=== PATIENT | male | born 1960 | race Caucasian/White ===

== ENCOUNTER → 2018-05-21 | Outpatient (CLI) | payer MEDICARE, MEDICAID ==
[~2018-05-21] MED LIST: DIAZ10TA3 PO; DIVA250T2 PO; LORA10TA7 PO; PRX10T PO; RSP2T PO; SENN1TAB76 PO
--- NOTE | 2018-05-21 12:37 | Diagnostic Imaging Report ---
PROCEDURE: CT head without contrast. TECHNIQUE: Multiple contiguous axial images were obtained through the brain without the use of intravenous contrast. INDICATION: Balance problems and dizziness. No prior studies are available for comparison. Ventricles and sulci are somewhat prominent for the patient's age suggestive of cerebral volume loss. No sulcal effacement is seen. There is no midline shift. No acute intra-axial or extra-axial hemorrhage is detected. Cisterns are patent. Visualized paranasal sinuses are clear. IMPRESSION: Cerebral atrophy. No acute intracranial process is detected. Dictated by: Dictated on workstation # [id number]
== END ==
LOC: RAD 11:30
PROVIDERS: ATTEND Family Medicine
DX: G31.89 Other specified degenerative diseases of nervous system (principal); W19.XXXA Unspecified fall, initial encounter; R26.81 Unsteadiness on feet
CPT/HCPCS: 70450

== ENCOUNTER → 2018-09-09 | Outpatient (CLI) | payer MEDICARE, MEDICAID ==
[2018-09-09 09:43] LABS: BASOPHILS % (AUTO) 0 % (0-10); EOSINOPHILS % (AUTO) 0 % (0-10); HEMATOCRIT 35 % (40-54); HEMOGLOBIN 11.6 G/DL (13.3-17.7); LYMPHOCYTES # (AUTO) 1.4 X 10^3 (1.0-4.0); LYMPHOCYTES % (AUTO) 12 % (12-44); MEAN CORPUSCULAR HEMOGLOBIN 28 PG (25-34); MEAN CORPUSCULAR HGB CONC 34 G/DL (32-36); MEAN CORPUSCULAR VOLUME 84 FL (80-99); MONOCYTES # (AUTO) 2.3 X 10^3 (0.0-1.0); MONOCYTES % (AUTO) 20 % (0-12); NEUTROPHILS # (AUTO) 8.1 X 10^3 (1.8-7.8); NEUTROPHILS % (AUTO) 68 % (42-75); PLATELET COUNT 493 10^3/uL (130-400); RED CELL DISTRIBUTION WIDTH 14.3 % (10.0-14.5); WHITE BLOOD COUNT 11.8 10^3/uL (4.3-11.0)
[2018-09-09 10:21] LABS: BAND NEUTROPHILS 0 %; BASOPHILS % (MANUAL) 0 %; EOSINOPHILS % (MANUAL) 0 %; LYMPHOCYTES % (MANUAL) 5 %; MONOCYTES % (MANUAL) 16 %; NEUTROPHILS % (MANUAL) 79 %; RBC MORPH NORMAL
--- NOTE | 2018-09-09 12:24 | Diagnostic Imaging Report ---
Indication: Shortness of breath PA and lateral chest There is a moderate sized right pleural effusion. Heart size and pulmonary vascularity are normal. There is a 3.5 cm opacity in the right midlung of uncertain origin. Impression: 3.5 cm density right midlung with large right pleural effusion. A mass can't be excluded further evaluation with CT chest recommended. Dictated by: Dictated on workstation # [id number]
== END ==
LOC: RAD 09:05
PROVIDERS: ATTEND Internal Medicine Critical Care Medicine
DX: J90 Pleural effusion, not elsewhere classified (principal); J98.4 Other disorders of lung; E66.9 Obesity, unspecified; G40.909 Epilepsy, unspecified, not intractable, without status epilepticus
CPT/HCPCS: 36415; 71046; 85007; 85027

== ENCOUNTER → 2018-09-23 | Outpatient (CLI) | payer MEDICARE, MEDICAID ==
--- NOTE | 2018-09-23 13:45 | Diagnostic Imaging Report ---
PROCEDURE: CT chest without contrast. TECHNIQUE: Multiple contiguous axial images were obtained through the chest without the use of intravenous contrast. Auto Exposure Controls were utilized during the CT exam to meet ALARA standards for radiation dose reduction. INDICATION: Right upper lobe mass. FINDINGS: There are no prior CT chest examinations available for comparison. The plain film examination of the chest performed on 09/09/2018 noted a poorly defined 3.5 cm density in the right mid lung. There is also atelectasis/infiltrate and fluid involving the right lung base. The mri manager film of this exam shows that there is much greater involvement of the right lung by pneumonia/atelectasis and fluid than noted on the previous exam. Furthermore, there now appears to be hydropneumothorax, with the pneumothorax component estimated to be small. Reportedly, the patient underwent thoracentesis a week ago, and this may be a sequela of that procedure. Much of the right lung is also collapsed about the right hilum. There is no clear evidence for an endobronchial lesion, but bronchoscopy would be recommended for further study. There is also a small amount of fluid in the left lung base as well as mild left lower lobe atelectasis/infiltrate. The left upper lung is relatively clear. The heart is enlarged. Coronary artery calcifications are noted. The aorta is not abnormally dilated. There is no mediastinal or hilar adenopathy, although this exam is limited in evaluation of adenopathy due to the absence of intravenous contrast. The thyroid gland is unremarkable. The sections through the upper abdomen fail to show any sign of an acute abnormality. The parasagittal images reveal that there is a 20-30% compression deformity of the left half of the superior endplate of T12. The age of this injury is indeterminate, but this could be subacute. If further imaging is desired, then MRI would be recommended. There is no acute bony abnormality noted otherwise. IMPRESSION: 1. The appearance of the chest has worsened since the prior exam as there has been an increase in the atelectasis/infiltrate and fluid involving the right lung. There is also hydropneumothorax present. There is no evidence for an obstructive neoplastic mass. Bronchoscopy would be recommended for further study. 2. There is mild left infrahilar pneumonia/atelectasis and a small left pleural effusion. There is no acute cardiopulmonary abnormality noted otherwise. 3. There is cardiomegaly and coronary artery disease. 4. The compression deformity of T12 is indeterminate in age. Recommendations as above. Dictated by: Dictated on workstation # [id number]
== END ==
LOC: RAD 10:45
PROVIDERS: ATTEND Nurse Practitioner Family
DX: J90 Pleural effusion, not elsewhere classified (principal); I25.10 Atherosclerotic heart disease of native coronary artery without angina pectoris; I51.7 Cardiomegaly; R91.8 Other nonspecific abnormal finding of lung field; M43.8X4 Other specified deforming dorsopathies, thoracic region; E66.9 Obesity, unspecified; G40.909 Epilepsy, unspecified, not intractable, without status epilepticus
CPT/HCPCS: 71250

== ENCOUNTER → 2018-09-23 | Outpatient (CLI) | payer MEDICARE, MEDICAID ==
[~2018-09-23] MED LIST changes: +DIVA250T12 PO; +LEVE500T6 PO; +LORA10CA PO; +NF-NACL1GT PO; +PARO30TA3 PO; +PRD10T PO; +RISP2TAB3 PO; +SENN-109 PO; +TR1C15 TP; +TRAZ-190 PO
== END ==
LOC: RT 09-16 09:21 → RAD 08:56
PROVIDERS: ATTEND Internal Medicine Critical Care Medicine
DX: G40.909 Epilepsy, unspecified, not intractable, without status epilepticus (principal); E66.9 Obesity, unspecified; R06.00 Dyspnea, unspecified; Z53.8 Procedure and treatment not carried out for other reasons

== ENCOUNTER → 2018-09-29 | Outpatient (CLI) | payer MEDICARE, MEDICAID ==
[~2018-09-29] MED LIST changes: -DIVA250T12 PO; -LEVE500T6 PO; -LORA10CA PO; -NF-NACL1GT PO; -PARO30TA3 PO; -PRD10T PO; -RISP2TAB3 PO; -SENN-109 PO; -TR1C15 TP; -TRAZ-190 PO
--- NOTE | 2018-09-29 15:33 | Diagnostic Imaging Report ---
INDICATION: Diminished breath sounds. EXAM: PA and lateral chest FINDINGS: There is a large right loculated hydropneumothorax. There is atelectasis in the right mid and lower lung. The left lung is clear. Heart size is normal. There is a dense area of consolidation in the right perihilar region. IMPRESSION: Increasing right hydropneumothorax since 09/09/2018. The consolidating mass in the right perihilar region is unchanged. There is increased volume loss in the right lower lung. Dictated by: Dictated on workstation # [id number]
== END ==
LOC: RAD 11:28
PROVIDERS: ATTEND Family Medicine
DX: J94.8 Other specified pleural conditions (principal); J90 Pleural effusion, not elsewhere classified; R91.8 Other nonspecific abnormal finding of lung field
CPT/HCPCS: 71046

== ENCOUNTER 2018-09-30 15:25 | Emergency (ER) | payer MEDICARE, MEDICAID ==
[~2018-09-30] VITALS: Ht 193 cm; Wt 103.4 kg
[2018-09-30 15:30] VITALS: BP 140/85
--- OUTSIDE RECORDS SUMMARY | 2018-09-30 15:31 | XMS REPORT ---
Discharge Summary 2.1 Created on: AAKASH DILL External Reference #: [id number] : 1960 Sex: Male Author Author GERALDINE GRANGER Unknown Address [address] [place], [place] [id number] Care Team Providers Care Helicopter Repairer Name Role Phone Xwatchlist HASMUKH Sotelo MD Attending RAMER MORENITA ER Erd[facility]1 JORDAN ASH DO [facility] Functional Status No Data Found Immunization Immunization Date Status Additional Notes Code Code System Td (adult), 2 Lf tetanus toxoid, preservative free, adsorbed 08/11/1998 Completed 09 CVX Td (adult), 2 Lf tetanus toxoid, preservative free, adsorbed 04/07/2005 Completed 09 CVX IG, unspecified formulation 04/09/2005 Completed 14 CVX influenza, split (incl. purified surface antigen) 2004 Completed 15 CVX influenza, split (incl. purified surface antigen) 2005 Completed 15 CVX Tdap 02/03/2016 Completed 115 CVX Tdap 10/16/2017 Completed 115 CVX Mental Status No Data Found Results VALPROIC ACID - Collect Date/Time: 06/02/2018 07:56 [facility] [employer] ID: [id number] [address] [facility] [address], [place], [place], [id number] [employer] ID: [id number] [address] [facility] [address], [place], [place], [id number] LOINC: 4086-5 Test Value Unit Reference Range Code Code System VALPROIC ACID 68 UG/ML L=50 H=100 4086-5 LOINC COMPREHENSIVE METABOLIC PANEL - Collect Date/Time: 06/02/2018 06:35 [facility] [employer] ID: [id number] [address] [facility] [address], [place], [place], [id number] [employer] ID: [id number] [address] [facility] [address], [place], [place], [id number] LOINC: 72919-7 Test Value Unit Reference Range Code Code System GLUCOSE 96 MG/DL L=70 H=100 2345-7 LOINC SODIUM 133 MEQ/L L= 135 H=148 2951-2 LOINC POTASSIUM 4.0 MEQ/L L= 3.5 H=5.3 2823-3 LOINC CHLORIDE 103 MEQ/L L= 96 H=110 2075-0 LOINC CO2 24 MEQ/L L=22 H=29 2028-9 LOINC BUN 11 MG/DL L=8 H=22 3094-0 LOINC CREATININE 0.8 MG/DL L =0.6 H=1.6 2160-0 LOINC SGOT/AST 10 IU/L L=10 H=40 1920-8 LOINC SGPT/ALT 8 IU/L L=8 H=54 1742-6 LOINC ALK PHOS 126 IU/L L= 35 H=115 6768-6 LOINC TOTAL PROTEIN 5.9 G/DL L=5.5 H=8.5 2885-2 LOINC ALBUMIN 3.3 G/DL L= 3.1 H=5.4 1751-7 LOINC TOTAL BILI 0.5 MG/DL L =0.0 H=1.5 1975-2 LOINC CALCIUM 8.6 MG/DL L= 8.2 H=10.6 72713-5 LOINC AGE 58 yrs GFR NonAA 99 GFR AA 120 eGFR 99 mL/min/1.7 eGFR AA* >60 CBC W/ AUTO DIFF (RFLX MAN DIFF IF IND) - Collect Date/Time: 06/02/2018 06:35 [facility] BIN OPERATOR [employer] ID: [id number] [address] [facility] [address], [place], [place], [id number] [employer] ID: [id number] [address], [place], [place], [phone] LOINC: 28422-5 Test Value Unit Reference Range Code Code System WBC 8.9 TH/CMM L=4.5 H=10.8 82829-2 LOINC RBC 3.64 ML/CMM L= 4.70 H=6.10 789-8 LOINC HGB 11.6 G/DL L=14.0 H=18.0 718-7 LOINC HCT 33.6 % L=42.0 H=52.0 4544-3 LOINC MCV 92 FL L=81 H =99 MCH 31.9 PG L=27.0 H=33.0 MCHC 34.5 G/DL L=31.0 H=36.0 RDW SD 46 FL L=36 H=50 RDW CV 13.5 % L=0.0 H=14.8 MPV 10.0 FL L=9.3 H=12.5 PLT 200 TH/CMM L=130 H=440 777-3 LOINC NRBC# 0.00 TH/CMM L= 0.00 H=0.00 NRBC% 0.0 /100WBC L= 0.0 H=2.0 %NEUT 55.9 % %LYMP 20.9 % %MONO 22.6 % %EOS 0.1 % %BASO 0.3 % #NEUT 4.98 TH/CMM L= 2.10 H=8.20 #LYMP 1.86 TH/CMM L= 0.90 H=5.20 #MONO 2.01 TH/CMM L= 0.16 H=1.00 #EOS 0.01 TH/CMM L= 0.00 H=0.80 #BASO 0.03 TH/CMM L= 0.00 H=0.20 MANUAL DIFF SEE BELOW SEGS 58 % BANDS LYMPHS 19 % MONOS 23 % EOS BASO METAS MYELO PROS BLASTS ATYP LYMPHS RBC MORPH AMMONIA - Collect Date/Time: 06/01/2018 17:13 [facility]IN [facility]PERATOR [facility]: [id number] [address], [place], [id number] [employer] ID: [id number] [address] [facility] [address], [place], [place], [id number] LOINC: Test Value Unit Reference Range Code Code System AMMONIA 30 umol/L L= 11 H=35 15876-6 LOINC ACETAMINOPHEN - Collect Date/Time: 06/01/2018 17:13 [facility] ID: [id number] [address] [facility] [address], [place], [place], [id number] [facility] ID: [id number] [address] [facility] [address], [place], [place], [id number] LOINC: Test Value Unit Reference Range Code Code System ACETAMINOPHEN < 0.60 UG/ML 3298-7 LOINC VALPROIC ACID - Collect Date/Time: 06/01/2018 14:28 [facility] ID: [id number] [address] [facility] [address], [place], [place], [id number] [facility] ID: [id number] [address] [facility] [address], [place], [place], [id number] LOINC: Test Value Unit Reference Range Code Code System VALPROIC ACID 123 UG/ML L=50 H=100 4086-5 LOINC TROPONIN-I ADV - Collect Date/Time: 06/01/2018 14:28 [facility] ID: [id number] [address] [facility] [address], [place], [place], [id number] [facility] ID: [id number] [address] [facility] [address], [place], [place], [id number] LOINC: Test Value Unit Reference Range Code Code System TROPONIN-I AD < 0.04 ng/mL L=0.04 H=0.40 55620-9 LOINC PT/PTT - Collect Date/Time: 06/01/2018 14:28 [facility] ID: [id number] [address] [facility] [address], [place], [place], [id number] [facility] ID: [id number] [address], [place], [place], [id number] LOINC: Test Value Unit Reference Range Code Code System PROTIME 13.0 SEC L= 9.4 H=12.5 5964-2 LOINC INR 1.1 71827-1 LOINC PTT 31.2 SEC L=25.1 H=36.5 3173-2 LOINC TSH - Collect Date/Time: 06/01/2018 14:28 [facility] ID: [id number] [address] [facility] [address], [place], [place], [id number] [facility] ID: [id number] [address] [facility] [address], [place], [place], [id number] LOINC: Test Value Unit Reference Range Code Code System TSH 3.08 mIU/L L=0.35 H=4.94 50754-1 LOINC COMPREHENSIVE METABOLIC PANEL - Collect Date/Time: 06/01/2018 14:28 [facility] ID: [id number] [address] [facility] [address], [place], [place], [id number] [facility] ID: [id number] [address], [place], [place], [id number] LOINC: Test Value Unit Reference Range Code Code System GLUCOSE 122 MG/DL L= 70 H=100 2345-7 LOINC SODIUM 132 MEQ/L L= 135 H=148 2951-2 LOINC POTASSIUM 3.7 MEQ/L L= 3.5 H=5.3 2823-3 LOINC CHLORIDE 98 MEQ/L L= 96 H=110 2075-0 LOINC CO2 26 MEQ/L L=22 H=29 2028-9 LOINC BUN 11 MG/DL L=8 H=22 3094-0 LOINC CREATININE 1.0 MG/DL L =0.6 H=1.6 2160-0 LOINC SGOT/AST 14 IU/L L=10 H=40 1920-8 LOINC SGPT/ALT 7 IU/L L=8 H=54 1742-6 LOINC ALK PHOS 153 IU/L L= 35 H=115 6768-6 LOINC TOTAL PROTEIN 7.0 G/DL L=5.5 H=8.5 2885-2 LOINC ALBUMIN 4.1 G/DL L= 3.1 H=5.4 1751-7 LOINC TOTAL BILI 0.7 MG/DL L =0.0 H=1.5 1975-2 LOINC CALCIUM 9.8 MG/DL L= 8.2 H=10.6 48825-3 LOINC AGE 58 yrs GFR NonAA 76 GFR AA 92 eGFR 76 mL/min/1.7 eGFR AA* >60 CBC W/ AUTO DIFF (RFLX MAN DIFF IF IND) - Collect Date/Time: 06/01/2018 14:28 [employer] ID: [id number] [address], [place], [place], [id number] [facility] BIN OPERATOR [employer] ID: [id number] [address] [facility] [address], [place], [place], [id number] LOINC: Test Value Unit Reference Range Code Code System WBC 12.1 TH/CMM L=4.5 H=10.8 79443-3 LOINC RBC 4.21 ML/CMM L= 4.70 H=6.10 789-8 LOINC HGB 13.5 G/DL L=14.0 H=18.0 718-7 LOINC HCT 38.8 % L=42.0 H=52.0 4544-3 LOINC MCV 92 FL L=81 H =99 MCH 32.1 PG L=27.0 H=33.0 MCHC 34.8 G/DL L=31.0 H=36.0 RDW SD 46 FL L=36 H=50 RDW CV 13.5 % L=0.0 H=14.8 MPV 9.4 FL L=9.3 H=12.5 PLT 229 TH/CMM L=130 H=440 777-3 LOINC NRBC# 0.00 TH/CMM L= 0.00 H=0.00 NRBC% 0.0 /100WBC L= 0.0 H=2.0 %NEUT 72.1 % %LYMP 10.2 % %MONO 17.1 % %EOS 0.1 % %BASO 0.2 % #NEUT 8.72 TH/CMM L= 2.10 H=8.20 #LYMP 1.24 TH/CMM L= 0.90 H=5.20 #MONO 2.07 TH/CMM L= 0.16 H=1.00 #EOS 0.01 TH/CMM L= 0.00 H=0.80 #BASO 0.02 TH/CMM L= 0.00 H=0.20 MANUAL DIFF SEE BELOW SEGS 77 % BANDS 1 % LYMPHS 10 % MONOS 12 % EOS BASO METAS MYELO PROS BLASTS ATYP LYMPHS RBC MORPH CT HEAD W/O CONTRAST - Completed: 06/01/2018 14:51 LOINC: EXAMINATION:CT HEAD W/O CONTRASTREASON FOR EXAM:Altered Mental Status COMPARISON:February 28, 2018TECHNIQUE:2.5 mm axial images of the head were performed.Automated exposure control was performed using [employer], which adjusts mA and/or kV according to patient size.FINDINGS:The ventricles, basal cisterns and sulci are diffusely prominent. No midline shift or mass effect is identified. No intraparenchymal or extraaxial fluid collection, mass or hemorrhage is seen. No large cortical infarct is seen. Low attenuation is seen in the periventricular white matter diffusely. Bone windows show the calvarium to be intact. No depressed skull fracture is seen. There is a large cephalohematoma overlying the left frontal bone near the orbit.IMPRESSION:1. Moderate diffuse cerebral atrophy with periventricular white matter small vessel ischemic change.2. No intracranial hemorrhage or large cortical infarct is seen. No depressed skull fracture is seen.Reviewed and Electronically Signed by: MD Carlos Moralez Date/Time: 06/01/2018 3:11 PMJob ID#: [id number] Social History Type Status Start Date End Date Code Code System Smoking History Never smoker (Never Smoked) 092967915 SNOMED-CT Vital Signs Vital Sign Value Unit [place] Value [place] Unit Date/Time Recent/Initial? Code Code System Body Mass Index 29.84 kg/m2 06/01/2018 18:32 Initial 03631-3 LOINC Systolic Blood Pressure 121 mm[Hg] 06/02/2018 11:30 Most Recent 8480-6 LOINC Diastolic Blood Pressure 83 mm[Hg] 06/02/2018 11:30 Most Recent 8462-4 LOINC Systolic Blood Pressure 135 mm[Hg] 06/01/2018 18:32 Initial 8480-6 LOINC Diastolic Blood Pressure 84 mm[Hg] 06/01/2018 18:32 Initial 8462-4 LOINC Body Surface Area 2.21 m2 06/01/2018 18:32 Initial 3140-1 LOINC Height 182.8800 cm 72.00 in 06/01/2018 18:32 Initial 8302-2 LOINC O2 Saturation 98 % 06/02/2018 11:30 Most Recent 85387-9 LOINC O2 Saturation 100 % 06/01/2018 18:32 Initial 66394-1 LOINC Pulse 71.0 /min 06/02/2018 11:30 Most Recent 8867-4 LOINC Pulse 77.0 /min 06/01/2018 18:32 Initial 8867-4 LOINC Respiration 22 /min 06/02/2018 11:30 Most Recent 9279-1 LOINC Respiration 16 /min 06/01/2018 18:32 Initial 9279-1 LOINC Temperature 36.7 Sharmin 98.1 F 06/02/2018 11:30 Most Recent 8310-5 LOINC Temperature 37.5 Sharmin 99.5 F 06/01/2018 18:32 Initial 8310-5 LOINC Weight 96.343 kg 212.40 lbs 06/01/2018 18:32 Initial 27335-5 LOINC Assessment You had the following problems: ALTERED MENTAL STATUS ACUTE HYPONATREMIA LEG WEAKNESS MEDICATION TOXICITY Hospital Discharge Instructions Should you have any questions prior to discharge, please contact a member of your healthcare team. If you have left the hospital and have any questions, please contact your primary care physician. PRIMARY CARE PROVIDER: Dr. Brooks. HOME MEDICATION INSTRUCTIONS: Take only the medications listed above.. Verbalizes understanding of instructions. HOME MEDS RETURNED TO PATIENT: N/A. HOME DIET: Regular, As tolerated. ACTIVITY INSTRUCTIONS(list limitations): Activity as Tolerated. SCRIPTS WRITTEN BY DOCTOR GIVEN TO PATIENT? No-none written by physician:. FOLLOW UP APPOINTMENT: Follow up with Dr. Rogers in [place] in 1 week, [facility] to schedule an appointment, to recheck Valproic acid level. CONTACT PHYSICIAN IF YOU EXPERIENCE ANY: for increased confusion. PERSONAL ITEMS RETURNED: Yes. PATIENT PORTAL/OTHER INSTRUCTIONS: Provided education info on Patient Vance. INSTRUCTIONS GIVEN AND DISCHARGE TO: [facility] INSTRUCTIONS GIVEN BY (TYPE IN NAME AND DATE) Wandy Diaz RN 06-02-18 Reason For Referral Hospital Course You were admitted to [facility] on 06/01/2018 17:35 with a principal diagnosis of Altered mental status, unspecified You were discharged from [facility] on 06/02/2018 13:00 Medications Medication Start Date End Date Route Frequency Dose Code Code System risperiDONE 2MG Oral Tablet 04/27/2015 Unknown ORAL AT BEDTIME 2 MILLIGRAMS 163509 RxNorm Senna-Time S 50MG-8.6MG Oral Tablet 04/27/2015 Unknown ORAL AT BEDTIME 1 unit(s) 031194 RxNorm Tylenol 325MG Oral Tablet 01/18/2017 Unknown ORAL NEEDED EVERY 4 HR 650 MILLIGRAMS 425478 RxNorm Paxil 30MG Oral Tablet 01/18/2017 Unknown ORAL DAILY 30 MILLIGRAMS 316570 RxNorm Loratadine 10MG Oral Tablet 01/18/2017 Unknown ORAL DAILY 10 MILLIGRAMS 679235 RxNorm lamoTRIgine 150MG Oral Tablet 06/02/2018 Unknown ORAL DAILY 300 MILLIGRAMS 320975 RxNorm Sodium Chloride Tablets 1 GM Oral Tablet 06/02/2018 Unknown ORAL DAILY 1 GM 534871 RxNorm traZODone hydrochloride 50MG Oral Tablet 06/02/2018 Unknown ORAL AT BEDTIME 100 MILLIGRAMS 171497 RxNorm Clotrimazole 1% Topical application Cream 06/02/2018 Unknown TOPICAL APPLICATION THREE TIMES A DAY 1 unit(s) 560323 RxNorm MiraLAX 17GM/1Dose Oral Powder for Solution 06/02/2018 Unknown ORAL DAILY 1 unit(s) 601141 RxNorm paliperidone 6MG Oral Tablet, Extended Release 06/02/2018 Unknown ORAL DAILY 12 MILLIGRAMS 944645 RxNorm Montelukast Sodium 10MG Oral Tablet 06/02/2018 Unknown ORAL 7pm 10 MILLIGRAMS 20010721 RxNorm Citalopram 20MG Oral Tablet 06/02/2018 Unknown ORAL DAILY 20 MILLIGRAMS 20021215 RxNorm Divalproex Sodium 250MG Oral Tablet, Delayed Release 2017 Unknown BY MOUTH TWO TIMES A DAY 1 TABLET 1254659 RxNorm Procedures No Data Found Implants No Data Found Problems Problem Start Date Resolved Date Status Code Code System ALTERED MENTAL STATUS 06/01/2018 active 695647819 SNOMED-CT ACUTE HYPONATREMIA active 7822949 SNOMED-CT LEG WEAKNESS active 039494967 SNOMED-CT MEDICATION TOXICITY active 9448687 SNOMED-CT ENCOUNTER FOR OBSERVATION FOR SUSPECTED TOXIC EFFECT FROM INGESTED SUBSTANCE RUL 01/18/2017 resolved 898585713 SNOMED-CT Allergies Allergy Substance Reaction Severity Start Date Concern Status Code Code System ISOVUE-300 Mild Active 074618 RxNorm CONTRAST MEDIA, IODINE RELATED Active RxNorm Plan of Treatment No Data Found Encounters No Data Found Goals No Data Found Discharge Medications No Data Found Discharge Diagnosis Discharge Diagnosis Diagnosis Code Start Date Altered mental status, unspecified R4182 06/01/2018 Health Concerns Section No Data Found
--- OUTSIDE RECORDS SUMMARY | 2018-09-30 15:32 | XMS REPORT ---
Patient Summary 2.1 Created on: AAKASH DILL External Reference #: [id number] : 1960 Sex: Male Author Author RENUKACORINA Organization Unknown Address [address] [place], [place] [phone] Care Team Providers Care Behavior Support Specialist Name Role Phone [employer] HASMUKH Sotelo MD Attending NING MORENITA DO ER Erdoc1 JORDAN NILSA DO [facility] HASMUKH Sotelo MD Unavailable Functional Status No Data Found Immunization Immunization [...] VALPROIC ACID - Collect Date/Time: 06/02/2018 07:56 Zane Prep ID: [id number] [address], [place], [place], [id number] [facility] Lighting by LED ID: [id number] [address], [place], [place], [address] LOINC: 4086-5 Test Value Unit Reference Range Code Code System VALPROIC ACID 68 UG/ML L=50 H=100 4086-5 LOINC COMPREHENSIVE METABOLIC PANEL - Collect Date/Time: 06/02/2018 06:35 [facility] [employer] ID: [id number] [address], [place], [place], [address] [employer]ane Prep ID: [id number] [address], [place], [place], [address] LOINC: 25320-7 Test Value Unit Reference Range Code Code [...] LOINC CALCIUM 8.6 MG/DL L= 8.2 H=10.6 16674-5 LOINC AGE 58 yrs GFR NonAA 99 GFR AA 120 eGFR 99 mL/min/1.7 eGFR AA* >60 CBC W/ AUTO DIFF (RFLX MAN DIFF IF IND) - Collect Date/Time: 06/02/2018 06:35 Zane Prep ID: [id number] [address], [place], [place], [address] [facility] GLASS CALIBRATOR [employer] ID: [id number] [address], [place], [address] LOINC: 52623-0 Test Value Unit Reference Range Code Code System WBC 8.9 TH/CMM L=4.5 H=10.8 79354-4 LOINC RBC 3.64 ML/CMM L= 4.70 H=6.10 [...] MORPH AMMONIA - Collect Date/Time: 06/01/2018 17:13 [facility] GLASS CALIBRATOR [facility] ID: [id number] [address], [place], [id number] [place] [employer] ID: [id number] [address], [place], [place], [address] LOINC: Test Value Unit Reference Range Code Code System AMMONIA 30 umol/L L= 11 H=35 97610-4 LOINC ACETAMINOPHEN - Collect Date/Time: 06/01/2018 17:13 [facility] ID: [id number] [address], [place], [place], [address] [facility] ID: [id number] [address] [facility] [address], [place], [place], [address] LOINC: Test Value Unit Reference Range Code Code System ACETAMINOPHEN < 0.60 UG/ML 3298-7 LOINC CBC W/ AUTO DIFF (RFLX MAN DIFF IF IND) - Collect Date/Time: 06/01/2018 14:28 [facility] ID: [id number] [address], [place], [place], [address] [facility] ID: [id number] [address], [place], [place], [address] LOINC: Test Value Unit Reference Range Code Code System WBC 12.1 TH/CMM L=4.5 H=10.8 97908-8 LOINC RBC 4.21 ML/CMM L= 4.70 H=6.10 [...] MYELO PROS BLASTS ATYP LYMPHS RBC MORPH PT/PTT - Collect Date/Time: 06/01/2018 14:28 [facility] [employer] ID: [id number] [address], [place], [place], [id number] [employer] ID: [id number] [address], [place], [place], [address] LOINC: Test Value Unit Reference Range Code Code System PROTIME 13.0 SEC L= 9.4 H=12.5 5964-2 LOINC INR 1.1 38147-2 LOINC PTT 31.2 SEC L=25.1 H=36.5 3173-2 LOINC VALPROIC ACID - Collect Date/Time: 06/01/2018 14:28 [facility] [employer] ID: [id number] [address], [place], [place], [address] [employer] ID: [id number] [address], [place], [place], [address] LOINC: Test Value Unit Reference Range Code Code System VALPROIC ACID 123 UG/ML L=50 H=100 4086-5 LOINC TSH - Collect Date/Time: 06/01/2018 14:28 [facility] ID: [id number] [address] [facility] [address] [place], [place], [phone] [facility] ID: [id number] [address] [facility] [address], [place], [place], [address] LOINC: Test Value Unit Reference Range Code Code System TSH 3.08 mIU/L L=0.35 H=4.94 69812-9 LOINC TROPONIN-I ADV - Collect Date/Time: 06/01/2018 14:28 [facility] ID: [id number] [address] [facility] [address], [place], [place], [address] [facility] ID: [id number] [address] [facility] [address] [place], [place], [address] LOINC: Test Value Unit Reference Range Code Code System TROPONIN-I AD < 0.04 ng/mL L=0.04 H=0.40 65732-6 LOINC COMPREHENSIVE METABOLIC PANEL - Collect Date/Time: 06/01/2018 14:28 [facility] ID: [id number] [address] [facility] [address], [place], [address] [facility] ID: [id number] [address] [facility] [address] [place], [place], [address] LOINC: Test Value Unit Reference Range Code [...] LOINC CALCIUM 9.8 MG/DL L= 8.2 H=10.6 47919-4 LOINC AGE 58 yrs GFR NonAA 76 GFR AA 92 eGFR 76 mL/min/1.7 eGFR AA* >60 CT HEAD W/O CONTRAST - Completed: 06/01/2018 14:51 LOINC: EXAMINATION:CT HEAD W/O CONTRASTREASON FOR EXAM:Altered Mental Status COMPARISON:February 28, 2018TECHNIQUE:2.5 mm axial images of the head were performed.Automated exposure control was performed using [employer] Dose Management, which adjusts mA and/or kV [...] fracture is seen.Reviewed and Electronically Signed by: Fernando Evans MD DABRSigned Date/Time: 06/01/2018 3:11 PMJob ID#: [id number] Social History Type Status Start Date End Date Code Code System Smoking History Never smoker (Never Smoked) 391273535 SNOMED-CT Vital Signs Vital Sign Value Unit Jessup Value Jessup Unit Date/Time Recent/Initial? Code Code System Body Mass Index 29.84 kg/m2 06/01/2018 18:32 Initial 79246-5 LOINC Systolic Blood Pressure 111 mm[Hg] 06/02/2018 07:50 Most Recent 8480-6 LOINC Diastolic Blood Pressure 76 mm[Hg] 06/02/2018 07:50 Most Recent 8462-4 LOINC Systolic Blood Pressure 135 mm[Hg] 06/01/2018 18:32 Initial 8480-6 LOINC Diastolic Blood Pressure 84 mm[Hg] 06/01/2018 18:32 Initial 8462-4 LOINC Body Surface Area 2.21 m2 06/01/2018 18:32 Initial 3140-1 LOINC Height 182.8800 cm 72.00 in 06/01/2018 18:32 Initial 8302-2 LOINC O2 Saturation 97 % 06/02/2018 07:50 Most Recent 85479-3 LOINC O2 Saturation 100 % 06/01/2018 18:32 Initial 54078-2 LOINC Pulse 78.0 /min 06/02/2018 07:50 Most Recent 8867-4 LOINC Pulse 77.0 /min 06/01/2018 18:32 Initial 8867-4 LOINC Respiration 18 /min 06/02/2018 07:50 Most Recent 9279-1 LOINC Respiration 16 /min 06/01/2018 18:32 Initial 9279-1 LOINC Temperature 36.7 Sharmin 98.1 F 06/02/2018 07:50 Most Recent 8310-5 LOINC Temperature 37.5 Sharmin 99.5 F 06/01/2018 18:32 Initial 8310-5 LOINC Weight 96.343 kg 212.40 lbs 06/01/2018 18:32 Initial 11691-5 LOINC Medications Medication Start Date End Date Route Frequency Dose Code Code System risperiDONE 2MG Oral Tablet 04/27/2015 Unknown ORAL AT BEDTIME 2 MILLIGRAMS 157214 RxNorm Senna-Time S 50MG-8.6MG Oral Tablet 04/27/2015 Unknown ORAL AT BEDTIME 1 unit(s) 946474 RxNorm Tylenol 325MG Oral Tablet 01/18/2017 Unknown ORAL NEEDED EVERY 4 HR 650 MILLIGRAMS 799753 RxNorm Paxil 30MG Oral Tablet 01/18/2017 Unknown ORAL DAILY 30 MILLIGRAMS 565975 RxNorm Loratadine 10MG Oral Tablet 01/18/2017 Unknown ORAL DAILY 10 MILLIGRAMS 389427 RxNorm lamoTRIgine 150MG Oral Tablet 06/02/2018 Unknown ORAL DAILY 300 MILLIGRAMS 973675 RxNorm Sodium Chloride Tablets 1 GM Oral Tablet 06/02/2018 Unknown ORAL DAILY 1 GM 326993 RxNorm traZODone hydrochloride 50MG Oral Tablet 06/02/2018 Unknown ORAL AT BEDTIME 100 MILLIGRAMS 463639 RxNorm Clotrimazole 1% Topical application Cream 06/02/2018 Unknown TOPICAL APPLICATION THREE TIMES A DAY 1 unit(s) 468882 RxNorm MiraLAX 17GM/1Dose Oral Powder for Solution 06/02/2018 Unknown ORAL DAILY 1 unit(s) 912001 RxNorm paliperidone 6MG Oral Tablet, Extended Release 06/02/2018 Unknown ORAL DAILY 12 MILLIGRAMS 022833 RxNorm Montelukast Sodium 10MG Oral Tablet 06/02/2018 Unknown ORAL 7pm 10 MILLIGRAMS 20010721 RxNorm Citalopram 20MG Oral Tablet 06/02/2018 Unknown ORAL DAILY 20 MILLIGRAMS 20021215 RxNorm Divalproex Sodium 250MG Oral Tablet, Delayed Release 2017 Unknown BY MOUTH TWO TIMES A DAY 1 TABLET 8621862 RxNorm Assessment You had the following problems: ALTERED [...] APPOINTMENT: Follow up with Dr. Rogers in [place] in 1 week, [facility] to schedule an appointment, to recheck Valproic acid level. CONTACT PHYSICIAN IF YOU EXPERIENCE ANY: for increased confusion. PERSONAL ITEMS RETURNED: Yes. PATIENT PORTAL/OTHER INSTRUCTIONS: Provided education info on Patient Vance. INSTRUCTIONS GIVEN AND DISCHARGE TO: Retina Subspecialist, [facility] INSTRUCTIONS GIVEN BY (TYPE IN NAME AND DATE) Wandy Diaz RN 06-02-18 Reason For Referral Procedures No Data Found Implants No Data Found Problems Problem Start Date Resolved Date Status Code Code System ALTERED MENTAL STATUS 06/01/2018 active 273491491 SNOMED-CT ACUTE HYPONATREMIA active 6939286 SNOMED-CT LEG WEAKNESS active 165408786 SNOMED-CT MEDICATION TOXICITY active 6187813 SNOMED-CT ENCOUNTER FOR OBSERVATION FOR SUSPECTED TOXIC EFFECT FROM INGESTED SUBSTANCE RUL 01/18/2017 resolved 223935593 SNOMED-CT Allergies Allergy Substance Reaction Severity Start Date Concern Status Code Code System ISOVUE-300 Mild Active 238539 RxNorm CONTRAST MEDIA, IODINE RELATED Active RxNorm Plan of Treatment No Data Found Encounters No Data Found Goals No Data Found Health Concerns Section No Data Found
--- OUTSIDE RECORDS SUMMARY | 2018-09-30 15:32 | XMS REPORT | CCD ---
Author Author GERALDINE GRANGER Unknown Address [address] [place] [address] Care Team Providers Care Photographer Lithographic Name Role Phone VIRAJ SANCHEZ, PAYAM LE Attphys D., EMIR Galdamez NASST J., IZZY NASST G., ADE NASST W., JIM NASST Allergies Allergy Code Allergy Type Reaction Status CONTRAST MEDIA, IODINE RELATED 0 Drug allergy Active ISOVUE-300 901624 Drug allergy OTHER Active Active Medications Medication Code Dose Units Frequency Route Modification Start Date/Time Loratadine 10MG Oral Tablet 798499 10 MILLIGRAMS DAILY ORAL 01/18/2017 12:54 Prescription Detail 10 MILLIGRAMS ORAL DAILY Paxil 30MG Oral Tablet 340149 30 MILLIGRAMS DAILY ORAL 01/18/2017 12:54 Prescription Detail 30 MILLIGRAMS ORAL DAILY Tylenol 325MG Oral Tablet 966570 650 MILLIGRAMS NEEDED EVERY 4 HR ORAL 01/18/2017 12:54 Prescription Detail 650 MILLIGRAMS ORAL NEEDED EVERY 4 HR risperiDONE 2MG Oral Tablet 735336 2 MILLIGRAMS AT BEDTIME ORAL 04/27/2015 14:27 Prescription Detail 2 MILLIGRAMS ORAL AT BEDTIME Senna-Time S 50MG-8.6MG Oral Tablet 204502 1 EACH AT BEDTIME ORAL 04/27/2015 14:27 Prescription Detail 1 EACH ORAL AT BEDTIME Problems Problem Code Start Date Resolved Date Status Acute hyponatremia 1516851 01/17/2017 Active Leg weakness 519277808 01/17/2017 Active Encounter for observation for suspected toxic effect from ingested substance ruled out 202440048 04/27/2015 01/18/2017 Resolved Procedures Procedure Code Procedure Type Date MRI BRAIN INC STEM W/O CONTRAST 70665376 SNOMED CT 2016 CT HEAD W/O CONTRAST 581960714 [facility] 01/17/[address] [facility] 01/17/[address] [facility] 01/17/[address] [facility] 01/18/2017 COMPREHENSIVE METABOLIC PANEL 608896876 [facility] [address] [facility] 01/17/[address] [facility] 01/17/2017 TROPONIN-I ADV 536889744 [facility] 01/17/2017 COMPREHENSIVE METABOLIC PANEL 887761032 [facility] 2016 CBC W/ AUTO DIFF (RFLX MAN DIFF IF IND) 6329562 [facility] 01/17/[address] [facility] 01/17/2017 ^CBC W/AUTO DIFF 4311096 [facility] 01/17/2017 Results BEDSIDE GLUCOSE - Collect Date/Time: 01/17/2017 14:15 Test Name Code Test Result Test Units Test Ref Range GLUCOSE POCT 83 MG/DL L=70 H=100 COMPREHENSIVE METABOLIC PANEL - Collect Date/Time: 01/18/2017 06:28 Test Name Code Test Result Test Units Test Ref Range GLUCOSE 2345-7 92 MG/DL L=70 H=100 SODIUM 2951-2 127 MEQ/L L=135 H=148 POTASSIUM 2823-3 3.9 MEQ/L L=3.5 H=5.3 CHLORIDE 2075-0 93 MEQ/L L=96 H=110 CO2 2028-9 26 MEQ/L L=22 H=29 BUN 3094-0 9 MG/DL L=8 H=22 CREATININE 2160-0 0.8 MG/DL L=0.6 H=1.6 SGOT/AST 1920-8 24 IU/L L=10 H=40 SGPT/ALT 1742-6 16 IU/L L=8 H=54 ALK PHOS 6768-6 168 IU/L L=35 H=115 TOTAL PROTEIN 2885-2 6.7 G/DL L=5.5 H=8.5 ALBUMIN 1751-7 3.9 G/DL L=3.1 H=5.4 TOTAL BILI 1975-2 0.6 MG/DL L=0.0 H=1.5 CALCIUM 40795-3 9.1 MG/DL L=8.2 H=10.6 AGE [birth year]-1 56 yrs GFR NonAA 11949-8 99 GFR [place] 55025-0 120 eGFR 06201-8 >60 N/A eGFR AA* 52290-8 >60 N/A COMPREHENSIVE METABOLIC PANEL - Collect Date/Time: 01/17/2017 14:50 Test Name Code Test Result Test Units Test Ref Range GLUCOSE 2345-7 104 MG/DL L=70 H=100 SODIUM 2951-2 119 MEQ/L L=135 H=148 POTASSIUM 2823-3 3.8 MEQ/L L=3.5 H=5.3 CHLORIDE 2075-0 85 MEQ/L L=96 H=110 CO2 2028-9 26 MEQ/L L=22 H=29 BUN 3094-0 5 MG/DL L=8 H=22 CREATININE 2160-0 0.8 MG/DL L=0.6 H=1.6 SGOT/AST 1920-8 25 IU/L L=10 H=40 SGPT/ALT 1742-6 18 IU/L L=8 H=54 ALK PHOS 6768-6 158 IU/L L=35 H=115 TOTAL PROTEIN 2885-2 6.8 G/DL L=5.5 H=8.5 ALBUMIN 1751-7 4.1 G/DL L=3.1 H=5.4 TOTAL BILI 1975-2 0.9 MG/DL L=0.0 H=1.5 CALCIUM 02905-9 9.1 MG/DL L=8.2 H=10.6 AGE 56 yrs GFR NonAA 99 GFR AA 120 eGFR >60 N/A eGFR AA* >60 N/A VALPROIC ACID - Collect Date/Time: 01/17/2017 14:50 Test Name Code Test Result Test Units Test Ref Range VALPROIC ACID 4086-5 87 UG/ML L=50 H=100 CBC W/ AUTO DIFF (RFLX MAN DIFF IF IND) - Collect Date/Time: 01/17/2017 14:50 Test Name Code Test Result Test Units Test Ref Range WBC 69806-4 7.9 TH/CMM L=4.5 H=10.8 RBC 789-8 4.04 ML/CMM L=4.70 H=6.10 HGB 718-7 12.8 G/DL L=14.0 H=18.0 HCT 4544-3 35.0 % L=42.0 H=52.0 MCV 87 FL L=81 H=99 MCH 31.7 PG L=27.0 H=33.0 MCHC 36.6 G/DL L=31.0 H=36.0 RDW SD 41 FL L=36 H=50 RDW CV 12.8 % L=0.0 H=14.8 MPV 9.7 FL L=9.3 H=12.5 PLT 777-3 199 TH/CMM L=130 H=440 NRBC# 0.00 TH/CMM L=0.00 H=0.00 NRBC% 0.0 /100WBC L=0.0 H=2.0 %NEUT 67.6 % %LYMP 17.0 % %MONO 14.3 % %EOS 0.3 % %BASO 0.3 % #NEUT 5.34 TH/CMM L=2.10 H=8.20 #LYMP 1.34 TH/CMM L=0.90 H=5.20 #MONO 1.13 TH/CMM L=0.16 H=1.00 #EOS 0.02 TH/CMM L=0.00 H=0.80 #BASO 0.02 TH/CMM L=0.00 H=0.20 MANUAL DIFF NOT IND N/A PT/PTT - Collect Date/Time: 01/17/2017 14:50 Test Name Code Test Result Test Units Test Ref Range PROTIME 5964-2 11.1 SEC L=9.9 H=11.9 INR 05358-6 1.0 PTT 3173-2 30.1 SEC L=22.2 H=37.2 CORTISOL AM - Collect Date/Time: 01/18/2017 06:28 Test Name Code Test Result Test Units Test Ref Range Cortisol - AM 9813-7 15.2 ug/dL 6.2-19.4 OSMOLALITY BLOOD - Collect Date/Time: 01/17/2017 14:50 Test Name Code Test Result Test Units Test Ref Range Osmolality 2692-2 245 mOsmol/kg 275-295 OSMOLALITY URINE - Collect Date/Time: 01/18/2017 00:20 Test Name Code Test Result Test Units Test Ref Range Osmolality, Urine 2695-5 105 mOsmol/kg TROPONIN-I ADV - Collect Date/Time: 01/17/2017 14:50 Test Name Code Test Result Test Units [place] [address]-6 <0.04 ng/mL L=0.04 H= 0.40 TSH - Collect Date/Time: 01/17/2017 14:50 Test Name Code Test Result Test Units Test Ref Range TSH 15027-2 7.13 mIU/L L=0.35 H=4.94 Function Status Unknown or Not Available. History of Immunizations Immunization Code Date Td (adult), 2 Lf tetanus toxoid, preservative free, adsorbed 09 08/11/1998 Td (adult), 2 Lf tetanus toxoid, preservative free, adsorbed 09 04/07/2005 IG, unspecified formulation 14 04/09/2005 influenza, split (incl. purified surface antigen) 15 04/09/2005 influenza, split (incl. purified surface antigen) 15 04/30/2006 Tdap 115 02/03/2016 Plan of Treatment Unknown or Not Available. Social History Smoking Status Code Start Date End Date Never smoker 797940888 Vital Signs Vital Sign Value Unit Date/Time Recent/Initial? BMI (Body Mass Index) 28.36 kg/m2 01/17/2017 17:47 Initial VS Weight Measured 214.98 [lb_av] 01/17/2017 17:47 Initial VS Height 73 [in_i] 01/17/2017 17:47 Initial VS BSA (Body Surface Area) 2.24 m2 01/17/2017 17:47 Initial VS BMI (Body Mass Index) 28.37 kg/m2 01/17/2017 17:55 Most Recent VS Weight Measured 215.01 [lb_av] 01/17/2017 17:55 Most Recent VS Height 73 [in_i] 01/17/2017 17:55 Most Recent VS BSA (Body Surface Area) 2.24 m2 01/17/2017 17:55 Most Recent VS BP Systolic 131 mm[Hg] 01/17/2017 17:55 Initial VS BP Diastolic 83 mm[Hg] 01/17/2017 17:55 Initial VS Respiratory Rate 18 /min 01/17/2017 17:55 Initial VS Heart Rate 75 /min 01/17/2017 17:55 Initial VS O2 % BldC Oximetry 96 % 01/17/2017 17:55 Initial VS Body Temperature 98.7 [degF] 01/17/2017 17:55 Initial VS BP Systolic 144 mm[Hg] 01/18/2017 11:31 Most Recent VS BP Diastolic 79 mm[Hg] 01/18/2017 11:31 Most Recent VS Respiratory Rate 18 /min 01/18/2017 11:31 Most Recent VS Heart Rate 59 /min 01/18/2017 11:31 Most Recent VS O2 % BldC Oximetry 100 % 01/18/2017 11:31 Most Recent VS Body Temperature 97 [degF] 01/18/2017 11:31 Most Recent VS Function Status Unknown or Not Available. Goals Unknown or Not Available. ASSESSMENTS Unknown or Not Available. Health Concerns Section Unknown or Not Available.
--- OUTSIDE RECORDS SUMMARY | 2018-09-30 15:32 | XMS REPORT | CCD ---
Author Author CHINO DAMON Organization Unknown Address [address] [facility] [place], [place] [phone] Care Team Providers Care Director Intelligence Analysis Programs Name Role Phone DAYSYLR DO Attphys DAYDORINAJAZMIN DO [facility] Vital Signs Unknown or Not Available. Allergies Unknown or Not Available. Procedures Procedure Code Procedure Type Date UA ROUTINE ONLY 734681030 SNOMED CT 12/04/2014 ^UA AUTO DIPSTICK ONLY 928321441 SNOMED CT 12/04/2014 History of Immunizations Unknown or Not Available. Problems Unknown or Not Available. Results UA ROUTINE ONLY - Collect Date/Time: 12/04/2014 18:42 Test Name Code Test Result Test Units Test Ref Range COLOR YELLOW N/A NL: YELLOW APPEARANCE CLEAR N/A NL: CLEAR SPEC GRAV <=1.005 N/A NL: 1.002 - 1.022 pH 6.5 N/A NL: 5 - 9 PROTEIN NEGATIVE N/A NL: NEGATIVE mg/dl GLUCOSE NEGATIVE N/A NL: NEGATIVE mg/dl KETONE NEGATIVE N/A NL: NEGATIVE mg/dl BILIRUBIN NEGATIVE N/A NL: NEGATIVE BLOOD NEGATIVE N/A NL: NEGATIVE NITRITE NEGATIVE N/A NL: NEGATIVE LEUK SCREEN NEGATIVE N/A NL: NEGATIVE MICRO IND? NOT IND N/A Active Medications Unknown or Not Available. Medications Administered During Visit Unknown or Not Available. Encounters Encounter Diagnosis Diagnosis Code Start Date BACK CONTUSION 17295 12/04/2014 Social History Smoking Status Code Start Date End Date Never smoker 354064551 Patient Decision Aids Unknown or Not Available. Discharge Instructions You were admitted to [facility] on 12/04/2014 with a principal diagnosis of BACK CONTUSION. You were discharged from [facility] on 12/04/2014. Should you have any questions prior to discharge, please contact a member of your healthcare team. If you have left the hospital and have any questions, please contact your primary care physician. Chief Complaint and Reason For Visit Chief Complaint Date of Onset BACK PAIN Function Status Unknown or Not Available. Plan of Care Unknown or Not Available. Referral/Transition of Care Unknown or Not Available.
--- OUTSIDE RECORDS SUMMARY | 2018-09-30 15:32 | XMS REPORT | CCD ---
Author Author GERALDINE GRANGER Unknown Address [address] [facility] [address] [place] [address] Care Team Providers Care Machine Hose Cutter Name Role Phone ALEC PHYS, ANNALEE ER Attphys ALEC PHYS, ANNALEE ER Pr[facility]urg Allergies Allergy Code Allergy Type Reaction Status CONTRAST MEDIA, IODINE RELATED 0 Drug allergy Active ISOVUE-300 733749 Drug allergy OTHER Active Active Medications Medication Code Dose Units Frequency Route Modification Start Date/Time Loratadine 10MG Oral Tablet 891589 10 MILLIGRAMS DAILY ORAL 01/18/2017 12:54 Prescription Detail 10 MILLIGRAMS ORAL DAILY Paxil 30MG Oral Tablet 584521 30 MILLIGRAMS DAILY ORAL 01/18/2017 12:54 Prescription Detail 30 MILLIGRAMS ORAL DAILY Tylenol 325MG Oral Tablet 163919 650 MILLIGRAMS NEEDED EVERY 4 HR ORAL 01/18/2017 12:54 Prescription Detail 650 MILLIGRAMS ORAL NEEDED EVERY 4 HR risperiDONE 2MG Oral Tablet 789938 2 MILLIGRAMS AT BEDTIME ORAL 04/27/2015 14:27 Prescription Detail 2 MILLIGRAMS ORAL AT BEDTIME Senna-Time S 50MG-8.6MG Oral Tablet 376978 1 EACH AT BEDTIME ORAL 04/27/2015 14:27 Prescription Detail 1 EACH ORAL AT BEDTIME Problems Problem Code Start Date Resolved Date Status Acute hyponatremia 5099886 01/17/2017 Active Leg weakness 603924726 01/17/2017 Active Encounter for observation for suspected toxic effect from ingested substance ruled out 169769678 04/27/2015 01/18/2017 Resolved Procedures Procedure Code Procedure Type Date THORACIC SPINE 3 VIEWS (W/SWIMMERS) 37001653 SNOMED CT CERVICAL SPINE; 2 VIEWS OR [address] Results Unknown or Not Available. Encounters Encounter Diagnosis Diagnosis Code Start Date Strain of muscle and tendon of back wall of thorax, initial encounter U95381F 09/12/2016 Function Status Unknown or Not Available. History of Immunizations Immunization Code Date Td (adult), adsorbed 08/11/1998 Td (adult), adsorbed 04/07/2005 IG, unspecified formulation 14 04/09/2005 influenza, split (incl. purified surface antigen) 15 04/09/2005 influenza, split (incl. purified surface antigen) 15 04/30/2006 Tdap 115 02/03/2016 Plan of Treatment Unknown or Not Available. Social History Smoking Status Code Start Date End Date Never smoker 869062076 Vital Signs Unknown or Not Available. Function Status Unknown or Not Available. Goals Unknown or Not Available. ASSESSMENTS Unknown or Not Available. Health Concerns Section Unknown or Not Available.
--- OUTSIDE RECORDS SUMMARY | 2018-09-30 15:32 | XMS REPORT | CCD ---
Author Author SALOMON GONZALEZ Organization Unknown Address [address] [facility] [address] [place], [place] [address] Care Team Providers Care Regulatory Lead Name Role Phone HANDSHY ER, ALONDRA SANCHEZ Attphys HANDSHY ER, ALONDRA SANCHEZ Prisurg Vital Signs Unknown or Not Available. Allergies Allergy Code Allergy Type Reaction Status CONTRAST MEDIA, IODINE RELATED 0 Drug allergy Active ISOVUE-300 142016 Drug allergy OTHER Active Procedures Procedure Code Procedure Type Date HIP COMP MIN [id number] 05/11/2015 History of Immunizations Unknown or Not Available. Problems Problem Code Start Date Resolved Date Status Encounter for observation for suspected toxic effect from ingested substance ruled out [id number] 04/27/2015 Active Results Unknown or Not Available. Active Medications Medication Code Dose Units Frequency Route Modification Start Date/Time DIVALPROEX Tb24 3 TABS 0 250 MILLIGRAMS TWO TIMES A DAY ORAL 04/27/2015 14:27 Prescription Detail 250 MILLIGRAMS ORAL TWO TIMES A DAY Doxycycline 100MG Oral Capsule 6622832 100 MILLIGRAMS DAILY ORAL 04/27/2015 14:27 Prescription Detail 100 MILLIGRAMS ORAL DAILY Paxil 40MG Oral Tablet 044963 40 MILLIGRAMS DAILY ORAL 04/27/2015 14:27 Prescription Detail 40 MILLIGRAMS ORAL DAILY PRAZOSIN 0 1 MILLIGRAMS AT BEDTIME ORAL 04/27/2015 14:27 Prescription Detail 1 MILLIGRAMS ORAL AT BEDTIME risperiDONE 2MG Oral Tablet 901733 2 MILLIGRAMS AT BEDTIME ORAL 04/27/2015 14:27 Prescription Detail 2 MILLIGRAMS ORAL AT BEDTIME Senna-Time S 50MG-8.6MG Oral Tablet 150094 1 EACH AT BEDTIME ORAL 04/27/2015 14:27 Prescription Detail 1 EACH ORAL AT BEDTIME Medications Administered During Visit Unknown or Not Available. Encounters Unknown or Not Available. Social History Smoking Status Code Start Date End Date Never smoker [id number] Patient Decision Aids Unknown or Not Available. Discharge Instructions You were admitted to [facility] on 05/11/2015. You were discharged from [facility] on 05/11/2015. Should you have any questions prior to discharge, please contact a member of your healthcare team. If you have left the hospital and have any questions, please contact your primary care physician. Chief Complaint and Reason For Visit Chief Complaint Date of Onset HEAD INJURY WITHOUT LOC Function Status Unknown or Not Available. Plan of Care Unknown or Not Available. Referral/Transition of Care Unknown or Not Available.
--- OUTSIDE RECORDS SUMMARY | 2018-09-30 15:32 | XMS REPORT ---
Author Author Melody Mae [facility] Address [address] [place], [place] [address] Care Team Providers Care Corn Husker Name Role Phone Melody Mae PCP Allergies and Adverse Reactions Name Reaction Notes IODINATED CONTRAST MEDIA - ORAL AND IV DYE Allergy to IVP dye Plan of Treatment Not available. Medications Active Name Start Date Estimated Completion Date SIG Comments divalproex 250 mg oral tablet extended release 24 hr 3 tabs po bid senna 8.6 mg oral tablet 1 tab po at HS paroxetine HCl 30 mg oral tablet take 1 tablet (30 mg) by oral route once daily risperidone 2 mg oral tablet take 1 tablet (2 mg) by oral route once daily trazodone 100 mg oral tablet take 1 tablet (100 mg) by oral route once daily at bedtime Problem List Not available. Vital Signs Date Time BP-Sys(mm[Hg] BP-Vidya(mm[Hg]) HR(bpm) RR(rpm) Temp WT HT HC BMI BSA BMI Percentile O2 Sat(%) 08/25/2018 11:04:00 AM 119 mmHg 63 mmHg 75 bpm 18 rpm 98.4 F 206 lbs 72 in 27.9383 kg/m 2.1787 m 98 % 03/24/2017 3:18:00 PM 118 mmHg 80 mmHg 74 bpm 18 rpm 98 F 206 lbs 73 in 27.18 kg/m2 2.19 m2 99 % Social History Name Description Comments Tobacco Former smoker History of Procedures Date Ordered Description Order Status 03/24/2017 12:00 AM X-RAY EXAM OF ANKLE Reviewed Results Summary Not available. History Of Immunizations Not available. History of Past Illness Name Date of Onset Comments Anxiety Disorder, Generalized Intermittent explosive disorder Seizure disorder Bipolar Schizoeffective Disorder Mental Retardation Ankle pain Mar 24 2017 3:31PM Swelling of right ankle joint Mar 24 2017 3:31PM Fall Aug 25 2018 11:08AM Mild concussion Aug 25 2018 11:08AM Payers Insurance Name Company Name Plan Name Plan Number Policy Number Policy Group Number Start Date Medicare RHC Medicare RHC [id number] N/A A[employer] Better [employer] - RHC A[employer] - RHC [id number] N/A Railroad Medicare Railroad Medicare [id number] N/A [employer] [place] [employer] [place] [id number] N/A Medicare RHC Medicare RHC [id number] N/A [employer] - [place] State [place] [employer] [place] State [place] [id number] N/A Medicare Part A Medicare - Lab/Xray [id number] N/A Medicare Part B Medicare Of [place] [id number] N/A History of Encounters Visit Date Visit Type Provider 08/25/2018 Office visit Melody Mae COLORING MACHINE OPERATOR 06/02/2018 [facility] Kendall Salazar MD 06/01/2018 [facility] Geraldine Lofton MD 02/28/2018 [facility] Geraldine Lofton MD 05/23/2017 [facility] Geraldine Lofton MD 03/26/2017 [facility] Geraldine Lofton MD 03/24/2017 Office visit Desiree Oliver COLORING MACHINE OPERATOR 01/17/2017 [facility] PAYAM CALI MD 01/17/2017 [facility] Geraldine Lofton MD 04/27/2015 [facility] Billie Shetty MD
--- OUTSIDE RECORDS SUMMARY | 2018-09-30 15:32 | XMS REPORT | CCD ---
Author Author GERALDINE GRANGER Unknown Address [address] [place] [address] Care Team Providers Care Parts Fabricator Name Role Phone SRIRAM SANCHEZ, JEREMIAH MENSAH Attphys Allergies Allergy Code Allergy Type Reaction Status CONTRAST MEDIA, IODINE RELATED 0 Drug allergy Active ISOVUE-300 382123 Drug allergy OTHER Active Active Medications Unknown or Not Available. Problems Problem Code Start Date Resolved Date Status Acute hyponatremia 4082992 01/17/2017 Active Leg weakness 005487220 01/17/2017 Active Procedures Procedure Code Procedure Type Date Open treatment medial malleolus fracture; (-RT Right side of body) 44155 CPT 03/29/2017 FLUOROSCOPY < [address] 03/29/2017 ANKLE [address] 03/29/2017 Results Unknown or Not Available. Function Status Unknown or Not Available. History [...] Code Start Date End Date Never smoker 162076005 Vital Signs Vital Sign Value Unit Date/Time Recent/Initial? BMI (Body Mass Index) 28.37 kg/m2 03/28/2017 09:45 Initial VS Weight Measured 215 [lb_av] 03/28/2017 09:45 Initial VS Height 73 [in_i] 03/28/2017 09:45 Initial VS BSA (Body Surface Area) 2.24 m2 03/28/2017 09:45 Initial VS Respiratory Rate 17 /min 03/29/2017 08:10 Initial VS Heart Rate 87 /min 03/29/2017 08:10 Initial VS O2 % BldC Oximetry 93 % 03/29/2017 08:10 Initial VS BP Systolic 106 mm[Hg] 03/29/2017 08:11 Initial VS BP Diastolic 69 mm[Hg] 03/29/2017 08:11 Initial VS Respiratory Rate 18 /min 03/29/2017 08:50 Most Recent VS O2 % BldC Oximetry 99 % 03/29/2017 08:50 Most Recent VS BP Systolic 134 mm[Hg] 03/29/2017 08:51 Most Recent VS BP Diastolic 82 mm[Hg] 03/29/2017 08:51 Most Recent VS Heart Rate 97 /min 03/29/2017 08:51 Most Recent VS Function Status Unknown or Not Available. Goals Unknown or Not Available. ASSESSMENTS Unknown or Not Available. Health Concerns Section Unknown or Not Available.
--- OUTSIDE RECORDS SUMMARY | 2018-09-30 15:33 | XMS REPORT ---
Author Author Desiree Oliver [facility] Address [address] [place], [place] [address] Care Team Providers Care Filling Station Equipment Mechanic Name Role Phone Desiree Oliver PCP Unavailable Allergies and Adverse Reactions Name Reaction Notes [...] HC BMI BSA BMI Percentile O2 Sat(%) 03/24/2017 3:18:00 PM 118 mmHg 80 mmHg [...] Anxiety Disorder, Generalized Intermittent explosive disorder Seizure Disorder Bipolar Schizoeffective Disorder Mental Retardation Ankle pain Mar 24 2017 3:31PM Swelling of right ankle joint Mar 24 2017 3:31PM Payers Insurance Name Company Name Plan Name Plan Number Policy Number Policy Group Number Start Date Medicare RHC Medicare [facility] [id number] N/A [facility] [place] Plan [facility] [id number] N/A Medicare Part A Medicare - Lab/Xray [id number] N/A Railroad Medicare Railroad Medicare [id number] N/A [employer] [place] [employer] [place] [id number] N/A History of Encounters Visit Date Visit Type Provider 03/24/2017 Office visit Desiree Oliver INTERVENTIONAL RADIOLOGY RN 01/17/2017 [facility] PAYAM CALI MD 04/27/2015 [facility] Billie Shetty MD
--- OUTSIDE RECORDS SUMMARY | 2018-09-30 15:33 | XMS REPORT | Continuity of Care Document ---
Demographics Preferred Language Unknown Marital Status Unknown Denominational Affiliation Unknown Race Unknown Ethnic Group Unknown Author Organization Unknown Address Unknown Allergies Active Description Code Type Severity Reaction Onset Reported/Identified Relationship to Patient Clinical Status Yes CONTRAST MEDIA, IODINE RELATED 91793471 CLASS N/A N/A Yes ISOVUE-300 [id number] BRANDNAME N /A N/A Yes ISOVUE-300 [id number] BRANDNAME N /A OTHER Yes No Known Environmental Allergies 20865044 N/A N/A Yes No Known Food Allergies 29840346 N/A N/A Medications There is no data. Problems Date Dx Coded Attending Type Code Diagnosis Diagnosed By 03/26/2017 P Y41678 Encounter for preprocedural cardiovascular examination 03/26/2017 S U38293 Encounter for preprocedural laboratory examination 10/16/2017 P L6098VW Abrasion of nose, initial encounter 10/16/2017 S S6190FX Abrasion of unspecified part of head, initial encounter 10/16/2017 S L808AKZ Strain of muscle, fascia and tendon at neck level, initial encounter 10/16/2017 S Q68800L Strain of muscle, fascia and tendon of lower back, initial encounter 10/16/2017 S H943RIX Fall on same level from slipping, tripping and stumbling without subsequent striking against object, initial encounter 10/16/2017 S I03895 Other athletic field as the place of occurrence of the external cause 10/16/2017 S Y9302 Activity, running 07/23/2018 S B081XCH Fall on same level from slipping, tripping and stumbling without subsequent striking against object, initial encounter 07/23/[address] in senior living as the place of occurrence of the external cause 07/23/2018 P Z043 Encounter for examination and observation following other accident Procedures There is no data. Results There is no data. Encounters ACCT No. Visit Date/Time Discharge Status Pt. Type Provider Facility Loc./Unit Complaint [id number] 09/22/2018 08:28:14 Document Registration [id number] 09/16/2018 18:36:41 Document Registration [id number] 09/16/2018 18:00:43 Document Registration [id number] 09/11/2018 11:20:09 Document Registration [id number] 09/08/2018 21:45:30 Document Registration [id number] 09/08/2018 21:38:22 Document Registration [id number] 08/29/2018 14:10:34 Document Registration [id number] 08/28/2018 08:42:48 Document Registration [id number] 08/27/2018 10:36:44 Document Registration [id number] 08/26/2018 08:12:40 Document Registration [id number] 08/26/2018 08:02:53 Document Registration [id number] 08/22/2018 07:11:34 Document Registration [id number] 08/22/2018 06:56:12 Document Registration [id number] 07/29/2018 08:49:29 Document Registration [id number] 07/23/2018 23:56:48 Document Registration [id number] 07/23/2018 13:21:05 Document Registration [id number] 07/09/2018 10:33:22 Document Registration [id number] 06/13/2018 14:58:37 Document Registration [id number] 06/04/2018 21:34:12 Document Registration [id number] 06/01/2018 14:41:34 Document Registration [id number] 06/01/2018 14:12:42 Document Registration [id number] 05/30/2018 15:01:34 Document Registration [id number] 05/01/2018 11:55:44 Document Registration [id number] 05/01/2018 11:49:32 Document Registration [id number] 02/28/2018 12:08:48 Document Registration [id number] 02/28/2018 12:01:15 Document Registration [id number] 10/16/2017 13:49:34 Document Registration [id number] 10/16/2017 13:47:00 Document Registration [id number] 06/20/2017 10:00:07 Document Registration [id number] 05/24/2017 21:24:25 Document Registration [id number] 05/23/2017 06:29:22 Document Registration [id number] 05/23/2017 06:24:36 Document Registration [id number] 04/18/2017 09:40:58 Document Registration [id number] 03/26/2017 15:20:14 Document Registration [id number] 03/26/2017 10:29:00 Document Registration [id number] 03/24/2017 16:15:02 Document Registration [id number] 08/26/2018 17:29:11 08/26/2018 23:59:59 CLS Outpatient Geraldine Lofton [id number] 08/25/2018 11:54:36 08/25/2018 23:59:59 CLS Outpatient Vicki Herrera [id number] 08/11/2018 16:55:48 08/11/2018 23:59:59 CLS Outpatient Geraldine Lofton Philip [id number] 06/05/2018 14:13:15 06/05/2018 23:59:59 CLS Outpatient Kendall Salazar [id number] 05/01/2018 17:18:54 05/01/2018 23:59:59 CLS Outpatient Geraldine Lofton Philip [id number] 06/14/2017 15:26:28 06/14/2017 23:59:59 CLS Outpatient Geraldine Lofton Philip [id number] 05/15/2017 17:21:05 05/15/2017 23:59:59 CLS Outpatient Geraldine Lofton Philip [id number] 04/12/2017 14:06:44 04/12/2017 23:59:59 CLS Outpatient Geraldine Lofton Philip [id number] 03/25/2017 12:39:30 03/25/2017 23:59:59 CLS Outpatient Desiree Oliver [id number] 01/29/2017 16:13:19 01/29/2017 23:59:59 CLS Outpatient Kendall Salazar [id number] 05/10/2015 13:35:09 05/10/2015 23:59:59 CLS Outpatient Billie Shetty [id number] 10/16/2017 13:10:00 10/16/2017 23:59:59 DIS Outpatient KLARISSA YUSUF [facility]
--- NOTE | 2018-09-30 15:57 | NUR ---
pt to be direct admit for Dr. Wright.
[2018-10-01] MEDS ORDERED: PARO30TA3 PO (09:51)
[2018-10-01] MEDS ORDERED: SENN-109 PO (09:51)
[2018-10-01] MEDS ORDERED: TRAZ-190 PO (09:51)
[2018-10-01] MEDS ORDERED: LEVE500T6 PO (09:51)
[2018-10-01] MEDS ORDERED: NF-NACL1GT PO (09:51)
[2018-10-01] MEDS ORDERED: DIVA250T12 PO (09:51)
[2018-10-01] MEDS ORDERED: RISP2TAB3 PO (09:51)
== END 2018-09-30 15:57 | disposition left against medical advice (07) ==
LOC: EDUNIT# 15:25 → ER 15:27
DX: R06.02 Shortness of breath (principal); R63.0 Anorexia
CPT/HCPCS: 99281

== ENCOUNTER 2018-09-30 15:57 | Inpatient (IN) | payer MEDICARE, MEDICAID ==
[~2018-09-30] VITALS: Ht 193 cm; Wt 80.9 kg
[2018-09-30] VITALS (7 sets, daily range): BP systolic 98–132; BP diastolic 63–92
--- OUTSIDE RECORDS SUMMARY | 2018-09-30 16:03 | XMS REPORT | Continuity of Care Document ---
Demographics Preferred Language Unknown Marital Status Unknown Caodaism Affiliation Unknown Race Unknown Ethnic Group Unknown Author Organization Unknown Address Unknown Allergies Active Description Code Type Severity Reaction Onset Reported/Identified Relationship to Patient Clinical Status Yes CONTRAST MEDIA, IODINE RELATED [id number] CLASS N/A N/A Yes ISOVUE-300 [id number] BRANDNAME N /A N/A Yes ISOVUE-300 [id number] BRANDNAME N /A OTHER Yes No Known Environmental Allergies 20976528 N/A N/A Yes No Known Food Allergies 89433587 N/A N/A Medications There is no data. Problems Date Dx Coded Attending Type Code Diagnosis Diagnosed By 03/26/2017 P R74866 Encounter for preprocedural cardiovascular examination 03/26/2017 S K43721 Encounter for preprocedural laboratory examination 10/16/2017 P S2195PI Abrasion of nose, initial encounter 10/16/2017 S D3165NE Abrasion of unspecified part of head, initial encounter 10/16/2017 S F359JSV Strain of muscle, fascia and tendon at neck level, initial encounter 10/16/2017 S D55335O Strain of muscle, fascia and tendon of lower back, initial encounter 10/16/2017 S W772HDN Fall on same level from slipping, tripping and stumbling without subsequent striking against object, initial encounter 10/16/2017 S G65377 Other athletic field as the place of occurrence of the external cause 10/16/2017 S Y9302 Activity, running 07/23/2018 S N346ULB Fall on same level from slipping, tripping and stumbling without subsequent striking against object, initial encounter 07/23/[address] in shelter as the place of occurrence of the external cause 07/23/2018 P Z043 Encounter for examination and observation following other accident Procedures There is no data. Results There is no data. Encounters ACCT No. Visit Date/Time Discharge Status Pt. Type Provider Facility Loc./Unit Complaint [id number] 09/22/2018 08:28:14 Document Registration [id number] 09/16/2018 18:36:41 Document Registration [id number] 09/16/2018 18:00:43 Document Registration [id number] 09/11/2018 11:20:09 Document Registration [id number] 09/08/2018 21:45:30 Document Registration [id number] 09/08/2018 21:38:22 Document Registration [id number] 08/29/2018 14:10:34 Document Registration [id number] 08/28/2018 08:42:48 Document Registration [id number] 08/27/2018 10:36:44 Document Registration [id number] 08/26/2018 08:12:40 Document Registration [id number] 08/26/2018 08:02:53 Document Registration [id number] 08/22/2018 07:11:34 Document Registration [id number] 08/22/2018 06:56:12 Document Registration [id number] 07/29/2018 08:49:29 Document Registration [id number] 07/23/2018 23:56:48 Document Registration [id number] 07/23/2018 13:21:05 Document Registration [id number] 07/09/2018 10:33:22 Document Registration [id number] 06/13/2018 14:58:37 Document Registration [id number] 06/04/2018 21:34:12 Document Registration [id number] 06/01/2018 14:41:34 Document Registration [id number] 06/01/2018 14:12:42 Document Registration [id number] 05/30/2018 15:01:34 Document Registration [id number] 05/01/2018 11:55:44 Document Registration [id number] 05/01/2018 11:49:32 Document Registration [id number] 02/28/2018 12:08:48 Document Registration [id number] 02/28/2018 12:01:15 Document Registration [id number] 10/16/2017 13:49:34 Document Registration [id number] 10/16/2017 13:47:00 Document Registration [id number] 06/20/2017 10:00:07 Document Registration [id number] 05/24/2017 21:24:25 Document Registration [id number] 05/23/2017 06:29:22 Document Registration [id number] 05/23/2017 06:24:36 Document Registration [id number] 04/18/2017 09:40:58 Document Registration [id number] 03/26/2017 15:20:14 Document Registration [id number] 03/26/2017 10:29:00 Document Registration [id number] 03/24/2017 16:15:02 Document Registration [id number] 08/26/2018 17:29:11 08/26/2018 23:59:59 CLS Outpatient Geraldine Lofton [id number] 08/25/2018 11:54:36 08/25/2018 23:59:59 CLS Outpatient Vicki Herrera [id number] 08/11/2018 16:55:48 08/11/2018 23:59:59 CLS Outpatient Geraldine Lofton Philip [id number] 06/05/2018 14:13:15 06/05/2018 23:59:59 CLS Outpatient Kendall Salazar [id number] 05/01/2018 17:18:54 05/01/2018 23:59:59 CLS Outpatient Geraldine Lofton Philip [id number] 06/14/2017 15:26:28 06/14/2017 23:59:59 CLS Outpatient Geraldine Lofton Philip [id number] 05/15/2017 17:21:05 05/15/2017 23:59:59 CLS Outpatient Geraldine Lofton Philip [id number] 04/12/2017 14:06:44 04/12/2017 23:59:59 CLS Outpatient Geraldine Lofton Philip [id number] 03/25/2017 12:39:30 03/25/2017 23:59:59 CLS Outpatient Desiree Oliver [id number] 01/29/2017 16:13:19 01/29/2017 23:59:59 CLS Outpatient Kendall Salazar [id number] 05/10/2015 13:35:09 05/10/2015 23:59:59 CLS Outpatient Billie Shetty [id number] 10/16/2017 13:10:00 10/16/2017 23:59:59 DIS Outpatient KLARISSA YUSUF [facility]
[2018-09-30] MEDS ORDERED: NS IV 1000 ML 1,000 ML ONE (16:28)
[2018-09-30] MEDS ORDERED: CATHETER FLUSH 10 ML SYR IV PRN (17:00)
[2018-09-30] MEDS ORDERED: LIDOCAINE 1% INJ 20 ML 20 ML VIAL ONE (18:33)
[2018-09-30] MEDS ORDERED: fentaNYL INJECTION 100 MCG/2 ML AMP ONE (18:33)
[2018-09-30] MEDS ORDERED: MIDAZOLAM 5 MG/5 ML (VERSED) VIAL ONE (18:33)
--- NOTE | 2018-09-30 20:02 | Pulmonary Procedures ---
Pulmonary Procedures Date of Procedure Date of Service: Sep 30, 2018 Chest Tube : Chest Tube Position: Right Chest Tube Location: Mid-Axillary Chest Size of [place]ib[place]ian Tube (cm): 28 Chest Tube Procedure: betadine prep, sterile drapes applied, sterile dressing applied Anesthesia: 1% Lidocaine Volume Anesthetic (ccs): 10 Singh of Air Throckmorton: Yes Number of Attempts: 1 Time of Successful Intubation: 20:02 Tube Drainage: see nurses notes Tube Sutured to Skin: Yes Post Procedure CXR?: Yes MANDY COLLINS DO Sep 30, 2018 20:02
--- NOTE | 2018-09-30 20:14 | Diagnostic Imaging Report ---
Examination: Single frontal view of the chest Indication: Right chest tube placement. Comparison: Multiple priors, most recent performed on 09/29/2018. Findings: A right chest tube is in place, with distal tip and side-port in the right lung base. Right hydropneumothorax is again demonstrated. The amount of fluid appears to be slightly decreased compared with the prior exam. There is persistent marked consolidation of the right mid and lower lung, with obscuration of the right heart border. Cardiomediastinal silhouette appears unchanged, allowing for patient rotation. The left lung remains clear. The left CP angle is not visualized. Soft tissue gas is demonstrated in the right lateral chest wall inferiorly. No acute osseous abnormalities identified. Impression: Interval placement of right chest tube, with distal tip and side-port in the right lung base. Persistent right hydropneumothorax, with decrease in the amount of fluid. There is persistent marked consolidation of the right mid and lower lung. Dictated by: Dictated on workstation # [id number]
--- NOTE | 2018-09-30 20:31 | NUR ---
TIMELINE NOTE 1845 Dr. Wright present to place Chest Tube at bedside. 1858 2mg Versed given 185 50mcg Fentanyl given 1900 1% Lidocaine utilized 1908 1mg Versed given 1909 25 Fentanyl given 1927 2mg Versed given 25mcg Fentanyl given 1929 25 Fentanyl given 1935 2mg Versed given [address] in place 1943 50mcg Fentanyl given Chest tube wrapped in vaseline guaze and secured with foam tape per Dr. Wright.
--- NOTE | 2018-09-30 20:38 | NUR ---
1950 Post procedure, patient resting comfortably. In NO apparent distress and VSS.
--- NOTE | 2018-09-30 20:39 | NUR ---
1950 VSS every 10 minutes during procedure. BP remained 90's-110 systolic throughout procedure as witnessed per DR. Wright. HR 70-80's. SpO2 remained 94% and above for entire length of procedure/sedation.
[2018-09-30] MEDS ORDERED: LEVETIRACETAM 500 MG (KEPPRA) TAB PO ONE (21:30)
[2018-09-30] MEDS ORDERED: DIVALPROEX 250 MG DELAYED RELEASE (DEPAKOTE) TAB PO SCH (21:30)
[2018-09-30] MEDS: morphine INJ 4 MG/ML 1 ML (VIAL/SYRINGE) IV PRN ×2 (21:43→23:45)
[2018-09-30 21:57] LABS: GLUCOSE,BODY FLUID 71 MG/DL; LDH,BODY FLUID 483 U/L; TOTAL PROTEIN,BODY FLUID 3.7 G/DL
[2018-09-30 22:21] LABS: BODY FLUID APPEARENCE MOD CLDY; BODY FLUID COLOR RED; BODY FLUID RBC COUNT 17350 /uL; BODY FLUID SOURCE PLEURAL; BODY FLUID WBC TOTAL COUNT 250 /uL
[2018-09-30] MEDS: NS IV 1000 ML 1,000 ML IV SCH (22:22)
[2018-09-30 22:26] LABS: BODY FLUID PH 8
[2018-09-30 22:38] LABS: BF OTHER CELLS 8 %; LYMPHOCYTES,BODY FLUID 38 %
[2018-10-01] VITALS (23 sets, daily range): BP systolic 108–150; BP diastolic 51–105
[2018-10-01] MEDS: LORazepam INJ 2 MG/ML (ATIVAN) VIAL IV PRN ×3 (02:30→19:39)
[2018-10-01] MEDS: NS IV 1000 ML 1,000 ML IV SCH ×2 (03:03→14:02)
[2018-10-01 04:43] LABS: BASOPHILS % (AUTO) 0 % (0-10); EOSINOPHILS % (AUTO) 1 % (0-10); HEMATOCRIT 34 % (40-54); HEMOGLOBIN 10.9 G/DL (13.3-17.7); LYMPHOCYTES % (AUTO) 27 % (12-44); MEAN CORPUSCULAR HEMOGLOBIN 27 PG (25-34); MEAN CORPUSCULAR HGB CONC 32 G/DL (32-36); MEAN CORPUSCULAR VOLUME 82 FL (80-99); MEAN PLATELET VOLUME 9.1 FL (7.4-10.4); MONOCYTES # (AUTO) 1.1 X 10^3 (0.0-1.0); MONOCYTES % (AUTO) 15 % (0-12); NEUTROPHILS # (AUTO) 4.2 X 10^3 (1.8-7.8); NEUTROPHILS % (AUTO) 57 % (42-75); PLATELET COUNT 591 10^3/uL (130-400); RED CELL DISTRIBUTION WIDTH 14.9 % (10.0-14.5); WHITE BLOOD COUNT 7.3 10^3/uL (4.3-11.0)
[2018-10-01 05:06] LABS: ALANINE AMINOTRANSFERASE 20 U/L (0-55); ALKALINE PHOSPHATASE 167 U/L (40-136); BILIRUBIN,TOTAL 0.4 MG/DL (0.1-1.0); BUN/CREATININE RATIO 16; CALCIUM 9.1 MG/DL (8.5-10.1); CARBON DIOXIDE 24 MMOL/L (21-32); CHLORIDE 100 MMOL/L (98-107); CREATININE SERUM 0.74 MG/DL (0.60-1.30); GFR ESTIMATED > 60; GLUCOSE 85 MG/DL (70-105); MAGNESIUM 1.9 MG/DL (1.8-2.4); PHOSPHORUS 3.4 MG/DL (2.3-4.7); POTASSIUM 3.9 MMOL/L (3.6-5.0); SODIUM 135 MMOL/L (135-145)
[2018-10-01] MEDS ORDERED: PHARMACY TO DOSE IV SCH (06:00)
[2018-10-01] MEDS ORDERED: PIPERACILLIN/TAZOBACTAM (BULK) 4.5 GM in NS (IVPB) 100 ML IV SCH (06:00)
--- NOTE | 2018-10-01 06:06 | Pulmonary Consultation ---
History of Present Illness History of Present Illness Date of Consultation 10/01/18 05:55 Time Seen by Provider: 05:57 Date of Admission History of Present Illness 58yo from ECF with hx of MR admitted from my office secondary to hydropneumothorax found on CT scan. Pt was recently admitted to [facility] and thoracentesis was done. Pt was discharge and followed up with my in my office. He's admitted to ICU and plan is to place a chest tube. No prior hx of PTX. Pt is not a smoker. Allergies and Home Medications Allergies Uncoded Allergies: IVP CONTRAST (Allergy, Unknown, 09/25/07) Home Medications Divalproex Sodium 250 Mg Tab.er.24h, 250 MG PO BID, (Reported) Levetiracetam 500 Mg Tablet, 500 MG PO BID, (Reported) Paroxetine HCl 30 Mg Tablet, 30 MG PO DAILY, (Reported) Risperidone 2 Mg Tablet, 2 MG PO HS, (Reported) Sennosides/Docusate Sodium 1 Each Tablet, 1 TAB PO HS, (Reported) Sodium Chloride 1 Gm Tab, 1 GM PO DAILY, (Reported) Trazodone HCl 100 Mg Tablet, 100 MG PO HS, (Reported) Past Jeknsvm-Hvmzie-Eqosgx Hx Patient Social History Alcohol Use: Denies Use Recreational Drug Use: No Recent Hopitalizations: No Immunizations Up To Date Date of Pneumonia Vaccine: Jul 02, 2018 Seasonal Allergies Seasonal Allergies: Yes Past Medical History Respiratory: No Cardiac: Yes (MVP) Neurological: Yes Reproductive Disorders: No Sexually Transmitted Disease: No Gastrointestinal: No Musculoskeletal: No Endocrine: No Blood Disorders: No Review of Systems Time Seen by Provider: 11:34 Constitutional: No: Fever, Chills, Sweats, Weakness, Malaise, Other Eyes: No: Pain, Vision change, Conjunctivae inflammation, Eyelid inflammation, Other, Redness ENT: No: Ear pain, Ear discharge, Nose pain, Nose discharge, Nose congestion, Mouth pain, Mouth swelling, Throat pain, Throat swelling, Other Respiratory: Cough, Dry, Shortness of breath, SOB with excertion, Wheezing; No : Hemoptysis, Pleuritic Pain Cardiovascular: Paroxysmal Noc. Dyspnea; No: Chest Pain, Palpitations, Orthopnea, Edema, Lt Headedness, Other Neurological: Weakness Sepsis Event Evaluation Height, Weight, BMI Height: 6'4.00" Weight: 228lbs. 0.0oz. 103.958065cw; 27.8 BMI Method:Stated Exam Exam Vital Signs Date Time Temp Pulse Resp B/P (MAP) Pulse Ox O2 Delivery O2 Flow Rate FiO2 10/01/18 05:00 82 23 123/75 (91) 94 Room Air 10/01/18 04:00 98 Room Air 10/01/18 04:00 82 24 123/81 (95) 95 Room Air 10/01/18 03:48 82 10/01/18 03:00 79 22 124/71 (88) 92 Room Air 10/01/18 02:00 82 19 121/79 (93) 93 Room Air 10/01/18 01:00 78 26 123/85 (98) 94 Room Air 10/01/18 00:00 98.6 10/01/18 00:00 98 Room Air 10/01/18 00:00 76 14 116/89 (98) 95 Room Air 09/30/18 22:00 84 17 117/82 (94) Room Air 09/30/18 21:00 80 23 113/85 (94) Room Air 09/30/18 20:00 98 Room Air 09/30/18 20:00 98 17 98/79 (85) Room Air 09/30/18 20:00 98.7 09/30/18 19:00 80 14 106/63 (77) Room Air 09/30/18 19:00 99 09/30/18 18:00 80 11 126/89 (101) Room Air 09/30/18 17:00 83 10 131/85 (100) 98 Room Air 09/30/18 16:45 98 Room Air 09/30/18 16:41 93 09/30/18 16:15 91 7 132/92 (105) 97 Room Air I & O 10/01/18 07:00 Intake Total 200 ml Output Total 1050 ml Balance -850 ml Height & Weight Height: 6'4.00" Weight: 228lbs. 0.0oz. 103.500190iu; 27.8 BMI Method:Stated General Appearance: No Apparent Distress, WD/WN, Chronically ill HEENT: PERRL/EOMI, Normal ENT Inspection, Pharynx Normal Neck: Full Range of Motion, Normal Inspection, Non Tender, Supple Respiratory: Chest Non Tender, Accessory Muscle Use, Decreased Breath Sounds Cardiovascular: Regular Rate, Rhythm, No Edema Capillary Refill: Less Than 3 Seconds Gastrointestinal: normal bowel sounds, non tender, soft, no organomegaly, no pulsatile mass Extremity: Normal Capillary Refill, No Pedal Edema Neurologic/Psychiatric: Alert Skin: Normal Color, Warm/Dry Lymphatic: No Adenopathy Results Lab Laboratory Tests 10/01/18 03:20 Assessment/Plan Assessment/Plan -Hydropneumothorax s/p chest tube placement - Exudative pleural fluid -Repeat CT of chest today -Total 950ml of chest tube out put since placement -pleural fluid cytology is pending Anemia -Monitor MANDY COLLINS DO Oct 01, 2018 06:06
[2018-10-01] MEDS ORDERED: ENOXAPARIN 40 MG/0.4 ML (LOVENOX) SYR SC SCH (06:15)
[2018-10-01] MEDS: POTASSIUM CL 10MEQ/50ML IVPB 50 ML IV SCH (06:31)
[2018-10-01] MEDS: MAGNESIUM 1 GM/100 ML IVPB 100 ML IV SCH (06:31)
[2018-10-01] MEDS: KCL 20 MEQ TAB (K-DUR) PO SCH (06:32)
[2018-10-01] MEDS ORDERED: ENOXAPARIN 40 MG/0.4 ML (LOVENOX) SYR ONE (06:37)
--- NOTE | 2018-10-01 06:55 | NUR ---
PHARMACY TO DOSE VANCOMYCIN: BASED ON ADJ BW 93 KG SCr 0.7; EST CrCl 147 LOADING DOSE: 2,500 MG MAIN DOSE: 1,500 MG Q 12 HRS VANCOMYCIN TROUGH ORDERED FOR 10/02/18 @ 18:00 IF TROUGH GREATER THAN 20 HOLD 10/02/18 19:00 DOSE.
[2018-10-01] MEDS ORDERED: PIPERACILLIN/TAZO 4.5 GM/NS 100 ML IV NR ×2 (07:00)
--- NOTE | 2018-10-01 07:10 | History & Physicial ---
History of Present Illness History of Present Illness Reason for visit/HPI Patient is lethargic this morning. Patient is not talking this morning. Patient has a history of hilar mass. Patient [facility] in a prison. Patient is bipolar and schizoaffective. Patient Last week patient went to the emergency room at [facility] and transferred to [facility] in [place]. Patient had a thoracentesis the air and removal of 1100 mL of fluid. Patient had a chest x-ray Saturday showing hydropneumothorax. Patient admitted Date of Admission Sep 30, 2018 at 15:57 Time Seen by a Provider: 07:05 I consulted on this patient on 10/01/18 07:05 Attending Physician Raciel Wright DO Admitting Physician Robbie Sneed DO Consult Allergies and Home Medications Allergies Uncoded Allergies: IVP CONTRAST (Allergy, Unknown, 09/25/07) Home Medications Diazepam 10 Mg Tablet, 1 EACH PO NEEDED, (Reported) Divalproex Sodium 250 Mg Tablet.dr, 3 TAB PO BID, (Reported) Loratadine 10 Mg Tablet, 10 MG PO NEEDED, (Reported) Paroxetine Hcl 10 Mg Tab, 10 MG PO DAILY, (Reported) Risperidone 2 Mg Tablet, 1 TAB PO HS, (Reported) Senna 1 Ea Tablet, 1 EA PO HS, (Reported) Patient Home Medication List Home Medication List Reviewed: No Past Joyckni-Zfcdjk-[place] Hx Patient Social History Marrital Status: single Employed/Student: unemployed Alcohol Use: Denies Use Recreational Drug Use: No Physical Abuse Screen: No Sexual Abuse: No Recent Hopitalizations: No Immunizations Up To Date Date of Pneumonia Vaccine: Jul 02, 2018 Seasonal Allergies Seasonal Allergies: Yes Respiratory Yes Currently Using CPAP: No Currently Using BIPAP: No Cardiovascular Yes (MVP) Neurological Yes Reproductive System Hx Reproductive Disorders: No Sexually Transmitted Disease: No Gastrointestinal No Musculoskeletal No Endocrine History of Endocrine Disorders: No Blood Transfusions History of Blood Disorders: No Review of Systems Constitutional: malaise, weakness, other (Recently in wheelchair, previously walk by self) EENTM: no symptoms reported Respiratory: dyspnea on exertion, short of breath, other (Pleural effusion, hilar mass) Cardiovascular: no symptoms reported Gastrointestinal: no symptoms reported Genitourinary: no symptoms reported Physical Exam Vital Signs Vital Signs - First Documented 09/30/18 16:15 Pulse 91 Resp 7 B/P (MAP) 132/92 (105) Pulse Ox 97 O2 Delivery Room Air Capillary Refill : Height, Weight, BMI Height: 6'4.00" Weight: 228lbs. 0.0oz. 103.395483vk; 27.8 BMI Method:Stated General Appearance: No Apparent Distress Eyes: Bilateral Eye Normal Inspection HEENT: Normal ENT Inspection Neck: Normal Inspection, Non Tender Respiratory: Lungs Clear, No Accessory Muscle Use, No Respiratory Distress, Other (S2) Cardiovascular: Regular Rate, Rhythm, No Murmur Gastrointestinal: Non Tender, Soft Assessment/Plan Assessment and Plan Hydropneumothorax. Hilar mass. More. Bipolar and schizoaffective. Weakness. Pleural effusion. MR. Admission Diagnosis Admission Status: Inpatient Order (span 2 midnights) Reason for Inpatient Admission: Chest tube. Pneumothorax Clinical Quality Measures DVT/VTE Risk/Contraindication: RFS Level Per Nursing on Admit: 0=No Risk/No VTE PPX ROBBIE SNEED DO Oct 01, 2018 07:10
[2018-10-01] MEDS ORDERED: VANCOMYCIN 2,500 MG/NS 500 ML IVPB IV NR ×2 (07:30)
[2018-10-01] MEDS: DIVALPROEX 250 MG DELAYED RELEASE (DEPAKOTE) TAB PO SCH ×2 (08:16→21:00)
[2018-10-01] MEDS: LEVETIRACETAM 500 MG (KEPPRA) TAB PO SCH ×2 (08:17→21:00)
--- NOTE | 2018-10-01 09:05 | Diagnostic Imaging Report ---
INDICATION: Right chest tube placement. Frontal chest obtained at 0439 hours a.m. and compared to yesterday. There is cardiomegaly again noted. Right-sided chest tube is unchanged. There is no change in the parenchymal density in the right midlung and base with apparent loculated right hydropneumothorax. The left lung is clear. IMPRESSION: No change compared to yesterday. There appears to be loculated hydropneumothorax in the right side with unchanged parenchymal opacity in the right midlung and base. Dictated by: Dictated on workstation # [id number]
[2018-10-01] MEDS ORDERED: LEVE500T6 PO (09:51)
[2018-10-01] MEDS ORDERED: DIVA250T12 PO (09:51)
[2018-10-01] MEDS ORDERED: TRAZ-190 PO (09:51)
[2018-10-01] MEDS ORDERED: SENN-109 PO (09:51)
[2018-10-01] MEDS ORDERED: PARO30TA3 PO (09:51)
[2018-10-01] MEDS ORDERED: RISP2TAB3 PO (09:51)
[2018-10-01] MEDS ORDERED: NF-NACL1GT PO (09:51)
--- NOTE | 2018-10-01 10:35 | NUR ---
NURSE HAD A LIST OF MEDICATIONS THAT WERE READ TO HER FROM THE PATIENTS COUNTER SUPPLY WORKER. I CALLED AND VERIFIED THE TIMING WITH ALBERTO FROM [facility] IN [place], HER CELL IS [phone]. THEY ASSIST THE PATIENT IN HIS HOME AND SET UP HIS MEDICATIONS FOR HIM. I ALSO WAS ABLE TO SEE THE PRESCRIPTION MEDICATIONS RECENTLY FILLED THROUGH [facility] ON THE EXT MED HX. ALBERTO IS NOT IN THE [place] OFFICE TODAY BUT WAS ABLE TO VERIFY THE PATIENT TAKES SODIUM CHLORIDE 1GM DAILY WELL SENNA S OTC AT BEDTIME.
[2018-10-01] MEDS: morphine INJ 4 MG/ML 1 ML (VIAL/SYRINGE) IV PRN ×3 (11:56→20:49)
--- NOTE | 2018-10-01 13:49 | Diagnostic Imaging Report ---
INDICATION: Pneumothorax. TECHNIQUE: The CT chest was obtained without IV contrast. COMPARISON: 09/23/2018. FINDINGS: Compared to the previous study, there is now a right-sided chest tube in place. There is a multiloculated right hydropneumothorax. There is considerably less pleural fluid than seen on the prior study but there appear to be multiple undrained pockets, likely secondary to loculation. There is residual lateral pneumothorax. There is thickening of the visceral and parietal pleura. There is dense consolidation involving the right upper lobe and portions of the lower lobe. There are some atelectatic changes in the left lower lobe. There is motion artifact. There is cardiomegaly. There is no overt adenopathy. IMPRESSION: Compared to the prior study, there has been placement of a right-sided chest tube. There is considerably less pleural fluid on the right side. There are multiple undrained pockets of fluid which likely represent loculation. There is also a lateral pneumothorax. There is thickening of the visceral and parietal pleura suggesting inflammation. There is dense consolidation of multiple lobes of the right lung as above. Dictated by: Dictated on workstation # [id number]
[2018-10-01] MEDS: PIPERACILLIN/TAZOBACTAM (BULK) 4.5 GM in NS (IVPB) 100 ML IV SCH ×2 (14:01→21:00)
--- NOTE | 2018-10-01 15:35 | NUR ---
Pt resting with eyes closed. Offered quiet prayer for peace and healing.
[2018-10-01] MEDS ORDERED: VANCOMYCIN 1500 MG/NS 500 ML IVPB IV SCH ×2 (19:00)
[2018-10-01] MEDS ORDERED: NON-FORMULARY MEDICATION 1 EA EA (Risperidone 2 MG) PO SCH (21:00)
[2018-10-02] VITALS (13 sets, daily range): BP systolic 104–142; BP diastolic 70–96
[2018-10-02] MEDS: risperiDONE 2 MG (RisperDAL) TAB PO SCH ×2 (00:56→20:49)
[2018-10-02] MEDS: NS IV 1000 ML 1,000 ML IV SCH ×4 (00:56→20:50)
[2018-10-02] MEDS: morphine INJ 4 MG/ML 1 ML (VIAL/SYRINGE) IV PRN ×5 (00:57→21:36)
[2018-10-02 03:52] LABS: BASOPHILS % (AUTO) 0 % (0-10); EOSINOPHILS # (AUTO) 0.1 10^3/uL (0.0-0.3); EOSINOPHILS % (AUTO) 1 % (0-10); HEMATOCRIT 34 % (40-54); HEMOGLOBIN 11.2 G/DL (13.3-17.7); LYMPHOCYTES # (AUTO) 1.3 X 10^3 (1.0-4.0); LYMPHOCYTES % (AUTO) 17 % (12-44); MEAN CORPUSCULAR HEMOGLOBIN 26 PG (25-34); MEAN CORPUSCULAR HGB CONC 33 G/DL (32-36); MEAN CORPUSCULAR VOLUME 81 FL (80-99); MEAN PLATELET VOLUME 8.9 FL (7.4-10.4); MONOCYTES # (AUTO) 1.3 X 10^3 (0.0-1.0); MONOCYTES % (AUTO) 16 % (0-12); NEUTROPHILS # (AUTO) 5.2 X 10^3 (1.8-7.8); NEUTROPHILS % (AUTO) 66 % (42-75); PLATELET COUNT 555 10^3/uL (130-400); RED CELL DISTRIBUTION WIDTH 14.5 % (10.0-14.5); WHITE BLOOD COUNT 7.9 10^3/uL (4.3-11.0)
[2018-10-02 04:13] LABS: ALANINE AMINOTRANSFERASE 15 U/L (0-55); ALBUMIN 3.2 GM/DL (3.2-4.5); ALKALINE PHOSPHATASE 179 U/L (40-136); BILIRUBIN,TOTAL 0.6 MG/DL (0.1-1.0); BUN/CREATININE RATIO 10; CALCIUM 9.4 MG/DL (8.5-10.1); CARBON DIOXIDE 24 MMOL/L (21-32); CHLORIDE 96 MMOL/L (98-107); CREATININE SERUM 0.68 MG/DL (0.60-1.30); GFR ESTIMATED > 60; GLUCOSE 88 MG/DL (70-105); MAGNESIUM 1.7 MG/DL (1.8-2.4); POTASSIUM 4.1 MMOL/L (3.6-5.0); SODIUM 132 MMOL/L (135-145); TOTAL PROTEIN 6.8 GM/DL (6.4-8.2)
--- NOTE | 2018-10-02 05:41 | Pulmonary Progress Note ---
Subjective Time Seen by a Provider: 05:46 Subjective/Events-last exam Chest tube in place over 800ml over last 24hours. Sepsis Event Evaluation Height, Weight, BMI Height: 6'4.00" Weight: 228lbs. 0.0oz. 103.658772lg; 27.8 BMI Method:Stated Exam Exam Vital Signs Date Time Temp Pulse Resp B/P (MAP) Pulse Ox O2 Delivery O2 Flow Rate FiO2 10/02/18 04:00 79 27 129/82 (98) 95 Room Air 10/02/18 04:00 98 Room Air 10/02/18 03:00 81 27 116/90 (99) 96 Room Air 10/02/18 02:00 71 18 127/87 (100) 96 Room Air 10/02/18 01:00 71 19 135/86 (102) 95 Room Air 10/02/18 00:59 98 10/02/18 00:00 97 Room Air 10/02/18 00:00 88 26 131/82 (98) 95 Room Air 10/01/18 23:00 82 25 119/101 (107) 98 Room Air 10/01/18 22:00 86 26 130/83 (99) 97 Room Air 10/01/18 21:00 83 21 119/105 (110) 94 Room Air 10/01/18 20:00 84 20 112/89 (97) 94 Room Air 10/01/18 20:00 97 Room Air 10/01/18 19:00 89 10/01/18 19:00 80 12 120/83 (95) 96 Room Air 10/01/18 18:00 94 25 Room Air 10/01/18 17:00 95 20 111/74 (86) Room Air 10/01/18 16:00 98 Room Air 10/01/18 16:00 93 22 150/94 (112) Room Air 10/01/18 15:00 89 30 138/51 (80) Room Air 10/01/18 14:31 82 19 127/98 (108) Room Air 10/01/18 14:00 82 19 127/98 (108) Room Air 10/01/18 13:00 98 12 141/88 (105) Room Air 10/01/18 12:00 95 10/01/18 12:00 101 32 121/92 (102) Room Air 10/01/18 12:00 98 Room Air 10/01/18 11:35 99.7 10/01/18 11:00 124 20 91 Room Air 10/01/18 10:00 84 21 108/85 (93) 99 Room Air 10/01/18 09:00 83 13 114/78 (90) 94 Room Air 10/01/18 08:00 98 Room Air 10/01/18 08:00 87 20 136/88 (104) 94 Room Air 10/01/18 07:35 98.4 10/01/18 07:00 80 10/01/18 07:00 89 14 133/81 (98) 93 Room Air 10/01/18 06:00 75 23 116/91 (99) 94 Room Air I & O 10/02/18 07:00 Intake Total 645 ml Output Total 460 ml Balance 185 ml Height & Weight Height: 6'4.00" Weight: 228lbs. 0.0oz. 103.819797nd; 27.8 BMI Method:Stated General Appearance: No Apparent Distress HEENT: Normal ENT Inspection Neck: Normal Inspection, Non Tender Respiratory: No Accessory Muscle Use, No Respiratory Distress, Decreased Breath Sounds, Other (S2) Cardiovascular: Regular Rate, Rhythm, No Murmur Gastrointestinal: normal bowel sounds, non tender, soft Extremity: Normal Capillary Refill, No Pedal Edema Neurologic/Psychiatric: Alert, Oriented x3 Skin: Normal Color, Warm/Dry Results Lab Laboratory Tests 10/01/18 03:20 10/02/18 03:30 Assessment/Plan Assessment/Plan -Hydropneumothorax s/p chest tube placement - Exudative pleural fluid -Repeat CT of chest today -Total 500ml of chest tube out put over last 24hours -Pleural fluid cytology is pending -Will plan for bronchoscopy tomorrow AM -start solumedol 40 Q6 -D/C vanco continue Zosyn Anemia -Monitor MANDY COLLINS DO Oct 02, 2018 05:41
--- NOTE | 2018-10-02 06:55 | Diagnostic Imaging Report ---
EXAMINATION: Portable erect AP chest at 3:20 AM INDICATION: Respiratory distress The cardiomegaly and the loculated hydropneumothorax with associated pneumonia/atelectasis involving the right lung seen on the prior study of 10/01/2018 are again visualized and essentially no different. The right-sided chest tube seems unchanged in position. The right apex and the left lung remain generally clear. The mediastinum is not widened. The osseous structures are intact. IMPRESSION: Stable chest. There has been no adverse change since the prior exam. Dictated by: Dictated on workstation # [id number]
[2018-10-02] MEDS: methylPREDNISolone 40 MG/ML (Solu-MEDROL) VIAL IV SCH ×3 (07:14→17:48)
[2018-10-02] MEDS: PIPERACILLIN/TAZOBACTAM (BULK) 4.5 GM in NS (IVPB) 100 ML IV SCH ×3 (07:16→20:50)
[2018-10-02] MEDS: ENOXAPARIN 40 MG/0.4 ML (LOVENOX) SYR SC SCH (07:17)
--- NOTE | 2018-10-02 07:49 | Progress Note (SOAP) ---
Subjective Time Seen by a Provider: 07:47 Subjective/Events-last exam Sleepy this morning. Patient tries to put chest tube last night. Patient answers questions appropriately. Patient stable Objective Exam Vital Signs Date Time Temp Pulse Resp B/P (MAP) Pulse Ox O2 Delivery O2 Flow Rate FiO2 10/02/18 07:00 64 21 133/96 (108) 96 Room Air 10/02/18 07:00 93 10/02/18 06:00 85 15 122/92 (102) 94 Room Air 10/02/18 05:00 73 23 142/82 (102) 95 Room Air 10/02/18 04:00 79 27 129/82 (98) 95 Room Air 10/02/18 04:00 98 Room Air 10/02/18 03:00 81 27 116/90 (99) 96 Room Air 10/02/18 02:00 71 18 127/87 (100) 96 Room Air 10/02/18 01:00 71 19 135/86 (102) 95 Room Air 10/02/18 00:59 98 10/02/18 00:00 97 Room Air 10/02/18 00:00 88 26 131/82 (98) 95 Room Air 10/01/18 23:00 82 25 119/101 (107) 98 Room Air 10/01/18 22:00 86 26 130/83 (99) 97 Room Air 10/01/18 21:00 83 21 119/105 (110) 94 Room Air 10/01/18 20:00 84 20 112/89 (97) 94 Room Air 10/01/18 20:00 97 Room Air 10/01/18 19:00 89 10/01/18 19:00 80 12 120/83 (95) 96 Room Air 10/01/18 18:00 94 25 Room Air 10/01/18 17:00 95 20 111/74 (86) Room Air 10/01/18 16:00 98 Room Air 10/01/18 16:00 93 22 150/94 (112) Room Air 10/01/18 15:00 89 30 138/51 (80) Room Air 10/01/18 14:31 82 19 127/98 (108) Room Air 10/01/18 14:00 82 19 127/98 (108) Room Air 10/01/18 13:00 98 12 141/88 (105) Room Air 10/01/18 12:00 95 10/01/18 12:00 101 32 121/92 (102) Room Air 10/01/18 12:00 98 Room Air 10/01/18 11:35 99.7 10/01/18 11:00 124 20 91 Room Air 10/01/18 10:00 84 21 108/85 (93) 99 Room Air 10/01/18 09:00 83 13 114/78 (90) 94 Room Air 10/01/18 08:00 98 Room Air 10/01/18 08:00 87 20 136/88 (104) 94 Room Air I & O 10/02/18 06:59 Intake Total 645 ml Output Total 460 ml Balance 185 ml Capillary Refill : General Appearance: No Apparent Distress, WD/WN HEENT: Normal ENT Inspection Neck: Full Range of Motion, Normal Inspection Respiratory: Lungs Clear, No Accessory Muscle Use, No Respiratory Distress Cardiovascular: Regular Rate, Rhythm, No Murmur Results Lab Laboratory Tests 10/02/18 03:30 Laboratory Tests 10/02/18 03:30: White Blood Count 7.9, Red Blood Count 4.26L, Hemoglobin 11.2L, Hematocrit 34L, Mean Corpuscular Volume 81, Mean Corpuscular Hemoglobin 26, Mean Corpuscular Hemoglobin Concent 33, Red Cell Distribution Width 14.5, Platelet Count 555H, Mean Platelet Volume 8.9, Neutrophils (%) (Auto) 66, Lymphocytes (%) (Auto) 17, Monocytes (%) (Auto) 16H, Eosinophils (%) (Auto) 1, Basophils (%) (Auto) 0, Neutrophils # (Auto) 5.2, Lymphocytes # (Auto) 1.3, Monocytes # (Auto) 1.3H, Eosinophils # (Auto) 0.1, Basophils # (Auto) 0.0, Sodium Level 132L, Potassium Level 4.1, Chloride Level 96L, Carbon Dioxide Level 24, Anion Gap 12, Blood Urea Nitrogen 7, Creatinine 0.68, Estimat Glomerular Filtration Rate > 60, BUN/ Creatinine Ratio 10, Glucose Level 88, Calcium Level 9.4, Corrected Calcium 10.0 , Phosphorus Level 3.0, Magnesium Level 1.7L, Total Bilirubin 0.6, Aspartate Amino Transf (AST/SGOT) 13, Alanine Aminotransferase (ALT/SGPT) 15, Alkaline Phosphatase 179H, B-Type Natriuretic Peptide 79.8, Total Protein 6.8, Albumin 3.2 Microbiology 09/30/18 Gram Stain - Final, Resulted 09/30/18 Body Fluid Culture, Resulted Pending 09/30/18 MRSA Screen - Final, Complete MRSA not isolated Assessment/Plan Assessment/Plan Assess & Plan/Chief Complaint Hydropneumothorax. Anemia. MR. Bipolar. Schizoaffective. Hypomagnesemia Clinical Quality Measures Admission Status Admission Dx Hydropneumothorax. Hilar mass. More. Bipolar and schizoaffective. Weakness. Pleural effusion. MR. DVT/VTE Risk/Contraindication: RFS Level Per Nursing on Admit: 0=No Risk/No VTE PPX JAVID JACKSON DO Oct 02, 2018 07:49
[2018-10-02] MEDS: KCL 20 MEQ TAB (K-DUR) PO SCH (08:05)
[2018-10-02] MEDS: POTASSIUM CL 10MEQ/50ML IVPB 50 ML IV SCH (08:05)
[2018-10-02] MEDS: MAGNESIUM 1 GM/100 ML IVPB 100 ML IV SCH ×4 (08:20→08:30)
[2018-10-02] MEDS: PARoxetine 20 MG (PAXIL) TAB PO SCH (08:30)
[2018-10-02] MEDS: DIVALPROEX 250 MG DELAYED RELEASE (DEPAKOTE) TAB PO SCH ×2 (08:30→20:50)
[2018-10-02] MEDS: LEVETIRACETAM 500 MG (KEPPRA) TAB PO SCH ×2 (08:30→20:49)
[2018-10-02] MEDS ORDERED: NON-FORMULARY MEDICATION 1 EA EA (Paroxetine HCl 30 MG) PO SCH (09:00)
[2018-10-02] MEDS: LORazepam INJ 2 MG/ML (ATIVAN) VIAL IV PRN (14:01)
[2018-10-02] MEDS ORDERED: TROUGH ORDER-PHARMACY XX NR (18:00)
[2018-10-03] VITALS (20 sets, daily range): BP systolic 96–137; BP diastolic 66–95
[2018-10-03] MEDS: methylPREDNISolone 40 MG/ML (Solu-MEDROL) VIAL IV SCH ×4 (01:07→18:54)
[2018-10-03 04:08] LABS: BASOPHILS % (AUTO) 0 % (0-10); EOSINOPHILS % (AUTO) 0 % (0-10); HEMATOCRIT 40 % (40-54); LYMPHOCYTES # (AUTO) 0.7 X 10^3 (1.0-4.0); LYMPHOCYTES % (AUTO) 8 % (12-44); MEAN CORPUSCULAR HEMOGLOBIN 26 PG (25-34); MEAN CORPUSCULAR HGB CONC 33 G/DL (32-36); MEAN CORPUSCULAR VOLUME 80 FL (80-99); MEAN PLATELET VOLUME 9.2 FL (7.4-10.4); MONOCYTES # (AUTO) 0.4 X 10^3 (0.0-1.0); MONOCYTES % (AUTO) 5 % (0-12); NEUTROPHILS # (AUTO) 7.8 X 10^3 (1.8-7.8); NEUTROPHILS % (AUTO) 87 % (42-75); PLATELET COUNT 587 10^3/uL (130-400); RED CELL DISTRIBUTION WIDTH 14.6 % (10.0-14.5); WHITE BLOOD COUNT 8.9 10^3/uL (4.3-11.0)
[2018-10-03 04:24] LABS: ALANINE AMINOTRANSFERASE 18 U/L (0-55); ALBUMIN 3.4 GM/DL (3.2-4.5); ALKALINE PHOSPHATASE 181 U/L (40-136); BILIRUBIN,TOTAL 0.4 MG/DL (0.1-1.0); BUN/CREATININE RATIO 14; CALCIUM 9.8 MG/DL (8.5-10.1); CARBON DIOXIDE 23 MMOL/L (21-32); CHLORIDE 98 MMOL/L (98-107); CREATININE SERUM 0.73 MG/DL (0.60-1.30); GFR ESTIMATED > 60; GLUCOSE 127 MG/DL (70-105); MAGNESIUM 1.9 MG/DL (1.8-2.4); PHOSPHORUS 3.8 MG/DL (2.3-4.7); POTASSIUM 4.5 MMOL/L (3.6-5.0); SODIUM 134 MMOL/L (135-145); TOTAL PROTEIN 7.6 GM/DL (6.4-8.2)
--- NOTE | 2018-10-03 05:01 | Pulmonary Progress Note ---
Subjective Time Seen by a Provider: 07:20 Subjective/Events-last exam 90cc of chest tube out put last night. Sepsis Event Evaluation Height, Weight, BMI Height: 6'4.00" Weight: 228lbs. 0.0oz. 103.588725yu; 27.8 BMI Method:Stated Exam Exam Vital Signs Date Time Temp Pulse Resp B/P (MAP) Pulse Ox O2 Delivery O2 Flow Rate FiO2 10/03/18 04:00 95 Room Air 10/03/18 03:00 82 11 101/75 (84) 93 Room Air 10/03/18 02:00 85 17 108/87 (94) 96 Room Air 10/03/18 01:00 87 10/03/18 01:00 87 28 112/81 (91) 95 Room Air 10/03/18 00:00 95 Room Air 10/03/18 00:00 97.6 92 24 103/66 (78) 93 Room Air 10/02/18 23:00 100 22 93 Room Air 10/02/18 22:00 103 22 96 Nasal Cannula 2.00 10/02/18 21:00 101 28 95 Nasal Cannula 2.00 10/02/18 20:53 101 27 95 Nasal Cannula 2.00 10/02/18 20:00 95 Room Air 10/02/18 20:00 96.5 96 13 113/78 (90) 94 Room Air 10/02/18 19:00 97 10/02/18 19:00 97 27 94 Room Air 10/02/18 15:00 110 24 96 Room Air 10/02/18 14:00 105 20 96 Room Air 10/02/18 13:00 106 14 96 Room Air 10/02/18 13:00 107 10/02/18 12:00 97.9 87 20 117/85 (96) 96 Room Air 10/02/18 11:00 67 26 95 Room Air 10/02/18 10:00 72 14 104/70 (81) 96 Room Air 10/02/18 09:00 76 22 139/83 (101) 97 Room Air 10/02/18 08:00 97.6 10/02/18 08:00 98 Room Air 10/02/18 08:00 69 22 131/93 (106) 97 Room Air 10/02/18 07:00 64 21 133/96 (108) 96 Room Air 10/02/18 07:00 93 10/02/18 06:00 85 15 122/92 (102) 94 Room Air I & O 10/03/18 07:00 Intake Total 2940 ml Output Total 2805 ml Balance 135 ml Height & Weight Height: 6'4.00" Weight: 228lbs. 0.0oz. 103.792965cy; 27.8 BMI Method:Stated General Appearance: No Apparent Distress, WD/WN HEENT: Normal ENT Inspection Neck: Full Range of Motion, Normal Inspection Respiratory: Lungs Clear, No Accessory Muscle Use, No Respiratory Distress Cardiovascular: Regular Rate, Rhythm, No Murmur Gastrointestinal: normal bowel sounds, non tender, soft Extremity: Normal Capillary Refill, No Pedal Edema Neurologic/Psychiatric: Alert, Oriented x3 Skin: Normal Color, Warm/Dry Results Lab Laboratory Tests 10/02/18 03:30 10/03/18 03:35 Assessment/Plan Assessment/Plan -Hydropneumothorax with trapped lung s/p chest tube placement - Exudative pleural fluid -Consult Dr. Stark for possible Decortication -Total 90ml of chest tube out put over last 24hours -Pleural fluid cytology is pending -Will plan for bronchoscopy today - solumedol 40 Q6 -continue Zosyn Anemia -Monitor MANDY COLLINS DO Oct 03, 2018 05:01
[2018-10-03] MEDS ORDERED: MIDAZOLAM 5 MG/5 ML (VERSED) VIAL ONE (06:22)
[2018-10-03] MEDS ORDERED: fentaNYL INJECTION 100 MCG/2 ML AMP ONE (06:22)
[2018-10-03] MEDS: KCL 20 MEQ TAB (K-DUR) PO SCH (06:23)
[2018-10-03] MEDS: POTASSIUM CL 10MEQ/50ML IVPB 50 ML IV SCH (06:23)
[2018-10-03] MEDS ORDERED: fentaNYL INJECTION 100 MCG/2 ML AMP IVP PRN (06:25)
[2018-10-03] MEDS ORDERED: MIDAZOLAM 5 MG/5 ML (VERSED) VIAL IVP ONE (06:25)
--- NOTE | 2018-10-03 06:43 | Pulmonary Procedures ---
Pulmonary Procedures Date of Procedure Date of Service: Oct 03, 2018 Bronch Bronchoscopy with RLL BAL PreOP DX: r/o Endobronchial mass Post op DX: no mass Complications None After informed consent obtained pt was sedated using Fentanyl and Versed. Bronchoscope was advanced through the left nare and vocal cords. An anatomical tour was undertaken down to the segmental bronchi bilaterally. BAL collected from RLL. No endobronchial mass noted. PT tolerated procedure well. NO complications noted. MANDY COLLINS DO Oct 03, 2018 06:43
[2018-10-03] MEDS: ENOXAPARIN 40 MG/0.4 ML (LOVENOX) SYR SC SCH (06:47)
[2018-10-03] MEDS: PIPERACILLIN/TAZOBACTAM (BULK) 4.5 GM in NS (IVPB) 100 ML IV SCH ×3 (06:47→20:40)
[2018-10-03] MEDS: NS IV 1000 ML 1,000 ML IV SCH (06:48)
--- NOTE | 2018-10-03 07:18 | Diagnostic Imaging Report ---
INDICATION: Post bronchoscopy. Comparison with 10/02/2018. FINDINGS: Right-sided chest tube unchanged in position. Hydropneumothorax again noted in the right lateral chest. There continues to be opacification of the right lower lung. Right upper lung is clear. Left lung is clear. IMPRESSION: No significant change noted when compared with previous days' exam. Dictated by: Dictated on workstation # [id number]
--- NOTE | 2018-10-03 07:26 | Progress Note (SOAP) ---
Subjective Time Seen by a Provider: 07:23 Subjective/Events-last exam Sedated. Patient had bronchoscopy this a.m. 90 mL of fluid from chest tube. Chest x-ray yesterday stable. No mass found on bronchoscopy FINDINGS: [ ] EBL: [ <5 mL ] COMPLICATIONS: [ None Objective Exam Vital Signs Date Time Temp Pulse Resp B/P (MAP) Pulse Ox O2 Delivery O2 Flow Rate FiO2 10/03/18 04:00 86 15 109/87 (94) 95 Room Air 10/03/18 04:00 95 Room Air 10/03/18 03:00 82 11 101/75 (84) 93 Room Air 10/03/18 02:00 85 17 108/87 (94) 96 Room Air 10/03/18 01:00 87 10/03/18 01:00 87 28 112/81 (91) 95 Room Air 10/03/18 00:00 95 Room Air 10/03/18 00:00 97.6 92 24 103/66 (78) 93 Room Air 10/02/18 23:00 100 22 93 Room Air 10/02/18 22:00 103 22 96 Nasal Cannula 2.00 10/02/18 21:00 101 28 95 Nasal Cannula 2.00 10/02/18 20:53 101 27 95 Nasal Cannula 2.00 10/02/18 20:00 95 Room Air 10/02/18 20:00 96.5 96 13 113/78 (90) 94 Room Air 10/02/18 19:00 97 10/02/18 19:00 97 27 94 Room Air 10/02/18 15:00 110 24 96 Room Air 10/02/18 14:00 105 20 96 Room Air 10/02/18 13:00 106 14 96 Room Air 10/02/18 13:00 107 10/02/18 12:00 97.9 87 20 117/85 (96) 96 Room Air 10/02/18 11:00 67 26 95 Room Air 10/02/18 10:00 72 14 104/70 (81) 96 Room Air 10/02/18 09:00 76 22 139/83 (101) 97 Room Air 10/02/18 08:00 97.6 10/02/18 08:00 98 Room Air 10/02/18 08:00 69 22 131/93 (106) 97 Room Air I & O 10/03/18 07:00 Intake Total 2940 ml Output Total 2995 ml Balance -55 ml Capillary Refill : General Appearance: No Apparent Distress, WD/WN HEENT: Normal ENT Inspection Neck: Full Range of Motion, Normal Inspection Respiratory: Lungs Clear, No Accessory Muscle Use, No Respiratory Distress, Other (Right chest tube) Cardiovascular: Regular Rate, Rhythm, No Murmur Gastrointestinal: non tender, soft Results Lab Laboratory Tests 10/03/18 03:35 Laboratory Tests 10/02/18 18:10: Vancomycin Level Trough 5.5L 10/03/18 03:35: White Blood Count 8.9, Red Blood Count 4.97, Hemoglobin 13.0L, Hematocrit 40, Mean Corpuscular Volume 80, Mean Corpuscular Hemoglobin 26, Mean Corpuscular Hemoglobin Concent 33, Red Cell Distribution Width 14.6H, Platelet Count 587H, Mean Platelet Volume 9.2, Neutrophils (%) (Auto) 87H, Lymphocytes (%) (Auto) 8L , Monocytes (%) (Auto) 5, Eosinophils (%) (Auto) 0, Basophils (%) (Auto) 0, Neutrophils # (Auto) 7.8, Lymphocytes # (Auto) 0.7L, Monocytes # (Auto) 0.4, Eosinophils # (Auto) 0.0, Basophils # (Auto) 0.0, Sodium Level 134L, Potassium Level 4.5, Chloride Level 98, Carbon Dioxide Level 23, Anion Gap 13, Blood Urea Nitrogen 10, Creatinine 0.73, Estimat Glomerular Filtration Rate > 60, BUN/ Creatinine Ratio 14, Glucose Level 127H, Calcium Level 9.8, Corrected Calcium 10.3H, Phosphorus Level 3.8, Magnesium Level 1.9, Total Bilirubin 0.4, Aspartate Amino Transf (AST/SGOT) 15, Alanine Aminotransferase (ALT/SGPT) 18, Alkaline Phosphatase 181H, Total Protein 7.6, Albumin 3.4 Microbiology 09/30/18 Gram Stain - Final, Resulted 09/30/18 Body Fluid Culture, Resulted Pending 09/30/18 MRSA Screen - Final, Complete MRSA not isolated Assessment/Plan Assessment/Plan Assess & Plan/Chief Complaint Hydropneumothorax. Anemia. MR. Bipolar. Schizoaffective. Hypomagnesemia. . 10/03/18 Hydropneumothorax. Anemia. Bipolar. Schizoaffective. Patient had bronchoscopy this a.m. no mass noted Clinical Quality Measures Admission Status Admission Dx Hydropneumothorax. Hilar mass. More. Bipolar and schizoaffective. Weakness. Pleural effusion. MR. DVT/VTE Risk/Contraindication: RFS Level Per Nursing on Admit: 0=No Risk/No VTE PPX JAVID JACKSON DO Oct 03, 2018 07:26
[2018-10-03] MEDS ORDERED: LIDOCAINE PF 1% 2 ML AMP INJ ONE (08:26)
[2018-10-03] MEDS ORDERED: LIDOCAINE JELLY 2% (XYLOCAINE) 5 ML TUBE MM ONE (08:26)
[2018-10-03] MEDS ORDERED: LIDOCAINE PF 2% 5 ML (XYLOCAINE) VIAL INJ ONE (08:26)
[2018-10-03] MEDS: DIVALPROEX 250 MG DELAYED RELEASE (DEPAKOTE) TAB PO SCH ×2 (09:30→20:39)
[2018-10-03] MEDS: LEVETIRACETAM 500 MG (KEPPRA) TAB PO SCH ×2 (09:30→20:39)
[2018-10-03] MEDS: PARoxetine 20 MG (PAXIL) TAB PO SCH (09:31)
--- NOTE | 2018-10-03 09:58 | Diagnostic Imaging Report ---
INDICATION: Pneumothorax. TIME OF EXAM: 03:37 a.m. Correlation is made with prior chest from one day earlier. Heart size stable. Right-sided hydropneumothorax appears unchanged. Chest tube overlies the right base. Parenchymal consolidation right mid and lower lung field is unchanged. The left lung remains clear. IMPRESSION: Stable chest since examination one day earlier. Dictated by: Dictated on workstation # [id number]
--- NOTE | 2018-10-03 12:15 | Consultation (Surgery) ---
History of Present Illness History of Present Illness Patient Consulted On(garland/time) 10/03/18 12:09 Time Seen by Provider: 09:59 History of Present Illness Surgery asked to consult regarding HydroPneumothorax, possible empyema. HPI mostly obtained from chart and other physicians, pt does not respond much to questions. He was intially admitted with hydropneumothorax and CT placed. Fluid obtained and sent for cytology and culture; no malignant cells seen but CT showed questionable endobronchial mass and Dr. Wright planned Bronch. He may need decortication, waiting on final results. Allergies and Home Medications Allergies Uncoded Allergies: IVP CONTRAST (Allergy, Unknown, 09/25/07) Home Medications Divalproex Sodium 250 Mg Tab.er.24h, 250 MG PO BID, (Reported) Levetiracetam 500 Mg Tablet, 500 MG PO BID, (Reported) Paroxetine HCl 30 Mg Tablet, 30 MG PO DAILY, (Reported) Risperidone 2 Mg Tablet, 2 MG PO HS, (Reported) Sennosides/Docusate Sodium 1 Each Tablet, 1 TAB PO HS, (Reported) Sodium Chloride 1 Gm Tab, 1 GM PO DAILY, (Reported) Trazodone HCl 100 Mg Tablet, 100 MG PO HS, (Reported) Patient Home Medication List Home Medication List Reviewed: Yes Past Dhzmvas-Mtevkb-Cfioih Hx Patient Social History Alcohol Use: Denies Use Recreational Drug Use: No Recent Hopitalizations: No Physical Abuse Screen: No Sexual Abuse: No Immunizations Up To Date Date of Pneumonia Vaccine: Jul 02, 2018 Seasonal Allergies Seasonal Allergies: Yes Respiratory History of Respiratory Disorde: Yes Cardiovascular History of Cardiac Disorders: Yes (MVP) Neurological History of Neurological Disord: Yes Reproductive System Hx Reproductive Disorders: No Sexually Transmitted Disease: No Gastrointestinal History of Gastrointestinal Di: No Musculoskeletal History of Musculoskeletal Dis: No Endocrine History of Endocrine Disorders: No Blood Transfusions History of Blood Disorders: No Family Medical History Significant Family History: Other Conditions/Hx (unable to obtain) Review of Systems-General ROS-Unable to Obtain: pt does not answer questions Physical Exam-General Problems Physical Exam Vital Signs Vital Signs - First Documented 09/30/18 10/02/18 16:15 20:53 Pulse 91 Resp 7 B/P (MAP) 132/92 (105) Pulse Ox 97 O2 Delivery Room Air O2 Flow Rate 2.00 Capillary Refill : General Appearance: no apparent distress, thin Eyes: Bilateral Eye PERRL, Bilateral Eye EOMI HEENT: pharynx normal; No scleral icterus (R), No scleral icterus (L) Respiratory: chest non-tender, no respiratory distress, no accessory muscle use , decreased breath sounds (right), other (CT in right side) Cardiovascular: regular rate, rhythm, no murmur Gastrointestinal: normal bowel sounds, non tender, soft, no organomegaly Extremities: no pedal edema, no calf tenderness, other Skin: normal color, warm/dry Lymphatic: no adenopathy (neck, axilla or gron) Data Review Labs Laboratory Tests 10/02/18 18:10: Vancomycin Level Trough 5.5L 10/03/18 03:35: White Blood Count 8.9, Red Blood Count 4.97, Hemoglobin 13.0L, Hematocrit 40, Mean Corpuscular Volume 80, Mean Corpuscular Hemoglobin 26, Mean Corpuscular Hemoglobin Concent 33, Red Cell Distribution Width 14.6H, Platelet Count 587H, Mean Platelet Volume 9.2, Neutrophils (%) (Auto) 87H, Lymphocytes (%) (Auto) 8L , Monocytes (%) (Auto) 5, Eosinophils (%) (Auto) 0, Basophils (%) (Auto) 0, Neutrophils # (Auto) 7.8, Lymphocytes # (Auto) 0.7L, Monocytes # (Auto) 0.4, Eosinophils # (Auto) 0.0, Basophils # (Auto) 0.0, Sodium Level 134L, Potassium Level 4.5, Chloride Level 98, Carbon Dioxide Level 23, Anion Gap 13, Blood Urea Nitrogen 10, Creatinine 0.73, Estimat Glomerular Filtration Rate > 60, BUN/ Creatinine Ratio 14, Glucose Level 127H, Calcium Level 9.8, Corrected Calcium 10.3H, Phosphorus Level 3.8, Magnesium Level 1.9, Total Bilirubin 0.4, Aspartate Amino Transf (AST/SGOT) 15, Alanine Aminotransferase (ALT/SGPT) 18, Alkaline Phosphatase 181H, Total Protein 7.6, Albumin 3.4 Microbiology 09/30/18 Gram Stain - Final, Resulted 09/30/18 Body Fluid Culture, Resulted Pending 09/30/18 MRSA Screen - Final, Complete MRSA not isolated Assessment/Plan Assessment/Plan Assessment/Plan Hydropneumothorax. Anemia. MR. Bipolar. Schizoaffective. Hypomagnesemia. Pt will probably need Decortication to try and expand the right lung, will need to go over films with Radiology and await final pathology from brushings and washings today. Will then need to talk to POA to get permission for surgery. Clinical Quality Measures DVT/VTE Risk/Contraindication: RFS Level Per Nursing on Admit: 0=No Risk/No VTE PPX ADAM AARON DO Oct 03, 2018 12:15
[2018-10-03] MEDS: morphine INJ 4 MG/ML 1 ML (VIAL/SYRINGE) IV PRN ×3 (15:57→21:52)
[2018-10-03] MEDS: LORazepam INJ 2 MG/ML (ATIVAN) VIAL IV PRN ×2 (16:47→21:52)
--- NOTE | 2018-10-03 16:54 | NUR ---
1530 During rounding discovered patient had removed his Benítez Catheter. Catheter tip appears intact. Cleaned patient and changed linens. Patient seems more restless. HR increased to 120. Reassured patient, answered questions, gave updates on his plan of care.
--- NOTE | 2018-10-03 16:58 | NUR ---
1630 During rounds discovered patient had pulled out his chest tube completely. CT insertion/puncture site appears clean and edges well approximated. Suture strings hanging were cut and removed. Applied petroleum gauze over site and 4x4's with 3 of the sides taped down. Notified Dr. Wright via text message. No new orders other than to apply petroleum gauze and 4x4's.
[2018-10-03] MEDS: risperiDONE 2 MG (RisperDAL) TAB PO SCH (20:39)
[2018-10-04] VITALS (8 sets, daily range): BP systolic 109–143; BP diastolic 73–98
[2018-10-04] MEDS: morphine INJ 4 MG/ML 1 ML (VIAL/SYRINGE) IV PRN (00:01)
[2018-10-04] MEDS: methylPREDNISolone 40 MG/ML (Solu-MEDROL) VIAL IV SCH ×4 (00:02→17:48)
[2018-10-04 03:34] LABS: BASOPHILS % (AUTO) 0 % (0-10); EOSINOPHILS % (AUTO) 0 % (0-10); HEMATOCRIT 34 % (40-54); HEMOGLOBIN 11.1 G/DL (13.3-17.7); LYMPHOCYTES # (AUTO) 0.7 X 10^3 (1.0-4.0); LYMPHOCYTES % (AUTO) 4 % (12-44); MEAN CORPUSCULAR HEMOGLOBIN 26 PG (25-34); MEAN CORPUSCULAR HGB CONC 33 G/DL (32-36); MEAN CORPUSCULAR VOLUME 81 FL (80-99); MEAN PLATELET VOLUME 9.2 FL (7.4-10.4); MONOCYTES # (AUTO) 0.7 X 10^3 (0.0-1.0); MONOCYTES % (AUTO) 4 % (0-12); NEUTROPHILS # (AUTO) 14.4 X 10^3 (1.8-7.8); NEUTROPHILS % (AUTO) 91 % (42-75); PLATELET COUNT 636 10^3/uL (130-400); RED CELL DISTRIBUTION WIDTH 14.7 % (10.0-14.5); WHITE BLOOD COUNT 15.8 10^3/uL (4.3-11.0)
[2018-10-04 03:50] LABS: BAND NEUTROPHILS 1 %; LYMPHOCYTES % (MANUAL) 5 %; MONOCYTES % (MANUAL) 3 %; NEUTROPHILS % (MANUAL) 91 %; RBC MORPH NORMAL
[2018-10-04 03:55] LABS: ALANINE AMINOTRANSFERASE 14 U/L (0-55); ALBUMIN 2.8 GM/DL (3.2-4.5); ALKALINE PHOSPHATASE 155 U/L (40-136); BILIRUBIN,TOTAL 0.3 MG/DL (0.1-1.0); BUN/CREATININE RATIO 30; CALCIUM 8.7 MG/DL (8.5-10.1); CARBON DIOXIDE 24 MMOL/L (21-32); CHLORIDE 106 MMOL/L (98-107); CREATININE SERUM 0.67 MG/DL (0.60-1.30); GFR ESTIMATED > 60; GLUCOSE 154 MG/DL (70-105); MAGNESIUM 1.9 MG/DL (1.8-2.4); PHOSPHORUS 1.8 MG/DL (2.3-4.7); POTASSIUM 4.2 MMOL/L (3.6-5.0); SODIUM 139 MMOL/L (135-145); TOTAL PROTEIN 5.9 GM/DL (6.4-8.2)
[2018-10-04] MEDS: LORazepam INJ 2 MG/ML (ATIVAN) VIAL IV PRN ×2 (03:56→15:22)
[2018-10-04] MEDS: NS IV 1000 ML 1,000 ML IV SCH ×4 (03:56→23:30)
[2018-10-04] MEDS: ENOXAPARIN 40 MG/0.4 ML (LOVENOX) SYR SC SCH (05:57)
[2018-10-04] MEDS: PIPERACILLIN/TAZOBACTAM (BULK) 4.5 GM in NS (IVPB) 100 ML IV SCH ×3 (05:57→21:26)
[2018-10-04] MEDS: KCL 20 MEQ TAB (K-DUR) PO SCH (06:00)
[2018-10-04] MEDS: MAGNESIUM 1 GM/100 ML IVPB 100 ML IV SCH (06:00)
[2018-10-04] MEDS: POTASSIUM CL 10MEQ/50ML IVPB 50 ML IV SCH (06:00)
--- NOTE | 2018-10-04 06:19 | Pulmonary Progress Note ---
Subjective Time Seen by a Provider: 06:18 Subjective/Events-last exam Pt pulled out chest tube yesterday. CXR appears stable. Sepsis Event Evaluation Height, Weight, BMI Height: 6'4.00" Weight: 174lbs. 0.0oz. 78.828589oe; 27.8 BMI Method:Stated Exam Exam Vital Signs Date Time Temp Pulse Resp B/P (MAP) Pulse Ox O2 Delivery O2 Flow Rate FiO2 10/04/18 04:00 63 17 140/80 (100) 100 Room Air 10/04/18 01:00 76 10/04/18 00:00 84 12 120/73 (89) 100 Room Air 10/04/18 00:00 98 Room Air 10/03/18 21:00 86 23 121/87 (98) 100 Room Air 10/03/18 20:00 98 21 118/80 (93) 100 Room Air 10/03/18 20:00 98 Room Air 10/03/18 19:00 98 10/03/18 19:00 98 14 115/75 (88) Room Air 10/03/18 18:00 104 15 114/73 (87) Room Air 10/03/18 17:00 105 16 113/95 (101) Room Air 10/03/18 16:00 97.5 10/03/18 16:00 95 Room Air 10/03/18 16:00 126 25 123/92 (102) Room Air 10/03/18 15:00 111 24 124/81 (95) Room Air 10/03/18 14:00 82 24 115/71 (86) Room Air 10/03/18 13:00 73 10/03/18 13:00 75 21 133/74 (93) 96 Room Air 10/03/18 12:00 95 Room Air 10/03/18 12:00 82 22 137/84 (101) 94 Room Air 10/03/18 11:49 97.9 10/03/18 11:00 70 20 109/70 (83) 94 Room Air 10/03/18 10:00 78 22 118/84 (95) 95 Room Air 10/03/18 09:00 62 12 128/79 (95) 94 Room Air 10/03/18 08:20 16 10/03/18 08:00 95 Room Air 10/03/18 08:00 97.7 80 20 96/67 (77) 90 Room Air 10/03/18 07:00 90 10/03/18 07:00 90 22 98/68 (78) 92 Room Air I & O 10/04/18 07:00 Intake Total 120 ml Output Total 540 ml Balance -420 ml Height & Weight Height: 6'4.00" Weight: 174lbs. 0.0oz. 78.059556gr; 27.8 BMI Method:Stated General Appearance: No Apparent Distress, WD/WN HEENT: Normal ENT Inspection Neck: Full Range of Motion, Normal Inspection Respiratory: Lungs Clear, No Accessory Muscle Use, No Respiratory Distress, Other (Right chest tube) Cardiovascular: Regular Rate, Rhythm, No Murmur Gastrointestinal: normal bowel sounds, non tender, soft, no organomegaly Extremity: Normal Capillary Refill, No Pedal Edema Neurologic/Psychiatric: Alert, Oriented x3 Skin: Normal Color, Warm/Dry Results Lab Laboratory Tests 10/03/18 03:35 10/04/18 03:05 Assessment/Plan Assessment/Plan -Hydropneumothorax with trapped lung s/p chest tube placement - Exudative pleural fluid -PT pulled chest tube out yesterday- CXR appears stable -Consult Dr. Stark for possible Decortication/Pleurodesis and pleural bx -Total 90ml of chest tube out put over last 24hours -Pleural fluid cytology - is Negative -S/P bronchoscopy - No endobronchial Mass -Cytology, cultures pending - solumedol 40 Q6 -continue Zosyn d/c vanco (MRSA Swab is negative) Anemia -Monitor MANDY COLLINS DO Oct 04, 2018 06:19
--- NOTE | 2018-10-04 07:49 | Diagnostic Imaging Report ---
INDICATION: Dyspnea. COMPARISON: 10/03/2018 FINDINGS: Single frontal radiographic view of the chest was obtained and again demonstrates probable loculated small right-sided hydropneumothorax. There is associated dense consolidation of the lateral right lung. Right-sided chest tube has since been removed. Otherwise, aeration is stable compared to prior exam. Left lung is relatively clear. No large effusion or pneumothorax seen on the left. Cardiac silhouette and pulmonary vasculature within normal limits. Bony structures are stable. IMPRESSION: 1. Interval removal of the right-sided chest tube. 2. Otherwise stable appearance of the chest showing loculated right-sided hydropneumothorax with associated dense consolidation of the adjacent right lung likely on the basis of infiltrate. Dictated by: Dictated on workstation # [id number]
[2018-10-04] MEDS: PARoxetine 20 MG (PAXIL) TAB PO SCH (08:27)
[2018-10-04] MEDS: LEVETIRACETAM 500 MG (KEPPRA) TAB PO SCH ×2 (08:27→21:26)
[2018-10-04] MEDS: DIVALPROEX 250 MG DELAYED RELEASE (DEPAKOTE) TAB PO SCH ×2 (08:28→21:26)
--- NOTE | 2018-10-04 11:39 | Progress Note-Hospitalist ---
Subjective HPI/CC On Admission Date Seen by Provider: Oct 04, 2018 Time Seen by Provider: 11:45 Subjective/Events-last exam Patient 4th floor status until and bed opens up Patient moving around the bed Contractures noted Reviewed previous notes Objective Exam Vital Signs Vital Signs Date Time Temp Pulse Resp B/P (MAP) Pulse Ox O2 Delivery O2 Flow Rate FiO2 10/04/18 16:00 96 25 124/84 (97) 100 Room Air 10/04/18 15:13 97.6 10/02/18 22:00 2.00 Capillary Refill : General Appearance: No Apparent Distress, WD/WN, Chronically ill HEENT: Normal ENT Inspection Neck: Full Range of Motion, Normal Inspection Respiratory: Lungs Clear, No Accessory Muscle Use, No Respiratory Distress, Other (Right chest tube) Cardiovascular: Regular Rate, Rhythm, No Murmur Gastrointestinal: Non Tender, Soft Extremity: Normal Capillary Refill, No Pedal Edema Neurologic/Psychiatric: Alert Skin: Normal Color, Warm/Dry Results/Procedures Lab Laboratory Tests 10/04/18 03:05 Patient resulted labs reviewed. Assessment/Plan Assessment and Plan Assess & Plan/Chief Complaint Assessment: Hydropneumothorax with trapped lung s/p chest tube placement Anemia Mentally challenged Seizure d/o Plan: Monitor lung status closely Home meds Clinical Quality Measures DVT/VTE Risk/Contraindication: RFS Level Per Nursing on Admit: 0=No Risk/No VTE PPX LATOYA GONZALEZ DO Oct 04, 2018 11:39
--- NOTE | 2018-10-04 14:00 | NUR ---
RECEIVED REPORT FROM NATALY NOLASCO, THIS RN TO ASSUME CARE OF PT FOR REMAINDER OF SHIFT. PT CURRENTLY SITTING UP IN BED EATING LUNCH AND WATCHING TV. VSS. CALL LIGHT W/ IN REACH. TELESITTER IN ROOM, BED ALARM ON.
--- NOTE | 2018-10-04 14:50 | Progress Note ---
Subjective Date Seen by a Provider: Oct 04, 2018 Time Seen by a Provider: 10:02 Subjective/Events-last exam Patient pulled chest tube yesterday. Chest x ray stable. Does not verbalize well. No family present. Objective Exam Vital Signs Date Time Temp Pulse Resp B/P (MAP) Pulse Ox O2 Delivery O2 Flow Rate FiO2 10/04/18 13:18 97.5 86 15 121/82 (95) 100 Room Air 10/04/18 13:00 56 10/04/18 12:00 86 16 143/98 (113) 91 Room Air 10/04/18 08:05 98 Room Air 10/04/18 08:00 73 11 125/83 (97) 100 Room Air 10/04/18 07:00 73 10/04/18 04:00 97 Room Air 10/04/18 04:00 97.0 10/04/18 04:00 63 17 140/80 (100) 100 Room Air 10/04/18 01:00 76 10/04/18 00:00 97.1 10/04/18 00:00 84 12 120/73 (89) 100 Room Air 10/04/18 00:00 98 Room Air 10/03/18 21:00 86 23 121/87 (98) 100 Room Air 10/03/18 20:00 97.5 10/03/18 20:00 98 21 118/80 (93) 100 Room Air 10/03/18 20:00 98 Room Air 10/03/18 19:00 98 10/03/18 19:00 98 14 115/75 (88) Room Air 10/03/18 18:00 104 15 114/73 (87) Room Air 10/03/18 17:00 105 16 113/95 (101) Room Air 10/03/18 16:00 97.5 10/03/18 16:00 95 Room Air 10/03/18 16:00 126 25 123/92 (102) Room Air 10/03/18 15:00 111 24 124/81 (95) Room Air I & O 10/04/18 07:00 Intake Total 120 ml Output Total 540 ml Balance -420 ml Capillary Refill : General Appearance: No Apparent Distress, WD/WN HEENT: Normal ENT Inspection Neck: Full Range of Motion, Normal Inspection Respiratory: Chest Non Tender, Lungs Clear, No Accessory Muscle Use, No Respiratory Distress, Other (decreased sounds right chest) Cardiovascular: Regular Rate, Rhythm, No Murmur Gastrointestinal: normal bowel sounds, non tender, soft, no organomegaly Extremity: Normal Capillary Refill, No Pedal Edema Neurologic/Psychiatric: Alert, Oriented x3 Skin: Normal Color, Warm/Dry Results Lab Laboratory Tests 10/04/18 03:05: White Blood Count 15.8H, Red Blood Count 4.20L, Hemoglobin 11.1L, Hematocrit 34L , Mean Corpuscular Volume 81, Mean Corpuscular Hemoglobin 26, Mean Corpuscular Hemoglobin Concent 33, Red Cell Distribution Width 14.7H, Platelet Count 636H, Mean Platelet Volume 9.2, Neutrophils (%) (Auto) 91H, Lymphocytes (%) (Auto) 4L , Monocytes (%) (Auto) 4, Eosinophils (%) (Auto) 0, Basophils (%) (Auto) 0, Neutrophils # (Auto) 14.4H, Lymphocytes # (Auto) 0.7L, Monocytes # (Auto) 0.7, Eosinophils # (Auto) 0.0, Basophils # (Auto) 0.0, Neutrophils % (Manual) 91, Lymphocytes % (Manual) 5, Monocytes % (Manual) 3, Band Neutrophils 1, Blood Morphology Comment NORMAL, Sodium Level 139, Potassium Level 4.2, Chloride Level 106, Carbon Dioxide Level 24, Anion Gap 9, Blood Urea Nitrogen 20H, Creatinine 0.67, Estimat Glomerular Filtration Rate > 60, BUN/Creatinine Ratio 30, Glucose Level 154H, Calcium Level 8.7, Corrected Calcium 9.7, Phosphorus Level 1.8L, Magnesium Level 1.9, Total Bilirubin 0.3, Aspartate Amino Transf ( AST/SGOT) 12, Alanine Aminotransferase (ALT/SGPT) 14, Alkaline Phosphatase 155H , Total Protein 5.9L, Albumin 2.8L Microbiology 09/30/18 Gram Stain - Final, Complete 09/30/18 Body Fluid Culture - Final, Complete No growth 10/03/18 Gram Stain - Final, Resulted 10/03/18 Bronchial Culture - Preliminary, Resulted Culture In Progress 10/03/18 Fungal Culture 1, Resulted Pending Assessment/Plan Assessment/Plan Assessment/Plan Hydropneumothorax. Anemia. MR. Bipolar. Schizoaffective. Hypomagnesemia. Pt will probably need Decortication to try and expand the right lung, will need to go over films with Radiology and await final pathology from brushings and washings. Stable at this time. No changes. Clinical Quality Measures DVT/VTE Risk/Contraindication: RFS Level Per Nursing on Admit: 0=No Risk/No VTE PPX KATHIE DYE DO Oct 04, 2018 14:50
[2018-10-04] MEDS: risperiDONE 2 MG (RisperDAL) TAB PO SCH (21:26)
[2018-10-05 00:02] VITALS: BP 125/92
[2018-10-05] MEDS: methylPREDNISolone 40 MG/ML (Solu-MEDROL) VIAL IV SCH ×5 (00:06→23:49)
[2018-10-05 03:40] LABS: BASOPHILS % (AUTO) 0 % (0-10); EOSINOPHILS % (AUTO) 0 % (0-10); HEMATOCRIT 37 % (40-54); LYMPHOCYTES # (AUTO) 0.7 X 10^3 (1.0-4.0); LYMPHOCYTES % (AUTO) 6 % (12-44); MEAN CORPUSCULAR HEMOGLOBIN 26 PG (25-34); MEAN CORPUSCULAR HGB CONC 32 G/DL (32-36); MEAN CORPUSCULAR VOLUME 81 FL (80-99); MEAN PLATELET VOLUME 9.3 FL (7.4-10.4); MONOCYTES # (AUTO) 0.6 X 10^3 (0.0-1.0); MONOCYTES % (AUTO) 5 % (0-12); NEUTROPHILS # (AUTO) 11.2 X 10^3 (1.8-7.8); NEUTROPHILS % (AUTO) 90 % (42-75); PLATELET COUNT 631 10^3/uL (130-400); RED CELL DISTRIBUTION WIDTH 14.9 % (10.0-14.5); WHITE BLOOD COUNT 12.5 10^3/uL (4.3-11.0)
[2018-10-05 04:02] LABS: ALANINE AMINOTRANSFERASE 19 U/L (0-55); ALBUMIN 3.2 GM/DL (3.2-4.5); ALKALINE PHOSPHATASE 194 U/L (40-136); BILIRUBIN,TOTAL 0.3 MG/DL (0.1-1.0); BUN/CREATININE RATIO 17; CALCIUM 9.2 MG/DL (8.5-10.1); CARBON DIOXIDE 21 MMOL/L (21-32); CHLORIDE 105 MMOL/L (98-107); CREATININE SERUM 0.71 MG/DL (0.60-1.30); GFR ESTIMATED > 60; GLUCOSE 111 MG/DL (70-105); MAGNESIUM 1.9 MG/DL (1.8-2.4); PHOSPHORUS 2.3 MG/DL (2.3-4.7); SODIUM 137 MMOL/L (135-145); TOTAL PROTEIN 6.7 GM/DL (6.4-8.2)
[2018-10-05] MEDS: PIPERACILLIN/TAZOBACTAM (BULK) 4.5 GM in NS (IVPB) 100 ML IV SCH ×3 (04:31→20:52)
[2018-10-05] MEDS: morphine INJ 4 MG/ML 1 ML (VIAL/SYRINGE) IV PRN (05:18)
[2018-10-05] MEDS: LORazepam INJ 2 MG/ML (ATIVAN) VIAL IV PRN (05:19)
[2018-10-05] MEDS: POTASSIUM CL 10MEQ/50ML IVPB 50 ML IV SCH (06:00)
[2018-10-05] MEDS: MAGNESIUM 1 GM/100 ML IVPB 100 ML IV SCH (06:00)
--- NOTE | 2018-10-05 06:04 | Pulmonary Progress Note ---
Subjective Time Seen by a Provider: 06:03 Subjective/Events-last exam Labs and CXR reviewed. Sepsis Event Evaluation Height, Weight, BMI Height: 6'4.00" Weight: 182lbs. 0.0oz. 82.167934up; 27.8 BMI Method:Stated Exam Exam Vital Signs Date Time Temp Pulse Resp B/P (MAP) Pulse Ox O2 Delivery O2 Flow Rate FiO2 10/05/18 00:02 97.8 70 18 125/92 (103) 100 Room Air 10/04/18 21:00 100 Room Air 10/04/18 20:00 97.3 59 16 109/79 (89) 100 Room Air 10/04/18 19:00 61 10/04/18 16:00 96 25 124/84 (97) 100 Room Air 10/04/18 15:13 97.6 108 23 125/93 (104) 100 Room Air 10/04/18 13:18 97.5 86 15 121/82 (95) 100 Room Air 10/04/18 13:00 56 10/04/18 12:00 86 16 143/98 (113) 91 Room Air 10/04/18 08:05 98 Room Air 10/04/18 08:00 73 11 125/83 (97) 100 Room Air 10/04/18 07:00 73 I & O 10/05/18 07:00 Intake Total 2900 ml Balance 2900 ml Height & Weight Height: 6'4.00" Weight: 182lbs. 0.0oz. 82.828020my; 27.8 BMI Method:Stated General Appearance: No Apparent Distress, WD/WN HEENT: Normal ENT Inspection Neck: Full Range of Motion, Normal Inspection Respiratory: Chest Non Tender, Lungs Clear, No Accessory Muscle Use, No Respiratory Distress, Other (decreased sounds right chest) Cardiovascular: Regular Rate, Rhythm, No Murmur Gastrointestinal: normal bowel sounds, non tender, soft, no organomegaly Extremity: Normal Capillary Refill, No Pedal Edema Neurologic/Psychiatric: Alert, Oriented x3 Skin: Normal Color, Warm/Dry Results Lab Laboratory Tests 10/04/18 03:05 10/05/18 03:10 Assessment/Plan Assessment/Plan -Hydropneumothorax with trapped lung s/p chest tube placement - Exudative pleural fluid -PT pulled chest tube out yesterday- CXR appears stable -possible Decortication/Pleurodesis and pleural bx -Total 90ml of chest tube out put over last 24hours -Pleural fluid cytology - is Negative -S/P bronchoscopy - No endobronchial Mass -Cytology, cultures pending - solumedol 40 Q6 -continue Zosyn d/c vanco (MRSA Swab is negative) Anemia -Monitor MANDY COLLINS DO Oct 05, 2018 06:04
[2018-10-05] MEDS: KCL 20 MEQ TAB (K-DUR) PO SCH (06:05)
[2018-10-05] MEDS: ENOXAPARIN 40 MG/0.4 ML (LOVENOX) SYR SC SCH (06:05)
[2018-10-05 08:00] VITALS: BP 125/83
--- NOTE | 2018-10-05 08:55 | Diagnostic Imaging Report ---
INDICATION: Pneumothorax. Comparison made with prior examination 10/04/2018. FINDINGS: There is a right basilar consolidation. There is a right pleural effusion. There appears to be a loculated right basilar pneumothorax. There is cardiomegaly. There is some venous congestion. Mediastinum is unremarkable. Left lung is relatively clear. IMPRESSION: Loculated right basilar pneumothorax with right basilar infiltrate and right pleural effusion. Cardiomegaly and some central pulmonary venous congestion. Dictated by: Dictated on workstation # [id number]
[2018-10-05] MEDS: DIVALPROEX 250 MG DELAYED RELEASE (DEPAKOTE) TAB PO SCH ×2 (09:05→20:52)
[2018-10-05] MEDS: PARoxetine 20 MG (PAXIL) TAB PO SCH (09:05)
[2018-10-05] MEDS: LEVETIRACETAM 500 MG (KEPPRA) TAB PO SCH ×2 (09:05→20:52)
[2018-10-05] MEDS: NS IV 1000 ML 1,000 ML IV SCH ×2 (09:07→19:05)
--- NOTE | 2018-10-05 11:23 | Progress Note-Hospitalist ---
Subjective HPI/CC On Admission Date Seen by Provider: Oct 05, 2018 Time Seen by Provider: 09:00 Subjective/Events-last exam Patient having no significant changes Awaiting 4th floor bed No respiratory distress O2 maintained Objective Exam Vital Signs Vital Signs Date Time Temp Pulse Resp B/P (MAP) Pulse Ox O2 Delivery O2 Flow Rate FiO2 10/05/18 12:00 100 20 131/91 (104) Room Air 10/05/18 11:42 99.0 10/05/18 09:00 100 10/02/18 22:00 2.00 Capillary Refill : General Appearance: No Apparent Distress, WD/WN HEENT: Normal ENT Inspection Neck: Full Range of Motion, Normal Inspection Respiratory: Chest Non Tender, Lungs Clear, No Accessory Muscle Use, No Respiratory Distress, Other (decreased sounds right chest) Cardiovascular: Regular Rate, Rhythm, No Murmur Gastrointestinal: Non Tender, Soft Extremity: Normal Capillary Refill, No Pedal Edema Neurologic/Psychiatric: Alert, Oriented x3 Skin: Normal Color, Warm/Dry Results/Procedures Lab Laboratory Tests 10/05/18 03:10 Patient resulted labs reviewed. Assessment/Plan Assessment and Plan Assess & Plan/Chief Complaint Assessment: Hydropneumothorax with trapped lung s/p chest tube placement Anemia Mentally challenged Seizure d/o Plan: Monitor lung status closely Home meds Clinical Quality Measures DVT/VTE Risk/Contraindication: RFS Level Per Nursing on Admit: 0=No Risk/No VTE PPX LATOYA GONZALEZ DO Oct 05, 2018 11:23
[2018-10-05 12:00] VITALS: BP 131/91
[2018-10-05 16:00] VITALS: BP 117/85
[2018-10-05 20:00] VITALS: BP 118/85
[2018-10-05] MEDS: risperiDONE 2 MG (RisperDAL) TAB PO SCH (20:52)
--- NOTE | 2018-10-05 21:08 | Progress Note ---
Subjective Date Seen by a Provider: Oct 05, 2018 Time Seen by a Provider: 10:25 Subjective/Events-last exam Patient not very verbal. Eating food. No complaints. No family at bedside. Seems to be comfortable. Chest x ray still with hydropneumothorax with loculation. Objective Exam Vital Signs Date Time Temp Pulse Resp B/P (MAP) Pulse Ox O2 Delivery O2 Flow Rate FiO2 10/05/18 20:00 100 Room Air 10/05/18 20:00 97.4 64 18 118/85 (96) Room Air 10/05/18 16:23 97.8 10/05/18 16:00 53 17 117/85 (96) Room Air 10/05/18 15:00 66 10/05/18 13:00 66 10/05/18 12:00 100 20 131/91 (104) Room Air 10/05/18 11:42 99.0 10/05/18 09:00 100 Room Air 10/05/18 08:00 66 17 125/83 (97) 95 Room Air 10/05/18 08:00 97.5 10/05/18 07:00 46 10/05/18 04:00 97.6 99 Room Air 10/05/18 00:02 97.8 70 18 125/92 (103) 100 Room Air I & O 10/05/18 07:00 Intake Total 2900 ml Balance 2900 ml Capillary Refill : General Appearance: No Apparent Distress, WD/WN HEENT: Normal ENT Inspection Neck: Full Range of Motion, Normal Inspection Respiratory: Chest Non Tender, No Accessory Muscle Use, No Respiratory Distress , Other (decreased sounds right chest) Cardiovascular: Regular Rate, Rhythm, No Murmur Gastrointestinal: normal bowel sounds, non tender, soft, no organomegaly Extremity: Normal Capillary Refill, No Pedal Edema Neurologic/Psychiatric: Alert, Oriented x3 Skin: Normal Color, Warm/Dry Results Lab Laboratory Tests 10/05/18 03:10: White Blood Count 12.5H, Red Blood Count 4.57, Hemoglobin 12.0L, Hematocrit 37L , Mean Corpuscular Volume 81, Mean Corpuscular Hemoglobin 26, Mean Corpuscular Hemoglobin Concent 32, Red Cell Distribution Width 14.9H, Platelet Count 631H, Mean Platelet Volume 9.3, Neutrophils (%) (Auto) 90H, Lymphocytes (%) (Auto) 6L , Monocytes (%) (Auto) 5, Eosinophils (%) (Auto) 0, Basophils (%) (Auto) 0, Neutrophils # (Auto) 11.2H, Lymphocytes # (Auto) 0.7L, Monocytes # (Auto) 0.6, Eosinophils # (Auto) 0.0, Basophils # (Auto) 0.0, Sodium Level 137, Potassium Level 4.0, Chloride Level 105, Carbon Dioxide Level 21, Anion Gap 11, Blood Urea Nitrogen 12, Creatinine 0.71, Estimat Glomerular Filtration Rate > 60, BUN/ Creatinine Ratio 17, Glucose Level 111H, Calcium Level 9.2, Corrected Calcium 9.8, Phosphorus Level 2.3, Magnesium Level 1.9, Total Bilirubin 0.3, Aspartate Amino Transf (AST/SGOT) 16, Alanine Aminotransferase (ALT/SGPT) 19, Alkaline Phosphatase 194H, Total Protein 6.7, Albumin 3.2 Microbiology 09/30/18 Gram Stain - Final, Complete 09/30/18 Body Fluid Culture - Final, Complete No growth 10/03/18 Mycobacterial Culture - Preliminary, Resulted Assessment/Plan Assessment/Plan Assessment/Plan Hydropneumothorax. Anemia. MR. Bipolar. Schizoaffective. Hypomagnesemia. Pt will probably need Decortication to try and expand the right lung, will make npo p midnight and obtain consent Stable at this time. Hold lovenox No other changes from surgical standpoint. Clinical Quality Measures DVT/VTE Risk/Contraindication: RFS Level Per Nursing on Admit: 0=No Risk/No VTE PPX KATHIE DYE DO Oct 05, 2018 21:08
[2018-10-06] VITALS (7 sets, daily range): BP systolic 120–140; BP diastolic 85–97
[2018-10-06 03:48] LABS: BASOPHILS % (AUTO) 0 % (0-10); EOSINOPHILS % (AUTO) 0 % (0-10); HEMATOCRIT 35 % (40-54); HEMOGLOBIN 11.1 G/DL (13.3-17.7); LYMPHOCYTES % (AUTO) 10 % (12-44); MEAN CORPUSCULAR HEMOGLOBIN 26 PG (25-34); MEAN CORPUSCULAR HGB CONC 32 G/DL (32-36); MEAN CORPUSCULAR VOLUME 81 FL (80-99); MEAN PLATELET VOLUME 9.1 FL (7.4-10.4); MONOCYTES # (AUTO) 0.7 X 10^3 (0.0-1.0); MONOCYTES % (AUTO) 7 % (0-12); NEUTROPHILS # (AUTO) 8.6 X 10^3 (1.8-7.8); NEUTROPHILS % (AUTO) 84 % (42-75); PLATELET COUNT 615 10^3/uL (130-400); RED CELL DISTRIBUTION WIDTH 15.2 % (10.0-14.5); WHITE BLOOD COUNT 10.3 10^3/uL (4.3-11.0)
[2018-10-06 04:06] LABS: ALANINE AMINOTRANSFERASE 16 U/L (0-55); ALBUMIN 2.9 GM/DL (3.2-4.5); ALKALINE PHOSPHATASE 164 U/L (40-136); BILIRUBIN,TOTAL 0.3 MG/DL (0.1-1.0); BUN/CREATININE RATIO 21; CALCIUM 8.9 MG/DL (8.5-10.1); CARBON DIOXIDE 22 MMOL/L (21-32); CHLORIDE 106 MMOL/L (98-107); CREATININE SERUM 0.67 MG/DL (0.60-1.30); GFR ESTIMATED > 60; GLUCOSE 124 MG/DL (70-105); MAGNESIUM 1.8 MG/DL (1.8-2.4); PHOSPHORUS 2.7 MG/DL (2.3-4.7); SODIUM 137 MMOL/L (135-145); TOTAL PROTEIN 5.8 GM/DL (6.4-8.2)
[2018-10-06] MEDS: PIPERACILLIN/TAZOBACTAM (BULK) 4.5 GM in NS (IVPB) 100 ML IV SCH ×3 (05:07→21:39)
[2018-10-06] MEDS: KCL 20 MEQ TAB (K-DUR) PO SCH (06:11)
[2018-10-06] MEDS: MAGNESIUM 1 GM/100 ML IVPB 100 ML IV SCH (06:11)
[2018-10-06] MEDS: POTASSIUM CL 10MEQ/50ML IVPB 50 ML IV SCH (06:11)
[2018-10-06] MEDS: methylPREDNISolone 40 MG/ML (Solu-MEDROL) VIAL IV SCH ×3 (06:11→21:38)
--- NOTE | 2018-10-06 06:46 | Pulmonary Progress Note ---
Subjective Time Seen by a Provider: 06:45 Subjective/Events-last exam No complications noted. Sepsis Event Evaluation Height, Weight, BMI Height: 6'4.00" Weight: 181lbs. 4.0oz. 82.414842fg; 27.8 BMI Method:Stated Exam Exam Vital Signs Date Time Temp Pulse Resp B/P (MAP) Pulse Ox O2 Delivery O2 Flow Rate FiO2 10/06/18 04:00 98.3 77 20 135/91 (106) 96 Room Air 10/06/18 00:00 97.0 61 18 128/91 (103) Room Air 10/05/18 20:00 100 Room Air 10/05/18 20:00 97.4 64 18 118/85 (96) Room Air 10/05/18 16:23 97.8 10/05/18 16:00 53 17 117/85 (96) Room Air 10/05/18 15:00 66 10/05/18 13:00 66 10/05/18 12:00 100 20 131/91 (104) Room Air 10/05/18 11:42 99.0 10/05/18 09:00 100 Room Air 10/05/18 08:00 66 17 125/83 (97) 95 Room Air 10/05/18 08:00 97.5 10/05/18 07:00 46 I & O 10/06/18 07:00 Intake Total 2920 ml Balance 2920 ml Height & Weight Height: 6'4.00" Weight: 181lbs. 4.0oz. 82.839924xd; 27.8 BMI Method:Stated General Appearance: No Apparent Distress, WD/WN HEENT: Normal ENT Inspection Neck: Full Range of Motion, Normal Inspection Respiratory: Chest Non Tender, No Accessory Muscle Use, No Respiratory Distress , Other (decreased sounds right chest) Cardiovascular: Regular Rate, Rhythm, No Murmur Gastrointestinal: normal bowel sounds, non tender, soft, no organomegaly Extremity: Normal Capillary Refill, No Pedal Edema Neurologic/Psychiatric: Alert, Oriented x3 Skin: Normal Color, Warm/Dry Results Lab Laboratory Tests 10/05/18 03:10 10/06/18 03:30 Assessment/Plan Assessment/Plan -Hydropneumothorax with trapped lung s/p chest tube placement - Exudative pleural fluid -PT pulled chest tube out- CXR appears stable -possible Decortication/Pleurodesis and pleural bx today -Pleural fluid cytology - is Negative -S/P bronchoscopy - No endobronchial Mass -Cytology, cultures pending - solumedol 40 Q6 -continue Zosyn d/c vanco (MRSA Swab is negative) Anemia -Monitor MANDY COLLINS DO Oct 06, 2018 06:46
--- NOTE | 2018-10-06 07:28 | Progress Note (SOAP) ---
Subjective Time Seen by a Provider: 07:26 Subjective/Events-last exam Chest tube out this weekend. Patient stable. Patient did communicate. Patient to have surgery today Objective Exam Vital Signs Date Time Temp Pulse Resp B/P (MAP) Pulse Ox O2 Delivery O2 Flow Rate FiO2 10/06/18 04:00 98.3 77 20 135/91 (106) 96 Room Air 10/06/18 00:00 97.0 61 18 128/91 (103) Room Air 10/05/18 20:00 100 Room Air 10/05/18 20:00 97.4 64 18 118/85 (96) Room Air 10/05/18 16:23 97.8 10/05/18 16:00 53 17 117/85 (96) Room Air 10/05/18 15:00 66 10/05/18 13:00 66 10/05/18 12:00 100 20 131/91 (104) Room Air 10/05/18 11:42 99.0 10/05/18 09:00 100 Room Air 10/05/18 08:00 66 17 125/83 (97) 95 Room Air 10/05/18 08:00 97.5 I & O 10/06/18 07:00 Intake Total 2920 ml Balance 2920 ml Capillary Refill : General Appearance: No Apparent Distress, WD/WN HEENT: Normal ENT Inspection Neck: Full Range of Motion, Normal Inspection Respiratory: Normal Breath Sounds, No Accessory Muscle Use, No Respiratory Distress Cardiovascular: Regular Rate, Rhythm, No Murmur Gastrointestinal: non tender, soft Results Lab Laboratory Tests 10/06/18 03:30 Laboratory Tests 10/06/18 03:30: White Blood Count 10.3, Red Blood Count 4.26L, Hemoglobin 11.1L, Hematocrit 35L , Mean Corpuscular Volume 81, Mean Corpuscular Hemoglobin 26, Mean Corpuscular Hemoglobin Concent 32, Red Cell Distribution Width 15.2H, Platelet Count 615H, Mean Platelet Volume 9.1, Neutrophils (%) (Auto) 84H, Lymphocytes (%) (Auto) 10L , Monocytes (%) (Auto) 7, Eosinophils (%) (Auto) 0, Basophils (%) (Auto) 0, Neutrophils # (Auto) 8.6H, Lymphocytes # (Auto) 1.0, Monocytes # (Auto) 0.7, Eosinophils # (Auto) 0.0, Basophils # (Auto) 0.0, Sodium Level 137, Potassium Level 4.0, Chloride Level 106, Carbon Dioxide Level 22, Anion Gap 9, Blood Urea Nitrogen 14, Creatinine 0.67, Estimat Glomerular Filtration Rate > 60, BUN/ Creatinine Ratio 21, Glucose Level 124H, Calcium Level 8.9, Corrected Calcium 9.8, Phosphorus Level 2.7, Magnesium Level 1.8, Total Bilirubin 0.3, Aspartate Amino Transf (AST/SGOT) 12, Alanine Aminotransferase (ALT/SGPT) 16, Alkaline Phosphatase 164H, Total Protein 5.8L, Albumin 2.9L Microbiology 09/30/18 Gram Stain - Final, Complete 09/30/18 Body Fluid Culture - Final, Complete No growth 10/03/18 Mycobacterial Culture - Preliminary, Resulted Assessment/Plan Assessment/Plan Assess & Plan/Chief Complaint Hydropneumothorax. Anemia. MR. Bipolar. Schizoaffective. Hypomagnesemia. . 10/03/18 Hydropneumothorax. Anemia. Bipolar. Schizoaffective. Patient had bronchoscopy this a.m. no mass noted. . 10/06/18. Hydropneumothorax. Anemia. Bipolar. Schizoaffective. Bronchoscopy negative. Patient pulled out chest tube. Patient have surgery today Clinical Quality Measures Admission Status Admission Dx Hydropneumothorax. Hilar mass. More. Bipolar and schizoaffective. Weakness. Pleural effusion. DVT/VTE Risk/Contraindication: RFS Level Per Nursing on Admit: 0=No Risk/No VTE PPX JAVID JACKSON DO Oct 06, 2018 07:28
--- NOTE | 2018-10-06 07:30 | NUR ---
ATTEMPTED TO PLACE CALL TO MOTHER TO OBTAIN CONSENT FOR PROCEDURE DR. GUTIERREZ IS TO PREFORM. UNABLE TO GET A HOLD OF MOTHER AT THIS TIME. PLACED CALL TO VIKAS PT PREVIOUS DIRECTOR OF FIRST IMPRESSIONS. VIKAS TO ATTEMPT TO GET A HOLD OF RUPA TO HAVE PT MOTHER CALL FACLILITY.
--- NOTE | 2018-10-06 07:37 | Diagnostic Imaging Report ---
INDICATION: Dyspnea. COMPARISON: 10/05/2018 FINDINGS: Single frontal radiographic view of the chest was obtained and again demonstrates moderate cardiomegaly. Pulmonary vasculature is within normal limits. Lungs continue to show confluent infiltrates within the right mid and lower lung field with associated right-sided hydropneumothorax. Overall, aeration is stable. Left lung is relatively clear. There is no large effusion on the left. No pneumothorax is seen on either side. Bony structures show no gross acute abnormalities. IMPRESSION: 1. Stable exam of the chest showing moderate right-sided infiltrates with complex right-sided hydropneumothorax. Dictated by: Dictated on workstation # [id number]
--- NOTE | 2018-10-06 08:00 | NUR ---
REACHED MOTHER AT THIS TIME. RECEIVED TELEPHONE CONSENT FOR PROCEDURES TO BE DONE TODAY. ARABELLA CUNNINGHAM RN, 2ND WITNESS.
--- NOTE | 2018-10-06 08:28 | NUR ---
ATTEMPTED TO REACH DR. AARON REGARDING PT NPO STATUS ET MEDICATIONS ORDERED AT THIS TIME. AWAITING RESPONSE.
[2018-10-06] MEDS: PARoxetine 20 MG (PAXIL) TAB PO SCH (09:00)
--- NOTE | 2018-10-06 10:07 | NUR ---
ATTEMPTED TO PLACE CALL TO DR. AARON REGARDING PTS. NPO STATUS. NO ANSWER TO TELEPHONE AT THIS TIME.
[2018-10-06] MEDS: LEVETIRACETAM 500 MG (KEPPRA) TAB PO SCH ×2 (11:09→21:38)
[2018-10-06] MEDS: DIVALPROEX 250 MG DELAYED RELEASE (DEPAKOTE) TAB PO SCH ×2 (11:09→21:38)
[2018-10-06] MEDS ORDERED: fentaNYL INJECTION 100 MCG/2 ML AMP ONE (14:32)
[2018-10-06] MEDS ORDERED: LIDOCAINE PF 2% 5 ML (XYLOCAINE) VIAL ONE (14:32)
[2018-10-06] MEDS ORDERED: GLYCOPYRROLATE 0.2 MG/ML (ROBINUL) 2 ML VIAL ONE (14:32)
[2018-10-06] MEDS ORDERED: NEOSTIGMINE 1 MG/ML 5 ML SYRINGE ONE (14:32)
[2018-10-06] MEDS ORDERED: ROCURONIUM 10 MG/ML 5 ML SYRINGE IV ONE (14:32)
[2018-10-06] MEDS ORDERED: proPOfol 200 MG/20 ML (DIPRIVAN) VIAL IV ONE (14:32)
[2018-10-06] MEDS ORDERED: ONDANSETRON 4 MG/2 ML (SDV) Z0FRAN ONE (14:32)
[2018-10-06] MEDS ORDERED: MIDAZOLAM 2 MG/2 ML (VERSED) VIAL ONE (14:33)
--- NOTE | 2018-10-06 15:47 | NUR ---
CM/SS. Some exploration into patient legal status through [facility]. Spoke with Chel there, requested copy of Legal Guardianship/Conservatorship. Mother Jeanine Arellano was appointed March 1989 through [facility], did not confirm whether this remains active. Per Chel, Jeanine resides in [facility] now in an assisted living arrangement. She is very hard of hearing per Chel as well as Unit RN who called for consents this a.m. Chel indicates Jeanine to be in her latter 80's and that staff at her residence assist her with understanding calls. Recommend Court be contacted to confirm Guardianship/Conservatorship remains current. Unique that Jeanine resides in [place] and may be in her own state of declining health as it relates to continuing to serve in her Court appointed role. Jeanine Arellano [address] [place] [address] This address appears to be a personal home and not an assisted living. Explore updated information if possible through Jeanine so that [facility] main number can be obtained and Jeanine can better be reached. Unit staff report multiple attempts to personal number before making contact for necessary consent.
--- NOTE | 2018-10-06 16:30 | NUR ---
patient had non injury fall at this time, patient found sitting up right next to bed on floor, with legs crossed our right in front of him . patient assessed for injuries, none noted. patient has no complaints of pain or discomfort. patient able to move extremities independently. event notification completed. Attempted call placed to mother leidy, no answer. Dr. Wright notified of fall.
--- NOTE | 2018-10-06 16:45 | NUR ---
PT ARRIVED TO ROOM AT 1645. THIS RN TO RESUME CARE FOR PATIENT. THIS RN AGREES WITH PREVIOUS NURSES ASSESSMENT.
--- NOTE | 2018-10-06 18:22 | Progress Note ---
Subjective Time Seen by a Provider: 14:42 Subjective/Events-last exam Pt seen and examined, denies pain or SOB. Sitting comfortably in his bed in the ICU. His CT came out late last night (I believe), but he does not appear to be in respiratory distress. Review of Systems General: No Chills, No Night Sweats Pulmonary: No Dyspnea; Cough Cardiovascular: No: Chest Pain, Edema Gastrointestinal: No: Nausea, Vomiting, Abdominal Pain Objective Exam Vital Signs Date Time Temp Pulse Resp B/P (MAP) Pulse Ox O2 Delivery O2 Flow Rate FiO2 10/06/18 16:00 98.5 91 18 139/97 (111) 94 Room Air 10/06/18 13:46 97.7 66 20 140/96 (111) Room Air 10/06/18 08:25 100 Room Air 10/06/18 07:36 97.8 66 19 128/89 (102) Room Air 10/06/18 04:00 98.3 77 20 135/91 (106) 96 Room Air 10/06/18 00:00 97.0 61 18 128/91 (103) Room Air 10/05/18 20:00 100 Room Air 10/05/18 20:00 97.4 64 18 118/85 (96) Room Air I & O 10/06/18 07:00 Intake Total 2920 ml Balance 2920 ml Capillary Refill : General Appearance: No Apparent Distress, WD/WN HEENT: Normal ENT Inspection Neck: Full Range of Motion, Normal Inspection Respiratory: Normal Breath Sounds (left lung), No Accessory Muscle Use, No Respiratory Distress, Decreased Breath Sounds (right lung) Cardiovascular: Regular Rate, Rhythm, No Murmur Gastrointestinal: non tender, soft Extremity: Normal Capillary Refill, No Pedal Edema Neurologic/Psychiatric: Alert Skin: Normal Color, Warm/Dry Results Lab Laboratory Tests 10/06/18 03:30: White Blood Count 10.3, Red Blood Count 4.26L, Hemoglobin 11.1L, Hematocrit 35L , Mean Corpuscular Volume 81, Mean Corpuscular Hemoglobin 26, Mean Corpuscular Hemoglobin Concent 32, Red Cell Distribution Width 15.2H, Platelet Count 615H, Mean Platelet Volume 9.1, Neutrophils (%) (Auto) 84H, Lymphocytes (%) (Auto) 10L , Monocytes (%) (Auto) 7, Eosinophils (%) (Auto) 0, Basophils (%) (Auto) 0, Neutrophils # (Auto) 8.6H, Lymphocytes # (Auto) 1.0, Monocytes # (Auto) 0.7, Eosinophils # (Auto) 0.0, Basophils # (Auto) 0.0, Sodium Level 137, Potassium Level 4.0, Chloride Level 106, Carbon Dioxide Level 22, Anion Gap 9, Blood Urea Nitrogen 14, Creatinine 0.67, Estimat Glomerular Filtration Rate > 60, BUN/ Creatinine Ratio 21, Glucose Level 124H, Calcium Level 8.9, Corrected Calcium 9.8, Phosphorus Level 2.7, Magnesium Level 1.8, Total Bilirubin 0.3, Aspartate Amino Transf (AST/SGOT) 12, Alanine Aminotransferase (ALT/SGPT) 16, Alkaline Phosphatase 164H, Total Protein 5.8L, Albumin 2.9L Microbiology 09/30/18 Gram Stain - Final, Complete 09/30/18 Body Fluid Culture - Final, Complete No growth 10/03/18 Mycobacterial Culture - Preliminary, Resulted Assessment/Plan Assessment/Plan Assessment/Plan Hydropneumothorax. Anemia. MR. Bipolar. Schizoaffective. Hypomagnesemia. Plan was to do VATS with probably decortication; unfortunately there was an emergency and because of nursing shortage I was asked to postpone his procedure. I will put it on for Saturday. I told pt and called his mother and her caregiver who have POA. Clinical Quality Measures DVT/VTE Risk/Contraindication: RFS Level Per Nursing on Admit: 0=No Risk/No VTE PPX ADAM AARON DO Oct 06, 2018 18:22
[2018-10-06] MEDS: risperiDONE 2 MG (RisperDAL) TAB PO SCH (21:38)
[2018-10-06] MEDS: NS IV 1000 ML 1,000 ML IV SCH (23:00)
[2018-10-07] MEDS: methylPREDNISolone 40 MG/ML (Solu-MEDROL) VIAL IV SCH ×2 (00:44→06:01)
[2018-10-07 04:04] VITALS: BP 115/80
[2018-10-07 04:58] LABS: BASOPHILS % (AUTO) 0 % (0-10); EOSINOPHILS % (AUTO) 0 % (0-10); HEMATOCRIT 40 % (40-54); HEMOGLOBIN 13.2 G/DL (13.3-17.7); LYMPHOCYTES # (AUTO) 0.9 X 10^3 (1.0-4.0); LYMPHOCYTES % (AUTO) 12 % (12-44); MEAN CORPUSCULAR HEMOGLOBIN 26 PG (25-34); MEAN CORPUSCULAR HGB CONC 33 G/DL (32-36); MEAN CORPUSCULAR VOLUME 80 FL (80-99); MEAN PLATELET VOLUME 9.3 FL (7.4-10.4); MONOCYTES # (AUTO) 0.3 X 10^3 (0.0-1.0); MONOCYTES % (AUTO) 4 % (0-12); NEUTROPHILS # (AUTO) 6.5 X 10^3 (1.8-7.8); NEUTROPHILS % (AUTO) 84 % (42-75); PLATELET COUNT 617 10^3/uL (130-400); RED CELL DISTRIBUTION WIDTH 15.4 % (10.0-14.5); WHITE BLOOD COUNT 7.7 10^3/uL (4.3-11.0)
[2018-10-07 05:17] LABS: ALANINE AMINOTRANSFERASE 25 U/L (0-55); ALBUMIN 3.4 GM/DL (3.2-4.5); ALKALINE PHOSPHATASE 184 U/L (40-136); BILIRUBIN,TOTAL 0.4 MG/DL (0.1-1.0); BUN/CREATININE RATIO 14; CALCIUM 9.4 MG/DL (8.5-10.1); CARBON DIOXIDE 25 MMOL/L (21-32); CHLORIDE 102 MMOL/L (98-107); CREATININE SERUM 0.72 MG/DL (0.60-1.30); GFR ESTIMATED > 60; GLUCOSE 130 MG/DL (70-105); PHOSPHORUS 3.2 MG/DL (2.3-4.7); POTASSIUM 3.8 MMOL/L (3.6-5.0); SODIUM 137 MMOL/L (135-145)
[2018-10-07] MEDS: PIPERACILLIN/TAZOBACTAM (BULK) 4.5 GM in NS (IVPB) 100 ML IV SCH ×3 (06:01→20:54)
[2018-10-07] MEDS: POTASSIUM CL 10MEQ/50ML IVPB 50 ML IV SCH (06:10)
[2018-10-07] MEDS: KCL 20 MEQ TAB (K-DUR) PO SCH (06:11)
[2018-10-07] MEDS: MAGNESIUM 1 GM/100 ML IVPB 100 ML IV SCH (06:11)
--- NOTE | 2018-10-07 07:27 | Diagnostic Imaging Report ---
EXAM: CHEST 1 VIEW, AP/PA ONLY INDICATION: Dyspnea. COMPARISON: Chest radiograph 10/06/2018 FINDINGS: Persistent dense consolidation throughout the right mid and lower lung. Cardiomegaly. Central pulmonary vascularity is obscured. No acute osseous findings. IMPRESSION: Stable exam including dense consolidation throughout the right mid and lower lung. Cardiomegaly. Dictated by: Dictated on workstation # [id number]
[2018-10-07 08:06] VITALS: BP 121/88
--- NOTE | 2018-10-07 08:14 | Progress Note (SOAP) ---
Subjective Time Seen by a Provider: 08:12 Subjective/Events-last exam Patient is alert, talking, and stable. Patient to have surgery tomorrow. Patient resting comfortably Objective Exam Vital Signs Date Time Temp Pulse Resp B/P (MAP) Pulse Ox O2 Delivery O2 Flow Rate FiO2 10/07/18 08:06 98.8 106 18 121/88 (99) 96 Room Air 10/07/18 04:04 97.6 87 18 115/80 (92) 95 Room Air 10/06/18 23:40 98.6 81 18 121/87 (98) 96 Room Air 10/06/18 20:10 Room Air 10/06/18 20:00 98.0 64 18 120/85 (97) 95 Room Air 10/06/18 16:00 98.5 91 18 139/97 (111) 94 Room Air 10/06/18 13:46 97.7 66 20 140/96 (111) Room Air 10/06/18 08:25 100 Room Air I & O 10/07/18 07:00 Intake Total 1440 ml Balance 1440 ml Capillary Refill : General Appearance: No Apparent Distress, WD/WN HEENT: Normal ENT Inspection Neck: Full Range of Motion, Normal Inspection Respiratory: Lungs Clear, No Accessory Muscle Use, No Respiratory Distress, Decreased Breath Sounds Cardiovascular: Regular Rate, Rhythm Gastrointestinal: non tender, soft Results Lab Laboratory Tests 10/07/18 04:25 Laboratory Tests 10/07/18 04:25: White Blood Count 7.7, Red Blood Count 5.02, Hemoglobin 13.2L, Hematocrit 40, Mean Corpuscular Volume 80, Mean Corpuscular Hemoglobin 26, Mean Corpuscular Hemoglobin Concent 33, Red Cell Distribution Width 15.4H, Platelet Count 617H, Mean Platelet Volume 9.3, Neutrophils (%) (Auto) 84H, Lymphocytes (%) (Auto) 12 , Monocytes (%) (Auto) 4, Eosinophils (%) (Auto) 0, Basophils (%) (Auto) 0, Neutrophils # (Auto) 6.5, Lymphocytes # (Auto) 0.9L, Monocytes # (Auto) 0.3, Eosinophils # (Auto) 0.0, Basophils # (Auto) 0.0, Sodium Level 137, Potassium Level 3.8, Chloride Level 102, Carbon Dioxide Level 25, Anion Gap 10, Blood Urea Nitrogen 10, Creatinine 0.72, Estimat Glomerular Filtration Rate > 60, BUN/ Creatinine Ratio 14, Glucose Level 130H, Calcium Level 9.4, Corrected Calcium 9.9, Phosphorus Level 3.2, Magnesium Level 2.0, Total Bilirubin 0.4, Aspartate Amino Transf (AST/SGOT) 16, Alanine Aminotransferase (ALT/SGPT) 25, Alkaline Phosphatase 184H, Total Protein 7.0, Albumin 3.4 Microbiology 09/30/18 Gram Stain - Final, Complete 09/30/18 Body Fluid Culture - Final, Complete No growth 10/03/18 Mycobacterial Culture - Preliminary, Resulted Assessment/Plan Assessment/Plan Assess & Plan/Chief Complaint Hydropneumothorax. Anemia. MR. Bipolar. Schizoaffective. Hypomagnesemia. . 10/03/18 Hydropneumothorax. Anemia. Bipolar. Schizoaffective. Patient had bronchoscopy this a.m. no mass noted. . 10/06/18. Hydropneumothorax. Anemia. Bipolar. Schizoaffective. Bronchoscopy negative. Patient pulled out chest tube. Patient have surgery today. . 10/07/18. Hydropneumothorax. Anemia. Bipolar. Schizoaffective. Patient have surgery tomorrow. MR. Hypomagnesemia Clinical Quality Measures Admission Status Admission Dx Hydropneumothorax. Hilar mass. More. Bipolar and schizoaffective. Weakness. Pleural effusion. MR. DVT/VTE Risk/Contraindication: RFS Level Per Nursing on Admit: 0=No Risk/No VTE PPJAVID GAY DO Oct 07, 2018 08:14
[2018-10-07] MEDS: LEVETIRACETAM 500 MG (KEPPRA) TAB PO SCH ×2 (08:30→20:55)
[2018-10-07] MEDS: PARoxetine 20 MG (PAXIL) TAB PO SCH (08:31)
[2018-10-07] MEDS: DIVALPROEX 250 MG DELAYED RELEASE (DEPAKOTE) TAB PO SCH ×2 (08:31→20:55)
--- NOTE | 2018-10-07 09:42 | Pulmonary Progress Note ---
Subjective Time Seen by a Provider: 09:41 Subjective/Events-last exam PT is on RA. No complications noted. Sepsis Event Evaluation Height, Weight, BMI Height: 6'4.00" Weight: 181lbs. 4.0oz. 82.894002hn; 27.8 BMI Method:Stated Exam Exam Vital Signs Date Time Temp Pulse Resp B/P (MAP) Pulse Ox O2 Delivery O2 Flow Rate FiO2 10/07/18 09:00 Room Air 10/07/18 08:06 98.8 106 18 121/88 (99) 96 Room Air 10/07/18 04:04 97.6 87 18 115/80 (92) 95 Room Air 10/06/18 23:40 98.6 81 18 121/87 (98) 96 Room Air 10/06/18 20:10 Room Air 10/06/18 20:00 98.0 64 18 120/85 (97) 95 Room Air 10/06/18 16:00 98.5 91 18 139/97 (111) 94 Room Air 10/06/18 13:46 97.7 66 20 140/96 (111) Room Air I & O 10/07/18 07:00 Intake Total 1440 ml Balance 1440 ml Height & Weight Height: 6'4.00" Weight: 181lbs. 4.0oz. 82.275011hz; 27.8 BMI Method:Stated General Appearance: No Apparent Distress, WD/WN HEENT: Normal ENT Inspection Neck: Full Range of Motion, Normal Inspection Respiratory: Lungs Clear, No Accessory Muscle Use, No Respiratory Distress, Other (Right chest tube) Cardiovascular: Regular Rate, Rhythm, No Murmur Gastrointestinal: normal bowel sounds, non tender, soft, no organomegaly Extremity: Normal Capillary Refill, No Pedal Edema Neurologic/Psychiatric: Alert, Oriented x3 Skin: Normal Color, Warm/Dry Results Lab Laboratory Tests 10/06/18 03:30 10/07/18 04:25 Assessment/Plan Assessment/Plan Hydropneumothorax with trapped lung s/p chest tube placement - Exudative pleural fluid -PT pulled chest tube out- CXR appears stable -possible Decortication/Pleurodesis and pleural bx tomorrow. -Pleural fluid cytology - is Negative -S/P bronchoscopy - No endobronchial Mass -Cytology, cultures pending - solumedol 40 Q6 - D/C -continue Zosyn d/c vanco (MRSA Swab is negative) Anemia -Monitor MANDY COLLINS DO Oct 07, 2018 09:42
[2018-10-07] MEDS: NS IV 1000 ML 1,000 ML IV SCH ×3 (10:15→20:54)
--- NOTE | 2018-10-07 10:41 | Progress Note ---
Subjective Time Seen by a Provider: 09:24 Subjective/Events-last exam Pt seen and examined, sitting in bed appears to be in no distress. Denies pain and denies trouble breathing. Review of Systems Pulmonary: No Dyspnea; Cough, Pleuritic Chest Pain Cardiovascular: No: Chest Pain, Palpitations Gastrointestinal: No: Nausea, Vomiting Objective Exam Vital Signs Date Time Temp Pulse Resp B/P (MAP) Pulse Ox O2 Delivery O2 Flow Rate FiO2 10/07/18 09:00 Room Air 10/07/18 08:06 98.8 106 18 121/88 (99) 96 Room Air 10/07/18 04:04 97.6 87 18 115/80 (92) 95 Room Air 10/06/18 23:40 98.6 81 18 121/87 (98) 96 Room Air 10/06/18 20:10 Room Air 10/06/18 20:00 98.0 64 18 120/85 (97) 95 Room Air 10/06/18 16:00 98.5 91 18 139/97 (111) 94 Room Air 10/06/18 13:46 97.7 66 20 140/96 (111) Room Air I & O 10/07/18 07:00 Intake Total 1440 ml Balance 1440 ml Capillary Refill : General Appearance: No Apparent Distress, WD/WN Neck: Full Range of Motion, Normal Inspection Respiratory: Normal Breath Sounds (left lung ), No Accessory Muscle Use, No Respiratory Distress, Decreased Breath Sounds (right) Cardiovascular: Regular Rate, Rhythm, No Murmur Gastrointestinal: normal bowel sounds, non tender, soft, no organomegaly Extremity: Normal Capillary Refill, No Pedal Edema Neurologic/Psychiatric: Alert Skin: Normal Color, Warm/Dry Results Lab Laboratory Tests 10/07/18 04:25: White Blood Count 7.7, Red Blood Count 5.02, Hemoglobin 13.2L, Hematocrit 40, Mean Corpuscular Volume 80, Mean Corpuscular Hemoglobin 26, Mean Corpuscular Hemoglobin Concent 33, Red Cell Distribution Width 15.4H, Platelet Count 617H, Mean Platelet Volume 9.3, Neutrophils (%) (Auto) 84H, Lymphocytes (%) (Auto) 12 , Monocytes (%) (Auto) 4, Eosinophils (%) (Auto) 0, Basophils (%) (Auto) 0, Neutrophils # (Auto) 6.5, Lymphocytes # (Auto) 0.9L, Monocytes # (Auto) 0.3, Eosinophils # (Auto) 0.0, Basophils # (Auto) 0.0, Sodium Level 137, Potassium Level 3.8, Chloride Level 102, Carbon Dioxide Level 25, Anion Gap 10, Blood Urea Nitrogen 10, Creatinine 0.72, Estimat Glomerular Filtration Rate > 60, BUN/ Creatinine Ratio 14, Glucose Level 130H, Calcium Level 9.4, Corrected Calcium 9.9, Phosphorus Level 3.2, Magnesium Level 2.0, Total Bilirubin 0.4, Aspartate Amino Transf (AST/SGOT) 16, Alanine Aminotransferase (ALT/SGPT) 25, Alkaline Phosphatase 184H, Total Protein 7.0, Albumin 3.4 Microbiology 09/30/18 Gram Stain - Final, Complete 09/30/18 Body Fluid Culture - Final, Complete No growth 10/03/18 Mycobacterial Culture - Preliminary, Resulted Assessment/Plan Assessment/Plan Assessment/Plan Hydropneumothorax. Anemia. MR. Bipolar. Schizoaffective. Hypomagnesemia. Plan is to go to [place] on 10/08 for VATS with probable decortication. Will make NPO after midnight tonight. Clinical Quality Measures DVT/VTE Risk/Contraindication: RFS Level Per Nursing on Admit: 0=No Risk/No VTE PPX ADAM AARON DO Oct 07, 2018 10:41
[2018-10-07 12:00] VITALS: BP 98/69
--- NOTE | 2018-10-07 15:59 | NUR ---
CM/SS spoke with the [employer] Representative for [facility] and they still have patient's mother Jeanine ([phone]) as his guardian and conservator.
[2018-10-07 16:00] VITALS: BP 129/85
[2018-10-07 19:31] VITALS: BP 123/83
[2018-10-07] MEDS: risperiDONE 2 MG (RisperDAL) TAB PO SCH (20:55)
[2018-10-08] VITALS (14 sets, daily range): BP systolic 27–127; BP diastolic 68–90
[2018-10-08 05:18] LABS: BASOPHILS % (AUTO) 0 % (0-10); EOSINOPHILS % (AUTO) 0 % (0-10); HEMATOCRIT 40 % (40-54); HEMOGLOBIN 12.7 G/DL (13.3-17.7); LYMPHOCYTES # (AUTO) 2.5 X 10^3 (1.0-4.0); LYMPHOCYTES % (AUTO) 21 % (12-44); MEAN CORPUSCULAR HEMOGLOBIN 26 PG (25-34); MEAN CORPUSCULAR HGB CONC 32 G/DL (32-36); MEAN CORPUSCULAR VOLUME 81 FL (80-99); MEAN PLATELET VOLUME 9.3 FL (7.4-10.4); MONOCYTES # (AUTO) 1.5 X 10^3 (0.0-1.0); MONOCYTES % (AUTO) 12 % (0-12); NEUTROPHILS % (AUTO) 67 % (42-75); PLATELET COUNT 660 10^3/uL (130-400); RED CELL DISTRIBUTION WIDTH 16.4 % (10.0-14.5)
[2018-10-08 05:50] LABS: ALANINE AMINOTRANSFERASE 27 U/L (0-55); ALBUMIN 3.1 GM/DL (3.2-4.5); ALKALINE PHOSPHATASE 158 U/L (40-136); BILIRUBIN,TOTAL 0.3 MG/DL (0.1-1.0); BUN/CREATININE RATIO 27; CALCIUM 8.7 MG/DL (8.5-10.1); CARBON DIOXIDE 25 MMOL/L (21-32); CHLORIDE 103 MMOL/L (98-107); CREATININE SERUM 0.75 MG/DL (0.60-1.30); GFR ESTIMATED > 60; GLUCOSE 81 MG/DL (70-105); PHOSPHORUS 2.9 MG/DL (2.3-4.7); POTASSIUM 3.6 MMOL/L (3.6-5.0); SODIUM 137 MMOL/L (135-145); TOTAL PROTEIN 6.2 GM/DL (6.4-8.2)
--- NOTE | 2018-10-08 07:33 | Progress Note (SOAP) ---
Subjective Time Seen by a Provider: 07:31 Subjective/Events-last exam Patient feeling better. Patient has no complaints. Patient on room air. Patient have surgery today Objective Exam Vital Signs Date Time Temp Pulse Resp B/P (MAP) Pulse Ox O2 Delivery O2 Flow Rate FiO2 10/08/18 04:46 98.2 62 18 123/78 (93) 97 Room Air 10/08/18 00:22 98.0 68 18 99/71 (80) 95 Room Air 10/07/18 20:50 Room Air 10/07/18 19:31 98.9 93 18 123/83 (96) 95 Room Air 10/07/18 16:00 98.0 67 18 129/85 (100) 98 Room Air 10/07/18 12:00 98.8 105 18 98/69 (79) 94 Room Air 10/07/18 09:00 Room Air 10/07/18 08:06 98.8 106 18 121/88 (99) 96 Room Air I & O 10/08/18 07:00 Intake Total 2960 ml Output Total 200 ml Balance 2760 ml Capillary Refill : General Appearance: No Apparent Distress, WD/WN HEENT: Normal ENT Inspection Neck: Full Range of Motion, Normal Inspection Respiratory: No Accessory Muscle Use, No Respiratory Distress Cardiovascular: Regular Rate, Rhythm, No Murmur Gastrointestinal: non tender, soft Results Lab Laboratory Tests 10/08/18 04:35 Laboratory Tests 10/08/18 04:35: White Blood Count 12.0H, Red Blood Count 4.91, Hemoglobin 12.7L, Hematocrit 40, Mean Corpuscular Volume 81, Mean Corpuscular Hemoglobin 26, Mean Corpuscular Hemoglobin Concent 32, Red Cell Distribution Width 16.4H, Platelet Count 660H, Mean Platelet Volume 9.3, Neutrophils (%) (Auto) 67, Lymphocytes (%) (Auto) 21, Monocytes (%) (Auto) 12, Eosinophils (%) (Auto) 0, Basophils (%) (Auto) 0, Neutrophils # (Auto) 8.0H, Lymphocytes # (Auto) 2.5, Monocytes # (Auto) 1.5H, Eosinophils # (Auto) 0.0, Basophils # (Auto) 0.0, Sodium Level 137, Potassium Level 3.6, Chloride Level 103, Carbon Dioxide Level 25, Anion Gap 9, Blood Urea Nitrogen 20H, Creatinine 0.75, Estimat Glomerular Filtration Rate > 60, BUN/ Creatinine Ratio 27, Glucose Level 81, Calcium Level 8.7, Corrected Calcium 9.4 , Phosphorus Level 2.9, Magnesium Level 2.0, Total Bilirubin 0.3, Aspartate Amino Transf (AST/SGOT) 15, Alanine Aminotransferase (ALT/SGPT) 27, Alkaline Phosphatase 158H, Total Protein 6.2L, Albumin 3.1L Microbiology 09/30/18 Gram Stain - Final, Complete 09/30/18 Body Fluid Culture - Final, Complete No growth 10/03/18 Mycobacterial Culture - Preliminary, Resulted Assessment/Plan Assessment/Plan Assess & Plan/Chief Complaint Hydropneumothorax. Anemia. MR. Bipolar. Schizoaffective. Hypomagnesemia. . 10/03/18 Hydropneumothorax. Anemia. Bipolar. Schizoaffective. Patient had bronchoscopy this a.m. no mass noted. . 10/06/18. Hydropneumothorax. Anemia. Bipolar. Schizoaffective. Bronchoscopy negative. Patient pulled out chest tube. Patient have surgery today. . 10/07/18. Hydropneumothorax. Anemia. Bipolar. Schizoaffective. Patient have surgery tomorrow. MR. Hypomagnesemia. . 09/28/18. Hydropneumothorax. Anemia. Bipolar. Schizoaffective. More. Hypomagnesemia Clinical Quality Measures Admission Status Admission Dx Hydropneumothorax. Hilar mass. More. Bipolar and schizoaffective. Weakness. Pleural effusion. MR. DVT/VTE Risk/Contraindication: RFS Level Per Nursing on Admit: 0=No Risk/No VTE PPX JAVID JACKSON DO Oct 08, 2018 07:33
[2018-10-08] MEDS: DIVALPROEX 250 MG DELAYED RELEASE (DEPAKOTE) TAB PO SCH ×2 (08:33→21:22)
[2018-10-08] MEDS: PARoxetine 20 MG (PAXIL) TAB PO SCH (08:33)
[2018-10-08] MEDS: LEVETIRACETAM 500 MG (KEPPRA) TAB PO SCH ×2 (08:33→21:22)
--- NOTE | 2018-10-08 08:49 | Diagnostic Imaging Report ---
INDICATION: Shortness of breath. EXAMINATION: Portable chest at 2:45 AM. FINDINGS: There is a complex cavitary lesion in the right lower lateral chest with loculated fluid and parenchymal consolidation. The right apex is clear as well as the left lung. The heart size and pulmonary vascularity are normal. IMPRESSION: Complex area of consolidation in the right lower lateral chest. This has not appreciably changed from a CT dated 10/01/2018. Dictated by: Dictated on workstation # [id number]
--- NOTE | 2018-10-08 10:34 | Pulmonary Progress Note ---
Subjective Time Seen by a Provider: 10:33 Subjective/Events-last exam Pt appears comfortable. No complications noted. Sepsis Event Evaluation Height, Weight, BMI Height: 6'4.00" Weight: 177lbs. 11.2oz. 80.841197pv; 27.8 BMI Method:Stated Exam Exam Vital Signs Date Time Temp Pulse Resp B/P (MAP) Pulse Ox O2 Delivery O2 Flow Rate FiO2 10/08/18 08:00 97 Room Air 2.00 10/08/18 04:46 98.2 62 18 123/78 (93) 97 Room Air 10/08/18 00:22 98.0 68 18 99/71 (80) 95 Room Air 10/07/18 20:50 Room Air 10/07/18 19:31 98.9 93 18 123/83 (96) 95 Room Air 10/07/18 16:00 98.0 67 18 129/85 (100) 98 Room Air 10/07/18 12:00 98.8 105 18 98/69 (79) 94 Room Air I & O 10/08/18 07:00 Intake Total 2960 ml Output Total 200 ml Balance 2760 ml Height & Weight Height: 6'4.00" Weight: 177lbs. 11.2oz. 80.477880oz; 27.8 BMI Method:Stated General Appearance: No Apparent Distress, WD/WN HEENT: Normal ENT Inspection Neck: Full Range of Motion, Normal Inspection Respiratory: No Accessory Muscle Use, No Respiratory Distress Cardiovascular: Regular Rate, Rhythm, No Murmur Gastrointestinal: non tender, soft Extremity: Normal Capillary Refill, No Pedal Edema Neurologic/Psychiatric: Alert Skin: Normal Color, Warm/Dry Results Lab Laboratory Tests 10/07/18 04:25 10/08/18 04:35 Assessment/Plan Assessment/Plan Hydropneumothorax with trapped lung s/p chest tube placement - Exudative pleural fluid -PT pulled chest tube out- CXR appears stable - Decortication/Pleurodesis scheduled for today -Pleural fluid cytology - is Negative -S/P bronchoscopy - No endobronchial Mass -Cytology, cultures pending - solumedol 40 Q6 - D/C -continue Zosyn d/c vanco (MRSA Swab is negative) Anemia -Monitor MANDY COLLINS DO Oct 08, 2018 10:34
[2018-10-08] MEDS ORDERED: LIDOCAINE PF 2% 5 ML (XYLOCAINE) VIAL ONE (11:00)
[2018-10-08] MEDS ORDERED: fentaNYL INJECTION 250 MCG/5 ML AMP ONE (11:00)
[2018-10-08] MEDS ORDERED: proPOfol 200 MG/20 ML (DIPRIVAN) VIAL IV ONE (11:00)
[2018-10-08] MEDS ORDERED: DEXAMETHASONE 10 MG/ML (DECADRON) 1 ML VIAL ONE (11:02)
[2018-10-08] MEDS ORDERED: ONDANSETRON 4 MG/2 ML (SDV) Z0FRAN ONE (11:02)
[2018-10-08] MEDS ORDERED: MIDAZOLAM 2 MG/2 ML (VERSED) VIAL ONE (11:02)
[2018-10-08] MEDS ORDERED: NEOSTIGMINE 1 MG/ML 5 ML SYRINGE ONE (11:02)
[2018-10-08] MEDS ORDERED: ROCURONIUM 10 MG/ML 5 ML SYRINGE IV ONE ×2 (11:02→12:45)
[2018-10-08] MEDS ORDERED: SEVOFLURANE (ULTANE) 15 ML INHAL SOLN ONE ×8 (11:02→13:36)
[2018-10-08] MEDS ORDERED: GLYCOPYRROLATE 0.2 MG/ML (ROBINUL) 2 ML VIAL ONE (11:02)
[2018-10-08] MEDS: LACTATED RINGERS 1,000 ML IV PRN ×3 (11:22→13:45)
[2018-10-08] MEDS ORDERED: LIDOCAINE 1% INJ 20 ML 20 ML VIAL ONE (11:50)
[2018-10-08] MEDS ORDERED: BUP/EPI 0.5% 1:200,000 (SENSORCAINE) 30 ML VIAL ONE (11:50)
[2018-10-08] MEDS ORDERED: ceFAZolin INJECTION 1,000 MG VIAL IV ONE (12:15)
[2018-10-08] MEDS ORDERED: ceFAZolin 2 GM/50 ML PRE-MIX IVPB IV ONE (12:30)
[2018-10-08] MEDS ORDERED: PHENYLEPHRINE 100 MCG/ML 10 ML (ANESTHESIA) SYR ONE (12:44)
[2018-10-08] MEDS ORDERED: NS IR ONE ×3 (12:45)
[2018-10-08] MEDS ORDERED: LIDOCAINE IR ONE ×3 (12:45)
[2018-10-08] MEDS ORDERED: DOXYCYCLINE IR ONE ×3 (12:45)
--- NOTE | 2018-10-08 13:53 | Progress Note-Post Operative ---
Post-Operative Progess Note Surgeon (s)/Stock Digger (s) Surgeon ADAM AARON DO Stock Digger: Yeni Pre-Operative Diagnosis HydroPneumothorax Post-Operative Diagnosis Empyema Hydropneumothorax Procedure & Operative Findings Date of Procedure 10/08/18 Procedure Performed/Findings VATS total decortication all 3 lobes right lung, with removal of fibrinous peel VATS chemical pleurodesis right lung Anesthesia Type GET Estimated Blood Loss Estimated blood loss (mL): 50 ml Specimens/Packing Specimens Removed lung peel ADAM AARON DO Oct 08, 2018 13:53
[2018-10-08] MEDS ORDERED: morphine INJ 10 MG/ML 1ML (SYR OR VIAL) IVP ONE (14:15)
[2018-10-08] MEDS ORDERED: HYDROmorphone 2 MG/ML VIAL (DILAUDID) IV ONE (14:15)
[2018-10-08] MEDS ORDERED: ONDANSETRON 4 MG/2 ML (SDV) Z0FRAN IVP PRN (14:15)
--- NOTE | 2018-10-08 15:05 | NUR ---
PT TO ROOM ICU 5 VIA BED ACCOMPANIED BY LEGAL SERVICE SPECIALIST. PT HAS CHEST TUBE IN PLACE TO RIGHT CHEST, CONNECTED CHEST TUBE TO SUCTION. PT ON O2 AT 3L/NC. PT CONNECTED TO BEDSIDE MONITOR AND INTRODUCED TO SURROUNDINGS. CALL LIGHT WITHIN REACH, WILL CONTINUE TO MONITOR.
[2018-10-08] MEDS: NS IV 1000 ML 1,000 ML IV SCH ×2 (16:36→19:27)
--- NOTE | 2018-10-08 16:51 | Diagnostic Imaging Report ---
INDICATION: Chest pain. EXAMINATION: Portable chest at 4:38 p.m. FINDINGS: There has been interval placement of a right thoracostomy tube. There is a complex hydropneumothorax in the right lower lateral chest with thickening of the pleura. There is some consolidation in the lung. There is improved aeration compared to the study prior to thoracostomy tube placement. Left lung remains clear. IMPRESSION: Partial evacuation of the complex effusion/consolidation in the right lower lung after placement of a right thoracostomy tube. Dictated by: Dictated on workstation # [id number]
--- NOTE | 2018-10-08 18:13 | NUR ---
REPORT FROM Jose ALBARADO RN AT THIS TIME. THIS RN WILL ASSUME CARE WHEN HE ARRIVES FROM ICU ROOM 5 VIA BED.
--- NOTE | 2018-10-08 18:30 | NUR ---
patient to 4th at this time.
--- NOTE | 2018-10-08 19:45 | NUR ---
Pt sitting up in bed eating dinner. Chest tube to gravity, draining without difficulty. Telesitter at bedside.
--- NOTE | 2018-10-08 20:28 | NUR ---
This RN received a call from video monitoring that pt was fidgeting with something under the blankets in his bed. This RN visited pt et found that pt had pulled out his chest tube. This RN, Collette Addison et Tahir Wolf RN applied pressure dressing with vaseline gauze et tape to right chest. Pt O2 saturation on room air is 97%, pulse 101. Pt alert, sitting up in bed, tearful et apologizing.
--- NOTE | 2018-10-08 20:29 | NUR ---
Dr. Paredes, surgeon brazer helper induction, notified that pt had removed chest tube. Orders received for stat chest x ray et call with results.
--- NOTE | 2018-10-08 20:34 | NUR ---
Dr. Stark notified that pt had pulled out chest tube. No additional orders received at this time.
--- NOTE | 2018-10-08 21:03 | Diagnostic Imaging Report ---
EXAMINATION: Portable chest. COMPARISON: Prior study from earlier the same day. INDICATION: Patient pulled chest tube out. FINDINGS: The right-sided chest tube is no longer present. The patient's right pneumothorax demonstrates no evidence of significant interval change. The fluid component of this hydropneumothorax is not significantly changed. Consolidation at the right lung base appears stable. There is persistent gas throughout the right chest wall and right neck. Left lung remains clear. Heart size is stable. IMPRESSION: Stable appearance of the patient's right-sided hydropneumothorax and right basilar consolidation status post right chest tube removal. Dictated by: Dictated on workstation # [id number]
--- NOTE | 2018-10-08 21:05 | NUR ---
Dr. Stark notified this RN that he had reviewed pt's chest x ray that did not show any acute changes r/t chest tube removal. No new orders received at this time.
[2018-10-08] MEDS: risperiDONE 2 MG (RisperDAL) TAB PO SCH (21:22)
--- NOTE | 2018-10-08 22:00 | NUR ---
Pt sulking in bed with head down. Pt stated to [facility] Belen Callahan, " I am so mad at myself. The doctor and everyone is mad at me. I want to run away. I want to kill myself." This RN informed of pt statement. Suicide questionnaire performed by this RN. When pt was asked if he had a plan, he said "with my hands." Pt then turned his head and shook his head no to other suicide questions posed by this RN. Telesitter at bedside. This RN attempted to educate pt on seriousness of suicidal threats et provided active listening et reassurance that staff was not mad at him for pulling out his chest tube. Will continue to monitor.
[2018-10-09 00:53] VITALS: BP 107/70
--- NOTE | 2018-10-09 02:46 | OPERATIVE REPORT ---
DATE OF SERVICE: PREOPERATIVE DIAGNOSIS: Hydropneumothorax. POSTOPERATIVE DIAGNOSES: 1. Hydropneumothorax. 2. Probable sterile empyema. 3. Fibrinous peel encapsulating the lung. PROCEDURES: 1. Videoscopic-assisted thorascopic surgery with decortication of all 3 lobes of the right lung. 2. VATS with removal of fibrinous peel. 3. VATS with chemical pleurodesis. SURGEON: Pepe Stark DO. SWEEPER DRIVER: Elder Jaime DO. ANESTHESIA: General endotracheal tube. SPECIMEN: Peeled from around the lung. BLOOD LOSS: Less than 20 mL. FLUIDS: Per anesthesia. POSTOPERATIVE CONDITION: Stable. INDICATION FOR PROCEDURE: The patient is a 58-year-old male who had a hydropneumothorax. Lung was not reexpanding. Chest tube placed and did not get out enough or take care of it and showed on CAT scan multiple loculations. FINDINGS: The patient had a fibrous peel surrounding the entire lung as well as fluid did not appear to be purulent. PROCEDURE NOTE: After informed consent was obtained, the patient was brought to the operating room, placed on the table. He was first intubated with a dual lumen tube then he was flipped into the left lateral decubitus position. He was then sterilely prepped and draped in normal fashion. I went four fingerbreadths below the scapula just above the rib, I made a small incision with a #15 blade, carried down to the skin into the subcutaneous tissue had first infiltrating the area with local down to the rib and then continued down through the subcutaneous tissue with Bovie electrocautery down to the rib, could feel the rib and then went just above this to get into the pleural cavity, had the anesthesia take down the lung and suction out the lung to try and get it down. I then placed a 12 mm balloon port and then used some pressure to help push the lung down, took down some of the adhesions bluntly with the camera and then able to see a spot about 10 cm away using needle to find to go through the skin and could see it coming to the lung pleural cavity. It was in good position, so infiltrated this area with local, made a stab incision with #11 blade and then used a 5 port and placed this into the pleural cavity under direct visualization. I then spent about an hour carefully freeing up the lung, taking the fibrinous material off of the lung of all 3 lobes upper, middle and lower lobe in between pulled out as much peel as possible, suctioned out all the fluid. Copiously irrigated with normal saline. Once we had completely freed up the lung, we then allowed the lung to expand and it appeared to fully expand. At this point, I took down the lung again, made another small incision about 2 inches below the previous 10 mm port to be able to tunnel a 28-[place] chest tube, tunneled this to go into the opening between the ribs and then placed a 28-[place] Islander chest tube. Sutured this in place with a 0 silk suture, then closed the incision with ervin. Had a pharmacy mix up doxycycline, lidocaine and saline solution and then sprayed this into the lung and clamped the chest tube in place, then took pictures of the peel and taken pictures of the placement of the chest tube and at this point then removed the 5 mm port closed this incision with ervin and then a clamp the chest tube, so that it was clamped for about a half hour while I moved the patient around to get the pleurodesis to go all around the lung and then allowed him to reexpand the lung. The patient tolerated the procedure and transferred to recovery room in stable condition. Sponge, instrument and needle counts were correct at the end of the case. Dr. Jaime assisted in this case helping to make incisions, closed incisions, identifying anatomy as well as move anatomy out of the way and helping with removal of the fibrinous peel. Job ID: [id number] DocumentID: [id number] Dictated Date: 10/08/2018 16:45:16 Bundle Cutter Date: 10/09/2018 02:45:10 Dictated By: DO MARV LANDERS
[2018-10-09 03:53] VITALS: BP 116/77
[2018-10-09 04:36] LABS: BASOPHILS % (AUTO) 0 % (0-10); EOSINOPHILS % (AUTO) 0 % (0-10); HEMATOCRIT 37 % (40-54); LYMPHOCYTES # (AUTO) 2.6 X 10^3 (1.0-4.0); LYMPHOCYTES % (AUTO) 18 % (12-44); MEAN CORPUSCULAR HEMOGLOBIN 26 PG (25-34); MEAN CORPUSCULAR HGB CONC 32 G/DL (32-36); MEAN CORPUSCULAR VOLUME 82 FL (80-99); MEAN PLATELET VOLUME 9.3 FL (7.4-10.4); MONOCYTES # (AUTO) 1.5 X 10^3 (0.0-1.0); MONOCYTES % (AUTO) 10 % (0-12); NEUTROPHILS # (AUTO) 10.3 X 10^3 (1.8-7.8); NEUTROPHILS % (AUTO) 72 % (42-75); PLATELET COUNT 558 10^3/uL (130-400); RED CELL DISTRIBUTION WIDTH 16.8 % (10.0-14.5); WHITE BLOOD COUNT 14.4 10^3/uL (4.3-11.0)
[2018-10-09 05:00] LABS: ALANINE AMINOTRANSFERASE 28 U/L (0-55); ALBUMIN 3.1 GM/DL (3.2-4.5); ALKALINE PHOSPHATASE 154 U/L (40-136); BILIRUBIN,TOTAL 0.3 MG/DL (0.1-1.0); BUN/CREATININE RATIO 21; CALCIUM 8.6 MG/DL (8.5-10.1); CARBON DIOXIDE 23 MMOL/L (21-32); CHLORIDE 100 MMOL/L (98-107); CREATININE SERUM 0.63 MG/DL (0.60-1.30); GFR ESTIMATED > 60; GLUCOSE 88 MG/DL (70-105); MAGNESIUM 1.9 MG/DL (1.8-2.4); PHOSPHORUS 2.9 MG/DL (2.3-4.7); POTASSIUM 3.8 MMOL/L (3.6-5.0); SODIUM 133 MMOL/L (135-145); TOTAL PROTEIN 5.9 GM/DL (6.4-8.2)
[2018-10-09] MEDS: NS IV 1000 ML 1,000 ML IV SCH ×2 (05:04→15:12)
[2018-10-09 06:43] LABS: ALANINE AMINOTRANSFERASE 28 U/L (0-55); ALBUMIN 3.2 GM/DL (3.2-4.5); ALKALINE PHOSPHATASE 161 U/L (40-136); BILIRUBIN,TOTAL 0.4 MG/DL (0.1-1.0); BUN/CREATININE RATIO 16; CALCIUM 8.7 MG/DL (8.5-10.1); CARBON DIOXIDE 26 MMOL/L (21-32); CHLORIDE 98 MMOL/L (98-107); CREATININE SERUM 0.67 MG/DL (0.60-1.30); GFR ESTIMATED > 60; GLUCOSE 82 MG/DL (70-105); POTASSIUM 3.6 MMOL/L (3.6-5.0); SODIUM 132 MMOL/L (135-145); TOTAL PROTEIN 6.1 GM/DL (6.4-8.2)
--- NOTE | 2018-10-09 07:07 | Anesthesia-General Post-Op ---
General Patient Condition Mental Status/LOC: Same as Preop Cardiovascular: Satisfactory Nausea/Vomiting: Absent Respiratory: Satisfactory Pain: Controlled Complications: Absent Post Op Complications Complications None Follow Up Care/Instructions Patient Instructions None needed. Anesthesia/Patient Condition Patient Condition Patient is doing well, no complaints, stable vital signs, no apparent adverse anesthesia problems. No complications reported per nursing. D/C home per [facility] Criteria: JOSE Miller CRNA Oct 09, 2018 07:07
--- NOTE | 2018-10-09 07:52 | Diagnostic Imaging Report ---
INDICATION: Dyspnea. Comparison is made with prior examination from 10/08/2018. FINDINGS: There is no significant change in the right pneumothorax. There is also a right pleural effusion which is unchanged. There is a right base consolidation. Left lung is clear. There is cardiomegaly. There is subcutaneous air about the right chest wall. IMPRESSION: Unchanged right pneumothorax and right base infiltrate. Additionally, there is unchanged right pleural effusion. Dictated by: Dictated on workstation # [id number]
[2018-10-09 08:00] VITALS: BP 133/85
--- NOTE | 2018-10-09 08:05 | Progress Note (SOAP) ---
Subjective Time Seen by a Provider: 08:03 Subjective/Events-last exam Patient pulled out chest tube last night. Patient stable this morning. Patient MR. Objective Exam Vital Signs Date Time Temp Pulse Resp B/P (MAP) Pulse Ox O2 Delivery O2 Flow Rate FiO2 10/09/18 03:53 98.1 67 18 116/77 (90) 98 Room Air 10/09/18 00:53 97.3 66 18 107/70 (82) 97 Room Air 10/08/18 20:00 Room Air 10/08/18 19:05 97.8 94 16 117/68 (84) 96 Room Air 10/08/18 16:00 62 10 112/79 (90) 100 Nasal Cannula 3.00 10/08/18 16:00 96.9 10/08/18 15:45 63 8 122/79 (93) 100 Nasal Cannula 3.00 10/08/18 15:30 67 8 114/81 (92) 100 Nasal Cannula 3.00 10/08/18 15:18 86 10/08/18 15:15 74 112/81 (91) 100 Nasal Cannula 3.00 10/08/18 14:50 97.7 16 100 Nasal Cannula 3 10/08/18 14:40 16 98 OxyMask 3 10/08/18 14:30 16 10 OxyMask 10 10/08/18 14:20 16 100 OxyMask 10 10/08/18 14:10 18 100 OxyMask 10 10/08/18 13:59 97.1 12 10 OxyMask 10 I & O 10/09/18 07:00 Intake Total 4100 ml Output Total 565 ml Balance 3535 ml Capillary Refill : NONELess Than 3 Seconds General Appearance: No Apparent Distress, WD/WN HEENT: Normal ENT Inspection Neck: Full Range of Motion, Normal Inspection Respiratory: No Accessory Muscle Use, No Respiratory Distress Cardiovascular: Regular Rate, Rhythm, No Murmur Gastrointestinal: non tender, soft Results Lab Laboratory Tests 10/09/18 04:20 10/09/18 05:50 Laboratory Tests 10/09/18 04:20: White Blood Count 14.4H, Red Blood Count 4.55, Hemoglobin 12.0L, Hematocrit 37L , Mean Corpuscular Volume 82, Mean Corpuscular Hemoglobin 26, Mean Corpuscular Hemoglobin Concent 32, Red Cell Distribution Width 16.8H, Platelet Count 558H, Mean Platelet Volume 9.3, Neutrophils (%) (Auto) 72, Lymphocytes (%) (Auto) 18, Monocytes (%) (Auto) 10, Eosinophils (%) (Auto) 0, Basophils (%) (Auto) 0, Neutrophils # (Auto) 10.3H, Lymphocytes # (Auto) 2.6, Monocytes # (Auto) 1.5H, Eosinophils # (Auto) 0.0, Basophils # (Auto) 0.0, Sodium Level 133L, Potassium Level 3.8, Chloride Level 100, Carbon Dioxide Level 23, Anion Gap 10, Blood Urea Nitrogen 13, Creatinine 0.63, Estimat Glomerular Filtration Rate > 60, BUN/ Creatinine Ratio 21, Glucose Level 88, Calcium Level 8.6, Corrected Calcium 9.3 , Phosphorus Level 2.9, Magnesium Level 1.9, Total Bilirubin 0.3, Aspartate Amino Transf (AST/SGOT) 20, Alanine Aminotransferase (ALT/SGPT) 28, Alkaline Phosphatase 154H, Total Protein 5.9L, Albumin 3.1L 10/09/18 05:50: Sodium Level 132L, Potassium Level 3.6, Chloride Level 98, Carbon Dioxide Level 26, Anion Gap 8, Blood Urea Nitrogen 11, Creatinine 0.67, Estimat Glomerular Filtration Rate > 60, BUN/Creatinine Ratio 16, Glucose Level 82, Calcium Level 8.7, Corrected Calcium 9.3, Total Bilirubin 0.4, Aspartate Amino Transf (AST/ SGOT) 18, Alanine Aminotransferase (ALT/SGPT) 28, Alkaline Phosphatase 161H, Total Protein 6.1L, Albumin 3.2 Microbiology 09/30/18 Gram Stain - Final, Complete 09/30/18 Body Fluid Culture - Final, Complete No growth 10/03/18 Mycobacterial Culture - Preliminary, Resulted Assessment/Plan Assessment/Plan Assess & Plan/Chief Complaint Hydropneumothorax. Anemia. MR. Bipolar. Schizoaffective. Hypomagnesemia. . 10/03/18 Hydropneumothorax. Anemia. Bipolar. Schizoaffective. Patient had bronchoscopy this a.m. no mass noted. . 10/06/18. Hydropneumothorax. Anemia. Bipolar. Schizoaffective. Bronchoscopy negative. Patient pulled out chest tube. Patient have surgery today. . 10/07/18. Hydropneumothorax. Anemia. Bipolar. Schizoaffective. Patient have surgery tomorrow. MR. Hypomagnesemia. . 09/28/18. Hydropneumothorax. Anemia. Bipolar. Schizoaffective. More. Hypomagnesemia. . . Hydropneumothorax. Anemia. Bipolar. Schizoaffective. Hypomagnesemia. MR. Patient pulled out chest tube last night. Patient stable today Clinical Quality Measures Admission Status Admission Dx Hydropneumothorax. Hilar mass. More. Bipolar and schizoaffective. Weakness. Pleural effusion. DVT/VTE Risk/Contraindication: RFS Level Per Nursing on Admit: 0=No Risk/No VTE PPX JAVID JACKSON DO Oct 09, 2018 08:05
[2018-10-09] MEDS: LEVETIRACETAM 500 MG (KEPPRA) TAB PO SCH ×2 (09:40→21:00)
[2018-10-09] MEDS: PARoxetine 20 MG (PAXIL) TAB PO SCH (09:40)
[2018-10-09] MEDS: DIVALPROEX 250 MG DELAYED RELEASE (DEPAKOTE) TAB PO SCH ×2 (09:40→21:00)
--- NOTE | 2018-10-09 09:44 | Pulmonary Progress Note ---
Subjective Time Seen by a Provider: 08:35 Subjective/Events-last exam Pt did well with surgery Sepsis Event Evaluation Height, Weight, BMI Height: 6'4.00" Weight: 177lbs. 11.2oz. 80.937492hj; 27.8 BMI Method:Stated Exam Exam Vital Signs Date Time Temp Pulse Resp B/P (MAP) Pulse Ox O2 Delivery O2 Flow Rate FiO2 10/09/18 08:00 97.6 69 18 133/85 (101) 98 10/09/18 03:53 98.1 67 18 116/77 (90) 98 Room Air 10/09/18 00:53 97.3 66 18 107/70 (82) 97 Room Air 10/08/18 20:00 Room Air 10/08/18 19:05 97.8 94 16 117/68 (84) 96 Room Air 10/08/18 16:00 62 10 112/79 (90) 100 Nasal Cannula 3.00 10/08/18 16:00 96.9 10/08/18 15:45 63 8 122/79 (93) 100 Nasal Cannula 3.00 10/08/18 15:30 67 8 114/81 (92) 100 Nasal Cannula 3.00 10/08/18 15:18 86 10/08/18 15:15 74 112/81 (91) 100 Nasal Cannula 3.00 10/08/18 14:50 97.7 16 100 Nasal Cannula 3 10/08/18 14:40 16 98 OxyMask 3 10/08/18 14:30 16 10 OxyMask 10 10/08/18 14:20 16 100 OxyMask 10 10/08/18 14:10 18 100 OxyMask 10 10/08/18 13:59 97.1 12 10 OxyMask 10 I & O 10/09/18 07:00 Intake Total 4100 ml Output Total 565 ml Balance 3535 ml Height & Weight Height: 6'4.00" Weight: 177lbs. 11.2oz. 80.116798ow; 27.8 BMI Method:Stated General Appearance: No Apparent Distress, WD/WN HEENT: Normal ENT Inspection Neck: Full Range of Motion, Normal Inspection Respiratory: No Accessory Muscle Use, No Respiratory Distress Cardiovascular: Regular Rate, Rhythm, No Murmur Capillary Refill: Less Than 3 Seconds Gastrointestinal: non tender, soft Extremity: Normal Capillary Refill, No Pedal Edema Neurologic/Psychiatric: Alert Skin: Normal Color, Warm/Dry Lymphatic: No Adenopathy Results Lab Laboratory Tests 10/08/18 04:35 10/09/18 04:20 10/09/18 05:50 Assessment/Plan Assessment/Plan Hydropneumothorax/empyema with trapped lung s/p chest tube placement - Exudative pleural fluid - S/P Decortication/Pleurodesis - pt did well however he pulled chest tube out last night. -Pleural fluid cytology - is Negative -S/P bronchoscopy - No endobronchial Mass - cytology is negative -Cytology, cultures pending Anemia -Monitor MANDY COLLINS DO Oct 09, 2018 09:44
--- NOTE | 2018-10-09 10:36 | Progress Note ---
Subjective Time Seen by a Provider: 10:15 Subjective/Events-last exam Pt seen and examined, denies pain or SOB. Pt pulled CT out last night, but no real change in CXR. Review of Systems Pulmonary: No Dyspnea, No Cough Cardiovascular: No: Chest Pain Gastrointestinal: No: Nausea, Vomiting Objective Exam Vital Signs Date Time Temp Pulse Resp B/P (MAP) Pulse Ox O2 Delivery O2 Flow Rate FiO2 10/09/18 08:00 Room Air 10/09/18 08:00 97.6 69 18 133/85 (101) 98 10/09/18 03:53 98.1 67 18 116/77 (90) 98 Room Air 10/09/18 00:53 97.3 66 18 107/70 (82) 97 Room Air 10/08/18 20:00 Room Air 10/08/18 19:05 97.8 94 16 117/68 (84) 96 Room Air 10/08/18 16:00 62 10 112/79 (90) 100 Nasal Cannula 3.00 10/08/18 16:00 96.9 10/08/18 15:45 63 8 122/79 (93) 100 Nasal Cannula 3.00 10/08/18 15:30 67 8 114/81 (92) 100 Nasal Cannula 3.00 10/08/18 15:18 86 10/08/18 15:15 74 112/81 (91) 100 Nasal Cannula 3.00 10/08/18 14:50 97.7 16 100 Nasal Cannula 3 10/08/18 14:40 16 98 OxyMask 3 10/08/18 14:30 16 10 OxyMask 10 10/08/18 14:20 16 100 OxyMask 10 10/08/18 14:10 18 100 OxyMask 10 10/08/18 13:59 97.1 12 10 OxyMask 10 I & O 10/09/18 07:00 Intake Total 4100 ml Output Total 565 ml Balance 3535 ml Capillary Refill : NONELess Than 3 Seconds General Appearance: No Apparent Distress, WD/WN Neck: Full Range of Motion, Normal Inspection Respiratory: No Accessory Muscle Use, No Respiratory Distress, Decreased Breath Sounds (Right) Cardiovascular: Regular Rate, Rhythm, No Murmur Gastrointestinal: non tender, soft Extremity: Normal Capillary Refill, No Pedal Edema Neurologic/Psychiatric: Alert Skin: Normal Color, Warm/Dry Results Lab Laboratory Tests 10/09/18 04:20: White Blood Count 14.4H, Red Blood Count 4.55, Hemoglobin 12.0L, Hematocrit 37L , Mean Corpuscular Volume 82, Mean Corpuscular Hemoglobin 26, Mean Corpuscular Hemoglobin Concent 32, Red Cell Distribution Width 16.8H, Platelet Count 558H, Mean Platelet Volume 9.3, Neutrophils (%) (Auto) 72, Lymphocytes (%) (Auto) 18, Monocytes (%) (Auto) 10, Eosinophils (%) (Auto) 0, Basophils (%) (Auto) 0, Neutrophils # (Auto) 10.3H, Lymphocytes # (Auto) 2.6, Monocytes # (Auto) 1.5H, Eosinophils # (Auto) 0.0, Basophils # (Auto) 0.0, Sodium Level 133L, Potassium Level 3.8, Chloride Level 100, Carbon Dioxide Level 23, Anion Gap 10, Blood Urea Nitrogen 13, Creatinine 0.63, Estimat Glomerular Filtration Rate > 60, BUN/ Creatinine Ratio 21, Glucose Level 88, Calcium Level 8.6, Corrected Calcium 9.3 , Phosphorus Level 2.9, Magnesium Level 1.9, Total Bilirubin 0.3, Aspartate Amino Transf (AST/SGOT) 20, Alanine Aminotransferase (ALT/SGPT) 28, Alkaline Phosphatase 154H, Total Protein 5.9L, Albumin 3.1L 10/09/18 05:50: Sodium Level 132L, Potassium Level 3.6, Chloride Level 98, Carbon Dioxide Level 26, Anion Gap 8, Blood Urea Nitrogen 11, Creatinine 0.67, Estimat Glomerular Filtration Rate > 60, BUN/Creatinine Ratio 16, Glucose Level 82, Calcium Level 8.7, Corrected Calcium 9.3, Total Bilirubin 0.4, Aspartate Amino Transf (AST/ SGOT) 18, Alanine Aminotransferase (ALT/SGPT) 28, Alkaline Phosphatase 161H, Total Protein 6.1L, Albumin 3.2 Microbiology 09/30/18 Gram Stain - Final, Complete 09/30/18 Body Fluid Culture - Final, Complete No growth 10/03/18 Mycobacterial Culture - Preliminary, Resulted Assessment/Plan Assessment/Plan Assessment/Plan S/P right VATS decortication Pt 02 saturation is 97% on room air. Unfortunately CXR still appears like not all peel was removed, but it is definite improvement from before. Did a pleurodesis, so will allow that to take affect and see if lung can expand more. No sugery needed at this time. Clinical Quality Measures DVT/VTE Risk/Contraindication: RFS Level Per Nursing on Admit: 0=No Risk/No VTE PPX ADAM AARON DO Oct 09, 2018 10:36
--- NOTE | 2018-10-09 11:20 | NUR ---
NOTE THAT PT HAS CONTINUALLY PULLED THE O2 MONITOR OFF THROUGHOUT SHIFT -- TELE SITTER NOT PICKING IT UP -- STAFF HEARS THE MONITOR GOING OFF AND REAPPLIES IT --
[2018-10-09 12:00] VITALS: BP 120/69
[2018-10-09 15:50] VITALS: BP 102/66
[2018-10-09 19:50] VITALS: BP 99/67
[2018-10-09] MEDS: risperiDONE 2 MG (RisperDAL) TAB PO SCH (21:00)
[2018-10-10] VITALS (8 sets, daily range): BP systolic 94–136; BP diastolic 50–82
[2018-10-10] MEDS: NS IV 1000 ML 1,000 ML IV SCH ×2 (00:52→08:20)
--- NOTE | 2018-10-10 04:12 | NUR ---
Pt pulled out IV to right AC. Telesitter did not alarm or alert nurse to action. Pt provided education on need for IV lines. New IV to left wrist, 22g, x1 stick by this RN.
[2018-10-10 04:14] LABS: BASOPHILS % (AUTO) 0 % (0-10); EOSINOPHILS # (AUTO) 0.2 10^3/uL (0.0-0.3); EOSINOPHILS % (AUTO) 2 % (0-10); HEMATOCRIT 35 % (40-54); HEMOGLOBIN 11.6 G/DL (13.3-17.7); LYMPHOCYTES % (AUTO) 18 % (12-44); MEAN CORPUSCULAR HEMOGLOBIN 27 PG (25-34); MEAN CORPUSCULAR HGB CONC 33 G/DL (32-36); MEAN CORPUSCULAR VOLUME 81 FL (80-99); MEAN PLATELET VOLUME 9.6 FL (7.4-10.4); MONOCYTES # (AUTO) 1.5 X 10^3 (0.0-1.0); MONOCYTES % (AUTO) 14 % (0-12); NEUTROPHILS # (AUTO) 7.1 X 10^3 (1.8-7.8); NEUTROPHILS % (AUTO) 66 % (42-75); PLATELET COUNT 439 10^3/uL (130-400); RED CELL DISTRIBUTION WIDTH 16.6 % (10.0-14.5); WHITE BLOOD COUNT 10.7 10^3/uL (4.3-11.0)
[2018-10-10 04:38] LABS: ALANINE AMINOTRANSFERASE 24 U/L (0-55); ALBUMIN 2.8 GM/DL (3.2-4.5); ALKALINE PHOSPHATASE 145 U/L (40-136); BILIRUBIN,TOTAL 0.2 MG/DL (0.1-1.0); BUN/CREATININE RATIO 17; CALCIUM 8.2 MG/DL (8.5-10.1); CARBON DIOXIDE 24 MMOL/L (21-32); CHLORIDE 102 MMOL/L (98-107); CREATININE SERUM 0.58 MG/DL (0.60-1.30); GFR ESTIMATED > 60; GLUCOSE 116 MG/DL (70-105); MAGNESIUM 1.7 MG/DL (1.8-2.4); POTASSIUM 3.9 MMOL/L (3.6-5.0); SODIUM 134 MMOL/L (135-145); TOTAL PROTEIN 5.3 GM/DL (6.4-8.2)
[2018-10-10] MEDS ORDERED: MAGNESIUM 1 GM/100 ML IVPB 100 ML IV ONE (08:00)
--- NOTE | 2018-10-10 08:06 | Progress Note (SOAP) ---
Subjective Time Seen by a Provider: 08:03 Subjective/Events-last exam Patient stable and feeling okay. Patient pulls out IV. Objective Exam Vital Signs Date Time Temp Pulse Resp B/P (MAP) Pulse Ox O2 Delivery O2 Flow Rate FiO2 10/10/18 04:00 97.8 84 20 111/66 (81) 98 Room Air 10/10/18 00:58 99.3 92 20 124/70 (88) 95 Room Air 10/09/18 20:00 Room Air 10/09/18 19:50 98.9 95 20 99/67 (78) 99 Room Air 10/09/18 15:50 98.8 105 18 102/66 (78) 99 10/09/18 12:00 97.6 89 12 120/69 (86) 92 I & O 10/10/18 06:59 Intake Total 3800 ml Balance 3800 ml Capillary Refill : NONELess Than 3 Seconds General Appearance: No Apparent Distress, WD/WN HEENT: Normal ENT Inspection Neck: Full Range of Motion, Normal Inspection Respiratory: Lungs Clear, No Accessory Muscle Use, No Respiratory Distress Cardiovascular: Regular Rate, Rhythm, No Murmur Gastrointestinal: non tender, soft Results Lab Laboratory Tests 10/10/18 04:00 Laboratory Tests 10/10/18 04:00: White Blood Count 10.7, Red Blood Count 4.33L, Hemoglobin 11.6L, Hematocrit 35L , Mean Corpuscular Volume 81, Mean Corpuscular Hemoglobin 27, Mean Corpuscular Hemoglobin Concent 33, Red Cell Distribution Width 16.6H, Platelet Count 439H, Mean Platelet Volume 9.6, Neutrophils (%) (Auto) 66, Lymphocytes (%) (Auto) 18, Monocytes (%) (Auto) 14H, Eosinophils (%) (Auto) 2, Basophils (%) (Auto) 0, Neutrophils # (Auto) 7.1, Lymphocytes # (Auto) 2.0, Monocytes # (Auto) 1.5H, Eosinophils # (Auto) 0.2, Basophils # (Auto) 0.0, Sodium Level 134L, Potassium Level 3.9, Chloride Level 102, Carbon Dioxide Level 24, Anion Gap 8, Blood Urea Nitrogen 10, Creatinine 0.58L, Estimat Glomerular Filtration Rate > 60, BUN/ Creatinine Ratio 17, Glucose Level 116H, Calcium Level 8.2L, Corrected Calcium 9.2, Phosphorus Level 2.0L, Magnesium Level 1.7L, Total Bilirubin 0.2, Aspartate Amino Transf (AST/SGOT) 14, Alanine Aminotransferase (ALT/SGPT) 24, Alkaline Phosphatase 145H, Total Protein 5.3L, Albumin 2.8L Microbiology 09/30/18 Gram Stain - Final, Complete 09/30/18 Body Fluid Culture - Final, Complete No growth 10/03/18 Mycobacterial Culture - Preliminary, Resulted Assessment/Plan Assessment/Plan Assess & Plan/Chief Complaint Hydropneumothorax. Anemia. MR. Bipolar. Schizoaffective. Hypomagnesemia. . 10/03/18 Hydropneumothorax. Anemia. Bipolar. Schizoaffective. Patient had bronchoscopy this a.m. no mass noted. . 10/06/18. Hydropneumothorax. Anemia. Bipolar. Schizoaffective. Bronchoscopy negative. Patient pulled out chest tube. Patient have surgery today. . 10/07/18. Hydropneumothorax. Anemia. Bipolar. Schizoaffective. Patient have surgery tomorrow. MR. Hypomagnesemia. . 09/28/18. Hydropneumothorax. Anemia. Bipolar. Schizoaffective. More. Hypomagnesemia. . . Hydropneumothorax. Anemia. Bipolar. Schizoaffective. Hypomagnesemia. MR. Patient pulled out chest tube last night. Patient stable today. . 10/09/18. Hydropneumothorax. Anemia. Bipolar. Schizoaffective. Hypomagnesemia. MR. Patient pulled out IV this morning Clinical Quality Measures Admission Status Admission Dx Hydropneumothorax. Hilar mass. More. Bipolar and schizoaffective. Weakness. Pleural effusion. MR. DVT/VTE Risk/Contraindication: RFS Level Per Nursing on Admit: 0=No Risk/No VTE PPX JAVID JACKSON DO Oct 10, 2018 08:06
--- NOTE | 2018-10-10 08:08 | Diagnostic Imaging Report ---
INDICATION: Dyspnea, followup. TECHNIQUE: Single view chest 600 a.m.. CORRELATION STUDY: 10/09/2018 FINDINGS: Right-sided hydropneumothorax is again demonstrated. The pneumothorax component may be slightly increased. This may also be somewhat accentuated by less depth of inspiration. Consolidated appearance about the right lung base generally stable. Amount of subcutaneous scans over the right chest and neck slightly diminished. Lung remains relatively clear. Heart size enlarged, vasculature stable. IMPRESSION: 1. Right-sided hydropneumothorax again demonstrated. The pneumothorax component appeared slightly more prominent but may be accentuated by limited depth of inspiration. Consolidated right lung base. Dictated by: Dictated on workstation # [id number]
--- NOTE | 2018-10-10 08:37 | Pulmonary Progress Note ---
Subjective Time Seen by a Provider: 08:36 Subjective/Events-last exam CXR stable No complications ntoed Sepsis Event Evaluation Height, Weight, BMI Height: 6'4.00" Weight: 177lbs. 11.2oz. 80.867035ph; 27.8 BMI Method:Stated Exam Exam Vital Signs Date Time Temp Pulse Resp B/P (MAP) Pulse Ox O2 Delivery O2 Flow Rate FiO2 10/10/18 04:00 97.8 84 20 111/66 (81) 98 Room Air 10/10/18 00:58 99.3 92 20 124/70 (88) 95 Room Air 10/09/18 20:00 Room Air 10/09/18 19:50 98.9 95 20 99/67 (78) 99 Room Air 10/09/18 15:50 98.8 105 18 102/66 (78) 99 10/09/18 12:00 97.6 89 12 120/69 (86) 92 I & O 10/10/18 07:00 Intake Total 3800 ml Balance 3800 ml Height & Weight Height: 6'4.00" Weight: 177lbs. 11.2oz. 80.420917nd; 27.8 BMI Method:Stated General Appearance: No Apparent Distress, WD/WN HEENT: Normal ENT Inspection Neck: Full Range of Motion, Normal Inspection Respiratory: No Accessory Muscle Use, No Respiratory Distress Cardiovascular: Regular Rate, Rhythm, No Murmur Capillary Refill: Less Than 3 Seconds Gastrointestinal: non tender, soft Extremity: Normal Capillary Refill, No Pedal Edema Neurologic/Psychiatric: Alert Skin: Normal Color, Warm/Dry Lymphatic: No Adenopathy Results Lab Laboratory Tests 10/09/18 04:20 10/09/18 05:50 10/10/18 04:00 Assessment/Plan Assessment/Plan Hydropneumothorax/empyema with trapped lung s/p chest tube placement - Exudative pleural fluid - S/P Decortication/Pleurodesis - -Pleural fluid cytology - is Negative -S/P bronchoscopy - No endobronchial Mass - cytology is negative -Cytology, cultures pending Anemia -Monitor MANDY COLLINS DO Oct 10, 2018 08:37
[2018-10-10] MEDS: PARoxetine 20 MG (PAXIL) TAB PO SCH (08:39)
[2018-10-10] MEDS: DIVALPROEX 250 MG DELAYED RELEASE (DEPAKOTE) TAB PO SCH ×2 (08:39→21:55)
[2018-10-10] MEDS: LEVETIRACETAM 500 MG (KEPPRA) TAB PO SCH ×2 (08:39→21:55)
--- NOTE | 2018-10-10 09:58 | Progress Note ---
Subjective Time Seen by a Provider: 09:14 Subjective/Events-last exam Pt seen and examined, complains of some "right side pain". Denies SOB Review of Systems General: No Chills, No Night Sweats Pulmonary: No Dyspnea, No Cough Cardiovascular: No: Chest Pain, Palpitations Objective Exam Vital Signs Date Time Temp Pulse Resp B/P (MAP) Pulse Ox O2 Delivery O2 Flow Rate FiO2 10/10/18 08:00 98.5 95 20 136/82 (100) 98 Room Air 10/10/18 04:00 97.8 84 20 111/66 (81) 98 Room Air 10/10/18 00:58 99.3 92 20 124/70 (88) 95 Room Air 10/09/18 20:00 Room Air 10/09/18 19:50 98.9 95 20 99/67 (78) 99 Room Air 10/09/18 15:50 98.8 105 18 102/66 (78) 99 10/09/18 12:00 97.6 89 12 120/69 (86) 92 I & O 10/10/18 07:00 Intake Total 3800 ml Balance 3800 ml Capillary Refill : NONELess Than 3 Seconds General Appearance: No Apparent Distress, WD/WN HEENT: Normal ENT Inspection Neck: Full Range of Motion, Normal Inspection Respiratory: Normal Breath Sounds (left only), No Accessory Muscle Use, No Respiratory Distress, Decreased Breath Sounds (right) Cardiovascular: Regular Rate, Rhythm, No Murmur Gastrointestinal: non tender, soft Extremity: Normal Capillary Refill, No Pedal Edema Neurologic/Psychiatric: Alert Skin: Normal Color, Warm/Dry Results Lab Laboratory Tests 10/10/18 04:00: White Blood Count 10.7, Red Blood Count 4.33L, Hemoglobin 11.6L, Hematocrit 35L , Mean Corpuscular Volume 81, Mean Corpuscular Hemoglobin 27, Mean Corpuscular Hemoglobin Concent 33, Red Cell Distribution Width 16.6H, Platelet Count 439H, Mean Platelet Volume 9.6, Neutrophils (%) (Auto) 66, Lymphocytes (%) (Auto) 18, Monocytes (%) (Auto) 14H, Eosinophils (%) (Auto) 2, Basophils (%) (Auto) 0, Neutrophils # (Auto) 7.1, Lymphocytes # (Auto) 2.0, Monocytes # (Auto) 1.5H, Eosinophils # (Auto) 0.2, Basophils # (Auto) 0.0, Sodium Level 134L, Potassium Level 3.9, Chloride Level 102, Carbon Dioxide Level 24, Anion Gap 8, Blood Urea Nitrogen 10, Creatinine 0.58L, Estimat Glomerular Filtration Rate > 60, BUN/ Creatinine Ratio 17, Glucose Level 116H, Calcium Level 8.2L, Corrected Calcium 9.2, Phosphorus Level 2.0L, Magnesium Level 1.7L, Total Bilirubin 0.2, Aspartate Amino Transf (AST/SGOT) 14, Alanine Aminotransferase (ALT/SGPT) 24, Alkaline Phosphatase 145H, Total Protein 5.3L, Albumin 2.8L Microbiology 09/30/18 Gram Stain - Final, Complete 09/30/18 Body Fluid Culture - Final, Complete No growth 10/03/18 Mycobacterial Culture - Preliminary, Resulted Assessment/Plan Assessment/Plan Assessment/Plan S/P R VATS decortication and pleurodesis I believe the lower consolidation is probably pleurodesis chemical reaction, unfortunately I do not think the middle lobe will completely re-expand. Pt has 97% O2 saturation on room air and is not in any respiratory distress; I think he is probably ok to go home, once he is medically stable. Clinical Quality Measures DVT/VTE Risk/Contraindication: RFS Level Per Nursing on Admit: 0=No Risk/No VTE PPX ADAM AARON DO Oct 10, 2018 09:58
--- NOTE | 2018-10-10 12:20 | NUR ---
C/O OF PAIN IN RIGHT CHEST AREA. DR. JACKSON NOTIFIED. NEW ORDER NOTED. LORTAB 325/5 MG 1 TAB GIVEN P.O. ORDERED FOR C/O OF RIGHT SIDE/CHEST PAIN 10/10, RESP. SHALLOW. RETURNED TO BED. THOMPSON. WELL. DRESSING CHANGED TO RIGHT CHEST, X 3 AREA'S OF CORAL CLEAN AND DRY WITH NO REDNESS OR SWELLING NOTED. PUNCTURE SITE AREA FROM CHEST TUBE CLEAR. VASELINE GAUZE APPLIED WITH 4 X 4'S AND X 2 ISLAND DRESSINGS.
[2018-10-10] MEDS: HYDROcodone/APAP 5 MG/325 MG (LORTAB) TAB PO PRN (12:21)
--- NOTE | 2018-10-10 13:00 | NUR ---
BP BP=93/59 P=114 RESP.=[address] ARZATE , BUT NO ANSWER AND MESSAGE LEFT ON DR. ARZATE'S PHONE.
[2018-10-10] MEDS: LIDOCAINE 4% (SALONPAS) PATCH TOP SCH (15:50)
[2018-10-10] MEDS: risperiDONE 2 MG (RisperDAL) TAB PO SCH (21:55)
[2018-10-10] MEDS: LIDOCAINE PATCH REMOVAL TP SCH (21:56)
[2018-10-11] VITALS (7 sets, daily range): BP systolic 103–131; BP diastolic 60–82
--- NOTE | 2018-10-11 01:17 | NUR ---
PATIENT PULLED OUT IV. CONTACTED DR COLLINS. OK TO LEAVE OUT. TORBV
[2018-10-11] MEDS: NS IV 1000 ML 1,000 ML IV SCH ×3 (03:18→23:03)
[2018-10-11 05:04] LABS: BASOPHILS % (AUTO) 0 % (0-10); EOSINOPHILS # (AUTO) 0.3 10^3/uL (0.0-0.3); EOSINOPHILS % (AUTO) 3 % (0-10); HEMATOCRIT 34 % (40-54); HEMOGLOBIN 10.9 G/DL (13.3-17.7); LYMPHOCYTES # (AUTO) 2.2 X 10^3 (1.0-4.0); LYMPHOCYTES % (AUTO) 22 % (12-44); MEAN CORPUSCULAR HEMOGLOBIN 27 PG (25-34); MEAN CORPUSCULAR HGB CONC 32 G/DL (32-36); MEAN CORPUSCULAR VOLUME 82 FL (80-99); MEAN PLATELET VOLUME 9.8 FL (7.4-10.4); MONOCYTES # (AUTO) 1.4 X 10^3 (0.0-1.0); MONOCYTES % (AUTO) 15 % (0-12); NEUTROPHILS # (AUTO) 5.9 X 10^3 (1.8-7.8); NEUTROPHILS % (AUTO) 60 % (42-75); PLATELET COUNT 428 10^3/uL (130-400); RED CELL DISTRIBUTION WIDTH 17.1 % (10.0-14.5); WHITE BLOOD COUNT 9.9 10^3/uL (4.3-11.0)
[2018-10-11 05:28] LABS: ALANINE AMINOTRANSFERASE 17 U/L (0-55); ALBUMIN 2.8 GM/DL (3.2-4.5); ALKALINE PHOSPHATASE 150 U/L (40-136); BILIRUBIN,TOTAL 0.3 MG/DL (0.1-1.0); BUN/CREATININE RATIO 17; CALCIUM 8.4 MG/DL (8.5-10.1); CARBON DIOXIDE 23 MMOL/L (21-32); CHLORIDE 102 MMOL/L (98-107); GFR ESTIMATED > 60; GLUCOSE 99 MG/DL (70-105); MAGNESIUM 1.7 MG/DL (1.8-2.4); PHOSPHORUS 2.4 MG/DL (2.3-4.7); POTASSIUM 3.8 MMOL/L (3.6-5.0); SODIUM 134 MMOL/L (135-145); TOTAL PROTEIN 5.4 GM/DL (6.4-8.2)
--- NOTE | 2018-10-11 08:13 | Pulmonary Progress Note ---
Subjective Time Seen by a Provider: 08:11 Subjective/Events-last exam Pt is very difficult to treat. He has pulled chest tube out x 2 and pulls IVs out soon after placed. CUrrenlty he has no IV access. Sepsis Event Evaluation Height, Weight, BMI Height: 6'4.00" Weight: 177lbs. 11.2oz. 80.717793yp; 27.8 BMI Method:Stated Exam Exam Vital Signs Date Time Temp Pulse Resp B/P (MAP) Pulse Ox O2 Delivery O2 Flow Rate FiO2 10/11/18 03:56 99.0 81 20 111/66 (81) 97 Room Air 10/11/18 00:00 99.1 89 22 110/60 (77) 95 Room Air 10/10/18 20:00 95 Room Air 10/10/18 19:41 97.1 101 22 104/66 (79) 96 Room Air 10/10/18 15:39 97.7 95 20 96/63 (74) 95 Room Air 10/10/18 13:45 95 28 97/50 (66) 98 Room Air 10/10/18 13:00 97.8 114 28 106/55 (72) 98 Room Air 10/10/18 12:00 97.8 114 28 94/59 (71) 97 Room Air I & O 10/11/18 07:00 Intake Total 1180 ml Output Total 500 ml Balance 680 ml Height & Weight Height: 6'4.00" Weight: 177lbs. 11.2oz. 80.760145ee; 27.8 BMI Method:Stated General Appearance: No Apparent Distress, WD/WN HEENT: Normal ENT Inspection Neck: Full Range of Motion, Normal Inspection Respiratory: Normal Breath Sounds (left only), No Accessory Muscle Use, No Respiratory Distress, Decreased Breath Sounds (right) Cardiovascular: Regular Rate, Rhythm, No Murmur Capillary Refill: Less Than 3 Seconds Gastrointestinal: non tender, soft Extremity: Normal Capillary Refill, No Pedal Edema Neurologic/Psychiatric: Alert Skin: Normal Color, Warm/Dry Results Lab Laboratory Tests 10/10/18 04:00 10/11/18 04:20 Assessment/Plan Assessment/Plan Hydropneumothorax/empyema with trapped lung s/p chest tube placement - Exudative pleural fluid - appears stable. - S/P Decortication/ with incomplete Pleurodesis - -Pleural fluid cytology - is Negative -S/P bronchoscopy - No endobronchial Mass - cytology is negative -Cytology, cultures pending Anemia -Monitor I do not believe lung will ever completely reexpand. He will probably always have hydropneumothorax secondary to trapped lung. MANDY COLLINS DO Oct 11, 2018 08:13
--- NOTE | 2018-10-11 08:29 | Progress Note-Hospitalist ---
Subjective HPI/CC On Admission Date Seen by Provider: Oct 11, 2018 Time Seen by Provider: 08:00 Subjective/Events-last exam Pulled his IV out so left it out Pulled chest tubes out Reviewed Dr. Wright's note and it appears that he will likely continue having the hydro-pneumothorax and have a trapped lung Patient denies any pain Patient not unstable Review of Systems General: Fatigue Objective Exam Vital Signs Vital Signs Date Time Temp Pulse Resp B/P (MAP) Pulse Ox O2 Delivery O2 Flow Rate FiO2 10/11/18 12:00 98.4 90 20 103/69 (80) 97 Room Air 10/11/18 08:00 3.00 Capillary Refill : NONELess Than 3 Seconds General Appearance: No Apparent Distress, WD/WN HEENT: Normal ENT Inspection Neck: Full Range of Motion, Normal Inspection Respiratory: Normal Breath Sounds (left only), No Accessory Muscle Use, No Respiratory Distress, Decreased Breath Sounds (right) Cardiovascular: Regular Rate, Rhythm, No Murmur Gastrointestinal: Non Tender, Soft Extremity: Normal Capillary Refill, No Pedal Edema Neurologic/Psychiatric: Alert Skin: Normal Color, Warm/Dry Results/Procedures Lab Laboratory Tests 10/11/18 04:20 Patient resulted labs reviewed. Assessment/Plan Assessment and Plan Assess & Plan/Chief Complaint Assessment: Hydropneumothorax with trapped lung s/p chest tube placement and pulled out by patient twice Anemia Mentally challenged Seizure d/o Plan: Monitor lung status closely Home meds Likely will remain with trapped lung Clinical Quality Measures DVT/VTE Risk/Contraindication: RFS Level Per Nursing on Admit: 0=No Risk/No VTE PPX LATOYA GONZALEZ DO Oct 11, 2018 08:29
[2018-10-11] MEDS: LEVETIRACETAM 500 MG (KEPPRA) TAB PO SCH ×2 (08:30→21:57)
[2018-10-11] MEDS: DIVALPROEX 250 MG DELAYED RELEASE (DEPAKOTE) TAB PO SCH ×2 (08:30→21:57)
[2018-10-11] MEDS: LIDOCAINE 4% (SALONPAS) PATCH TOP SCH (08:30)
--- NOTE | 2018-10-11 08:30 | Diagnostic Imaging Report ---
INDICATION: Dyspnea. COMPARISON: 10/10/2018. DISCUSSION: Single portable upright view of the chest was obtained. Right hydropneumothorax is not significantly changed given differences in technique. Right chest wall subcutaneous emphysema extending to the right neck is stable. Stable heart size. Left lung remains well-aerated. No pneumothorax on the left. IMPRESSION: 1. Stable right hydropneumothorax. Dictated by: Dictated on workstation # [id number]
[2018-10-11] MEDS: PARoxetine 20 MG (PAXIL) TAB PO SCH (08:32)
[2018-10-11] MEDS: HYDROcodone/APAP 5 MG/325 MG (LORTAB) TAB PO PRN ×2 (08:32→21:57)
[2018-10-11] MEDS ORDERED: LIDOCAINE 4% (SALONPAS) PATCH TOP SCH (12:17)
[2018-10-11] MEDS: LIDOCAINE PATCH REMOVAL TP SCH (21:57)
[2018-10-11] MEDS: risperiDONE 2 MG (RisperDAL) TAB PO SCH (21:57)
[2018-10-12 03:52] VITALS: BP 138/83
[2018-10-12] MEDS: HYDROcodone/APAP 5 MG/325 MG (LORTAB) TAB PO PRN (04:11)
[2018-10-12] MEDS ORDERED: LORazepam 1 MG (ATIVAN) TAB PO PRN (07:00)
--- NOTE | 2018-10-12 07:19 | Progress Note-Hospitalist ---
Subjective HPI/CC On Admission Date Seen by Provider: Oct 12, 2018 Time Seen by Provider: 06:30 Subjective/Events-last exam Patient about the same Denies any pain Difficult to ascertain improvement or not Chronic debility and contractures Review of Systems General: Fatigue Objective Exam Vital Signs Vital Signs Date Time Temp Pulse Resp B/P (MAP) Pulse Ox O2 Delivery O2 Flow Rate FiO2 10/12/18 12:00 98.2 107 18 112/74 (87) 99 Room Air 10/11/18 20:00 3.00 Capillary Refill : NONELess Than 3 Seconds General Appearance: No Apparent Distress, WD/WN HEENT: Normal ENT Inspection Neck: Full Range of Motion, Normal Inspection Respiratory: Normal Breath Sounds (left only), No Accessory Muscle Use, No Respiratory Distress, Decreased Breath Sounds (right) Cardiovascular: Regular Rate, Rhythm, No Murmur Gastrointestinal: Non Tender, Soft Extremity: Normal Capillary Refill, No Pedal Edema Neurologic/Psychiatric: Alert Skin: Normal Color, Warm/Dry Results/Procedures Lab Patient resulted labs reviewed. Assessment/Plan Assessment and Plan Assess & Plan/Chief Complaint Assessment: Hydropneumothorax with trapped lung s/p chest tube placement and pulled out by patient twice Anemia Mentally challenged Seizure d/o Plan: Monitor lung status closely Home meds Likely will remain with trapped lung Diagnosis/Problems Diagnosis/Problems (1) Hemopneumothorax Status: Acute (2) Mentally challenged (3) Trapped lung Status: Acute Clinical Quality Measures DVT/VTE Risk/Contraindication: RFS Level Per Nursing on Admit: 0=No Risk/No VTE PPX LATOYA GONZALEZ DO Oct 12, 2018 07:19
--- NOTE | 2018-10-12 07:36 | Pulmonary Progress Note ---
Subjective Time Seen by a Provider: 16:55 Subjective/Events-last exam No complications noted Sepsis Event Evaluation Height, Weight, BMI Height: 6'4.00" Weight: 177lbs. 11.2oz. 80.738320jn; 27.8 BMI Method:Stated Exam Exam Vital Signs Date Time Temp Pulse Resp B/P (MAP) Pulse Ox O2 Delivery O2 Flow Rate FiO2 10/12/18 03:52 98.6 88 18 138/83 (101) 97 Room Air 10/11/18 23:16 100.0 77 18 131/82 (98) 95 Room Air 10/11/18 20:12 99.8 94 18 119/65 (83) 97 Room Air 10/11/18 20:00 97 Room Air 3.00 10/11/18 16:41 98.5 84 20 110/67 (81) 97 Room Air 10/11/18 12:00 98.4 90 20 103/69 (80) 97 Room Air 10/11/18 08:00 97 Room Air 3.00 10/11/18 08:00 98.8 77 20 116/72 (87) 95 Room Air I & O 10/12/18 07:00 Intake Total 1510 ml Balance 1510 ml Height & Weight Height: 6'4.00" Weight: 177lbs. 11.2oz. 80.440811hw; 27.8 BMI Method:Stated General Appearance: No Apparent Distress, WD/WN HEENT: Normal ENT Inspection Neck: Full Range of Motion, Normal Inspection Respiratory: Normal Breath Sounds (left only), No Accessory Muscle Use, No Respiratory Distress, Decreased Breath Sounds (right) Cardiovascular: Regular Rate, Rhythm, No Murmur Capillary Refill: Less Than 3 Seconds Gastrointestinal: non tender, soft Extremity: Normal Capillary Refill, No Pedal Edema Neurologic/Psychiatric: Alert Skin: Normal Color, Warm/Dry Results Lab Laboratory Tests 10/11/18 04:20 Assessment/Plan Assessment/Plan Hydropneumothorax/empyema with trapped lung s/p chest tube placement - Exudative pleural fluid - appears stable. - S/P Decortication/ with incomplete Pleurodesis - -Pleural fluid cytology - is Negative -S/P bronchoscopy - No endobronchial Mass - cytology is negative -Cytology, cultures pending Anemia -Monitor I do not believe lung will ever completely reexpand. He will probably always have hydropneumothorax secondary to trapped lung. MANDY COLLINS DO Oct 12, 2018 07:36
[2018-10-12 08:00] VITALS: BP 120/84
[2018-10-12] MEDS: PARoxetine 20 MG (PAXIL) TAB PO SCH (09:24)
[2018-10-12] MEDS: DIVALPROEX 250 MG DELAYED RELEASE (DEPAKOTE) TAB PO SCH ×2 (09:25→20:36)
[2018-10-12] MEDS: LIDOCAINE 4% (SALONPAS) PATCH TOP SCH (09:25)
[2018-10-12] MEDS: LEVETIRACETAM 500 MG (KEPPRA) TAB PO SCH ×2 (09:25→20:36)
[2018-10-12 12:00] VITALS: BP 112/74
[2018-10-12 16:13] VITALS: BP 107/71
[2018-10-12 19:55] VITALS: BP 107/70
[2018-10-12] MEDS: risperiDONE 2 MG (RisperDAL) TAB PO SCH (20:36)
[2018-10-12] MEDS: LIDOCAINE PATCH REMOVAL TP SCH (20:36)
[2018-10-12 23:54] VITALS: BP 131/75
[2018-10-13 04:46] VITALS: BP 108/70
[2018-10-13 08:00] VITALS: BP 116/77
--- NOTE | 2018-10-13 08:08 | Progress Note (SOAP) ---
Subjective Time Seen by a Provider: 08:06 Subjective/Events-last exam Resting comfortably. Voices no complaints Objective Exam Vital Signs Date Time Temp Pulse Resp B/P (MAP) Pulse Ox O2 Delivery O2 Flow Rate FiO2 10/13/18 04:46 99.7 91 18 108/70 (83) 96 Room Air 10/12/18 23:54 99.3 94 18 131/75 (93) 98 Room Air 10/12/18 20:00 Room Air 10/12/18 19:55 97.9 110 18 107/70 (82) 96 Room Air 10/12/18 16:13 97.3 114 20 107/71 (83) 96 Room Air 10/12/18 12:00 98.2 107 18 112/74 (87) 99 Room Air I & O 10/13/18 07:00 Intake Total 2300 ml Output Total 375 ml Balance 1925 ml Capillary Refill : Less Than 3 SecondsLess Than 3 Seconds General Appearance: No Apparent Distress, WD/WN HEENT: Normal ENT Inspection Neck: Full Range of Motion, Normal Inspection Respiratory: No Accessory Muscle Use, No Respiratory Distress, Decreased Breath Sounds Cardiovascular: Regular Rate, Rhythm, No Murmur Gastrointestinal: non tender Results Lab Microbiology 09/30/18 Gram Stain - Final, Complete 09/30/18 Body Fluid Culture - Final, Complete No growth 10/03/18 Mycobacterial Culture - Preliminary, Resulted Assessment/Plan Assessment/Plan Assess & Plan/Chief Complaint Hydropneumothorax. Anemia. MR. Bipolar. Schizoaffective. Hypomagnesemia. . 10/03/18 Hydropneumothorax. Anemia. Bipolar. Schizoaffective. Patient had bronchoscopy this a.m. no mass noted. . 10/06/18. Hydropneumothorax. Anemia. Bipolar. Schizoaffective. Bronchoscopy negative. Patient pulled out chest tube. Patient have surgery today. . 10/07/18. Hydropneumothorax. Anemia. Bipolar. Schizoaffective. Patient have surgery tomorrow. MR. Hypomagnesemia. . 09/28/18. Hydropneumothorax. Anemia. Bipolar. Schizoaffective. More. Hypomagnesemia. . . Hydropneumothorax. Anemia. Bipolar. Schizoaffective. Hypomagnesemia. MR. Patient pulled out chest tube last night. Patient stable today. . 10/09/18. Hydropneumothorax. Anemia. Bipolar. Schizoaffective. Hypomagnesemia. MR. Patient pulled out IV this morning. . 10/13/18. Hydropneumothorax. Anemia. Bipolar. Schizoaffective. Hypomagnesemia. Mentally challenged. Clinical Quality Measures Admission Status Admission Dx Hydropneumothorax. Hilar mass. More. Bipolar and schizoaffective. Weakness. Pleural effusion. DVT/VTE Risk/Contraindication: RFS Level Per Nursing on Admit: 0=No Risk/No VTE PPX JAVID JACKSON DO Oct 13, 2018 08:08
[2018-10-13] MEDS: DIVALPROEX 250 MG DELAYED RELEASE (DEPAKOTE) TAB PO SCH ×2 (08:49→21:09)
[2018-10-13] MEDS: LEVETIRACETAM 500 MG (KEPPRA) TAB PO SCH ×2 (08:49→21:09)
[2018-10-13] MEDS: PARoxetine 20 MG (PAXIL) TAB PO SCH (08:49)
[2018-10-13] MEDS: LIDOCAINE 4% (SALONPAS) PATCH TOP SCH (08:49)
[2018-10-13 09:05] LABS: HEMOGLOBIN 12.1 G/DL (13.3-17.7); MEAN PLATELET VOLUME 9.5 FL (7.4-10.4); RED CELL DISTRIBUTION WIDTH 17.3 % (10.0-14.5); WHITE BLOOD COUNT 8.8 10^3/uL (4.3-11.0)
--- NOTE | 2018-10-13 09:09 | Diagnostic Imaging Report ---
INDICATION: Screening. Comparison made with prior examination 10/11/2018. FINDINGS: There is cardiomegaly. There is an unchanged right hydropneumothorax. There is right basilar atelectasis and/or pneumonitis. Left lung is clear. Mediastinum is unremarkable. IMPRESSION: Persistent right basilar hydropneumothorax with right basilar atelectasis and/or pneumonitis. Cardiomegaly. Dictated by: Dictated on workstation # [id number]
[2018-10-13 09:45] LABS: BUN/CREATININE RATIO 15; CALCIUM 9.2 MG/DL (8.5-10.1); CARBON DIOXIDE 26 MMOL/L (21-32); CHLORIDE 95 MMOL/L (98-107); CREATININE SERUM 0.65 MG/DL (0.60-1.30); GFR ESTIMATED > 60; GLUCOSE 93 MG/DL (70-105); POTASSIUM 4.1 MMOL/L (3.6-5.0); SODIUM 129 MMOL/L (135-145)
[2018-10-13 11:57] VITALS: BP 116/73
--- NOTE | 2018-10-13 15:08 | Pulmonary Progress Note ---
Subjective Time Seen by a Provider: 16:52 Subjective/Events-last exam PT appears stable. No complications noted. Sepsis Event Evaluation Height, Weight, BMI Height: 6'4.00" Weight: 178lbs. 5.0oz. 80.040080br; 27.8 BMI Method:Stated Exam Exam Vital Signs Date Time Temp Pulse Resp B/P (MAP) Pulse Ox O2 Delivery O2 Flow Rate FiO2 10/13/18 11:57 99.9 55 16 116/73 (87) 96 Room Air 10/13/18 08:50 Room Air 10/13/18 08:00 99.0 96 16 116/77 (90) 96 Room Air 10/13/18 04:46 99.7 91 18 108/70 (83) 96 Room Air 10/12/18 23:54 99.3 94 18 131/75 (93) 98 Room Air 10/12/18 20:00 Room Air 10/12/18 19:55 97.9 110 18 107/70 (82) 96 Room Air 10/12/18 16:13 97.3 114 20 107/71 (83) 96 Room Air I & O 10/13/18 07:00 Intake Total 2300 ml Output Total 375 ml Balance 1925 ml Height & Weight Height: 6'4.00" Weight: 178lbs. 5.0oz. 80.471248ve; 27.8 BMI Method:Stated General Appearance: No Apparent Distress, WD/WN HEENT: Normal ENT Inspection Neck: Full Range of Motion, Normal Inspection Respiratory: No Accessory Muscle Use, No Respiratory Distress, Decreased Breath Sounds Cardiovascular: Regular Rate, Rhythm, No Murmur Capillary Refill: Less Than 3 Seconds Gastrointestinal: non tender Extremity: Normal Capillary Refill, No Pedal Edema Neurologic/Psychiatric: Alert Skin: Normal Color, Warm/Dry Results Lab Laboratory Tests 10/13/18 08:55 Assessment/Plan Assessment/Plan Hydropneumothorax/empyema with trapped lung s/p chest tube placement - Exudative pleural fluid - appears stable. - S/P Decortication/ with incomplete Pleurodesis - -Pleural fluid cytology - is Negative -S/P bronchoscopy - No endobronchial Mass - cytology is negative -Cytology, cultures pending Anemia -Monitor I do not believe lung will ever completely reexpand. He will probably always have hydropneumothorax secondary to trapped lung. Pt is ok for discharge from my standpoint I will f/u with him as out patient MANDY COLLINS DO Oct 13, 2018 15:08
[2018-10-13 16:05] VITALS: BP 123/70
[2018-10-13 20:07] VITALS: BP 111/76
[2018-10-13] MEDS: risperiDONE 2 MG (RisperDAL) TAB PO SCH (21:09)
[2018-10-13] MEDS: LIDOCAINE PATCH REMOVAL TP SCH (21:09)
[2018-10-13 23:52] VITALS: BP 108/67
--- NOTE | 2018-10-14 06:50 | Pulmonary Progress Note ---
Subjective Time Seen by a Provider: 14:22 Subjective/Events-last exam Pt appears to be doing well. No complications noted. Sepsis Event Evaluation Height, Weight, BMI Height: 6'4.00" Weight: 178lbs. 5.0oz. 80.067810ec; 27.8 BMI Method:Stated Exam Exam Vital Signs Date Time Temp Pulse Resp B/P (MAP) Pulse Ox O2 Delivery O2 Flow Rate FiO2 10/13/18 23:52 100.0 108 20 108/67 (81) 95 Room Air 10/13/18 20:07 99.0 109 22 111/76 (88) 96 Room Air 10/13/18 20:00 Room Air 10/13/18 16:05 99.2 99 20 123/70 (87) 97 Room Air 10/13/18 11:57 99.9 55 16 116/73 (87) 96 Room Air 10/13/18 08:50 Room Air 10/13/18 08:00 99.0 96 16 116/77 (90) 96 Room Air I & O 10/14/18 07:00 Intake Total 1604 ml Balance 1604 ml Height & Weight Height: 6'4.00" Weight: 178lbs. 5.0oz. 80.033967wv; 27.8 BMI Method:Stated General Appearance: No Apparent Distress, WD/WN HEENT: Normal ENT Inspection Neck: Full Range of Motion, Normal Inspection Respiratory: No Accessory Muscle Use, No Respiratory Distress Cardiovascular: Regular Rate, Rhythm, No Murmur Capillary Refill: Less Than 3 Seconds Gastrointestinal: non tender, soft Extremity: Normal Capillary Refill, No Pedal Edema Neurologic/Psychiatric: Alert Skin: Normal Color, Warm/Dry Lymphatic: No Adenopathy Results Lab Laboratory Tests 10/13/18 08:55 Assessment/Plan Assessment/Plan Hydropneumothorax/empyema with trapped lung s/p chest tube placement - Exudative pleural fluid - appears stable. - S/P Decortication/ with incomplete Pleurodesis - -Pleural fluid cytology - is Negative -S/P bronchoscopy - No endobronchial Mass - cytology is negative -Cytology, cultures pending Anemia -Monitor I do not believe lung will ever completely reexpand. He will probably always have hydropneumothorax secondary to trapped lung. Pt is ok for discharge from my standpoint I will f/u with him as out patient MANDY COLLINS DO Oct 14, 2018 06:50
--- NOTE | 2018-10-14 07:39 | Progress Note (SOAP) ---
Subjective Time Seen by a Provider: 07:36 Subjective/Events-last exam Patient has a rash on right side of neck. Appears to have well some allergic reaction. Patient put on Benadryl, Claritin and triamcinolone cream. To have PT walk patient see if he needs a walker. Patient wants to go home today. Plan on discharge if everything works out okay Objective Exam Vital Signs Date Time Temp Pulse Resp B/P (MAP) Pulse Ox O2 Delivery O2 Flow Rate FiO2 10/13/18 23:52 100.0 108 20 108/67 (81) 95 Room Air 10/13/18 20:07 99.0 109 22 111/76 (88) 96 Room Air 10/13/18 20:00 Room Air 10/13/18 16:05 99.2 99 20 123/70 (87) 97 Room Air 10/13/18 11:57 99.9 55 16 116/73 (87) 96 Room Air 10/13/18 08:50 Room Air 10/13/18 08:00 99.0 96 16 116/77 (90) 96 Room Air I & O 10/14/18 07:00 Intake Total 1604 ml Balance 1604 ml Capillary Refill : Less Than 3 SecondsLess Than 3 Seconds General Appearance: No Apparent Distress, Other (Allergic reaction and [place] right side of neck) HEENT: Normal ENT Inspection, Other (Dermatitis right side of neck) Neck: Full Range of Motion, Normal Inspection Respiratory: Lungs Clear, No Accessory Muscle Use, No Respiratory Distress Cardiovascular: Regular Rate, Rhythm, No Murmur Gastrointestinal: non tender, soft Results Lab Laboratory Tests 10/13/18 08:55: White Blood Count 8.8, Red Blood Count 4.57, Hemoglobin 12.1L, Hematocrit 37L, Mean Corpuscular Volume 81, Mean Corpuscular Hemoglobin 27, Mean Corpuscular Hemoglobin Concent 33, Red Cell Distribution Width 17.3H, Platelet Count 373, Mean Platelet Volume 9.5, Sodium Level 129L, Potassium Level 4.1, Chloride Level 95L, Carbon Dioxide Level 26, Anion Gap 8, Blood Urea Nitrogen 10, Creatinine 0.65, Estimat Glomerular Filtration Rate > 60, BUN/Creatinine Ratio 15, Glucose Level 93, Calcium Level 9.2 Microbiology 09/30/18 Gram Stain - Final, Complete 09/30/18 Body Fluid Culture - Final, Complete No growth 10/03/18 Mycobacterial Culture - Preliminary, Resulted Assessment/Plan Assessment/Plan Assess & Plan/Chief Complaint Hydropneumothorax. Anemia. MR. Bipolar. Schizoaffective. Hypomagnesemia. . 10/03/18 Hydropneumothorax. Anemia. Bipolar. Schizoaffective. Patient had bronchoscopy this a.m. no mass noted. . 10/06/18. Hydropneumothorax. Anemia. Bipolar. Schizoaffective. Bronchoscopy negative. Patient pulled out chest tube. Patient have surgery today. . 10/07/18. Hydropneumothorax. Anemia. Bipolar. Schizoaffective. Patient have surgery tomorrow. MR. Hypomagnesemia. . 09/28/18. Hydropneumothorax. Anemia. Bipolar. Schizoaffective. More. Hypomagnesemia. . . Hydropneumothorax. Anemia. Bipolar. Schizoaffective. Hypomagnesemia. MR. Patient pulled out chest tube last night. Patient stable today. . 10/09/18. Hydropneumothorax. Anemia. Bipolar. Schizoaffective. Hypomagnesemia. MR. Patient pulled out IV this morning. . 10/13/18. Hydropneumothorax. Anemia. Bipolar. Schizoaffective. Hypomagnesemia. Mentally challenged.. . 10/14/18. Hydropneumothorax. Anemia. Bipolar. Schizoaffective. Mentally challenged. Hyponatremia. May be able to discharge patient today. Clinical Quality Measures Admission Status Admission Dx Hydropneumothorax. Hilar mass. More. Bipolar and schizoaffective. Weakness. Pleural effusion. MR. DVT/VTE Risk/Contraindication: RFS Level Per Nursing on Admit: 0=No Risk/No VTE PPX JAVID JACKSON DO Oct 14, 2018 07:38
--- NOTE | 2018-10-14 07:42 | Discharge Inst-Simple/Standard ---
Discharge Inst-Standard Patient Instructions/Follow Up Plan of Care/Instructions/FU: 2 office next Saturday. 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
[2018-10-14] MEDS ORDERED: SODIUM CHLORIDE PO ONE (07:45)
[2018-10-14] MEDS ORDERED: LORATADINE (CLARITIN) 10 MG TAB PO NR (07:45)
[2018-10-14] MEDS ORDERED: diphenhydrAMINE 25 MG TAB (BENADRYL) PO NR (07:45)
[2018-10-14 07:56] LABS: BASOPHILS % (AUTO) 0 % (0-10); EOSINOPHILS # (AUTO) 0.1 10^3/uL (0.0-0.3); EOSINOPHILS % (AUTO) 1 % (0-10); HEMATOCRIT 36 % (40-54); HEMOGLOBIN 12.2 G/DL (13.3-17.7); LYMPHOCYTES # (AUTO) 1.4 X 10^3 (1.0-4.0); LYMPHOCYTES % (AUTO) 14 % (12-44); MEAN CORPUSCULAR HEMOGLOBIN 27 PG (25-34); MEAN CORPUSCULAR HGB CONC 34 G/DL (32-36); MEAN CORPUSCULAR VOLUME 80 FL (80-99); MEAN PLATELET VOLUME 9.4 FL (7.4-10.4); MONOCYTES # (AUTO) 1.4 X 10^3 (0.0-1.0); MONOCYTES % (AUTO) 15 % (0-12); NEUTROPHILS # (AUTO) 6.8 X 10^3 (1.8-7.8); NEUTROPHILS % (AUTO) 71 % (42-75); PLATELET COUNT 378 10^3/uL (130-400); RED CELL DISTRIBUTION WIDTH 17.7 % (10.0-14.5); WHITE BLOOD COUNT 9.6 10^3/uL (4.3-11.0)
[2018-10-14 08:00] VITALS: BP 102/68
[2018-10-14] MEDS ORDERED: SODIUM CHLORIDE 1 GM TAB (NON-FORMULARY) PO NR (08:00)
[2018-10-14] MEDS: PARoxetine 20 MG (PAXIL) TAB PO SCH (08:10)
[2018-10-14] MEDS: DIVALPROEX 250 MG DELAYED RELEASE (DEPAKOTE) TAB PO SCH ×2 (08:10→21:04)
[2018-10-14] MEDS: LIDOCAINE 4% (SALONPAS) PATCH TOP SCH (08:11)
[2018-10-14] MEDS: LEVETIRACETAM 500 MG (KEPPRA) TAB PO SCH ×2 (08:11→21:04)
[2018-10-14] MEDS: TRIAMCINOLONE 0.1% CR (KENALOG) 15 GM TUBE TOP SCH ×3 (08:12→21:04)
--- NOTE | 2018-10-14 13:14 | Physical Therapy Progress Note ---
Therapy Progress Note Evaluation order received and attempted but patient refused multiple times. Patient was educated on the benefits of therapy and that he needs to try to get out of bed and ambulated to stay strong but he adamantly refused several times. He would not state why he is refusing just that he was not going to do it. RADHA PEREZ PT Oct 14, 2018 13:14
[2018-10-14] MEDS ORDERED: predniSONE 20 MG TAB PO NR (15:00)
[2018-10-14] MEDS: diphenhydrAMINE 25 MG TAB (BENADRYL) PO SCH ×2 (15:32→21:04)
[2018-10-14 15:59] VITALS: BP 110/76
[2018-10-14] MEDS: LIDOCAINE PATCH REMOVAL TP SCH (21:04)
[2018-10-14] MEDS: risperiDONE 2 MG (RisperDAL) TAB PO SCH (21:04)
[2018-10-15 00:27] VITALS: BP 110/70
--- NOTE | 2018-10-15 07:59 | Progress Note (SOAP) ---
Subjective Time Seen by a Provider: 07:57 Subjective/Events-last exam Rash on neck is looking better. Patient feeling better. Patient received prednisone yesterday. Temperature 100. CBC and chest x-ray ordered. Objective Exam Vital Signs Date Time Temp Pulse Resp B/P (MAP) Pulse Ox O2 Delivery O2 Flow Rate FiO2 10/15/18 00:27 100.0 105 18 110/70 (83) 94 Room Air 10/14/18 20:00 Room Air 10/14/18 15:59 98.2 102 20 110/76 (87) 98 Room Air 10/14/18 08:20 Room Air 10/14/18 08:00 99.0 99 18 102/68 (79) 99 Room Air I & O 10/15/18 07:00 Intake Total 2260 ml Balance 2260 ml Capillary Refill : Less Than 3 SecondsLess Than 3 Seconds General Appearance: No Apparent Distress, WD/WN HEENT: Normal ENT Inspection, Other ([place] right side of neck improving) Neck: Full Range of Motion, Normal Inspection Respiratory: Lungs Clear, No Accessory Muscle Use, No Respiratory Distress Cardiovascular: Regular Rate, Rhythm, No Murmur Gastrointestinal: non tender, soft Results Lab Microbiology 09/30/18 Gram Stain - Final, Complete 09/30/18 Body Fluid Culture - Final, Complete No growth 10/03/18 Mycobacterial Culture - Preliminary, Resulted Assessment/Plan Assessment/Plan Assess & Plan/Chief Complaint Hydropneumothorax. Anemia. MR. Bipolar. Schizoaffective. Hypomagnesemia. . 10/03/18 Hydropneumothorax. Anemia. Bipolar. Schizoaffective. Patient had bronchoscopy this a.m. no mass noted. . 10/06/18. Hydropneumothorax. Anemia. Bipolar. Schizoaffective. Bronchoscopy negative. Patient pulled out chest tube. Patient have surgery today. . 10/07/18. Hydropneumothorax. Anemia. Bipolar. Schizoaffective. Patient have surgery tomorrow. MR. Hypomagnesemia. . 09/28/18. Hydropneumothorax. Anemia. Bipolar. Schizoaffective. More. Hypomagnesemia. . . Hydropneumothorax. Anemia. Bipolar. Schizoaffective. Hypomagnesemia. MR. Patient pulled out chest tube last night. Patient stable today. . 10/09/18. Hydropneumothorax. Anemia. Bipolar. Schizoaffective. Hypomagnesemia. MR. Patient pulled out IV this morning. . 10/13/18. Hydropneumothorax. Anemia. Bipolar. Schizoaffective. Hypomagnesemia. Mentally challenged.. . 10/14/18. Hydropneumothorax. Anemia. Bipolar. Schizoaffective. Mentally challenged. Hyponatremia. May be able to discharge patient today.. . 10/15/18. Dermatitis right side of neck improving. Anemia. Bipolar. Schizoaffective. Hyponatremia. Hydropneumothorax. Patient states she's feeling better Clinical Quality Measures Admission Status Admission Dx Hydropneumothorax. Hilar mass. More. Bipolar and schizoaffective. Weakness. Pleural effusion. MRAnjelica DVT/VTE Risk/Contraindication: RFS Level Per Nursing on Admit: 0=No Risk/No VTE PPX JAVID JACKSON DO October 15, 2018 07:59
[2018-10-15 08:14] LABS: HEMOGLOBIN 12.2 G/DL (13.3-17.7); MEAN PLATELET VOLUME 9.1 FL (7.4-10.4); RED CELL DISTRIBUTION WIDTH 17.3 % (10.0-14.5); WHITE BLOOD COUNT 9.2 10^3/uL (4.3-11.0)
[2018-10-15 08:28] LABS: BUN/CREATININE RATIO 25; CALCIUM 9.3 MG/DL (8.5-10.1); CARBON DIOXIDE 25 MMOL/L (21-32); CHLORIDE 94 MMOL/L (98-107); CREATININE SERUM 0.67 MG/DL (0.60-1.30); GFR ESTIMATED > 60; GLUCOSE 97 MG/DL (70-105); POTASSIUM 3.8 MMOL/L (3.6-5.0); SODIUM 130 MMOL/L (135-145)
[2018-10-15 08:47] VITALS: BP 126/79
[2018-10-15] MEDS ORDERED: LORATADINE (CLARITIN) 10 MG TAB PO SCH (09:00)
--- NOTE | 2018-10-15 09:39 | Physical Therapy Progress Note ---
Therapy Progress Note Attempted PT evaluation again but patient continues to refuse. Patient refuses to ambulate or even just sit on the side of the bed. Patient educated on the benefits of PT but he continues to decline PT. Will try again this afternoon. RADHA PEREZ PT October 15, 2018 09:39
--- NOTE | 2018-10-15 10:08 | Diagnostic Imaging Report ---
INDICATION: Pneumothorax. COMPARISON: 10/13/2018. FINDINGS: There is a persistent right basilar hydropneumothorax. There is right basilar consolidation. There is cardiomegaly. The left lung is clear. There is no pneumothorax. The mediastinum is unremarkable. IMPRESSION: Unchanged right basilar hydropneumothorax and right basilar consolidation. Cardiomegaly. Dictated by: Dictated on workstation # [id number]
[2018-10-15] MEDS: LIDOCAINE 4% (SALONPAS) PATCH TOP SCH (11:13)
[2018-10-15] MEDS: diphenhydrAMINE 25 MG TAB (BENADRYL) PO SCH ×2 (11:14→14:24)
[2018-10-15] MEDS: PARoxetine 20 MG (PAXIL) TAB PO SCH (11:14)
[2018-10-15] MEDS: LEVETIRACETAM 500 MG (KEPPRA) TAB PO SCH (11:14)
[2018-10-15] MEDS: DIVALPROEX 250 MG DELAYED RELEASE (DEPAKOTE) TAB PO SCH (11:15)
[2018-10-15] MEDS: TRIAMCINOLONE 0.1% CR (KENALOG) 15 GM TUBE TOP SCH ×2 (11:20→14:24)
--- NOTE | 2018-10-15 13:33 | Physical Therapy Evaluation ---
PT Evaluation-General Medical Diagnosis Admission Date Sep 30, 2018 at 15:57 Medical Diagnosis: pneumothorax, weakness Onset Date: Sep 30, 2018 Therapy Diagnosis Therapy Diagnosis: impaired mobility, endurance, balance Height/Weight Height (Feet): 6 Height (Inches): 4.00 Weight (Pounds): 178 Weight (Ounces): 5.0 Precautions Precautions/Isolations: Fall Prevention, Standard Precautions Referral Physician: Robbie Sneed DO Reason for Referral: Evaluation/Treatment Medical History Additional Medical History bipolar, schizophrenia Reviewed History: Yes Social History Home: [facility] Prior/Core FIM Prior Level of Function Therapy Code Descriptions/Definitions Functional [place] Measure: 0=Not Assessed/NA 4=Minimal Assistance 1=Total Assistance 5=Supervision or Setup 2=Maximal Assistance 6=Modified [place] 3=Moderate Assistance 7=Complete [place] Therapy Quality Codes: 6 Independent with activity with or without an assistive device 5 Patient requires set up or clean up by helper. Patient completes activity by themselves 4 Supervision or touching assist (CGA). Independence provide cues , steadying assist 3 The helper provides less than half the effort to complete the activity 2 The helper provides more than half the effort to complete the activity 1 Dependent. The helper does all the effort to complete an activity 7 Patient refused to complete or attempt activity 9 The patient did not perform the activity before the current illness or injury 88 Not attempted due to Medical conditions or safety concerns Functional Abilities and Goals: Independent: Patient completed the activities by him/herself, with or without an assistive device, with no assistance from a helper. Needed Some Help: Patient needed partial assistance from another person to complete activities. Dependent: A helper completed the activities for the patient. Unknown: Not Applicable: unknown, patient will not elaborate on this PT Evaluation-Current Subjective Patient in bed pre tx, agrees to try to ambulate, has no complaints of pain. Patient will not follow directions for any other testing. He has refused multiple times before now so getting him to walk may be all we will be able to accomplish. Patient has urinated in the bed and nursing is here to help change him and the bed. Pt/Family Goals none stated Objective Patient Orientation: Person, Confused, Unable to Assess ROM/Strength ROM Lower Extremities NT Strength Lower Extremities NT Neuromuscular (Tone, Coordination, Reflexes) NT Sensory Vision: Functional Hearing: Functional Transfers Therapy Code Descriptions/Definitions Functional [place] Measure: 0=Not Assessed/NA 4=Minimal Assistance 1=Total Assistance 5=Supervision or Setup 2=Maximal Assistance 6=Modified [place] 3=Moderate Assistance 7=Complete [place] Transfers (B, C, W/C) (FIM): 4 Scootin Rollin Supine to/from Sit: 5 Sit to/from Stand: 4 Min assist for sit to stand, patient has a strange standing posture, seems retropulsive but it is not the same. Patient seems to arch his back backward as far as he can but not to the point of falling backward but just on the verge , no weight on his toes. Gait Mode of Locomotion: Walk Anticipated Mode of Locomotion: Walk Gait (FIM): 1 Distance: 15' Gait Level of Assist: 3 Gait Persons Needed: 1 Gait Assistive Device: FWW Comments/Gait Description Mod assist to maintain balance. Using the posture described above, patient has difficulty taking steps forward and barely uses the walker. Balance Sitting Static: Fair Sitting Dynamic: Fair Standing Static: Poor Standing Dynamic: Poor Assessment/Needs Patient has impaired mobility, endurance, balance. He is unsteady with standing and ambulating and is a high fall risk. Patient BTB post tx with nurse call, tray, bed alarm on. Rehab Potential: Guarded PT Short Term Goals Short Term Goals Time Frame: October 22, 2018 Transfers (B,C,W/C) (FIM): 5 Gait (FIM): 1 Gait Distance Comment: 30' Gait Level of Assist: 4 Gait Assistive Device: FWW PT Plan Problem List Problem List: Activity Tolerance, Functional Strength, Safety, Balance, Gait, Transfer, Bed Mobility, ROM Treatment/Plan Treatment Plan: Continue Plan of Care Treatment Plan: Bed Mobility, Concurrent Therapy, Education, Functional Activity Loi, Functional Strength, Gait, Safety, Therapeutic Exercise, Transfers Treatment Duration: October 22, 2018 Frequency: 6 times per week Estimated Hrs Per Day: .25 hour per day (15-30') Patient and/or Family Agrees t: Yes Safety Risks/Education Patient Education: Gait Training, Transfer Techniques, Correct Positioning, Safety Issues Teaching Recipient: Patient Teaching Methods: Demonstration, Discussion Response to Teaching: Reinforcement Needed Discharge Recommendations Plan Patient will perform bed mobility and transfer training, balance and endurance training, functional strengthening, gait training, and education, to improve functional mobility and independence at home. Therapy D/C Recommendations: Care Home (TCU/NH) Time/GCodes Time In: 1310 Time Out: 1325 Total Billed Treatment Time: 15 Total Billed Treatment 1 visit KHALIF 15' RADHA PEREZ PT October 15, 2018 13:33
[2018-10-15] MEDS ORDERED: LORA10CA PO ×2 (13:50)
[2018-10-15] MEDS ORDERED: PRD10T PO ×2 (13:50)
[2018-10-15] MEDS ORDERED: TR1C15 TP ×2 (13:50)
--- NOTE | 2018-10-15 14:27 | Pulmonary Progress Note ---
Subjective Time Seen by a Provider: 14:23 Subjective/Events-last exam NO complications noted. Sepsis Event Evaluation Height, Weight, BMI Height: 6'4.00" Weight: 178lbs. 5.0oz. 80.691029vi; 27.8 BMI Method:Stated Exam Exam Vital Signs Date Time Temp Pulse Resp B/P (MAP) Pulse Ox O2 Delivery O2 Flow Rate FiO2 10/15/18 08:47 98.6 85 20 126/79 (95) 94 Room Air 10/15/18 00:27 100.0 105 18 110/70 (83) 94 Room Air 10/14/18 20:00 Room Air 10/14/18 15:59 98.2 102 20 110/76 (87) 98 Room Air I & O 10/15/18 07:00 Intake Total 2260 ml Balance 2260 ml Height & Weight Height: 6'4.00" Weight: 178lbs. 5.0oz. 80.775715pr; 27.8 BMI Method:Stated General Appearance: No Apparent Distress, WD/WN HEENT: Normal ENT Inspection Neck: Full Range of Motion, Normal Inspection Respiratory: No Accessory Muscle Use, No Respiratory Distress Cardiovascular: Regular Rate, Rhythm, No Murmur Capillary Refill: Less Than 3 Seconds Gastrointestinal: non tender, soft Extremity: Normal Capillary Refill, No Pedal Edema Neurologic/Psychiatric: Alert Skin: Normal Color, Warm/Dry Lymphatic: No Adenopathy Results Lab Laboratory Tests 10/14/18 07:48 10/15/18 08:05 Assessment/Plan Assessment/Plan Hydropneumothorax/empyema with trapped lung s/p chest tube placement - Exudative pleural fluid - appears stable. -I am going to repeat CT of chest prior to patients discharge. - S/P Decortication/ with incomplete Pleurodesis - -Pleural fluid cytology - is Negative -S/P bronchoscopy - No endobronchial Mass - cytology is negative -Cytology, cultures pending Anemia -Monitor I do not believe lung will ever completely reexpand. He will probably always have hydropneumothorax secondary to trapped lung. MANDY COLLINS DO October 15, 2018 14:27
--- NOTE | 2018-10-15 14:28 | Pulmonary Progress Note ---
Subjective Time Seen by a Provider: 14:27 Subjective/Events-last exam No complications noted. Sepsis Event Evaluation Height, Weight, BMI Height: 6'4.00" Weight: 178lbs. 5.0oz. 80.761431ni; 27.8 BMI Method:Stated Exam Exam Vital Signs Date Time Temp Pulse Resp B/P (MAP) Pulse Ox O2 Delivery O2 Flow Rate FiO2 10/15/18 08:47 98.6 85 20 126/79 (95) 94 Room Air 10/15/18 00:27 100.0 105 18 110/70 (83) 94 Room Air 10/14/18 20:00 Room Air 10/14/18 15:59 98.2 102 20 110/76 (87) 98 Room Air I & O 10/15/18 07:00 Intake Total 2260 ml Balance 2260 ml Height & Weight Height: 6'4.00" Weight: 178lbs. 5.0oz. 80.390914nb; 27.8 BMI Method:Stated General Appearance: No Apparent Distress, WD/WN HEENT: Normal ENT Inspection Neck: Full Range of Motion, Normal Inspection Respiratory: No Accessory Muscle Use, No Respiratory Distress Cardiovascular: Regular Rate, Rhythm, No Murmur Capillary Refill: Less Than 3 Seconds Gastrointestinal: non tender, soft Extremity: Normal Capillary Refill, No Pedal Edema Neurologic/Psychiatric: Alert Skin: Normal Color, Warm/Dry Lymphatic: No Adenopathy Results Lab Laboratory Tests 10/14/18 07:48 10/15/18 08:05 Assessment/Plan Assessment/Plan Hydropneumothorax/empyema with trapped lung s/p chest tube placement - Exudative pleural fluid - appears stable. -I am going to repeat CT of chest prior to patients discharge. - S/P Decortication/ with incomplete Pleurodesis - -Pleural fluid cytology - is Negative -S/P bronchoscopy - No endobronchial Mass - cytology is negative -Cytology, cultures pending Anemia -Monitor I do not believe lung will ever completely reexpand. He will probably always have hydropneumothorax secondary to trapped lung. MANDY COLLINS DO October 15, 2018 14:28
--- NOTE | 2018-10-15 16:34 | Diagnostic Imaging Report ---
PROCEDURE: CT chest without contrast. TECHNIQUE: Multiple contiguous axial images were obtained through the chest without the use of intravenous contrast. Auto Exposure Controls were utilized during the CT exam to meet ALARA standards for radiation dose reduction. INDICATION: Pneumothorax and pleural fluid. COMPARISON: 10/01/2018. FINDINGS: There is a small amount of subcutaneous emphysema in the right lateral chest wall. A thickwalled gas fluid pleural collection in the right hemithorax is present, the volume of fluid increased. The volume of air decreased. Previous pleural drain has been removed. Dense consolidations predominately laterally involve right middle and lower lobes. Left lung consolidation on the right having improved in the interim. The left lung and pleural space is stable and negative. No acute bony abnormality with old horizontal fracture plane involving T12 with mild stature loss posteriorly terminating in the spinous process of T11, unchanged. There is no listhesis. An acute bony abnormality is not apparent. IMPRESSION: Persistent right pleural collection overall unchanged in volume showed reduction in its gaseous composition but progressive fluid composition. There are improvements in peripheral infiltrate in the right lung. There is subcutaneous emphysema in the right chest wall. The chest drain has been removed. The left chest is stable and negative. Dictated by: Dictated on workstation # [id number]
--- NOTE | 2018-10-16 07:34 | Discharge Summary ---
Diagnosis/Chief Complaint Date of Admission Sep 30, 2018 at 15:57 Date of Discharge October 15, 2018 at 15:30 Discharge Date: Oct 14, 2018 Discharge Diagnosis Hydropneumothorax. Hilar mass. Weakness. Pleural effusion. Anemia. Bipolar. Schizoaffective. Mentally challenged. Anemia. Contact dermatitis of neck Reason Hospital Visit Patient is lethargic this morning. Patient is not talking this morning. Patient has a history of hilar mass. Patient lives in a snf. Patient is bipolar and schizoaffective. Patient Last week patient went to the emergency room at [facility] and transferred to [facility] in [place]. Patient had a thoracentesis the air and removal of 1100 mL of fluid. Patient had a chest x-ray Saturday showing hydropneumothorax. Patient admitted Discharge Summary Procedures Surgery. Consultations Immunology. Surgeon. Discharge Physical Examination Allergies: Coded Allergies: lorazepam (Verified Allergy, Intermediate, Hives, 10/14/18) BLISTERS Uncoded Allergies: IVP CONTRAST (Allergy, Unknown, 09/25/07) Vitals & I&Os Vital Signs Date Time Temp Pulse Resp B/P (MAP) Pulse Ox O2 Delivery O2 Flow Rate FiO2 10/15/18 16:27 10/15/18 08:47 98.6 85 20 94 Room Air 10/11/18 20:00 3.00 Hospital Course Patient had surgery in a chest tube put in. Patient mentally challenged. Patient pulled out chest tube. Labs (last 24 hrs) Laboratory Tests 09/30/18 15:57: Lab Scanned Report Referred Lab Report 09/30/18 21:00: Body Fluid Source PLEURAL, Body Fluid Color RED, Body Fluid Appearance MOD CLDY , Body Fluid pH 8, Body Fluid WBC 250, Body Fluid RBC 15021, Body Fluid Polynuclear WBCs 47, Body Fluid Mononuclear WBCs 7, Body Fluid Lymphocytes 38, Body Fluid Other Cells 8, Body Fluid Glucose 71, Body Fluid Total Protein 3.7, Body Fluid Lactate Dehydrogenase 483 10/01/18 03:20: White Blood Count 7.3, Red Blood Count 4.11L, Hemoglobin 10.9L, Hematocrit 34L, Mean Corpuscular Volume 82, Mean Corpuscular Hemoglobin 27, Mean Corpuscular Hemoglobin Concent 32, Red Cell Distribution Width 14.9H, Platelet Count 591H, Mean Platelet Volume 9.1, Neutrophils (%) (Auto) 57, Lymphocytes (%) (Auto) 27, Monocytes (%) (Auto) 15H, Eosinophils (%) (Auto) 1, Basophils (%) (Auto) 0, Neutrophils # (Auto) 4.2, Lymphocytes # (Auto) 2.0, Monocytes # (Auto) 1.1H, Eosinophils # (Auto) 0.0, Basophils # (Auto) 0.0, Sodium Level 135, Potassium Level 3.9, Chloride Level 100, Carbon Dioxide Level 24, Anion Gap 11, Blood Urea Nitrogen 12, Creatinine 0.74, Estimat Glomerular Filtration Rate > 60, BUN/ Creatinine Ratio 16, Glucose Level 85, Calcium Level 9.1, Corrected Calcium 9.9 , Phosphorus Level 3.4, Magnesium Level 1.9, Total Bilirubin 0.4, Aspartate Amino Transf (AST/SGOT) 17, Alanine Aminotransferase (ALT/SGPT) 20, Alkaline Phosphatase 167H, Total Protein 6.0L, Albumin 3.0L 10/02/18 03:30: White Blood Count 7.9, Red Blood Count 4.26L, Hemoglobin 11.2L, Hematocrit 34L, Mean Corpuscular Volume 81, Mean Corpuscular Hemoglobin 26, Mean Corpuscular Hemoglobin Concent 33, Red Cell Distribution Width 14.5, Platelet Count 555H, Mean Platelet Volume 8.9, Neutrophils (%) (Auto) 66, Lymphocytes (%) (Auto) 17, Monocytes (%) (Auto) 16H, Eosinophils (%) (Auto) 1, Basophils (%) (Auto) 0, Neutrophils # (Auto) 5.2, Lymphocytes # (Auto) 1.3, Monocytes # (Auto) 1.3H, Eosinophils # (Auto) 0.1, Basophils # (Auto) 0.0, Sodium Level 132L, Potassium Level 4.1, Chloride Level 96L, Carbon Dioxide Level 24, Anion Gap 12, Blood Urea Nitrogen 7, Creatinine 0.68, Estimat Glomerular Filtration Rate > 60, BUN/ Creatinine Ratio 10, Glucose Level 88, Calcium Level 9.4, Corrected Calcium 10.0 , Phosphorus Level 3.0, Magnesium Level 1.7L, Total Bilirubin 0.6, Aspartate Amino Transf (AST/SGOT) 13, Alanine Aminotransferase (ALT/SGPT) 15, Alkaline Phosphatase 179H, Total Protein 6.8, Albumin 3.2, B-Type Natriuretic Peptide 79.8 10/02/18 18:10: Vancomycin Level Trough 5.5L 10/03/18 03:35: White Blood Count 8.9, Red Blood Count 4.97, Hemoglobin 13.0L, Hematocrit 40, Mean Corpuscular Volume 80, Mean Corpuscular Hemoglobin 26, Mean Corpuscular Hemoglobin Concent 33, Red Cell Distribution Width 14.6H, Platelet Count 587H, Mean Platelet Volume 9.2, Neutrophils (%) (Auto) 87H, Lymphocytes (%) (Auto) 8L , Monocytes (%) (Auto) 5, Eosinophils (%) (Auto) 0, Basophils (%) (Auto) 0, Neutrophils # (Auto) 7.8, Lymphocytes # (Auto) 0.7L, Monocytes # (Auto) 0.4, Eosinophils # (Auto) 0.0, Basophils # (Auto) 0.0, Sodium Level 134L, Potassium Level 4.5, Chloride Level 98, Carbon Dioxide Level 23, Anion Gap 13, Blood Urea Nitrogen 10, Creatinine 0.73, Estimat Glomerular Filtration Rate > 60, BUN/ Creatinine Ratio 14, Glucose Level 127H, Calcium Level 9.8, Corrected Calcium 10.3H, Phosphorus Level 3.8, Magnesium Level 1.9, Total Bilirubin 0.4, Aspartate Amino Transf (AST/SGOT) 15, Alanine Aminotransferase (ALT/SGPT) 18, Alkaline Phosphatase 181H, Total Protein 7.6, Albumin 3.4 10/04/18 03:05: White Blood Count 15.8H, Red Blood Count 4.20L, Hemoglobin 11.1L, Hematocrit 34L , Mean Corpuscular Volume 81, Mean Corpuscular Hemoglobin 26, Mean Corpuscular Hemoglobin Concent 33, Red Cell Distribution Width 14.7H, Platelet Count 636H, Mean Platelet Volume 9.2, Neutrophils (%) (Auto) 91H, Lymphocytes (%) (Auto) 4L , Monocytes (%) (Auto) 4, Eosinophils (%) (Auto) 0, Basophils (%) (Auto) 0, Neutrophils # (Auto) 14.4H, Lymphocytes # (Auto) 0.7L, Monocytes # (Auto) 0.7, Eosinophils # (Auto) 0.0, Basophils # (Auto) 0.0, Sodium Level 139, Potassium Level 4.2, Chloride Level 106, Carbon Dioxide Level 24, Anion Gap 9, Blood Urea Nitrogen 20H, Creatinine 0.67, Estimat Glomerular Filtration Rate > 60, BUN/ Creatinine Ratio 30, Glucose Level 154H, Calcium Level 8.7, Corrected Calcium 9.7, Phosphorus Level 1.8L, Magnesium Level 1.9, Total Bilirubin 0.3, Aspartate Amino Transf (AST/SGOT) 12, Alanine Aminotransferase (ALT/SGPT) 14, Alkaline Phosphatase 155H, Total Protein 5.9L, Albumin 2.8L, Neutrophils % (Manual) 91, Lymphocytes % (Manual) 5, Monocytes % (Manual) 3, Band Neutrophils 1, Blood Morphology Comment NORMAL 10/05/18 03:10: White Blood Count 12.5H, Red Blood Count 4.57, Hemoglobin 12.0L, Hematocrit 37L , Mean Corpuscular Volume 81, Mean Corpuscular Hemoglobin 26, Mean Corpuscular Hemoglobin Concent 32, Red Cell Distribution Width 14.9H, Platelet Count 631H, Mean Platelet Volume 9.3, Neutrophils (%) (Auto) 90H, Lymphocytes (%) (Auto) 6L , Monocytes (%) (Auto) 5, Eosinophils (%) (Auto) 0, Basophils (%) (Auto) 0, Neutrophils # (Auto) 11.2H, Lymphocytes # (Auto) 0.7L, Monocytes # (Auto) 0.6, Eosinophils # (Auto) 0.0, Basophils # (Auto) 0.0, Sodium Level 137, Potassium Level 4.0, Chloride Level 105, Carbon Dioxide Level 21, Anion Gap 11, Blood Urea Nitrogen 12, Creatinine 0.71, Estimat Glomerular Filtration Rate > 60, BUN/ Creatinine Ratio 17, Glucose Level 111H, Calcium Level 9.2, Corrected Calcium 9.8, Phosphorus Level 2.3, Magnesium Level 1.9, Total Bilirubin 0.3, Aspartate Amino Transf (AST/SGOT) 16, Alanine Aminotransferase (ALT/SGPT) 19, Alkaline Phosphatase 194H, Total Protein 6.7, Albumin 3.2 10/06/18 03:30: White Blood Count 10.3, Red Blood Count 4.26L, Hemoglobin 11.1L, Hematocrit 35L , Mean Corpuscular Volume 81, Mean Corpuscular Hemoglobin 26, Mean Corpuscular Hemoglobin Concent 32, Red Cell Distribution Width 15.2H, Platelet Count 615H, Mean Platelet Volume 9.1, Neutrophils (%) (Auto) 84H, Lymphocytes (%) (Auto) 10L , Monocytes (%) (Auto) 7, Eosinophils (%) (Auto) 0, Basophils (%) (Auto) 0, Neutrophils # (Auto) 8.6H, Lymphocytes # (Auto) 1.0, Monocytes # (Auto) 0.7, Eosinophils # (Auto) 0.0, Basophils # (Auto) 0.0, Sodium Level 137, Potassium Level 4.0, Chloride Level 106, Carbon Dioxide Level 22, Anion Gap 9, Blood Urea Nitrogen 14, Creatinine 0.67, Estimat Glomerular Filtration Rate > 60, BUN/ Creatinine Ratio 21, Glucose Level 124H, Calcium Level 8.9, Corrected Calcium 9.8, Phosphorus Level 2.7, Magnesium Level 1.8, Total Bilirubin 0.3, Aspartate Amino Transf (AST/SGOT) 12, Alanine Aminotransferase (ALT/SGPT) 16, Alkaline Phosphatase 164H, Total Protein 5.8L, Albumin 2.9L 10/07/18 04:25: White Blood Count 7.7, Red Blood Count 5.02, Hemoglobin 13.2L, Hematocrit 40, Mean Corpuscular Volume 80, Mean Corpuscular Hemoglobin 26, Mean Corpuscular Hemoglobin Concent 33, Red Cell Distribution Width 15.4H, Platelet Count 617H, Mean Platelet Volume 9.3, Neutrophils (%) (Auto) 84H, Lymphocytes (%) (Auto) 12 , Monocytes (%) (Auto) 4, Eosinophils (%) (Auto) 0, Basophils (%) (Auto) 0, Neutrophils # (Auto) 6.5, Lymphocytes # (Auto) 0.9L, Monocytes # (Auto) 0.3, Eosinophils # (Auto) 0.0, Basophils # (Auto) 0.0, Sodium Level 137, Potassium Level 3.8, Chloride Level 102, Carbon Dioxide Level 25, Anion Gap 10, Blood Urea Nitrogen 10, Creatinine 0.72, Estimat Glomerular Filtration Rate > 60, BUN/ Creatinine Ratio 14, Glucose Level 130H, Calcium Level 9.4, Corrected Calcium 9.9, Phosphorus Level 3.2, Magnesium Level 2.0, Total Bilirubin 0.4, Aspartate Amino Transf (AST/SGOT) 16, Alanine Aminotransferase (ALT/SGPT) 25, Alkaline Phosphatase 184H, Total Protein 7.0, Albumin 3.4 10/08/18 04:35: White Blood Count 12.0H, Red Blood Count 4.91, Hemoglobin 12.7L, Hematocrit 40, Mean Corpuscular Volume 81, Mean Corpuscular Hemoglobin 26, Mean Corpuscular Hemoglobin Concent 32, Red Cell Distribution Width 16.4H, Platelet Count 660H, Mean Platelet Volume 9.3, Neutrophils (%) (Auto) 67, Lymphocytes (%) (Auto) 21, Monocytes (%) (Auto) 12, Eosinophils (%) (Auto) 0, Basophils (%) (Auto) 0, Neutrophils # (Auto) 8.0H, Lymphocytes # (Auto) 2.5, Monocytes # (Auto) 1.5H, Eosinophils # (Auto) 0.0, Basophils # (Auto) 0.0, Sodium Level 137, Potassium Level 3.6, Chloride Level 103, Carbon Dioxide Level 25, Anion Gap 9, Blood Urea Nitrogen 20H, Creatinine 0.75, Estimat Glomerular Filtration Rate > 60, BUN/ Creatinine Ratio 27, Glucose Level 81, Calcium Level 8.7, Corrected Calcium 9.4 , Phosphorus Level 2.9, Magnesium Level 2.0, Total Bilirubin 0.3, Aspartate Amino Transf (AST/SGOT) 15, Alanine Aminotransferase (ALT/SGPT) 27, Alkaline Phosphatase 158H, Total Protein 6.2L, Albumin 3.1L 10/09/18 04:20: White Blood Count 14.4H, Red Blood Count 4.55, Hemoglobin 12.0L, Hematocrit 37L , Mean Corpuscular Volume 82, Mean Corpuscular Hemoglobin 26, Mean Corpuscular Hemoglobin Concent 32, Red Cell Distribution Width 16.8H, Platelet Count 558H, Mean Platelet Volume 9.3, Neutrophils (%) (Auto) 72, Lymphocytes (%) (Auto) 18, Monocytes (%) (Auto) 10, Eosinophils (%) (Auto) 0, Basophils (%) (Auto) 0, Neutrophils # (Auto) 10.3H, Lymphocytes # (Auto) 2.6, Monocytes # (Auto) 1.5H, Eosinophils # (Auto) 0.0, Basophils # (Auto) 0.0, Sodium Level 133L, Potassium Level 3.8, Chloride Level 100, Carbon Dioxide Level 23, Anion Gap 10, Blood Urea Nitrogen 13, Creatinine 0.63, Estimat Glomerular Filtration Rate > 60, BUN/ Creatinine Ratio 21, Glucose Level 88, Calcium Level 8.6, Corrected Calcium 9.3 , Phosphorus Level 2.9, Magnesium Level 1.9, Total Bilirubin 0.3, Aspartate Amino Transf (AST/SGOT) 20, Alanine Aminotransferase (ALT/SGPT) 28, Alkaline Phosphatase 154H, Total Protein 5.9L, Albumin 3.1L 10/09/18 05:50: Sodium Level 132L, Potassium Level 3.6, Chloride Level 98, Carbon Dioxide Level 26, Anion Gap 8, Blood Urea Nitrogen 11, Creatinine 0.67, Estimat Glomerular Filtration Rate > 60, BUN/Creatinine Ratio 16, Glucose Level 82, Calcium Level 8.7, Corrected Calcium 9.3, Total Bilirubin 0.4, Aspartate Amino Transf (AST/ SGOT) 18, Alanine Aminotransferase (ALT/SGPT) 28, Alkaline Phosphatase 161H, Total Protein 6.1L, Albumin 3.2 10/10/18 04:00: Sodium Level 134L, Potassium Level 3.9, Chloride Level 102, Carbon Dioxide Level 24, Anion Gap 8, Blood Urea Nitrogen 10, Creatinine 0.58L, Estimat Glomerular Filtration Rate > 60, BUN/Creatinine Ratio 17, Glucose Level 116H, Calcium Level 8.2L, Corrected Calcium 9.2, Total Bilirubin 0.2, Aspartate Amino Transf (AST/SGOT) 14, Alanine Aminotransferase (ALT/SGPT) 24, Alkaline Phosphatase 145H, Total Protein 5.3L, Albumin 2.8L, White Blood Count 10.7, Red Blood Count 4.33L, Hemoglobin 11.6L, Hematocrit 35L, Mean Corpuscular Volume 81 , Mean Corpuscular Hemoglobin 27, Mean Corpuscular Hemoglobin Concent 33, Red Cell Distribution Width 16.6H, Platelet Count 439H, Mean Platelet Volume 9.6, Neutrophils (%) (Auto) 66, Lymphocytes (%) (Auto) 18, Monocytes (%) (Auto) 14H, Eosinophils (%) (Auto) 2, Basophils (%) (Auto) 0, Neutrophils # (Auto) 7.1, Lymphocytes # (Auto) 2.0, Monocytes # (Auto) 1.5H, Eosinophils # (Auto) 0.2, Basophils # (Auto) 0.0, Phosphorus Level 2.0L, Magnesium Level 1.7L 10/11/18 04:20: Sodium Level 134L, Potassium Level 3.8, Chloride Level 102, Carbon Dioxide Level 23, Anion Gap 9, Blood Urea Nitrogen 10, Creatinine 0.60, Estimat Glomerular Filtration Rate > 60, BUN/Creatinine Ratio 17, Glucose Level 99, Calcium Level 8.4L, Corrected Calcium 9.4, Total Bilirubin 0.3, Aspartate Amino Transf (AST/SGOT) 13, Alanine Aminotransferase (ALT/SGPT) 17, Alkaline Phosphatase 150H, Total Protein 5.4L, Albumin 2.8L, White Blood Count 9.9, Red Blood Count 4.08L, Hemoglobin 10.9L, Hematocrit 34L, Mean Corpuscular Volume 82 , Mean Corpuscular Hemoglobin 27, Mean Corpuscular Hemoglobin Concent 32, Red Cell Distribution Width 17.1H, Platelet Count 428H, Mean Platelet Volume 9.8, Neutrophils (%) (Auto) 60, Lymphocytes (%) (Auto) 22, Monocytes (%) (Auto) 15H, Eosinophils (%) (Auto) 3, Basophils (%) (Auto) 0, Neutrophils # (Auto) 5.9, Lymphocytes # (Auto) 2.2, Monocytes # (Auto) 1.4H, Eosinophils # (Auto) 0.3, Basophils # (Auto) 0.0, Phosphorus Level 2.4, Magnesium Level 1.7L 10/13/18 08:55: Sodium Level 129L, Potassium Level 4.1, Chloride Level 95L, Carbon Dioxide Level 26, Anion Gap 8, Blood Urea Nitrogen 10, Creatinine 0.65, Estimat Glomerular Filtration Rate > 60, BUN/Creatinine Ratio 15, Glucose Level 93, Calcium Level 9.2, White Blood Count 8.8, Red Blood Count 4.57, Hemoglobin 12.1L , Hematocrit 37L, Mean Corpuscular Volume 81, Mean Corpuscular Hemoglobin 27, Mean Corpuscular Hemoglobin Concent 33, Red Cell Distribution Width 17.3H, Platelet Count 373, Mean Platelet Volume 9.5 10/14/18 07:48: White Blood Count 9.6, Red Blood Count 4.55, Hemoglobin 12.2L, Hematocrit 36L, Mean Corpuscular Volume 80, Mean Corpuscular Hemoglobin 27, Mean Corpuscular Hemoglobin Concent 34, Red Cell Distribution Width 17.7H, Platelet Count 378, Mean Platelet Volume 9.4, Neutrophils (%) (Auto) 71, Lymphocytes (%) (Auto) 14, Monocytes (%) (Auto) 15H, Eosinophils (%) (Auto) 1, Basophils (%) (Auto) 0, Neutrophils # (Auto) 6.8, Lymphocytes # (Auto) 1.4, Monocytes # (Auto) 1.4H, Eosinophils # (Auto) 0.1, Basophils # (Auto) 0.0, Sodium Level 131L 10/15/18 08:05: White Blood Count 9.2, Red Blood Count 4.51, Hemoglobin 12.2L, Hematocrit 36L, Mean Corpuscular Volume 81, Mean Corpuscular Hemoglobin 27, Mean Corpuscular Hemoglobin Concent 34, Red Cell Distribution Width 17.3H, Platelet Count 334, Mean Platelet Volume 9.1, Sodium Level 130L, Potassium Level 3.8, Chloride Level 94L, Carbon Dioxide Level 25, Anion Gap 11, Blood Urea Nitrogen 17, Creatinine 0.67, Estimat Glomerular Filtration Rate > 60, BUN/Creatinine Ratio 25, Glucose Level 97, Calcium Level 9.3 Microbiology 09/30/18 Gram Stain - Final, Complete 09/30/18 Body Fluid Culture - Final, Complete No growth 10/03/18 Mycobacterial Culture - Preliminary, Resulted Laboratory Tests 10/01/18 03:20 10/02/18 03:30 10/03/18 03:35 10/04/18 03:05 10/05/18 03:10 10/06/18 03:30 10/07/18 04:25 10/08/18 04:35 10/09/18 04:20 10/09/18 05:50 10/10/18 04:00 10/11/18 04:20 10/13/18 08:55 10/14/18 07:48 10/15/18 08:05 Pending Labs Microbiology Date/Time Source Procedure Growth Status 09/30/18 21:00 Thoracentesis Fluid Gram Stain - Final Complete 09/30/18 21:00 Thoracentesis Fluid Body Fluid Culture - Final No growth Complete 10/03/18 06:36 Bronchial Lavage (Bal) Right Lower Lobe Mycobacterial Culture - Preliminary Resulted 10/03/18 06:35 Bronchial Lavage (Bal) Right Lower Lobe Gram Stain - Final Resulted 10/03/18 06:35 Bronchial Culture - Final Usual upper respiratory lissette Resulted 10/03/18 06:35 Bronchial Lavage (Bal) Right Lower Lobe Fungal Culture 1 - Preliminary Resulted 09/30/18 16:22 Nasal MRSA Screen - Final MRSA not isolated Complete Laboratory Tests 09/30/18 15:57: Lab Scanned Report Referred Lab Report 09/30/18 21:00: Body Fluid Source PLEURAL, Body Fluid Color RED, Body Fluid Appearance MOD CLDY , Body Fluid pH 8, Body Fluid WBC 250, Body Fluid RBC 92351, Body Fluid Polynuclear WBCs 47, Body Fluid Mononuclear WBCs 7, Body Fluid Lymphocytes 38, Body Fluid Other Cells 8, Body Fluid Glucose 71, Body Fluid Total Protein 3.7, Body Fluid Lactate Dehydrogenase 483 10/01/18 03:20: White Blood Count 7.3, Red Blood Count 4.11, Hemoglobin 10.9, Hematocrit 34, Mean Corpuscular Volume 82, Mean Corpuscular Hemoglobin 27, Mean Corpuscular Hemoglobin Concent 32, Red Cell Distribution Width 14.9, Platelet Count 591, Mean Platelet Volume 9.1, Neutrophils (%) (Auto) 57, Lymphocytes (%) (Auto) 27, Monocytes (%) (Auto) 15, Eosinophils (%) (Auto) 1, Basophils (%) (Auto) 0, Neutrophils # (Auto) 4.2, Lymphocytes # (Auto) 2.0, Monocytes # (Auto) 1.1, Eosinophils # (Auto) 0.0, Basophils # (Auto) 0.0, Sodium Level 135, Potassium Level 3.9, Chloride Level 100, Carbon Dioxide Level 24, Anion Gap 11, Blood Urea Nitrogen 12, Creatinine 0.74, Estimat Glomerular Filtration Rate > 60, BUN/ Creatinine Ratio 16, Glucose Level 85, Calcium Level 9.1, Corrected Calcium 9.9 , Phosphorus Level 3.4, Magnesium Level 1.9, Total Bilirubin 0.4, Aspartate Amino Transf (AST/SGOT) 17, Alanine Aminotransferase (ALT/SGPT) 20, Alkaline Phosphatase 167, Total Protein 6.0, Albumin 3.0 10/02/18 03:30: White Blood Count 7.9, Red Blood Count 4.26, Hemoglobin 11.2, Hematocrit 34, Mean Corpuscular Volume 81, Mean Corpuscular Hemoglobin 26, Mean Corpuscular Hemoglobin Concent 33, Red Cell Distribution Width 14.5, Platelet Count 555, Mean Platelet Volume 8.9, Neutrophils (%) (Auto) 66, Lymphocytes (%) (Auto) 17, Monocytes (%) (Auto) 16, Eosinophils (%) (Auto) 1, Basophils (%) (Auto) 0, Neutrophils # (Auto) 5.2, Lymphocytes # (Auto) 1.3, Monocytes # (Auto) 1.3, Eosinophils # (Auto) 0.1, Basophils # (Auto) 0.0, Sodium Level 132, Potassium Level 4.1, Chloride Level 96, Carbon Dioxide Level 24, Anion Gap 12, Blood Urea Nitrogen 7, Creatinine 0.68, Estimat Glomerular Filtration Rate > 60, BUN/ Creatinine Ratio 10, Glucose Level 88, Calcium Level 9.4, Corrected Calcium 10.0 , Phosphorus Level 3.0, Magnesium Level 1.7, Total Bilirubin 0.6, Aspartate Amino Transf (AST/SGOT) 13, Alanine Aminotransferase (ALT/SGPT) 15, Alkaline Phosphatase 179, Total Protein 6.8, Albumin 3.2, B-Type Natriuretic Peptide 79.8 10/02/18 18:10: Vancomycin Level Trough 5.5 10/03/18 03:35: White Blood Count 8.9, Red Blood Count 4.97, Hemoglobin 13.0, Hematocrit 40, Mean Corpuscular Volume 80, Mean Corpuscular Hemoglobin 26, Mean Corpuscular Hemoglobin Concent 33, Red Cell Distribution Width 14.6, Platelet Count 587, Mean Platelet Volume 9.2, Neutrophils (%) (Auto) 87, Lymphocytes (%) (Auto) 8, Monocytes (%) (Auto) 5, Eosinophils (%) (Auto) 0, Basophils (%) (Auto) 0, Neutrophils # (Auto) 7.8, Lymphocytes # (Auto) 0.7, Monocytes # (Auto) 0.4, Eosinophils # (Auto) 0.0, Basophils # (Auto) 0.0, Sodium Level 134, Potassium Level 4.5, Chloride Level 98, Carbon Dioxide Level 23, Anion Gap 13, Blood Urea Nitrogen 10, Creatinine 0.73, Estimat Glomerular Filtration Rate > 60, BUN/ Creatinine Ratio 14, Glucose Level 127, Calcium Level 9.8, Corrected Calcium 10.3, Phosphorus Level 3.8, Magnesium Level 1.9, Total Bilirubin 0.4, Aspartate Amino Transf (AST/SGOT) 15, Alanine Aminotransferase (ALT/SGPT) 18, Alkaline Phosphatase 181, Total Protein 7.6, Albumin 3.4 10/04/18 03:05: White Blood Count 15.8, Red Blood Count 4.20, Hemoglobin 11.1, Hematocrit 34, Mean Corpuscular Volume 81, Mean Corpuscular Hemoglobin 26, Mean Corpuscular Hemoglobin Concent 33, Red Cell Distribution Width 14.7, Platelet Count 636, Mean Platelet Volume 9.2, Neutrophils (%) (Auto) 91, Lymphocytes (%) (Auto) 4, Monocytes (%) (Auto) 4, Eosinophils (%) (Auto) 0, Basophils (%) (Auto) 0, Neutrophils # (Auto) 14.4, Lymphocytes # (Auto) 0.7, Monocytes # (Auto) 0.7, Eosinophils # (Auto) 0.0, Basophils # (Auto) 0.0, Sodium Level 139, Potassium Level 4.2, Chloride Level 106, Carbon Dioxide Level 24, Anion Gap 9, Blood Urea Nitrogen 20, Creatinine 0.67, Estimat Glomerular Filtration Rate > 60, BUN/ Creatinine Ratio 30, Glucose Level 154, Calcium Level 8.7, Corrected Calcium 9.7 , Phosphorus Level 1.8, Magnesium Level 1.9, Total Bilirubin 0.3, Aspartate Amino Transf (AST/SGOT) 12, Alanine Aminotransferase (ALT/SGPT) 14, Alkaline Phosphatase 155, Total Protein 5.9, Albumin 2.8, Neutrophils % (Manual) 91, Lymphocytes % (Manual) 5, Monocytes % (Manual) 3, Band Neutrophils 1, Blood Morphology Comment NORMAL 10/05/18 03:10: White Blood Count 12.5, Red Blood Count 4.57, Hemoglobin 12.0, Hematocrit 37, Mean Corpuscular Volume 81, Mean Corpuscular Hemoglobin 26, Mean Corpuscular Hemoglobin Concent 32, Red Cell Distribution Width 14.9, Platelet Count 631, Mean Platelet Volume 9.3, Neutrophils (%) (Auto) 90, Lymphocytes (%) (Auto) 6, Monocytes (%) (Auto) 5, Eosinophils (%) (Auto) 0, Basophils (%) (Auto) 0, Neutrophils # (Auto) 11.2, Lymphocytes # (Auto) 0.7, Monocytes # (Auto) 0.6, Eosinophils # (Auto) 0.0, Basophils # (Auto) 0.0, Sodium Level 137, Potassium Level 4.0, Chloride Level 105, Carbon Dioxide Level 21, Anion Gap 11, Blood Urea Nitrogen 12, Creatinine 0.71, Estimat Glomerular Filtration Rate > 60, BUN/ Creatinine Ratio 17, Glucose Level 111, Calcium Level 9.2, Corrected Calcium 9.8 , Phosphorus Level 2.3, Magnesium Level 1.9, Total Bilirubin 0.3, Aspartate Amino Transf (AST/SGOT) 16, Alanine Aminotransferase (ALT/SGPT) 19, Alkaline Phosphatase 194, Total Protein 6.7, Albumin 3.2 10/06/18 03:30: White Blood Count 10.3, Red Blood Count 4.26, Hemoglobin 11.1, Hematocrit 35, Mean Corpuscular Volume 81, Mean Corpuscular Hemoglobin 26, Mean Corpuscular Hemoglobin Concent 32, Red Cell Distribution Width 15.2, Platelet Count 615, Mean Platelet Volume 9.1, Neutrophils (%) (Auto) 84, Lymphocytes (%) (Auto) 10, Monocytes (%) (Auto) 7, Eosinophils (%) (Auto) 0, Basophils (%) (Auto) 0, Neutrophils # (Auto) 8.6, Lymphocytes # (Auto) 1.0, Monocytes # (Auto) 0.7, Eosinophils # (Auto) 0.0, Basophils # (Auto) 0.0, Sodium Level 137, Potassium Level 4.0, Chloride Level 106, Carbon Dioxide Level 22, Anion Gap 9, Blood Urea Nitrogen 14, Creatinine 0.67, Estimat Glomerular Filtration Rate > 60, BUN/ Creatinine Ratio 21, Glucose Level 124, Calcium Level 8.9, Corrected Calcium 9.8 , Phosphorus Level 2.7, Magnesium Level 1.8, Total Bilirubin 0.3, Aspartate Amino Transf (AST/SGOT) 12, Alanine Aminotransferase (ALT/SGPT) 16, Alkaline Phosphatase 164, Total Protein 5.8, Albumin 2.9 10/07/18 04:25: White Blood Count 7.7, Red Blood Count 5.02, Hemoglobin 13.2, Hematocrit 40, Mean Corpuscular Volume 80, Mean Corpuscular Hemoglobin 26, Mean Corpuscular Hemoglobin Concent 33, Red Cell Distribution Width 15.4, Platelet Count 617, Mean Platelet Volume 9.3, Neutrophils (%) (Auto) 84, Lymphocytes (%) (Auto) 12, Monocytes (%) (Auto) 4, Eosinophils (%) (Auto) 0, Basophils (%) (Auto) 0, Neutrophils # (Auto) 6.5, Lymphocytes # (Auto) 0.9, Monocytes # (Auto) 0.3, Eosinophils # (Auto) 0.0, Basophils # (Auto) 0.0, Sodium Level 137, Potassium Level 3.8, Chloride Level 102, Carbon Dioxide Level 25, Anion Gap 10, Blood Urea Nitrogen 10, Creatinine 0.72, Estimat Glomerular Filtration Rate > 60, BUN/ Creatinine Ratio 14, Glucose Level 130, Calcium Level 9.4, Corrected Calcium 9.9 , Phosphorus Level 3.2, Magnesium Level 2.0, Total Bilirubin 0.4, Aspartate Amino Transf (AST/SGOT) 16, Alanine Aminotransferase (ALT/SGPT) 25, Alkaline Phosphatase 184, Total Protein 7.0, Albumin 3.4 10/08/18 04:35: White Blood Count 12.0, Red Blood Count 4.91, Hemoglobin 12.7, Hematocrit 40, Mean Corpuscular Volume 81, Mean Corpuscular Hemoglobin 26, Mean Corpuscular Hemoglobin Concent 32, Red Cell Distribution Width 16.4, Platelet Count 660, Mean Platelet Volume 9.3, Neutrophils (%) (Auto) 67, Lymphocytes (%) (Auto) 21, Monocytes (%) (Auto) 12, Eosinophils (%) (Auto) 0, Basophils (%) (Auto) 0, Neutrophils # (Auto) 8.0, Lymphocytes # (Auto) 2.5, Monocytes # (Auto) 1.5, Eosinophils # (Auto) 0.0, Basophils # (Auto) 0.0, Sodium Level 137, Potassium Level 3.6, Chloride Level 103, Carbon Dioxide Level 25, Anion Gap 9, Blood Urea Nitrogen 20, Creatinine 0.75, Estimat Glomerular Filtration Rate > 60, BUN/ Creatinine Ratio 27, Glucose Level 81, Calcium Level 8.7, Corrected Calcium 9.4 , Phosphorus Level 2.9, Magnesium Level 2.0, Total Bilirubin 0.3, Aspartate Amino Transf (AST/SGOT) 15, Alanine Aminotransferase (ALT/SGPT) 27, Alkaline Phosphatase 158, Total Protein 6.2, Albumin 3.1 10/09/18 04:20: White Blood Count 14.4, Red Blood Count 4.55, Hemoglobin 12.0, Hematocrit 37, Mean Corpuscular Volume 82, Mean Corpuscular Hemoglobin 26, Mean Corpuscular Hemoglobin Concent 32, Red Cell Distribution Width 16.8, Platelet Count 558, Mean Platelet Volume 9.3, Neutrophils (%) (Auto) 72, Lymphocytes (%) (Auto) 18, Monocytes (%) (Auto) 10, Eosinophils (%) (Auto) 0, Basophils (%) (Auto) 0, Neutrophils # (Auto) 10.3, Lymphocytes # (Auto) 2.6, Monocytes # (Auto) 1.5, Eosinophils # (Auto) 0.0, Basophils # (Auto) 0.0, Sodium Level 133, Potassium Level 3.8, Chloride Level 100, Carbon Dioxide Level 23, Anion Gap 10, Blood Urea Nitrogen 13, Creatinine 0.63, Estimat Glomerular Filtration Rate > 60, BUN/ Creatinine Ratio 21, Glucose Level 88, Calcium Level 8.6, Corrected Calcium 9.3 , Phosphorus Level 2.9, Magnesium Level 1.9, Total Bilirubin 0.3, Aspartate Amino Transf (AST/SGOT) 20, Alanine Aminotransferase (ALT/SGPT) 28, Alkaline Phosphatase 154, Total Protein 5.9, Albumin 3.1 10/09/18 05:50: Sodium Level 132, Potassium Level 3.6, Chloride Level 98, Carbon Dioxide Level 26, Anion Gap 8, Blood Urea Nitrogen 11, Creatinine 0.67, Estimat Glomerular Filtration Rate > 60, BUN/Creatinine Ratio 16, Glucose Level 82, Calcium Level 8.7, Corrected Calcium 9.3, Total Bilirubin 0.4, Aspartate Amino Transf (AST/ SGOT) 18, Alanine Aminotransferase (ALT/SGPT) 28, Alkaline Phosphatase 161, Total Protein 6.1, Albumin 3.2 10/10/18 04:00: Sodium Level 134, Potassium Level 3.9, Chloride Level 102, Carbon Dioxide Level 24, Anion Gap 8, Blood Urea Nitrogen 10, Creatinine 0.58, Estimat Glomerular Filtration Rate > 60, BUN/Creatinine Ratio 17, Glucose Level 116, Calcium Level 8.2, Corrected Calcium 9.2, Total Bilirubin 0.2, Aspartate Amino Transf (AST/ SGOT) 14, Alanine Aminotransferase (ALT/SGPT) 24, Alkaline Phosphatase 145, Total Protein 5.3, Albumin 2.8, White Blood Count 10.7, Red Blood Count 4.33, Hemoglobin 11.6, Hematocrit 35, Mean Corpuscular Volume 81, Mean Corpuscular Hemoglobin 27, Mean Corpuscular Hemoglobin Concent 33, Red Cell Distribution Width 16.6, Platelet Count 439, Mean Platelet Volume 9.6, Neutrophils (%) (Auto ) 66, Lymphocytes (%) (Auto) 18, Monocytes (%) (Auto) 14, Eosinophils (%) (Auto ) 2, Basophils (%) (Auto) 0, Neutrophils # (Auto) 7.1, Lymphocytes # (Auto) 2.0 , Monocytes # (Auto) 1.5, Eosinophils # (Auto) 0.2, Basophils # (Auto) 0.0, Phosphorus Level 2.0, Magnesium Level 1.7 10/11/18 04:20: Sodium Level 134, Potassium Level 3.8, Chloride Level 102, Carbon Dioxide Level 23, Anion Gap 9, Blood Urea Nitrogen 10, Creatinine 0.60, Estimat Glomerular Filtration Rate > 60, BUN/Creatinine Ratio 17, Glucose Level 99, Calcium Level 8.4, Corrected Calcium 9.4, Total Bilirubin 0.3, Aspartate Amino Transf (AST/ SGOT) 13, Alanine Aminotransferase (ALT/SGPT) 17, Alkaline Phosphatase 150, Total Protein 5.4, Albumin 2.8, White Blood Count 9.9, Red Blood Count 4.08, Hemoglobin 10.9, Hematocrit 34, Mean Corpuscular Volume 82, Mean Corpuscular Hemoglobin 27, Mean Corpuscular Hemoglobin Concent 32, Red Cell Distribution Width 17.1, Platelet Count 428, Mean Platelet Volume 9.8, Neutrophils (%) (Auto ) 60, Lymphocytes (%) (Auto) 22, Monocytes (%) (Auto) 15, Eosinophils (%) (Auto ) 3, Basophils (%) (Auto) 0, Neutrophils # (Auto) 5.9, Lymphocytes # (Auto) 2.2 , Monocytes # (Auto) 1.4, Eosinophils # (Auto) 0.3, Basophils # (Auto) 0.0, Phosphorus Level 2.4, Magnesium Level 1.7 10/13/18 08:55: Sodium Level 129, Potassium Level 4.1, Chloride Level 95, Carbon Dioxide Level 26, Anion Gap 8, Blood Urea Nitrogen 10, Creatinine 0.65, Estimat Glomerular Filtration Rate > 60, BUN/Creatinine Ratio 15, Glucose Level 93, Calcium Level 9.2, White Blood Count 8.8, Red Blood Count 4.57, Hemoglobin 12.1, Hematocrit 37 , Mean Corpuscular Volume 81, Mean Corpuscular Hemoglobin 27, Mean Corpuscular Hemoglobin Concent 33, Red Cell Distribution Width 17.3, Platelet Count 373, Mean Platelet Volume 9.5 10/14/18 07:48: White Blood Count 9.6, Red Blood Count 4.55, Hemoglobin 12.2, Hematocrit 36, Mean Corpuscular Volume 80, Mean Corpuscular Hemoglobin 27, Mean Corpuscular Hemoglobin Concent 34, Red Cell Distribution Width 17.7, Platelet Count 378, Mean Platelet Volume 9.4, Neutrophils (%) (Auto) 71, Lymphocytes (%) (Auto) 14, Monocytes (%) (Auto) 15, Eosinophils (%) (Auto) 1, Basophils (%) (Auto) 0, Neutrophils # (Auto) 6.8, Lymphocytes # (Auto) 1.4, Monocytes # (Auto) 1.4, Eosinophils # (Auto) 0.1, Basophils # (Auto) 0.0, Sodium Level 131 10/15/18 08:05: White Blood Count 9.2, Red Blood Count 4.51, Hemoglobin 12.2, Hematocrit 36, Mean Corpuscular Volume 81, Mean Corpuscular Hemoglobin 27, Mean Corpuscular Hemoglobin Concent 34, Red Cell Distribution Width 17.3, Platelet Count 334, Mean Platelet Volume 9.1, Sodium Level 130, Potassium Level 3.8, Chloride Level 94, Carbon Dioxide Level 25, Anion Gap 11, Blood Urea Nitrogen 17, Creatinine 0.67, Estimat Glomerular Filtration Rate > 60, BUN/Creatinine Ratio 25, Glucose Level 97, Calcium Level 9.3 Discussion & Recommendations Dermatitis of neck probably contact Discharge Home Medications: Active Scripts Active Claritin (Loratadine) 10 Mg Capsule 10 Mg PO DAILY 21 Days Triamcinolone Acetonide 0.1% Cream (Triamcinolone Acet) 15 Gm Cr 80 Gm TP TID 7 Days Prednisone 10 Mg Tab 10 Mg PO DAILY 3 Days Prednisone 10 Mg Tab 20 Mg PO DAILY 3 Days Reported Sodium Chloride 1 Gm Tab 1 Gm PO DAILY Divalproex Sodium ER (Divalproex Sodium) 250 Mg Tab.er.24h 250 Mg PO BID Trazodone HCl 100 Mg Tablet 100 Mg PO HS Risperidone 2 Mg Tablet 2 Mg PO HS Paroxetine HCl 30 Mg Tablet 30 Mg PO DAILY Levetiracetam 500 Mg Tablet 500 Mg PO BID Senna-S Tablet (Sennosides/Docusate Sodium) 1 Each Tablet 1 Tab PO HS Instructions to patient/family Please see electronic discharge instructions given to patient. Clinical Quality Measures DVT/VTE Risk/Contraindication: RFS Level Per Nursing on Admit: 0=No Risk/No VTE PPX JAVID JACKSON DO October 16, 2018 07:33
== END 2018-10-15 15:30 | disposition home or self-care (01) | DRG 163 ==
LOC: ICU 15:57 → 4TH 10-06 16:45 → ICU 10-08 14:51 → 4TH 10-08 18:17
PROVIDERS: ADMIT Internal Medicine Critical Care Medicine; ATTEND Internal Medicine Critical Care Medicine
PROC: 0W9930Z Drainage of Right Pleural Cavity with Drainage Device, Percutaneous Approach (ICD-10-PCS; 2018-09-30)
PROC: 0B9F8ZX Drainage of Right Lower Lung Lobe, Via Natural or Artificial Opening Endoscopic, Diagnostic (ICD-10-PCS; 2018-10-03)
PROC: 0BC Respiratory System, Extirpation (ICD-10-PCS; 2018-10-08)
PROC: 0BC Respiratory System, Extirpation (ICD-10-PCS; 2018-10-08)
PROC: 0BJQ4ZZ Inspection of Pleura, Percutaneous Endoscopic Approach (ICD-10-PCS; 2018-10-08)
PROC: 3E0L329 Introduction of Other Anti-infective into Pleural Cavity, Percutaneous Approach (ICD-10-PCS; 2018-10-08)
PROC: 0BC Respiratory System, Extirpation (ICD-10-PCS; principal; 2018-10-08 11:27)
DX: J94.8 Other specified pleural conditions (principal); J86.9 Pyothorax without fistula; E87.1 Hypo-osmolality and hyponatremia; J90 Pleural effusion, not elsewhere classified; E83.42 Hypomagnesemia; L25.9 Unspecified contact dermatitis, unspecified cause; R91.8 Other nonspecific abnormal finding of lung field; F79 Unspecified intellectual disabilities; F31.9 Bipolar disorder, unspecified; F25.9 Schizoaffective disorder, unspecified; R53.1 Weakness; D64.9 Anemia, unspecified; J30.2 Other seasonal allergic rhinitis; I34.1 Nonrheumatic mitral (valve) prolapse; G40.909 Epilepsy, unspecified, not intractable, without status epilepticus
CPT/HCPCS: 36415; 71045; 71250; 80048; 80053; 80202; 82945; 83615; 83735; 83880; 83986; 84100; 84157; 84295; 85007; 85025; 85027; 87015; 87070; 87081; 87101; 87116; 87205; 87206; 88112; 88305; 88312; 89051

== ENCOUNTER 2018-10-16 13:28 | Observation (INO) | payer MEDICARE, MEDICAID ==
[~2018-10-16] VITALS: Ht 185.4 cm; Wt 85.8 kg
[~2018-10-16 13:28] MED LIST changes: +DIVA250T12 PO; +LEVE500T6 PO; +LORA10CA PO; +NF-NACL1GT PO; +PARO30TA3 PO; +PRD10T PO; +RISP2TAB3 PO; +SENN-109 PO; +TR1C15 TP; +TRAZ-190 PO
--- NOTE | 2018-10-16 14:07 | NUR ---
CAREGIVER THINKS THAT DR JACKSON THINKS HE NEEDS TO BE ADMITTED.
[2018-10-16] MEDS ORDERED: LACTATED RINGERS 1,000 ML IV ONE (14:19)
--- NOTE | 2018-10-16 14:31 | ED EENT ---
History of Present Illness General Chief Complaint: Facial Problems Stated Complaint: POCKET OF FLUID ON FACE Nursing Triage Note: PATIENT HERE WITH PRIMARY CAREGIVER. CAREGIVER STATES THAT IN THE LAST COUPLE OF HOURS HE HAS HAD SUDDEN SWELLING TO THE RIGHT SIDE OF HIS FACE. Source: patient Exam Limitations: no limitations History of Present Illness Date Seen by Provider: October 16, 2018 Time Seen by Provider: 14:10 Initial Comments Patient presents to ER by private conveyance with a caregiver. He has a baseline MR, schizoaffective disorder and is living in a long term. Allergies and Home Medications Allergies Coded Allergies: lorazepam (Verified Allergy, Intermediate, Hives, 10/14/18) BLISTERS Uncoded Allergies: IVP CONTRAST (Allergy, Unknown, 09/25/07) Home Medications Divalproex Sodium 250 Mg Tab.er.24h, 250 MG PO BID, (Reported) Levetiracetam 500 Mg Tablet, 500 MG PO BID, (Reported) Loratadine 10 Mg Capsule, 10 MG PO DAILY Prescribed by: GERSON TRUJILLO on 10/15/18 135 Paroxetine HCl 30 Mg Tablet, 30 MG PO DAILY, (Reported) Prednisone 10 Mg Tab, 20 MG PO DAILY Prescribed by: GERSON TRUJILLO on 10/15/18 135 Prednisone 10 Mg Tab, 10 MG PO DAILY Prescribed by: GERSON TRUJILLO on 10/15/18 135 Risperidone 2 Mg Tablet, 2 MG PO HS, (Reported) Sennosides/Docusate Sodium 1 Each Tablet, 1 TAB PO HS, (Reported) Sodium Chloride 1 Gm Tab, 1 GM PO DAILY, (Reported) Trazodone HCl 100 Mg Tablet, 100 MG PO HS, (Reported) Triamcinolone Acet 15 Gm Cr, 80 GM TP TID Prescribed by: GERSON TRUJILLO on 10/15/18 1350 Patient Home Medication List Home Medication List Reviewed: Yes Review of Systems Review of Systems Constitutional: No chills, No fever, No malaise Eyes: Denies Blindness, Denies Drainage Ears: Denies Dizziness, Denies Pain Nose: denies clots, denies congestion Mouth: denies clots, denies loose teeth Throat: denies pain, denies swelling Respiratory: No cough, No short of breath Cardiovascular: No chest pain, No edema Gastrointestinal: No abdominal pain, No constipation, No nausea, No vomiting Past Gkyijpj-Rqnkjd-Fmbnsg Hx Patient Social History Alcohol Use: Denies Use Recreational Drug Use: No Smoking Status: Never a Smoker 2nd Hand Smoke Exposure: No Recent Foreign Travel: No Contact w/Someone Who Travel: No Recent Infectious Disease Expo: No Recent Hopitalizations: No Immunizations Up To Date Date of Pneumonia Vaccine: Jul 02, 2018 Seasonal Allergies Seasonal Allergies: Yes Past Medical History Respiratory: Yes Currently Using CPAP: No Currently Using BIPAP: No Cardiac: Yes (MVP) Neurological: Yes Reproductive Disorders: No Sexually Transmitted Disease: No Gastrointestinal: No Musculoskeletal: No Endocrine: No Blood Disorders: No Family Medical History Other Conditions/Hx Physical Exam Vital Signs Vital Signs - First Documented 10/16/18 10/16/18 13:40 18:12 Temp 97.9 Pulse 109 Resp 18 B/P (MAP) 90/59 (69) Pulse Ox 97 O2 Delivery Room Air Height, Weight, BMI Height: 6'1.00" Weight: 178lbs. 0oz. 80.936289gy; 27.8 BMI Method:Stated General Appearance: WD/WN, no apparent distress Eyes: bilateral eye normal inspection, bilateral eye PERRL, bilateral eye EOMI Ears: bilateral ear auricle normal, bilateral ear canal normal, bilateral ear TM normal Nose: normal inspection; No active bleeding Mouth/Throat: normal mouth inspection, pharynx normal Neck: non-tender, full range of motion, supple Cardiovascular: normal peripheral pulses, regular rate, rhythm Respiratory: no respiratory distress, no accessory muscle use Neurologic/Psychiatric: alert, normal mood/affect Skin: rash (erythematous rash in the ibanez area of the neck. Soft, plus, swelling on the right anabaptist and cheek without erythema, induration, fluctuance) Progress/Results/Core Measures Results/Orders Lab Results Laboratory Tests Test 10/16/18 14:34 10/16/18 16:49 Range/Units White Blood Count 12.3 H 4.3-11.0 10^3/uL Red Blood Count 4.15 L 4.35-5.85 10^6/uL Hemoglobin 11.1 L 13.3-17.7 G/DL Hematocrit 34 L 40-54 % Mean Corpuscular Volume 81 80-99 FL Mean Corpuscular Hemoglobin 27 25-34 PG Mean Corpuscular Hemoglobin Concent 33 32-36 G/DL Red Cell Distribution Width 17.9 H 10.0-14.5 % Platelet Count 334 130-400 10^3/uL Mean Platelet Volume 9.3 7.4-10.4 FL Neutrophils (%) (Auto) 80 H 42-75 % Lymphocytes (%) (Auto) 9 L 12-44 % Monocytes (%) (Auto) 11 0-12 % Eosinophils (%) (Auto) 0 0-10 % Basophils (%) (Auto) 0 0-10 % Neutrophils # (Auto) 9.8 H 1.8-7.8 X 10^3 Lymphocytes # (Auto) 1.1 1.0-4.0 X 10^3 Monocytes # (Auto) 1.4 H 0.0-1.0 X 10^3 Eosinophils # (Auto) 0.0 0.0-0.3 10^3/uL Basophils # (Auto) 0.0 0.0-0.1 10^3/uL Sodium Level 133 L 135-145 MMOL/L Potassium Level 4.8 3.6-5.0 MMOL/L Chloride Level 97 L 98-107 MMOL/L Carbon Dioxide Level 23 21-32 MMOL/L Anion Gap 13 5-14 MMOL/L Blood Urea Nitrogen 21 H 7-18 MG/DL Creatinine 0.77 0.60-1.30 MG/DL Estimat Glomerular Filtration Rate > 60 BUN/Creatinine Ratio 27 Glucose Level 92 70-105 MG/DL Calcium Level 9.3 8.5-10.1 MG/DL Corrected Calcium 9.8 8.5-10.1 MG/DL Magnesium Level 1.9 1.8-2.4 MG/DL Total Bilirubin 0.3 0.1-1.0 MG/DL Aspartate Amino Transf (AST/SGOT) 21 5-34 U/L Alanine Aminotransferase (ALT/SGPT) 26 0-55 U/L Alkaline Phosphatase 187 H 40-136 U/L C-Reactive Protein High Sensitivity 3.89 H 0.00-0.50 MG/DL Total Protein 6.7 6.4-8.2 GM/DL Albumin 3.4 3.2-4.5 GM/DL Valproic Acid (Depakene) Level 29.2 L 50.0-100.0 UG/ML Urine Color YELLOW Urine Clarity CLEAR Urine pH 7 5-9 Urine Specific Proctor 1.015 L 1.016-1.022 Urine Protein 1+ H NEGATIVE Urine Glucose (UA) NEGATIVE NEGATIVE Urine Ketones NEGATIVE NEGATIVE Urine Nitrite NEGATIVE NEGATIVE Urine Bilirubin NEGATIVE NEGATIVE Urine Urobilinogen NORMAL NORMAL MG/DL Urine Leukocyte Esterase NEGATIVE NEGATIVE Urine RBC (Auto) NEGATIVE NEGATIVE Urine RBC NONE /HPF Urine WBC NONE /HPF Urine Squamous Epithelial Cells RARE /HPF Urine Crystals NONE /LPF Urine Bacteria NONE /HPF Urine Casts NONE /LPF Urine Mucus NEGATIVE /LPF Urine Culture Indicated NO My Orders Orders - BAN MIRZA Ct Head/Face/Cervical Wo (10/16/18 14:19) Chest 1 View, Ap/Pa Only (10/16/18 14:19) Ed Iv/Invasive Line Start (10/16/18 14:19) Lactated Ringers (Lr 1000 Ml Iv Solution (10/16/18 14:19) Cbc With Automated Diff (10/16/18 14:19) Comprehensive Metabolic Panel (10/16/18 14:19) Hs C Reactive Protein (10/16/18 14:19) Magnesium (10/16/18 14:19) Ua Culture If Indicated (10/16/18 14:19) Valproic Acid (10/16/18 14:19) Medications Given in ED Current Medications Medications Dose Ordered Sig/Norberto Route Start Time Stop Time Status Last Admin Dose Admin Lactated Ringer's 1,000 ml @ 0 mls/hr Q0M ONCE IV 10/16/18 14:19 10/16/18 14:22 DC 10/16/18 14:42 0 MLS/HR Vital Signs/I&O 10/16/18 10/16/18 10/16/18 10/16/18 13:40 18:12 18:20 18:45 Temp 97.9 97.0 Pulse 109 87 76 Resp 18 18 16 B/P (MAP) 90/59 (69) 117/82 (94) 134/82 (99) Pulse Ox 97 97 98 97 O2 Delivery Room Air Room Air Room Air Blood Pressure Mean: 69 Progress Progress Note : Time: 16:28 Progress Note They are you is going to evaluate the patient for debility management by inpatient physical therapy. The mass on the side of his head doesn't seem to be from infection. No abscess seen on the maxillofacial CT. No evidence of internal intracranial trauma. Suspect maybe it's hematoma since is tender from occult fall versus unknown. Diagnostic Imaging Diagonstic Imaging: Xray Plain Films/CT/US/NM/MRI: chest Comments [facility]. [place], [place] NAME: AAKASH DILL [facility] REC#: [id number] PT STATUS: REG ER : 1960 PHYSICIAN: BAN MIRZA MD ADMIT DATE: 10/16/18/ER Draft Date of Exam:10/16/18 CHEST 1 VIEW, AP/PA ONLY INDICATION: Swelling to the face. COMPARISON: CT chest dated 10/15/2018. FINDINGS: Single frontal radiographic view of the chest was obtained and again demonstrates moderate likely loculated right-sided hydropneumothorax with associated consolidative infiltrate appearing opacities within the right mid and lower lung field. Overall, aeration is stable compared to prior exam. Left lung is relatively clear. There is no large effusion or pneumothorax on the left. Cardiac silhouette and pulmonary vasculature within normal limits. Bony structures show no gross acute abnormalities. IMPRESSION: 1. Stable exam of the chest showing right-sided loculated hydropneumothorax with associated right-sided infiltrates. Dictated on workstation # [id number] Dict: 10/16/18 1517 Trans: 10/16/18 1523 [facility] [id number] Interpreted by: MADDY GORDON MD Electronically signed by: Reviewed: Reviewed by Me Diagonstic Imaging: CT Plain Films/CT/US/NM/MRI: c-spine, head Comments No acute intracranial hemorrhage, mass effect, tumor or fracture. No cervical spine fracture. Reviewed: Reviewed by Me, Discussed w/Radiologist Departure Communication (Admissions) Time/Spoke to Admitting Phy: 16:50 Discussed the case with Dr. Jackson and he agrees to observe the patient have social media executive consult looking for significant placement. Consult PT OT. We discussed the swelling on the side of, labs, imaging. He will see the patient in the morning. Impression Primary Impression: Physical debility Additional Impressions: Empyema lung Facial swelling Disposition: ADMITTED INPATIENT (observation) Condition: Stable Admissions Decision to Admit Reason: Admit from ER (General) Decision to Admit/Date: October 16, 2018 Time/Decision to Admit Time: 16:45 Departure-Patient Inst. Referrals: JAVID JACKSON DO (PCP/Family) Primary Care Physician BAN MIRZA October 16, 2018 14:31
--- OUTSIDE RECORDS SUMMARY | 2018-10-16 14:34 | XMS REPORT | Continuity of Care Document ---
Demographics Preferred Language Unknown Marital Status Unknown Mormonism Affiliation Unknown Race Unknown Ethnic Group Unknown Author Organization Unknown Address Unknown Allergies Active Description Code Type Severity Reaction Onset Reported/Identified Relationship to Patient Clinical Status Yes CONTRAST MEDIA, IODINE RELATED [id number] CLASS N/A N/A Yes ISOVUE-300 [id number] BRANDNAME N /A N/A Yes ISOVUE-300 [id number] BRANDNAME N /A OTHER Yes No Known Environmental Allergies [id number] N/A N/A Yes No Known Food Allergies [id number] N/A N/A Yes IVP CONTRAST IVP CONTRAST Unknown N/A 09/25/2007 Medications There is no data. Problems Date Dx Coded Attending Type Code Diagnosis Diagnosed By 03/26/2017 P [id number] Encounter for preprocedural cardiovascular examination 03/26/2017 S [id number] Encounter for preprocedural laboratory examination 10/16/2017 P [id number] Abrasion of nose, initial encounter 10/16/2017 S [id number] Abrasion of unspecified part of head, initial encounter 10/16/2017 S [id number] Strain of muscle, fascia and tendon at neck level, initial encounter 10/16/2017 S [id number] Strain of muscle, fascia and tendon of lower back, initial encounter 10/16/2017 S [id number] Fall on same level from slipping, tripping and stumbling without subsequent striking against object, initial encounter 10/16/2017 S [id number] Other athletic field as the place of occurrence of the external cause 10/16/2017 S [id number] Activity, running 05/22/2018 RENETTA JAVID TAY Ot G31.89 OTHER SPECIFIED DEGENERATIVE DISEASES OF 05/22/2018 RENETTA JAVID TAY Ot R26.81 UNSTEADINESS ON FEET 05/22/2018 TAMMYJAVID CAIN DO Ot W19.XXXA UNSPECIFIED FALL, INITIAL ENCOUNTER 06/14/2018 RENETTA JAVID TAY Ot G31.89 OTHER SPECIFIED DEGENERATIVE DISEASES OF 06/14/2018 RENETTA DOJAVID Ot R26.81 UNSTEADINESS ON FEET 06/14/2018 GELJAVID SANCHEZ DO Ot W19.XXXA UNSPECIFIED FALL, INITIAL ENCOUNTER 07/23/2018 S [id number] Fall on same level from slipping, tripping and stumbling without subsequent striking against object, initial encounter 07/23/[id number] in longterm as the place of occurrence of the external cause 07/23/2018 P Z043 Encounter for examination and observation following other accident 09/10/2018 MANDY COLLINS DO Ot E66.9 OBESITY, UNSPECIFIED 09/10/2018 MANDY COLLINS DO Ot G40.909 EPILEPSY, UNSP, NOT INTRACTABLE, WITHOUT 09/10/2018 MANDY COLLINS DO Ot J90 PLEURAL EFFUSION, NOT ELSEWHERE CLASSIFI 09/10/2018 MANDY COLLINS DO Ot J98.4 OTHER DISORDERS OF LUNG 09/24/2018 MARKUS PIPER APRN Ot E66.9 OBESITY, UNSPECIFIED 09/24/2018 MARKUS PIPER APRN Ot G40.909 EPILEPSY, UNSP, NOT INTRACTABLE, WITHOUT 09/24/2018 MARKUS PIPER APRN Ot I25.10 ATHSCL HEART DISEASE OF [place] CORONARY 09/24/2018 MARKUS PIPER APRN Ot I51.7 CARDIOMEGALY 09/24/2018 MARKUS PIPER APRN Ot J90 PLEURAL EFFUSION, NOT ELSEWHERE CLASSIFI 09/24/2018 MARKUS PIPER APRN Ot 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, 09/24/2018 MARKUS PIPER APRN Ot R91.8 OTHER NONSPECIFIC ABNORMAL FINDING OF VICKI 09/29/2018 Ot J90 PLEURAL EFFUSION, NOT ELSEWHERE CLASSIFI 09/29/2018 Ot J94.8 OTHER SPECIFIED PLEURAL CONDITIONS 09/29/2018 Ot R91.8 OTHER NONSPECIFIC ABNORMAL FINDING OF VICKI 10/02/2018 DIANA SANCHEZ, LUISANA [place] Ot R06.02 SHORTNESS OF BREATH 10/02/2018 LUISANA ORTIZ MD Ot R63.0 ANOREXIA 10/03/2018 MANDY COLLINS DO Ot E66.9 OBESITY, UNSPECIFIED 10/03/2018 MANDY COLLINS DO, Ot G40.909 EPILEPSY, UNSP, NOT INTRACTABLE, WITHOUT 10/03/2018 MANDY COLLINS DO Ot J90 PLEURAL EFFUSION, NOT ELSEWHERE CLASSIFI 10/03/2018 MANDY COLLINS DO Ot J98.4 OTHER DISORDERS OF LUNG 10/06/2018 MANDY COLLINS DO Ot D64.9 ANEMIA, UNSPECIFIED 10/06/2018 MANDY COLLINS DO Ot F25.9 SCHIZOAFFECTIVE DISORDER, UNSPECIFIED 10/06/2018 MANDY COLLINS DO Ot F31.9 BIPOLAR DISORDER, UNSPECIFIED 10/06/2018 MANDY COLLINS DO Ot F79 UNSPECIFIED INTELLECTUAL DISABILITIES 10/06/2018 MANDY COLLINS DO Ot I34.1 NONRHEUMATIC MITRAL (VALVE) PROLAPSE 10/06/2018 MANDY COLLINS DO Ot J30.2 OTHER SEASONAL ALLERGIC RHINITIS 10/06/2018 MANDY COLLINS DO Ot J90 PLEURAL EFFUSION, NOT ELSEWHERE CLASSIFI 10/06/2018 MANDY COLLINS DO Ot J94.8 OTHER SPECIFIED PLEURAL CONDITIONS 10/06/2018 MANDY COLLINS DO Ot R53.1 WEAKNESS 10/06/2018 MANDY COLLINS DO Ot R91.8 OTHER NONSPECIFIC ABNORMAL FINDING OF VICKI 10/06/2018 MANDY COLLINS DO Ot D64.9 ANEMIA, UNSPECIFIED 10/06/2018 MANDY COLLINS DO Ot F25.9 SCHIZOAFFECTIVE DISORDER, UNSPECIFIED 10/06/2018 MANDY COLLINS DO Ot F31.9 BIPOLAR DISORDER, UNSPECIFIED 10/06/2018 MANDY COLLINS DO Ot F79 UNSPECIFIED INTELLECTUAL DISABILITIES 10/06/2018 MANDY COLLINS DO Ot I34.1 NONRHEUMATIC MITRAL (VALVE) PROLAPSE 10/06/2018 MANDY COLLINS DO Ot J30.2 OTHER SEASONAL ALLERGIC RHINITIS 10/06/2018 MANDY COLLINS DO Ot J90 PLEURAL EFFUSION, NOT ELSEWHERE CLASSIFI 10/06/2018 MANDY COLLINS DO Ot J94.8 OTHER SPECIFIED PLEURAL CONDITIONS 10/06/2018 MANDY COLLINS DO Ot R53.1 WEAKNESS 10/06/2018 MANDY COLLINS DO M Ot R91.8 OTHER NONSPECIFIC ABNORMAL FINDING OF VICKI 10/06/2018 MANDY COLLINS DO Ot D64.9 ANEMIA, UNSPECIFIED 10/06/2018 MANDY COLLINS DO Ot F25.9 SCHIZOAFFECTIVE DISORDER, UNSPECIFIED 10/06/2018 MANDY COLLINS DO Ot F31.9 BIPOLAR DISORDER, UNSPECIFIED 10/06/2018 MANDY COLLINS DO Ot F79 UNSPECIFIED INTELLECTUAL DISABILITIES 10/06/2018 MANDY COLLINS DO Ot I34.1 NONRHEUMATIC MITRAL (VALVE) PROLAPSE 10/06/2018 MANDY COLLINS DO Ot J30.2 OTHER SEASONAL ALLERGIC RHINITIS 10/06/2018 MANDY COLLINS DO Ot J90 PLEURAL EFFUSION, NOT ELSEWHERE CLASSIFI 10/06/2018 MANDY COLLINS DO Ot J94.8 OTHER SPECIFIED PLEURAL CONDITIONS 10/06/2018 MANDY COLLINS DO Ot R53.1 WEAKNESS 10/06/2018 MANDY COLLINS DO Ot R91.8 OTHER NONSPECIFIC ABNORMAL FINDING OF VICK[place] 10/07/2018 MANDY COLLINS DO Ot D64.9 ANEMIA, UNSPECIFIED 10/07/2018 MANDY COLLINS DO Ot F25.9 SCHIZOAFFECTIVE DISORDER, UNSPECIFIED 10/07/2018 MANDY COLLINS DO Ot F31.9 BIPOLAR DISORDER, UNSPECIFIED 10/07/2018 MADNY COLLINS DO Ot F79 UNSPECIFIED INTELLECTUAL DISABILITIES 10/07/2018 MANDY COLLINS DO Ot I34.1 NONRHEUMATIC MITRAL (VALVE) PROLAPSE 10/07/2018 MANDY COLLINS DO Ot J30.2 OTHER SEASONAL ALLERGIC RHINITIS 10/07/2018 MANDY COLLINS DO Ot J90 PLEURAL EFFUSION, NOT ELSEWHERE CLASSIFI 10/07/2018 MANDY COLLINS DO Ot J94.8 OTHER SPECIFIED PLEURAL CONDITIONS 10/07/2018 MANDY COLLINS DO M Ot R53.1 WEAKNESS 10/07/2018 MANDY COLLINS DO M Ot R91.8 OTHER NONSPECIFIC ABNORMAL FINDING OF VICK[place] 10/07/2018 MANDY COLLINS DO Ot D64.9 ANEMIA, UNSPECIFIED 10/07/2018 MANDY COLLINS DO Ot F25.9 SCHIZOAFFECTIVE DISORDER, UNSPECIFIED 10/07/2018 MANDY COLLINS DO M Ot F31.9 BIPOLAR DISORDER, UNSPECIFIED 10/07/2018 MANDY COLLINS DO Ot F79 UNSPECIFIED INTELLECTUAL DISABILITIES 10/07/2018 MANDY COLLINS DO Ot I34.1 NONRHEUMATIC MITRAL (VALVE) PROLAPSE 10/07/2018 MANDY COLLINS DO Ot J30.2 OTHER SEASONAL ALLERGIC RHINITIS 10/07/2018 MANDY COLLINS DO Ot J90 PLEURAL EFFUSION, NOT ELSEWHERE CLASSIFI 10/07/2018 MANDY COLLINS DO Ot J94.8 OTHER SPECIFIED PLEURAL CONDITIONS 10/07/2018 MANDY COLLINS DO Ot R53.1 WEAKNESS 10/07/2018 MANDY COLLINS DO Ot R91.8 OTHER NONSPECIFIC ABNORMAL FINDING OF VICKI 10/07/2018 MANDY COLLINS DO Ot D64.9 ANEMIA, UNSPECIFIED 10/07/2018 MANDY COLLINS DO Ot F25.9 SCHIZOAFFECTIVE DISORDER, UNSPECIFIED 10/07/2018 MANDY COLLINS DO M Ot F31.9 BIPOLAR DISORDER, UNSPECIFIED 10/07/2018 MANDY COLLINS DO M Ot F79 UNSPECIFIED INTELLECTUAL DISABILITIES 10/07/2018 MANDY COLLINS DO Ot I34.1 NONRHEUMATIC MITRAL (VALVE) PROLAPSE 10/07/2018 MANDY COLLINS DO Ot J30.2 OTHER SEASONAL ALLERGIC RHINITIS 10/07/2018 MANDY COLLINS DO M Ot J90 PLEURAL EFFUSION, NOT ELSEWHERE CLASSIFI 10/07/2018 MANDY COLLINS DO Ot J94.8 OTHER SPECIFIED PLEURAL CONDITIONS 10/07/2018 MANDY COLLINS DO Ot R53.1 WEAKNESS 10/07/2018 MANDY COLLINS DO M Ot R91.8 OTHER NONSPECIFIC ABNORMAL FINDING OF [place] 10/08/2018 MANDY COLLINS DO Ot D64.9 ANEMIA, UNSPECIFIED 10/08/2018 MANDY COLLINS DO Ot F25.9 SCHIZOAFFECTIVE DISORDER, UNSPECIFIED 10/08/2018 MANDY COLLINS DO M Ot F31.9 BIPOLAR DISORDER, UNSPECIFIED 10/08/2018 MANDY COLLINS DO M Ot F79 UNSPECIFIED INTELLECTUAL DISABILITIES 10/08/2018 MANDY COLLINS DO M Ot I34.1 NONRHEUMATIC MITRAL (VALVE) PROLAPSE 10/08/2018 MANDY COLLINS DO M Ot J30.2 OTHER SEASONAL ALLERGIC RHINITIS 10/08/2018 MANDY COLLINS DO M Ot J90 PLEURAL EFFUSION, NOT ELSEWHERE CLASSIFI 10/08/2018 MANDY COLLINS DO Ot J94.8 OTHER SPECIFIED PLEURAL CONDITIONS 10/08/2018 MANDY COLLINS DO Ot R53.1 WEAKNESS 10/08/2018 MANDY COLLINS DO Ot R91.8 OTHER NONSPECIFIC ABNORMAL FINDING OF V[place] 10/08/2018 MANDY COLLINS DO Ot D64.9 ANEMIA, UNSPECIFIED 10/08/2018 MANDY COLLINS DO Ot F25.9 SCHIZOAFFECTIVE DISORDER, UNSPECIFIED 10/08/2018 MANDY COLLINS DO Ot F31.9 BIPOLAR DISORDER, UNSPECIFIED 10/08/2018 MANDY COLLINS DO M Ot F79 UNSPECIFIED INTELLECTUAL DISABILITIES 10/08/2018 MANDY COLLINS DO M Ot I34.1 NONRHEUMATIC MITRAL (VALVE) PROLAPSE 10/08/2018 MANDY COLLINS DO M Ot J30.2 OTHER SEASONAL ALLERGIC RHINITIS 10/08/2018 MANDY COLLINS DO Ot J90 PLEURAL EFFUSION, NOT ELSEWHERE CLASSIFI 10/08/2018 MANDY COLLINS DO Ot J94.8 OTHER SPECIFIED PLEURAL CONDITIONS 10/08/2018 MANDY COLLINS DO Ot R53.1 WEAKNESS 10/08/2018 MANDY COLLINS DO M Ot R91.8 OTHER NONSPECIFIC ABNORMAL FINDING OF VICK[place] 10/08/2018 MANDY COLLINS DO Ot D64.9 ANEMIA, UNSPECIFIED 10/08/2018 MANDY COLLINS DO Ot F25.9 SCHIZOAFFECTIVE DISORDER, UNSPECIFIED 10/08/2018 MANDY COLLINS DO Ot F31.9 BIPOLAR DISORDER, UNSPECIFIED 10/08/2018 MANDY COLLINS DO Ot F79 UNSPECIFIED INTELLECTUAL DISABILITIES 10/08/2018 MANDY COLLINS DO Ot I34.1 NONRHEUMATIC MITRAL (VALVE) PROLAPSE 10/08/2018 MANDY COLLINS DO M Ot J30.2 OTHER SEASONAL ALLERGIC RHINITIS 10/08/2018 MANDY COLLINS DO Ot J90 PLEURAL EFFUSION, NOT ELSEWHERE CLASSIFI 10/08/2018 MANDY COLLINS DO M Ot J94.8 OTHER SPECIFIED PLEURAL CONDITIONS 10/08/2018 MANDY COLLINS DO M Ot R53.1 WEAKNESS 10/08/2018 MANDY COLLINS DO M Ot R91.8 OTHER NONSPECIFIC ABNORMAL FINDING OF VICKI 10/08/2018 MANDY COLLINS DO Ot D64.9 ANEMIA, UNSPECIFIED 10/08/2018 MANDY COLLINS DO Ot F25.9 SCHIZOAFFECTIVE DISORDER, UNSPECIFIED 10/08/2018 MANDY COLLINS DO Ot F31.9 BIPOLAR DISORDER, UNSPECIFIED 10/08/2018 MANDY COLLINS DO Ot F79 UNSPECIFIED INTELLECTUAL DISABILITIES 10/08/2018 MANDY COLLINS DO Ot I34.1 NONRHEUMATIC MITRAL (VALVE) PROLAPSE 10/08/2018 MANDY COLLINS DO Ot J30.2 OTHER SEASONAL ALLERGIC RHINITIS 10/08/2018 MANDY COLLINS DO Ot J90 PLEURAL EFFUSION, NOT ELSEWHERE CLASSIFI 10/08/2018 MANDY COLLINS DO Ot J94.8 OTHER SPECIFIED PLEURAL CONDITIONS 10/08/2018 MANDY COLLINS DO Ot R53.1 WEAKNESS 10/08/2018 MANDY COLLINS DO Ot R91.8 OTHER NONSPECIFIC ABNORMAL FINDING OF VICKI Procedures Code Description Performed By Performed On [id number] DRAINAGE OF R PLEURAL CAV WITH DRAIN DEV 09/30/2018 Results Test Result Range Methicillin resistant Staphylococcus aureus (MRSA) screening culture - 16:22 Methicillin resistant Staphylococcus aureus (MRSA) screening culture NEG NRG Body fluid cell count - 09/30/18 21:00 Specimen source identification of body fluid PLEURAL NRG Evaluation of color of body fluid RED NRG Determination of appearance of body fluid MOD CLDY NRG Body fluid leukocytes count (number/volume) 250 /uL NRG Body fluid erythrocytes count (number/volume) 52589 /uL NRG Manual body fluid polymorphonuclear cells/100 leukocytes 47 % NRG Manual body fluid mononuclear cells/100 leukocytes 7 % NRG Manual body fluid lymphocytes/100 leukocytes 38 % NRG Other cells/100 leukocytes in body fluid by manual count 8 % NRG * PH of body fluid - 09/30/18 21:00 * PH of body fluid 8 NRG Glucose body fluid - 09/30/18 21:00 Glucose body fluid 71 mg/dL NRG Body fluid total protein measurement - 09/30/18 21:00 Body fluid total protein measurement 3.7 g/dL NRG Body fluid/serum or plasma lactate dehydrogenase (LDH) ratio - 09/30/18 21:00 Body fluid/serum or plasma lactate dehydrogenase (LDH) ratio 483 U/ L NRG Gram stain microscopy - 09/30/18 21:00 Gram stain microscopy No bacteria seen NRG Bacterial body fluid culture - 09/30/18 21:00 Bacterial body fluid culture NG NRG Complete blood count (CBC) with automated white blood cell (WBC) differential - 10/01/18 03:20 Blood leukocytes automated count (number/volume) 7.3 10*3/uL 4.3-11.0 Blood erythrocytes automated count (number/volume) 4.11 10*6/uL 4.35-5.85 Venous blood hemoglobin measurement (mass/volume) 10.9 g/dL 13.3-17.7 Blood hematocrit (volume fraction) 34 % 40-54 Automated erythrocyte mean corpuscular volume 82 [foz_us] 80-99 Automated erythrocyte mean corpuscular hemoglobin (mass per erythrocyte) 27 pg 25-34 Automated erythrocyte mean corpuscular hemoglobin concentration measurement ( mass/volume) 32 g/dL 32-36 Automated erythrocyte distribution width ratio 14.9 % 10.0-14.5 Automated blood platelet count (count/volume) 591 10*3/uL 130-400 Automated blood platelet mean volume measurement 9.1 [foz_us] 7.4-10.4 Automated blood neutrophils/100 leukocytes 57 % 42-75 Automated blood lymphocytes/100 leukocytes 27 % 12-44 Blood monocytes/100 leukocytes 15 % 0-12 Automated blood eosinophils/100 leukocytes 1 % 0-10 Automated blood basophils/100 leukocytes 0 % 0-10 Blood neutrophils automated count (number/volume) 4.2 10*3 1.8-7.8 Blood lymphocytes automated count (number/volume) 2.0 10*3 1.0-4.0 Blood monocytes automated count (number/volume) 1.1 10*3 0.0-1.0 Automated eosinophil count 0.0 10*3/uL 0.0-0.3 Automated blood basophil count (count/volume) 0.0 10*3/uL 0.0-0.1 Comprehensive metabolic panel - 10/01/18 03:20 Serum or plasma sodium measurement (moles/volume) 135 mmol/L 135-145 Serum or plasma potassium measurement (moles/volume) 3.9 mmol/L 3.6-5.0 Serum or plasma chloride measurement (moles/volume) 100 mmol/L 98-107 Carbon dioxide 24 mmol/L 21-32 Serum or plasma anion gap determination (moles/volume) 11 mmol/L 5-14 Serum or plasma urea nitrogen measurement (mass/volume) 12 mg/dL 7-18 Serum or plasma creatinine measurement (mass/volume) 0.74 mg/dL 0.60-1.30 Serum or plasma urea nitrogen/creatinine mass ratio 16 NRG Serum or plasma creatinine measurement with calculation of estimated glomerular filtration rate > NRG Serum or plasma glucose measurement (mass/volume) 85 mg/dL 70-105 Serum or plasma calcium measurement (mass/volume) 9.1 mg/dL 8.5-10.1 Serum or plasma total bilirubin measurement (mass/volume) 0.4 mg/dL 0.1-1.0 Serum or plasma alkaline phosphatase measurement (enzymatic activity/volume) 167 U/L 40-136 Serum or plasma aspartate aminotransferase measurement (enzymatic activity/ volume) 17 U/L 5-34 Serum or plasma alanine aminotransferase measurement (enzymatic activity/volume ) 20 U/L 0-55 Serum or plasma protein measurement (mass/volume) 6.0 g/dL 6.4-8.2 Serum or plasma albumin measurement (mass/volume) 3.0 g/dL 3.2-4.5 CALCIUM CORRECTED 9.9 mg/dL 8.5-10.1 Serum or plasma phosphate measurement (mass/volume) - 10/01/18 03:20 Serum or plasma phosphate measurement (mass/volume) 3.4 mg/dL 2.3-4.7 Magnesium - 10/01/18 03:20 Magnesium 1.9 mg/dL 1.8-2.4 Complete blood count (CBC) with automated white blood cell (WBC) differential - 10/02/18 03:30 Blood leukocytes automated count (number/volume) 7.9 10*3/uL 4.3-11.0 Blood erythrocytes automated count (number/volume) 4.26 10*6/uL 4.35-5.85 Venous blood hemoglobin measurement (mass/volume) 11.2 g/dL 13.3-17.7 Blood hematocrit (volume fraction) 34 % 40-54 Automated erythrocyte mean corpuscular volume 81 [foz_us] 80-99 Automated erythrocyte mean corpuscular hemoglobin (mass per erythrocyte) 26 pg 25-34 Automated erythrocyte mean corpuscular hemoglobin concentration measurement ( mass/volume) 33 g/dL 32-36 Automated erythrocyte distribution width ratio 14.5 % 10.0-14.5 Automated blood platelet count (count/volume) 555 10*3/uL 130-400 Automated blood platelet mean volume measurement 8.9 [foz_us] 7.4-10.4 Automated blood neutrophils/100 leukocytes 66 % 42-75 Automated blood lymphocytes/100 leukocytes 17 % 12-44 Blood monocytes/100 leukocytes 16 % 0-12 Automated blood eosinophils/100 leukocytes 1 % 0-10 Automated blood basophils/100 leukocytes 0 % 0-10 Blood neutrophils automated count (number/volume) 5.2 10*3 1.8-7.8 Blood lymphocytes automated count (number/volume) 1.3 10*3 1.0-4.0 Blood monocytes automated count (number/volume) 1.3 10*3 0.0-1.0 Automated eosinophil count 0.1 10*3/uL 0.0-0.3 Automated blood basophil count (count/volume) 0.0 10*3/uL 0.0-0.1 Comprehensive metabolic panel - 10/02/18 03:30 Serum or plasma sodium measurement (moles/volume) 132 mmol/L 135-145 Serum or plasma potassium measurement (moles/volume) 4.1 mmol/L 3.6-5.0 Serum or plasma chloride measurement (moles/volume) 96 mmol/L 98-107 Carbon dioxide 24 mmol/L 21-32 Serum or plasma anion gap determination (moles/volume) 12 mmol/L 5-14 Serum or plasma urea nitrogen measurement (mass/volume) 7 mg/dL 7-18 Serum or plasma creatinine measurement (mass/volume) 0.68 mg/dL 0.60-1.30 Serum or plasma urea nitrogen/creatinine mass ratio 10 NRG Serum or plasma creatinine measurement with calculation of estimated glomerular filtration rate > NRG Serum or plasma glucose measurement (mass/volume) 88 mg/dL 70-105 Serum or plasma calcium measurement (mass/volume) 9.4 mg/dL 8.5-10.1 Serum or plasma total bilirubin measurement (mass/volume) 0.6 mg/dL 0.1-1.0 Serum or plasma alkaline phosphatase measurement (enzymatic activity/volume) 179 U/L 40-136 Serum or plasma aspartate aminotransferase measurement (enzymatic activity/ volume) 13 U/L 5-34 Serum or plasma alanine aminotransferase measurement (enzymatic activity/volume ) 15 U/L 0-55 Serum or plasma protein measurement (mass/volume) 6.8 g/dL 6.4-8.2 Serum or plasma albumin measurement (mass/volume) 3.2 g/dL 3.2-4.5 CALCIUM CORRECTED 10.0 mg/dL 8.5-10.1 Serum or plasma phosphate measurement (mass/volume) - 10/02/18 03:30 Serum or plasma phosphate measurement (mass/volume) 3.0 mg/dL 2.3-4.7 Magnesium - 10/02/18 03:30 Magnesium 1.7 mg/dL 1.8-2.4 Serum or plasma lithium measurement (moles/volume) - 10/02/18 03:30 BNP level 79.8 pg/mL <100.0 Vancomycin trough - 10/02/18 18:10 Vancomycin trough 5.5 ug/mL 10.0-20.0 Complete blood count (CBC) with automated white blood cell (WBC) differential - 10/03/18 03:35 Blood leukocytes automated count (number/volume) 8.9 10*3/uL 4.3-11.0 Blood erythrocytes automated count (number/volume) 4.97 10*6/uL 4.35-5.85 Venous blood hemoglobin measurement (mass/volume) 13.0 g/dL 13.3-17.7 Blood hematocrit (volume fraction) 40 % 40-54 Automated erythrocyte mean corpuscular volume 80 [foz_us] 80-99 Automated erythrocyte mean corpuscular hemoglobin (mass per erythrocyte) 26 pg 25-34 Automated erythrocyte mean corpuscular hemoglobin concentration measurement ( mass/volume) 33 g/dL 32-36 Automated erythrocyte distribution width ratio 14.6 % 10.0-14.5 Automated blood platelet count (count/volume) 587 10*3/uL 130-400 Automated blood platelet mean volume measurement 9.2 [foz_us] 7.4-10.4 Automated blood neutrophils/100 leukocytes 87 % 42-75 Automated blood lymphocytes/100 leukocytes 8 % 12-44 Blood monocytes/100 leukocytes 5 % 0-12 Automated blood eosinophils/100 leukocytes 0 % 0-10 Automated blood basophils/100 leukocytes 0 % 0-10 Blood neutrophils automated count (number/volume) 7.8 10*3 1.8-7.8 Blood lymphocytes automated count (number/volume) 0.7 10*3 1.0-4.0 Blood monocytes automated count (number/volume) 0.4 10*3 0.0-1.0 Automated eosinophil count 0.0 10*3/uL 0.0-0.3 Automated blood basophil count (count/volume) 0.0 10*3/uL 0.0-0.1 Comprehensive metabolic panel - 10/03/18 03:35 Serum or plasma sodium measurement (moles/volume) 134 mmol/L 135-145 Serum or plasma potassium measurement (moles/volume) 4.5 mmol/L 3.6-5.0 Serum or plasma chloride measurement (moles/volume) 98 mmol/L 98-107 Carbon dioxide 23 mmol/L 21-32 Serum or plasma anion gap determination (moles/volume) 13 mmol/L 5-14 Serum or plasma urea nitrogen measurement (mass/volume) 10 mg/dL 7-18 Serum or plasma creatinine measurement (mass/volume) 0.73 mg/dL 0.60-1.30 Serum or plasma urea nitrogen/creatinine mass ratio 14 NRG Serum or plasma creatinine measurement with calculation of estimated glomerular filtration rate > NRG Serum or plasma glucose measurement (mass/volume) 127 mg/dL 70-105 Serum or plasma calcium measurement (mass/volume) 9.8 mg/dL 8.5-10.1 Serum or plasma total bilirubin measurement (mass/volume) 0.4 mg/dL 0.1-1.0 Serum or plasma alkaline phosphatase measurement (enzymatic activity/volume) 181 U/L 40-136 Serum or plasma aspartate aminotransferase measurement (enzymatic activity/ volume) 15 U/L 5-34 Serum or plasma alanine aminotransferase measurement (enzymatic activity/volume ) 18 U/L 0-55 Serum or plasma protein measurement (mass/volume) 7.6 g/dL 6.4-8.2 Serum or plasma albumin measurement (mass/volume) 3.4 g/dL 3.2-4.5 CALCIUM CORRECTED 10.3 mg/dL 8.5-10.1 Serum or plasma phosphate measurement (mass/volume) - 10/03/18 03:35 Serum or plasma phosphate measurement (mass/volume) 3.8 mg/dL 2.3-4.7 Magnesium - 10/03/18 03:35 Magnesium 1.9 mg/dL 1.8-2.4 Sputum Gram stain - 10/03/18 06:35 Sputum Gram stain Small amount of Mixed Bacterial [place]ann[place] NRG Bacteria identification in bronchial specimen by aerobe culture - 10/03/18 06: 35 QUANTITY OF GROWTH . NRG Bacteria identification in bronchial specimen by aerobe culture USUAL RESP NRG FTX;REPORTABLE 5,000 CFU/ML NRG C FUNGUS SPUTUM FLUID TISSUE - 10/03/18 06:35 FTX;REPORTABLE FINAL REQUIRES 4 WEEKS NRG FUNGUS EXAM CURRENT REPORT: NEGATIVE NRG Mycobacterium species detection by organism specific culture - 10/03/18 06:36 Complete blood count (CBC) with automated white blood cell (WBC) differential - 10/04/18 03:05 Blood leukocytes automated count (number/volume) 15.8 10*3/uL 4.3-11.0 Blood erythrocytes automated count (number/volume) 4.20 10*6/uL 4.35-5.85 Venous blood hemoglobin measurement (mass/volume) 11.1 g/dL 13.3-17.7 Blood hematocrit (volume fraction) 34 % 40-54 Automated erythrocyte mean corpuscular volume 81 [foz_us] 80-99 Automated erythrocyte mean corpuscular hemoglobin (mass per erythrocyte) 26 pg 25-34 Automated erythrocyte mean corpuscular hemoglobin concentration measurement ( mass/volume) 33 g/dL 32-36 Automated erythrocyte distribution width ratio 14.7 % 10.0-14.5 Automated blood platelet count (count/volume) 636 10*3/uL 130-400 Automated blood platelet mean volume measurement 9.2 [foz_us] 7.4-10.4 Automated blood neutrophils/100 leukocytes 91 % 42-75 Automated blood lymphocytes/100 leukocytes 4 % 12-44 Blood monocytes/100 leukocytes 4 % 0-12 Automated blood eosinophils/100 leukocytes 0 % 0-10 Automated blood basophils/100 leukocytes 0 % 0-10 Blood neutrophils automated count (number/volume) 14.4 10*3 1.8-7.8 Blood lymphocytes automated count (number/volume) 0.7 10*3 1.0-4.0 Blood monocytes automated count (number/volume) 0.7 10*3 0.0-1.0 Automated eosinophil count 0.0 10*3/uL 0.0-0.3 Automated blood basophil count (count/volume) 0.0 10*3/uL 0.0-0.1 Blood manual differential performed detection - 10/04/18 03:05 Blood monocytes/100 leukocytes 3 % NRG Manual blood segmented neutrophils/100 leukocytes 91 % NRG Blood band neutrophils/100 leukocytes 1 % NRG Manual blood lymphocytes/100 leukocytes 5 % NRG Blood erythrocyte morphology finding identification NORMAL NRG Comprehensive metabolic panel - 10/04/18 03:05 Serum or plasma sodium measurement (moles/volume) 139 mmol/L 135-145 Serum or plasma potassium measurement (moles/volume) 4.2 mmol/L 3.6-5.0 Serum or plasma chloride measurement (moles/volume) 106 mmol/L 98-107 Carbon dioxide 24 mmol/L 21-32 Serum or plasma anion gap determination (moles/volume) 9 mmol/L 5-14 Serum or plasma urea nitrogen measurement (mass/volume) 20 mg/dL 7-18 Serum or plasma creatinine measurement (mass/volume) 0.67 mg/dL 0.60-1.30 Serum or plasma urea nitrogen/creatinine mass ratio 30 NRG Serum or plasma creatinine measurement with calculation of estimated glomerular filtration rate > NRG Serum or plasma glucose measurement (mass/volume) 154 mg/dL 70-105 Serum or plasma calcium measurement (mass/volume) 8.7 mg/dL 8.5-10.1 Serum or plasma total bilirubin measurement (mass/volume) 0.3 mg/dL 0.1-1.0 Serum or plasma alkaline phosphatase measurement (enzymatic activity/volume) 155 U/L 40-136 Serum or plasma aspartate aminotransferase measurement (enzymatic activity/ volume) 12 U/L 5-34 Serum or plasma alanine aminotransferase measurement (enzymatic activity/volume ) 14 U/L 0-55 Serum or plasma protein measurement (mass/volume) 5.9 g/dL 6.4-8.2 Serum or plasma albumin measurement (mass/volume) 2.8 g/dL 3.2-4.5 CALCIUM CORRECTED 9.7 mg/dL 8.5-10.1 Serum or plasma phosphate measurement (mass/volume) - 10/04/18 03:05 Serum or plasma phosphate measurement (mass/volume) 1.8 mg/dL 2.3-4.7 Magnesium - 10/04/18 03:05 Magnesium 1.9 mg/dL 1.8-2.4 Complete blood count (CBC) with automated white blood cell (WBC) differential - 10/05/18 03:10 Blood leukocytes automated count (number/volume) 12.5 10*3/uL 4.3-11.0 Blood erythrocytes automated count (number/volume) 4.57 10*6/uL 4.35-5.85 Venous blood hemoglobin measurement (mass/volume) 12.0 g/dL 13.3-17.7 Blood hematocrit (volume fraction) 37 % 40-54 Automated erythrocyte mean corpuscular volume 81 [foz_us] 80-99 Automated erythrocyte mean corpuscular hemoglobin (mass per erythrocyte) 26 pg 25-34 Automated erythrocyte mean corpuscular hemoglobin concentration measurement ( mass/volume) 32 g/dL 32-36 Automated erythrocyte distribution width ratio 14.9 % 10.0-14.5 Automated blood platelet count (count/volume) 631 10*3/uL 130-400 Automated blood platelet mean volume measurement 9.3 [foz_us] 7.4-10.4 Automated blood neutrophils/100 leukocytes 90 % 42-75 Automated blood lymphocytes/100 leukocytes 6 % 12-44 Blood monocytes/100 leukocytes 5 % 0-12 Automated blood eosinophils/100 leukocytes 0 % 0-10 Automated blood basophils/100 leukocytes 0 % 0-10 Blood neutrophils automated count (number/volume) 11.2 10*3 1.8-7.8 Blood lymphocytes automated count (number/volume) 0.7 10*3 1.0-4.0 Blood monocytes automated count (number/volume) 0.6 10*3 0.0-1.0 Automated eosinophil count 0.0 10*3/uL 0.0-0.3 Automated blood basophil count (count/volume) 0.0 10*3/uL 0.0-0.1 Comprehensive metabolic panel - 10/05/18 03:10 Serum or plasma sodium measurement (moles/volume) 137 mmol/L 135-145 Serum or plasma potassium measurement (moles/volume) 4.0 mmol/L 3.6-5.0 Serum or plasma chloride measurement (moles/volume) 105 mmol/L 98-107 Carbon dioxide 21 mmol/L 21-32 Serum or plasma anion gap determination (moles/volume) 11 mmol/L 5-14 Serum or plasma urea nitrogen measurement (mass/volume) 12 mg/dL 7-18 Serum or plasma creatinine measurement (mass/volume) 0.71 mg/dL 0.60-1.30 Serum or plasma urea nitrogen/creatinine mass ratio 17 NRG Serum or plasma creatinine measurement with calculation of estimated glomerular filtration rate > NRG Serum or plasma glucose measurement (mass/volume) 111 mg/dL 70-105 Serum or plasma calcium measurement (mass/volume) 9.2 mg/dL 8.5-10.1 Serum or plasma total bilirubin measurement (mass/volume) 0.3 mg/dL 0.1-1.0 Serum or plasma alkaline phosphatase measurement (enzymatic activity/volume) 194 U/L 40-136 Serum or plasma aspartate aminotransferase measurement (enzymatic activity/ volume) 16 U/L 5-34 Serum or plasma alanine aminotransferase measurement (enzymatic activity/volume ) 19 U/L 0-55 Serum or plasma protein measurement (mass/volume) 6.7 g/dL 6.4-8.2 Serum or plasma albumin measurement (mass/volume) 3.2 g/dL 3.2-4.5 CALCIUM CORRECTED 9.8 mg/dL 8.5-10.1 Serum or plasma phosphate measurement (mass/volume) - 10/05/18 03:10 Serum or plasma phosphate measurement (mass/volume) 2.3 mg/dL 2.3-4.7 Magnesium - 10/05/18 03:10 Magnesium 1.9 mg/dL 1.8-2.4 Complete blood count (CBC) with automated white blood cell (WBC) differential - 10/06/18 03:30 Blood leukocytes automated count (number/volume) 10.3 10*3/uL 4.3-11.0 Blood erythrocytes automated count (number/volume) 4.26 10*6/uL 4.35-5.85 Venous blood hemoglobin measurement (mass/volume) 11.1 g/dL 13.3-17.7 Blood hematocrit (volume fraction) 35 % 40-54 Automated erythrocyte mean corpuscular volume 81 [foz_us] 80-99 Automated erythrocyte mean corpuscular hemoglobin (mass per erythrocyte) 26 pg 25-34 Automated erythrocyte mean corpuscular hemoglobin concentration measurement ( mass/volume) 32 g/dL 32-36 Automated erythrocyte distribution width ratio 15.2 % 10.0-14.5 Automated blood platelet count (count/volume) 615 10*3/uL 130-400 Automated blood platelet mean volume measurement 9.1 [foz_us] 7.4-10.4 Automated blood neutrophils/100 leukocytes 84 % 42-75 Automated blood lymphocytes/100 leukocytes 10 % 12-44 Blood monocytes/100 leukocytes 7 % 0-12 Automated blood eosinophils/100 leukocytes 0 % 0-10 Automated blood basophils/100 leukocytes 0 % 0-10 Blood neutrophils automated count (number/volume) 8.6 10*3 1.8-7.8 Blood lymphocytes automated count (number/volume) 1.0 10*3 1.0-4.0 Blood monocytes automated count (number/volume) 0.7 10*3 0.0-1.0 Automated eosinophil count 0.0 10*3/uL 0.0-0.3 Automated blood basophil count (count/volume) 0.0 10*3/uL 0.0-0.1 Comprehensive metabolic panel - 10/06/18 03:30 Serum or plasma sodium measurement (moles/volume) 137 mmol/L 135-145 Serum or plasma potassium measurement (moles/volume) 4.0 mmol/L 3.6-5.0 Serum or plasma chloride measurement (moles/volume) 106 mmol/L 98-107 Carbon dioxide 22 mmol/L 21-32 Serum or plasma anion gap determination (moles/volume) 9 mmol/L 5-14 Serum or plasma urea nitrogen measurement (mass/volume) 14 mg/dL 7-18 Serum or plasma creatinine measurement (mass/volume) 0.67 mg/dL 0.60-1.30 Serum or plasma urea nitrogen/creatinine mass ratio 21 NRG Serum or plasma creatinine measurement with calculation of estimated glomerular filtration rate > NRG Serum or plasma glucose measurement (mass/volume) 124 mg/dL 70-105 Serum or plasma calcium measurement (mass/volume) 8.9 mg/dL 8.5-10.1 Serum or plasma total bilirubin measurement (mass/volume) 0.3 mg/dL 0.1-1.0 Serum or plasma alkaline phosphatase measurement (enzymatic activity/volume) 164 U/L 40-136 Serum or plasma aspartate aminotransferase measurement (enzymatic activity/ volume) 12 U/L 5-34 Serum or plasma alanine aminotransferase measurement (enzymatic activity/volume ) 16 U/L 0-55 Serum or plasma protein measurement (mass/volume) 5.8 g/dL 6.4-8.2 Serum or plasma albumin measurement (mass/volume) 2.9 g/dL 3.2-4.5 CALCIUM CORRECTED 9.8 mg/dL 8.5-10.1 Serum or plasma phosphate measurement (mass/volume) - 10/06/18 03:30 Serum or plasma phosphate measurement (mass/volume) 2.7 mg/dL 2.3-4.7 Magnesium - 10/06/18 03:30 Magnesium 1.8 mg/dL 1.8-2.4 Complete blood count (CBC) with automated white blood cell (WBC) differential - 10/07/18 04:25 Blood leukocytes automated count (number/volume) 7.7 10*3/uL 4.3-11.0 Blood erythrocytes automated count (number/volume) 5.02 10*6/uL 4.35-5.85 Venous blood hemoglobin measurement (mass/volume) 13.2 g/dL 13.3-17.7 Blood hematocrit (volume fraction) 40 % 40-54 Automated erythrocyte mean corpuscular volume 80 [foz_us] 80-99 Automated erythrocyte mean corpuscular hemoglobin (mass per erythrocyte) 26 pg 25-34 Automated erythrocyte mean corpuscular hemoglobin concentration measurement ( mass/volume) 33 g/dL 32-36 Automated erythrocyte distribution width ratio 15.4 % 10.0-14.5 Automated blood platelet count (count/volume) 617 10*3/uL 130-400 Automated blood platelet mean volume measurement 9.3 [foz_us] 7.4-10.4 Automated blood neutrophils/100 leukocytes 84 % 42-75 Automated blood lymphocytes/100 leukocytes 12 % 12-44 Blood monocytes/100 leukocytes 4 % 0-12 Automated blood eosinophils/100 leukocytes 0 % 0-10 Automated blood basophils/100 leukocytes 0 % 0-10 Blood neutrophils automated count (number/volume) 6.5 10*3 1.8-7.8 Blood lymphocytes automated count (number/volume) 0.9 10*3 1.0-4.0 Blood monocytes automated count (number/volume) 0.3 10*3 0.0-1.0 Automated eosinophil count 0.0 10*3/uL 0.0-0.3 Automated blood basophil count (count/volume) 0.0 10*3/uL 0.0-0.1 Comprehensive metabolic panel - 10/07/18 04:25 Serum or plasma sodium measurement (moles/volume) 137 mmol/L 135-145 Serum or plasma potassium measurement (moles/volume) 3.8 mmol/L 3.6-5.0 Serum or plasma chloride measurement (moles/volume) 102 mmol/L 98-107 Carbon dioxide 25 mmol/L 21-32 Serum or plasma anion gap determination (moles/volume) 10 mmol/L 5-14 Serum or plasma urea nitrogen measurement (mass/volume) 10 mg/dL 7-18 Serum or plasma creatinine measurement (mass/volume) 0.72 mg/dL 0.60-1.30 Serum or plasma urea nitrogen/creatinine mass ratio 14 NRG Serum or plasma creatinine measurement with calculation of estimated glomerular filtration rate > NRG Serum or plasma glucose measurement (mass/volume) 130 mg/dL 70-105 Serum or plasma calcium measurement (mass/volume) 9.4 mg/dL 8.5-10.1 Serum or plasma total bilirubin measurement (mass/volume) 0.4 mg/dL 0.1-1.0 Serum or plasma alkaline phosphatase measurement (enzymatic activity/volume) 184 U/L 40-136 Serum or plasma aspartate aminotransferase measurement (enzymatic activity/ volume) 16 U/L 5-34 Serum or plasma alanine aminotransferase measurement (enzymatic activity/volume ) 25 U/L 0-55 Serum or plasma protein measurement (mass/volume) 7.0 g/dL 6.4-8.2 Serum or plasma albumin measurement (mass/volume) 3.4 g/dL 3.2-4.5 CALCIUM CORRECTED 9.9 mg/dL 8.5-10.1 Serum or plasma phosphate measurement (mass/volume) - 10/07/18 04:25 Serum or plasma phosphate measurement (mass/volume) 3.2 mg/dL 2.3-4.7 Magnesium - 10/07/18 04:25 Magnesium 2.0 mg/dL 1.8-2.4 Complete blood count (CBC) with automated white blood cell (WBC) differential - 10/08/18 04:35 Blood leukocytes automated count (number/volume) 12.0 10*3/uL 4.3-11.0 Blood erythrocytes automated count (number/volume) 4.91 10*6/uL 4.35-5.85 Venous blood hemoglobin measurement (mass/volume) 12.7 g/dL 13.3-17.7 Blood hematocrit (volume fraction) 40 % 40-54 Automated erythrocyte mean corpuscular volume 81 [foz_us] 80-99 Automated erythrocyte mean corpuscular hemoglobin (mass per erythrocyte) 26 pg 25-34 Automated erythrocyte mean corpuscular hemoglobin concentration measurement ( mass/volume) 32 g/dL 32-36 Automated erythrocyte distribution width ratio 16.4 % 10.0-14.5 Automated blood platelet count (count/volume) 660 10*3/uL 130-400 Automated blood platelet mean volume measurement 9.3 [foz_us] 7.4-10.4 Automated blood neutrophils/100 leukocytes 67 % 42-75 Automated blood lymphocytes/100 leukocytes 21 % 12-44 Blood monocytes/100 leukocytes 12 % 0-12 Automated blood eosinophils/100 leukocytes 0 % 0-10 Automated blood basophils/100 leukocytes 0 % 0-10 Blood neutrophils automated count (number/volume) 8.0 10*3 1.8-7.8 Blood lymphocytes automated count (number/volume) 2.5 10*3 1.0-4.0 Blood monocytes automated count (number/volume) 1.5 10*3 0.0-1.0 Automated eosinophil count 0.0 10*3/uL 0.0-0.3 Automated blood basophil count (count/volume) 0.0 10*3/uL 0.0-0.1 Comprehensive metabolic panel - 10/08/18 04:35 Serum or plasma sodium measurement (moles/volume) 137 mmol/L 135-145 Serum or plasma potassium measurement (moles/volume) 3.6 mmol/L 3.6-5.0 Serum or plasma chloride measurement (moles/volume) 103 mmol/L 98-107 Carbon dioxide 25 mmol/L 21-32 Serum or plasma anion gap determination (moles/volume) 9 mmol/L 5-14 Serum or plasma urea nitrogen measurement (mass/volume) 20 mg/dL 7-18 Serum or plasma creatinine measurement (mass/volume) 0.75 mg/dL 0.60-1.30 Serum or plasma urea nitrogen/creatinine mass ratio 27 NRG Serum or plasma creatinine measurement with calculation of estimated glomerular filtration rate > NRG Serum or plasma glucose measurement (mass/volume) 81 mg/dL 70-105 Serum or plasma calcium measurement (mass/volume) 8.7 mg/dL 8.5-10.1 Serum or plasma total bilirubin measurement (mass/volume) 0.3 mg/dL 0.1-1.0 Serum or plasma alkaline phosphatase measurement (enzymatic activity/volume) 158 U/L 40-136 Serum or plasma aspartate aminotransferase measurement (enzymatic activity/ volume) 15 U/L 5-34 Serum or plasma alanine aminotransferase measurement (enzymatic activity/volume ) 27 U/L 0-55 Serum or plasma protein measurement (mass/volume) 6.2 g/dL 6.4-8.2 Serum or plasma albumin measurement (mass/volume) 3.1 g/dL 3.2-4.5 CALCIUM CORRECTED 9.4 mg/dL 8.5-10.1 Serum or plasma phosphate measurement (mass/volume) - 10/08/18 04:35 Serum or plasma phosphate measurement (mass/volume) 2.9 mg/dL 2.3-4.7 Magnesium - 10/08/18 04:35 Magnesium 2.0 mg/dL 1.8-2.4 Complete blood count (CBC) with automated white blood cell (WBC) differential - 10/09/18 04:20 Blood leukocytes automated count (number/volume) 14.4 10*3/uL 4.3-11.0 Blood erythrocytes automated count (number/volume) 4.55 10*6/uL 4.35-5.85 Venous blood hemoglobin measurement (mass/volume) 12.0 g/dL 13.3-17.7 Blood hematocrit (volume fraction) 37 % 40-54 Automated erythrocyte mean corpuscular volume 82 [foz_us] 80-99 Automated erythrocyte mean corpuscular hemoglobin (mass per erythrocyte) 26 pg 25-34 Automated erythrocyte mean corpuscular hemoglobin concentration measurement ( mass/volume) 32 g/dL 32-36 Automated erythrocyte distribution width ratio 16.8 % 10.0-14.5 Automated blood platelet count (count/volume) 558 10*3/uL 130-400 Automated blood platelet mean volume measurement 9.3 [foz_us] 7.4-10.4 Automated blood neutrophils/100 leukocytes 72 % 42-75 Automated blood lymphocytes/100 leukocytes 18 % 12-44 Blood monocytes/100 leukocytes 10 % 0-12 Automated blood eosinophils/100 leukocytes 0 % 0-10 Automated blood basophils/100 leukocytes 0 % 0-10 Blood neutrophils automated count (number/volume) 10.3 10*3 1.8-7.8 Blood lymphocytes automated count (number/volume) 2.6 10*3 1.0-4.0 Blood monocytes automated count (number/volume) 1.5 10*3 0.0-1.0 Automated eosinophil count 0.0 10*3/uL 0.0-0.3 Automated blood basophil count (count/volume) 0.0 10*3/uL 0.0-0.1 Comprehensive metabolic panel - 10/09/18 04:20 Serum or plasma sodium measurement (moles/volume) 133 mmol/L 135-145 Serum or plasma potassium measurement (moles/volume) 3.8 mmol/L 3.6-5.0 Serum or plasma chloride measurement (moles/volume) 100 mmol/L 98-107 Carbon dioxide 23 mmol/L 21-32 Serum or plasma anion gap determination (moles/volume) 10 mmol/L 5-14 Serum or plasma urea nitrogen measurement (mass/volume) 13 mg/dL 7-18 Serum or plasma creatinine measurement (mass/volume) 0.63 mg/dL 0.60-1.30 Serum or plasma urea nitrogen/creatinine mass ratio 21 NRG Serum or plasma creatinine measurement with calculation of estimated glomerular filtration rate > NRG Serum or plasma glucose measurement (mass/volume) 88 mg/dL 70-105 Serum or plasma calcium measurement (mass/volume) 8.6 mg/dL 8.5-10.1 Serum or plasma total bilirubin measurement (mass/volume) 0.3 mg/dL 0.1-1.0 Serum or plasma alkaline phosphatase measurement (enzymatic activity/volume) 154 U/L 40-136 Serum or plasma aspartate aminotransferase measurement (enzymatic activity/ volume) 20 U/L 5-34 Serum or plasma alanine aminotransferase measurement (enzymatic activity/volume ) 28 U/L 0-55 Serum or plasma protein measurement (mass/volume) 5.9 g/dL 6.4-8.2 Serum or plasma albumin measurement (mass/volume) 3.1 g/dL 3.2-4.5 CALCIUM CORRECTED 9.3 mg/dL 8.5-10.1 Serum or plasma phosphate measurement (mass/volume) - 10/09/18 04:20 Serum or plasma phosphate measurement (mass/volume) 2.9 mg/dL 2.3-4.7 Magnesium - 10/09/18 04:20 Magnesium 1.9 mg/dL 1.8-2.4 Comprehensive metabolic panel - 10/09/18 05:50 Serum or plasma sodium measurement (moles/volume) 132 mmol/L 135-145 Serum or plasma potassium measurement (moles/volume) 3.6 mmol/L 3.6-5.0 Serum or plasma chloride measurement (moles/volume) 98 mmol/L 98-107 Carbon dioxide 26 mmol/L 21-32 Serum or plasma anion gap determination (moles/volume) 8 mmol/L 5-14 Serum or plasma urea nitrogen measurement (mass/volume) 11 mg/dL 7-18 Serum or plasma creatinine measurement (mass/volume) 0.67 mg/dL 0.60-1.30 Serum or plasma urea nitrogen/creatinine mass ratio 16 NRG Serum or plasma creatinine measurement with calculation of estimated glomerular filtration rate > NRG Serum or plasma glucose measurement (mass/volume) 82 mg/dL 70-105 Serum or plasma calcium measurement (mass/volume) 8.7 mg/dL 8.5-10.1 Serum or plasma total bilirubin measurement (mass/volume) 0.4 mg/dL 0.1-1.0 Serum or plasma alkaline phosphatase measurement (enzymatic activity/volume) 161 U/L 40-136 Serum or plasma aspartate aminotransferase measurement (enzymatic activity/ volume) 18 U/L 5-34 Serum or plasma alanine aminotransferase measurement (enzymatic activity/volume ) 28 U/L 0-55 Serum or plasma protein measurement (mass/volume) 6.1 g/dL 6.4-8.2 Serum or plasma albumin measurement (mass/volume) 3.2 g/dL 3.2-4.5 CALCIUM CORRECTED 9.3 mg/dL 8.5-10.1 Complete blood count (CBC) with automated white blood cell (WBC) differential - 10/10/18 04:00 Blood leukocytes automated count (number/volume) 10.7 10*3/uL 4.3-11.0 Blood erythrocytes automated count (number/volume) 4.33 10*6/uL 4.35-5.85 Venous blood hemoglobin measurement (mass/volume) 11.6 g/dL 13.3-17.7 Blood hematocrit (volume fraction) 35 % 40-54 Automated erythrocyte mean corpuscular volume 81 [foz_us] 80-99 Automated erythrocyte mean corpuscular hemoglobin (mass per erythrocyte) 27 pg 25-34 Automated erythrocyte mean corpuscular hemoglobin concentration measurement ( mass/volume) 33 g/dL 32-36 Automated erythrocyte distribution width ratio 16.6 % 10.0-14.5 Automated blood platelet count (count/volume) 439 10*3/uL 130-400 Automated blood platelet mean volume measurement 9.6 [foz_us] 7.4-10.4 Automated blood neutrophils/100 leukocytes 66 % 42-75 Automated blood lymphocytes/100 leukocytes 18 % 12-44 Blood monocytes/100 leukocytes 14 % 0-12 Automated blood eosinophils/100 leukocytes 2 % 0-10 Automated blood basophils/100 leukocytes 0 % 0-10 Blood neutrophils automated count (number/volume) 7.1 10*3 1.8-7.8 Blood lymphocytes automated count (number/volume) 2.0 10*3 1.0-4.0 Blood monocytes automated count (number/volume) 1.5 10*3 0.0-1.0 Automated eosinophil count 0.2 10*3/uL 0.0-0.3 Automated blood basophil count (count/volume) 0.0 10*3/uL 0.0-0.1 Comprehensive metabolic panel - 10/10/18 04:00 Serum or plasma sodium measurement (moles/volume) 134 mmol/L 135-145 Serum or plasma potassium measurement (moles/volume) 3.9 mmol/L 3.6-5.0 Serum or plasma chloride measurement (moles/volume) 102 mmol/L 98-107 Carbon dioxide 24 mmol/L 21-32 Serum or plasma anion gap determination (moles/volume) 8 mmol/L 5-14 Serum or plasma urea nitrogen measurement (mass/volume) 10 mg/dL 7-18 Serum or plasma creatinine measurement (mass/volume) 0.58 mg/dL 0.60-1.30 Serum or plasma urea nitrogen/creatinine mass ratio 17 NRG Serum or plasma creatinine measurement with calculation of estimated glomerular filtration rate > NRG Serum or plasma glucose measurement (mass/volume) 116 mg/dL 70-105 Serum or plasma calcium measurement (mass/volume) 8.2 mg/dL 8.5-10.1 Serum or plasma total bilirubin measurement (mass/volume) 0.2 mg/dL 0.1-1.0 Serum or plasma alkaline phosphatase measurement (enzymatic activity/volume) 145 U/L 40-136 Serum or plasma aspartate aminotransferase measurement (enzymatic activity/ volume) 14 U/L 5-34 Serum or plasma alanine aminotransferase measurement (enzymatic activity/volume ) 24 U/L 0-55 Serum or plasma protein measurement (mass/volume) 5.3 g/dL 6.4-8.2 Serum or plasma albumin measurement (mass/volume) 2.8 g/dL 3.2-4.5 CALCIUM CORRECTED 9.2 mg/dL 8.5-10.1 Serum or plasma phosphate measurement (mass/volume) - 10/10/18 04:00 Serum or plasma phosphate measurement (mass/volume) 2.0 mg/dL 2.3-4.7 Magnesium - 10/10/18 04:00 Magnesium 1.7 mg/dL 1.8-2.4 Complete blood count (CBC) with automated white blood cell (WBC) differential - 10/11/18 04:20 Blood leukocytes automated count (number/volume) 9.9 10*3/uL 4.3-11.0 Blood erythrocytes automated count (number/volume) 4.08 10*6/uL 4.35-5.85 Venous blood hemoglobin measurement (mass/volume) 10.9 g/dL 13.3-17.7 Blood hematocrit (volume fraction) 34 % 40-54 Automated erythrocyte mean corpuscular volume 82 [foz_us] 80-99 Automated erythrocyte mean corpuscular hemoglobin (mass per erythrocyte) 27 pg 25-34 Automated erythrocyte mean corpuscular hemoglobin concentration measurement ( mass/volume) 32 g/dL 32-36 Automated erythrocyte distribution width ratio 17.1 % 10.0-14.5 Automated blood platelet count (count/volume) 428 10*3/uL 130-400 Automated blood platelet mean volume measurement 9.8 [foz_us] 7.4-10.4 Automated blood neutrophils/100 leukocytes 60 % 42-75 Automated blood lymphocytes/100 leukocytes 22 % 12-44 Blood monocytes/100 leukocytes 15 % 0-12 Automated blood eosinophils/100 leukocytes 3 % 0-10 Automated blood basophils/100 leukocytes 0 % 0-10 Blood neutrophils automated count (number/volume) 5.9 10*3 1.8-7.8 Blood lymphocytes automated count (number/volume) 2.2 10*3 1.0-4.0 Blood monocytes automated count (number/volume) 1.4 10*3 0.0-1.0 Automated eosinophil count 0.3 10*3/uL 0.0-0.3 Automated blood basophil count (count/volume) 0.0 10*3/uL 0.0-0.1 Comprehensive metabolic panel - 10/11/18 04:20 Serum or plasma sodium measurement (moles/volume) 134 mmol/L 135-145 Serum or plasma potassium measurement (moles/volume) 3.8 mmol/L 3.6-5.0 Serum or plasma chloride measurement (moles/volume) 102 mmol/L 98-107 Carbon dioxide 23 mmol/L 21-32 Serum or plasma anion gap determination (moles/volume) 9 mmol/L 5-14 Serum or plasma urea nitrogen measurement (mass/volume) 10 mg/dL 7-18 Serum or plasma creatinine measurement (mass/volume) 0.60 mg/dL 0.60-1.30 Serum or plasma urea nitrogen/creatinine mass ratio 17 NRG Serum or plasma creatinine measurement with calculation of estimated glomerular filtration rate > NRG Serum or plasma glucose measurement (mass/volume) 99 mg/dL 70-105 Serum or plasma calcium measurement (mass/volume) 8.4 mg/dL 8.5-10.1 Serum or plasma total bilirubin measurement (mass/volume) 0.3 mg/dL 0.1-1.0 Serum or plasma alkaline phosphatase measurement (enzymatic activity/volume) 150 U/L 40-136 Serum or plasma aspartate aminotransferase measurement (enzymatic activity/ volume) 13 U/L 5-34 Serum or plasma alanine aminotransferase measurement (enzymatic activity/volume ) 17 U/L 0-55 Serum or plasma protein measurement (mass/volume) 5.4 g/dL 6.4-8.2 Serum or plasma albumin measurement (mass/volume) 2.8 g/dL 3.2-4.5 CALCIUM CORRECTED 9.4 mg/dL 8.5-10.1 Serum or plasma phosphate measurement (mass/volume) - 10/11/18 04:20 Serum or plasma phosphate measurement (mass/volume) 2.4 mg/dL 2.3-4.7 Magnesium - 10/11/18 04:20 Magnesium 1.7 mg/dL 1.8-2.4 Encounters ACCT No. Visit Date/Time Discharge Status Pt. Type Provider Facility Loc./Unit Complaint [id number] 09/22/2018 08:28:14 Document Registration [id number] 09/16/2018 18:36:41 Document Registration [id number] 09/16/2018 18:00:43 Document Registration [id number] 09/11/2018 11:20:09 Document Registration [id number] 09/08/2018 21:45:30 Document Registration [id number] 09/08/2018 21:38:22 Document Registration [id number] 08/29/2018 14:10:34 Document Registration [id number] 08/28/2018 08:42:48 Document Registration [id number] 08/27/2018 10:36:44 Document Registration [id number] 08/26/2018 08:12:40 Document Registration [id number] 08/26/2018 08:02:53 Document Registration [id number] 08/22/2018 07:11:34 Document Registration [id number] 08/22/2018 06:56:12 Document Registration [id number] 07/29/2018 08:49:29 Document Registration [id number] 07/23/2018 23:56:48 Document Registration [id number] 07/23/2018 13:21:05 Document Registration [id number] 07/09/2018 10:33:22 Document Registration [id number] 06/13/2018 14:58:37 Document Registration [id number] 06/04/2018 21:34:12 Document Registration [id number] 06/01/2018 14:41:34 Document Registration [id number] 06/01/2018 14:12:42 Document Registration [id number] 05/30/2018 15:01:34 Document Registration [id number] 05/01/2018 11:55:44 Document Registration [id number] 05/01/2018 11:49:32 Document Registration [id number] 02/28/2018 12:08:48 Document Registration [id number] 02/28/2018 12:01:15 Document Registration [id number] 10/16/2017 13:49:34 Document Registration [id number] 10/16/2017 13:47:00 Document Registration [id number] 06/20/2017 10:00:07 Document Registration [id number] 05/24/2017 21:24:25 Document Registration [id number] 05/23/2017 06:29:22 Document Registration [id number] 05/23/2017 06:24:36 Document Registration [id number] 04/18/2017 09:40:58 Document Registration [id number] 03/26/2017 15:20:14 Document Registration [id number] 03/26/2017 10:29:00 Document Registration [id number] 03/24/2017 16:15:02 Document Registration [id number] 08/26/2018 17:29:11 08/26/2018 23:59:59 CLS Outpatient Geraldine Lofton Philip [id number] 08/25/2018 11:54:36 08/25/2018 23:59:59 CLS Outpatient Vicki Herrera [id number] 08/11/2018 16:55:48 08/11/2018 23:59:59 CLS Outpatient Geraldine Lofton Philip [id number] 06/05/2018 14:13:15 06/05/2018 23:59:59 CLS Outpatient Kendall Salazar [id number] 05/01/2018 17:18:54 05/01/2018 23:59:59 CLS Outpatient Geraldine Lofton Philip [id number] 06/14/2017 15:26:28 06/14/2017 23:59:59 CLS Outpatient Geraldine Lofton Philip [id number] 05/15/2017 17:21:05 05/15/2017 23:59:59 CLS Outpatient Geraldine Lofton Philip [id number] 04/12/2017 14:06:44 04/12/2017 23:59:59 CLS Outpatient Geraldine Lofton Philip [id number] 03/25/2017 12:39:30 03/25/2017 23:59:59 CLS Outpatient Desiree Oliver [id number] 01/29/2017 16:13:19 01/29/2017 23:59:59 CLS Outpatient Kendall Salazar [id number] 05/10/2015 13:35:09 05/10/2015 23:59:59 CLS Outpatient Zeeshan Shettyanda [id number] 10/16/2017 13:10:00 10/16/2017 23:59:59 DIS Outpatient KLARISSA YUSUF [facility] [id number] 09/30/2018 15:27:00 09/30/2018 15:57:00 DIS Outpatient LUISANA ORTIZ MD [facility] ER SOB, LOSS OF APPETITE [id number] 09/23/2018 10:45:00 09/23/2018 23:59:59 CLS Outpatient MARKUS PIPER APRN [facility] RAD DYSPNEA,COUGH, OBESITY,EPILEPSY [id number] 09/23/2018 08:56:00 09/23/2018 23:59:59 CLS Outpatient MANDY COLLINS DO [facility] RAD ABN LUNG FIELD,EPILEPSY, COUGH,DYSPNEA [id number] 09/09/2018 09:05:00 09/09/2018 23:59:59 CLS Outpatient MANDY COLLINS DO [facility] RAD DYSPNEA,COUGH, EPILEPSY [id number] 05/21/2018 11:30:00 05/21/2018 23:59:59 CLS Outpatient JAVID JACKSON DO [facility] RAD FALLING, NONSTEADY GAIT [id number] 09/30/2018 15:57:00 ACT Inpatient MANDY COLLINS DO [facility] 4TH PNEUMOTHORAX [id number] 09/29/2018 11:28:00 Document Registration
[2018-10-16 14:39] LABS: BASOPHILS % (AUTO) 0 % (0-10); EOSINOPHILS % (AUTO) 0 % (0-10); HEMATOCRIT 34 % (40-54); HEMOGLOBIN 11.1 G/DL (13.3-17.7); LYMPHOCYTES # (AUTO) 1.1 X 10^3 (1.0-4.0); LYMPHOCYTES % (AUTO) 9 % (12-44); MEAN CORPUSCULAR HEMOGLOBIN 27 PG (25-34); MEAN CORPUSCULAR HGB CONC 33 G/DL (32-36); MEAN CORPUSCULAR VOLUME 81 FL (80-99); MEAN PLATELET VOLUME 9.3 FL (7.4-10.4); MONOCYTES # (AUTO) 1.4 X 10^3 (0.0-1.0); MONOCYTES % (AUTO) 11 % (0-12); NEUTROPHILS # (AUTO) 9.8 X 10^3 (1.8-7.8); NEUTROPHILS % (AUTO) 80 % (42-75); PLATELET COUNT 334 10^3/uL (130-400); RED CELL DISTRIBUTION WIDTH 17.9 % (10.0-14.5); WHITE BLOOD COUNT 12.3 10^3/uL (4.3-11.0)
[2018-10-16 14:59] LABS: CARBON DIOXIDE 23 MMOL/L (21-32); CHLORIDE 97 MMOL/L (98-107); CREATININE SERUM 0.77 MG/DL (0.60-1.30); POTASSIUM 4.8 MMOL/L (3.6-5.0); SODIUM 133 MMOL/L (135-145)
[2018-10-16 15:00] LABS: ALANINE AMINOTRANSFERASE 26 U/L (0-55); ALBUMIN 3.4 GM/DL (3.2-4.5); ALKALINE PHOSPHATASE 187 U/L (40-136); BILIRUBIN,TOTAL 0.3 MG/DL (0.1-1.0); BUN/CREATININE RATIO 27; CALCIUM 9.3 MG/DL (8.5-10.1); GFR ESTIMATED > 60; GLUCOSE 92 MG/DL (70-105); MAGNESIUM 1.9 MG/DL (1.8-2.4); TOTAL PROTEIN 6.7 GM/DL (6.4-8.2)
[2018-10-16 15:05] LABS: VALPROIC ACID 29.2 UG/ML (50.0-100.0)
--- NOTE | 2018-10-16 15:23 | Diagnostic Imaging Report ---
INDICATION: Swelling to the face. COMPARISON: CT chest dated 10/15/2018. FINDINGS: Single frontal radiographic view of the chest was obtained and again demonstrates moderate likely loculated right-sided hydropneumothorax with associated consolidative infiltrate appearing opacities within the right mid and lower lung field. Overall, aeration is stable compared to prior exam. Left lung is relatively clear. There is no large effusion or pneumothorax on the left. Cardiac silhouette and pulmonary vasculature within normal limits. Bony structures show no gross acute abnormalities. IMPRESSION: 1. Stable exam of the chest showing right-sided loculated hydropneumothorax with associated right-sided infiltrates. Dictated by: Dictated on workstation # [id number]
--- NOTE | 2018-10-16 16:33 | NUR ---
[facility] TO COME TO ELEVATE.
--- NOTE | 2018-10-16 16:33 | Diagnostic Imaging Report ---
CLINICAL INDICATION: Patient with right side facial swelling. EXAM: Axial Head CT without IV contrast. Axial Maxillofacial CT scan without IV contrast with sagittal and coronal reformations. Axial CT scan of the cervical spine with sagittal and coronal reformations. COMPARISON: CT scan of the chest performed without contrast dated 10/15/2018. FINDINGS: Head CT/maxillofacial CT: There is skull streak artifact which obscures portions of the brainstem, posterior fossa, portions of the brain and skull base. There is no evidence of acute cerebral infarct, intracranial hemorrhage, or gross mass effect. There is stable diffuse brain parenchymal volume loss. There are subtle low-attenuation white matter changes involving both cerebral hemispheres suspected to represent chronic small vessel ischemic disease. There is normal sierra-white matter distinction. There is no significant midline shift or herniation. There is no evidence of hydrocephalus. The basal cisterns are unremarkable. There is a large amount of extracranial soft tissue swelling involving the right side of the face and head and right upper neck region. There is no adjacent bony destructive abnormality seen. There is mild skin thickening on the right side as well. There is no measurable mass seen. There is a flattened appearance to the nasal bone anteriorly of unknown age. Otherwise, the skull, extracranial soft tissue, and orbits are unremarkable. There is a small amount of mucosal thickening involving left maxillary sinus. Temporal bones show no significant abnormality. Cervical spine: There is no acute cervical spine fracture or dislocation. There is incompletely imaged mild right curvature of the upper thoracic spine. There is straightening of the cervical spine posture. There is symp-fl-tmtqfnpitr hypertrophic spurs involving the cervical spine and facet arthropathy. Visualized upper lung duarte show no significant abnormality. There is a prominent lymph node in the right level 5B region which measures 12 mm x 9 mm seen on axial sequence series 7, image 67. There is otherwise no significantly enlarged lymph node seen involving the neck. There is no known etiology for the swelling of the neck soft tissue. There is incompletely imaged air in the right subclavicular medial axillary region. IMPRESSION: 1: There is flattened appearance of the nasal bone anteriorly of unknown age. Correlation for pain or trauma in this region would better evaluate for chronicity. This area is not imaged on the prior head CT. 2: There is no evidence of acute intracranial process. There is no intracranial hemorrhage. 3: There is no skull or maxillofacial fracture. 4: There is cervical spine degenerative disease with no acute fracture or dislocation. 5: There is large amount of soft tissue fat stranding/swelling involving the right side of the head, face, and neck of unknown etiology. 6: There is subcutaneous air seen in the right subclavicular region which correlates to patient's history of subcutaneous emphysema and right pneumothorax. Results of this report were discussed with Dr. Matt Acosta via the telephone on 10/16/2018 at 1605 hrs. Dictated by: Dictated on workstation # [id number]
--- NOTE | 2018-10-16 16:35 | NUR ---
PATIENT UP TO BATHROOM PULLED IV OUT WILL NOT RESTARTE AT THIS TIME.
--- NOTE | 2018-10-16 16:47 | NUR ---
[facility] STATES DOES NOT MEET REQUIRMENTS FOR THEIR FLOOR.
[2018-10-16 16:55] LABS: BILIRUBIN,URINE NEGATIVE (NEGATIVE); CLARITY,URINE CLEAR; COLOR,URINE YELLOW; GLUCOSE, URINE (UA) NEGATIVE (NEGATIVE); KETONES,URINE NEGATIVE (NEGATIVE); LEUKOCYTE ESTERASE ,URINE NEGATIVE (NEGATIVE); NITRITE,URINE NEGATIVE (NEGATIVE); PH,URINE 7 (5-9); PROTEIN,URINE 1+ (NEGATIVE); UROBILINOGEN,URINE NORMAL (NORMAL)
[2018-10-16 17:04] LABS: SQUAMOUS EPITHELIAL CELL,UR RARE /HPF
--- NOTE | 2018-10-16 17:04 | NUR ---
CALLED TO GET ROOM WILL CALL BACK
--- NOTE | 2018-10-16 17:30 | NUR ---
NURSE TO CALL BACK FOR REPORT.
--- OUTSIDE RECORDS SUMMARY | 2018-10-16 17:35 | XMS REPORT | Continuity of Care Document ---
Demographics Preferred Language Unknown Marital Status Unknown Denominational Affiliation Unknown Race Unknown Ethnic Group Unknown Author Organization Unknown Address Unknown Allergies Active Description Code Type Severity Reaction Onset Reported/Identified Relationship to Patient Clinical Status Yes CONTRAST MEDIA, IODINE RELATED [id number] CLASS N/A N/A Yes ISOVUE-300 [id number] BRANDNAME N /A N/A Yes ISOVUE-300 [id number] BRANDNAME N /A OTHER Yes No Known Environmental Allergies [id number] N/A N/A Yes No Known Food Allergies [id number] N/A N/A Yes IVP CONTRAST IVP CONTRAST Unknown N/A 09/25/2007 Medications There is no data. Problems Date Dx Coded Attending Type Code Diagnosis Diagnosed By 03/26/2017 P [id number] Encounter for preprocedural cardiovascular examination 03/26/2017 S V26298 Encounter for preprocedural laboratory examination 10/16/2017 P B3857DO Abrasion of nose, initial encounter 10/16/2017 S T6282KB Abrasion of unspecified part of head, initial encounter 10/16/2017 S W974KTW Strain of muscle, fascia and tendon at neck level, initial encounter 10/16/2017 S U92768I Strain of muscle, fascia and tendon of lower back, initial encounter 10/16/2017 S V288AFH Fall on same level from slipping, tripping and stumbling without subsequent striking against object, initial encounter 10/16/2017 S T20726 Other athletic field as the place of [...] W19.XXXA UNSPECIFIED FALL, INITIAL ENCOUNTER 07/23/2018 S S682AKF Fall on same level from slipping, tripping and stumbling without subsequent striking against object, initial encounter 07/23/[address] in fpc as the place of occurrence of the [...] APRN Ot I25.10 ATHSCL HEART DISEASE OF [place] CORONARY 09/24/2018 MARKUS PIPER APRN Ot I51.7 [...] Ot J94.8 OTHER SPECIFIED PLEURAL CONDITIONS 10/06/2018 MANYD COLLINS DO Ot R53.1 WEAKNESS 10/06/2018 MANDY COLLINS DO Ot R91.8 OTHER NONSPECIFIC ABNORMAL FINDING OF VICKI 10/07/2018 MANDY COLLINS DO Ot D64.9 ANEMIA, UNSPECIFIED 10/07/2018 MANDY COLLINS DO Ot F25.9 SCHIZOAFFECTIVE DISORDER, UNSPECIFIED 10/07/2018 MANDY COLLINS DO Ot F31.9 BIPOLAR DISORDER, UNSPECIFIED 10/07/2018 MANDY [...] Procedures Code Description Performed By Performed On 7W4543O DRAINAGE OF R PLEURAL CAV WITH DRAIN [...] /uL NRG Body fluid erythrocytes count (number/volume) 03506 /uL NRG Manual body fluid polymorphonuclear cells/100 [...] Status Pt. Type Provider Facility Loc./Unit Complaint [id number] 09/22/2018 08:28:14 Document Registration [id number] 09/16/2018 18:36:41 Document Registration [id number] 09/16/2018 18:00:43 Document Registration [id number] 09/11/2018 11:20:09 Document Registration [id number] 09/08/2018 21:45:30 Document Registration [id number] 09/08/2018 21:38:22 Document Registration [id number] 08/29/2018 14:10:34 Document Registration [id number] 08/28/2018 08:42:48 Document Registration [id number] 08/27/2018 10:36:44 Document Registration [id number] 08/26/2018 08:12:40 Document Registration [id number] 08/26/2018 08:02:53 Document Registration [id number] 08/22/2018 07:11:34 Document Registration [id number] 08/22/2018 06:56:12 Document Registration [id number] 07/29/2018 08:49:29 Document Registration [id number] 07/23/2018 23:56:48 Document Registration [id number] 07/23/2018 13:21:05 Document Registration [id number] 07/09/2018 10:33:22 Document Registration [id number] 06/13/2018 14:58:37 Document Registration [id number] 06/04/2018 21:34:12 Document Registration [id number] 06/01/2018 14:41:34 Document Registration [id number] 06/01/2018 14:12:42 Document Registration [id number] 05/30/2018 15:01:34 Document Registration [id number] 05/01/2018 11:55:44 Document Registration [id number] 05/01/2018 11:49:32 Document Registration [id number] 02/28/2018 12:08:48 Document Registration [id number] 02/28/2018 12:01:15 Document Registration [id number] 10/16/2017 13:49:34 Document Registration [id number] 10/16/2017 13:47:00 Document Registration [id number] 06/20/2017 10:00:07 Document Registration [id number] 05/24/2017 21:24:25 Document Registration [id number] 05/23/2017 06:29:22 Document Registration [id number] 05/23/2017 06:24:36 Document Registration [id number] 04/18/2017 09:40:58 Document Registration [id number] 03/26/2017 15:20:14 Document Registration [id number] 03/26/2017 10:29:00 Document Registration [id number] 03/24/2017 16:15:02 Document Registration [id number] 08/26/2018 17:29:11 08/26/2018 23:59:59 CLS Outpatient Geraldine Lofton Philip [id number] 08/25/2018 11:54:36 08/25/2018 23:59:59 CLS Outpatient Vicki Herrera [id number] 08/11/2018 16:55:48 08/11/2018 23:59:59 CLS Outpatient Geraldine Lofton Philip [id number] 06/05/2018 14:13:15 06/05/2018 23:59:59 CLS Outpatient Kendall Salazar [id number] 05/01/2018 17:18:54 05/01/2018 23:59:59 CLS Outpatient Geraldine Lofton Philip [id number] 06/14/2017 15:26:28 06/14/2017 23:59:59 CLS Outpatient Geraldine Lofton Philip [id number] 05/15/2017 17:21:05 05/15/2017 23:59:59 CLS Outpatient Geraldine Lofton Philip [id number] 04/12/2017 14:06:44 04/12/2017 23:59:59 CLS Outpatient Geraldine Lofton Philip [id number] 03/25/2017 12:39:30 03/25/2017 23:59:59 CLS Outpatient Desiree Oliver [id number] 01/29/2017 16:13:19 01/29/2017 23:59:59 CLS Outpatient Kendall Salazar [id number] 05/10/2015 13:35:09 05/10/2015 23:59:59 CLS Outpatient Zeeshan Shettyanda [id number] 10/16/2017 13:10:00 10/16/2017 23:59:59 DIS Outpatient KLARISSA YUSUF [facility] [id number] 09/30/2018 15:27:00 09/30/2018 15:57:00 DIS Outpatient LUISANA ORTIZ MD [facility] ER SOB, LOSS OF APPETITE [id number] 09/23/2018 10:45:00 09/23/2018 23:59:59 CLS Outpatient MARKUS PIPER APRN [facility] RAD DYSPNEA,COUGH, OBESITY,EPILEPSY [id number] 09/23/2018 08:56:00 09/23/2018 23:59:59 CLS Outpatient MANDY COLLINS DO [facility] RAD ABN LUNG FIELD,EPILEPSY, COUGH,DYSPNEA [id number] 09/09/2018 09:05:00 09/09/2018 23:59:59 CLS Outpatient MANDY COLLINS DO [facility] RAD DYSPNEA,COUGH, EPILEPSY [id number] 05/21/2018 11:30:00 05/21/2018 23:59:59 CLS Outpatient JAVID JACKSON DO [facility] RAD FALLING, NONSTEADY GAIT [id number] 09/30/2018 15:57:00 ACT Inpatient MANDY COLLINS DO [facility] 4TH PNEUMOTHORAX [id number] 09/29/2018 11:28:00 Document Registration
--- NOTE | 2018-10-16 17:47 | NUR ---
NURSE WILL CALL BACK
--- NOTE | 2018-10-16 18:00 | NUR ---
CON'T WAIT FOR NURSE TO CALL BACK FOR REPORT.
[2018-10-16 18:20] VITALS: BP 134/82
[2018-10-16] MEDS ORDERED: ACETAMINOPHEN 500 MG TAB (TYLENOL) PO PRN (18:45)
[2018-10-16] MEDS ORDERED: ONDANSETRON 4 MG (ZOFRAN) ORAL DISSOLVE TAB PO PRN (18:45)
--- NOTE | 2018-10-16 18:56 | NUR ---
AAKASH DILL admitted to room 415-1, with an admitting diagnosis of EMPHYSEMA AND DEBILITATION, on 10/16/18 from ED via W/C, accompanied by STAFF. AAKASH DILL introduced to surroundings, call light, bed controls, phone, TV, temperature control, lights, meal times, smoking policy, visitor policy, side rail policy, bathrooms and showers. Patient Rights given to patient in the handbook. AAKASH DILL verbalizes understanding that [facility] is not responsible for the loss or damage to any personal effects or valuables that are kept in the patients possession during their hospitalization.
[2018-10-16 20:00] VITALS: BP 108/56
[2018-10-16] MEDS: TRIAMCINOLONE 0.1% CR (KENALOG) 15 GM TUBE TOP SCH (20:09)
[2018-10-16] MEDS: DIVALPROEX 250 MG DELAYED RELEASE (DEPAKOTE) TAB PO SCH (20:09)
[2018-10-16] MEDS: LEVETIRACETAM 500 MG (KEPPRA) TAB PO SCH (20:09)
[2018-10-16] MEDS ORDERED: traZODone 100 MG (DESYREL) TAB PO SCH (21:00)
[2018-10-16 23:51] VITALS: BP 106/62
[2018-10-17 04:00] VITALS: BP 112/75
[2018-10-17 04:53] LABS: BASOPHILS # (AUTO) 0.1 10^3/uL (0.0-0.1); BASOPHILS % (AUTO) 1 % (0-10); EOSINOPHILS % (AUTO) 0 % (0-10); HEMATOCRIT 32 % (40-54); HEMOGLOBIN 10.4 G/DL (13.3-17.7); LYMPHOCYTES # (AUTO) 1.9 X 10^3 (1.0-4.0); LYMPHOCYTES % (AUTO) 20 % (12-44); MEAN CORPUSCULAR HEMOGLOBIN 27 PG (25-34); MEAN CORPUSCULAR HGB CONC 33 G/DL (32-36); MEAN CORPUSCULAR VOLUME 82 FL (80-99); MEAN PLATELET VOLUME 9.5 FL (7.4-10.4); MONOCYTES # (AUTO) 1.3 X 10^3 (0.0-1.0); MONOCYTES % (AUTO) 13 % (0-12); NEUTROPHILS # (AUTO) 6.4 X 10^3 (1.8-7.8); NEUTROPHILS % (AUTO) 66 % (42-75); PLATELET COUNT 320 10^3/uL (130-400); RED CELL DISTRIBUTION WIDTH 17.5 % (10.0-14.5); WHITE BLOOD COUNT 9.7 10^3/uL (4.3-11.0)
[2018-10-17 05:18] LABS: BUN/CREATININE RATIO 25; CALCIUM 8.5 MG/DL (8.5-10.1); CARBON DIOXIDE 22 MMOL/L (21-32); CHLORIDE 97 MMOL/L (98-107); CREATININE SERUM 0.69 MG/DL (0.60-1.30); GFR ESTIMATED > 60; GLUCOSE 92 MG/DL (70-105); SODIUM 130 MMOL/L (135-145)
[2018-10-17] MEDS ORDERED: predniSONE 10 MG TAB PO SCH (07:00)
[2018-10-17 08:00] VITALS: BP 128/79
--- NOTE | 2018-10-17 08:26 | History & Physicial ---
History of Present Illness History of Present Illness Reason for visit/HPI Recent recently discharged from hospital with hydropneumothorax. Patient is mentally challenged. Patient bipolar and schizophrenic. I found out patient lives alone and has to take care of himself. [facility] Receiving visits for short period of time. Patient not able to walk. Patient has physical disability. Patient's right side of face has swelling. Patient needs alf setting Date of Admission October 16, 2018 at 17:00 Time Seen by a Provider: 08:21 I consulted on this patient on 10/17/18 08:20 Attending Physician Robbie Jackson DO Admitting Physician Robbie Jackson DO Consult Allergies and Home Medications Allergies Coded Allergies: lorazepam (Verified Allergy, Intermediate, Hives, 10/14/18) BLISTERS Uncoded Allergies: IVP CONTRAST (Allergy, Unknown, 09/25/07) Home Medications Divalproex Sodium 250 Mg Tab.er.24h, 250 MG PO BID, (Reported) Levetiracetam 500 Mg Tablet, 500 MG PO BID, (Reported) Loratadine 10 Mg Capsule, 10 MG PO DAILY Prescribed by: GERSON TRUJILLO on 10/15/18 135 Paroxetine HCl 30 Mg Tablet, 30 MG PO DAILY, (Reported) Prednisone 10 Mg Tab, 20 MG PO DAILY Prescribed by: GERSON TRUJILLO on 10/15/18 135 Prednisone 10 Mg Tab, 10 MG PO DAILY Prescribed by: GERSON TRUJILLO on 10/15/18 135 Risperidone 2 Mg Tablet, 2 MG PO HS, (Reported) Sennosides/Docusate Sodium 1 Each Tablet, 1 TAB PO HS, (Reported) Sodium Chloride 1 Gm Tab, 1 GM PO DAILY, (Reported) Trazodone HCl 100 Mg Tablet, 100 MG PO HS, (Reported) Triamcinolone Acet 15 Gm Cr, 80 GM TP TID Prescribed by: GERSON TRUJILLO on 10/15/18 135 Patient Home Medication List Home Medication List Reviewed: No Past Gggoibx-Jgeynd-Bmddgh Hx Patient Social History Marrital Status: single Employed/Student: unemployed Alcohol Use: Denies Use Recreational Drug Use: No Smoking Status: Never a Smoker 2nd Hand Smoke Exposure: No Recent Foreign Travel: No Contact w/other who traveled: No Recent Hopitalizations: No Recent Infectious Disease Expo: No Immunizations Up To Date Date of Pneumonia Vaccine: Jul 02, 2018 Seasonal Allergies Seasonal Allergies: Yes Respiratory Yes Currently Using CPAP: No Currently Using BIPAP: No Cardiovascular Yes (MVP) Neurological Yes Reproductive System Hx Reproductive Disorders: No Sexually Transmitted Disease: No Gastrointestinal No Musculoskeletal No Endocrine History of Endocrine Disorders: No Blood Transfusions History of Blood Disorders: No Family Medical History Significant Family History: Other Conditions/Hx Review of Systems Constitutional: malaise, weakness EENTM: no symptoms reported, other (Right side of face swollen and some hives) Respiratory: no symptoms reported, other (Pneumothorax) Cardiovascular: no symptoms reported Gastrointestinal: no symptoms reported Genitourinary: no symptoms reported Physical Exam Vital Signs Vital Signs - First Documented 10/16/18 10/16/18 13:40 18:12 Temp 97.9 Pulse 109 Resp 18 B/P (MAP) 90/59 (69) Pulse Ox 97 O2 Delivery Room Air Capillary Refill : Less Than 3 Seconds Height, Weight, BMI Height: 6'1.00" Weight: 178lbs. 0.0oz. 80.683827av; 23.5 BMI Method:Stated General Appearance: No Apparent Distress, WD/WN Eyes: Bilateral Eye Normal Inspection HEENT: Other (Right side of face and neck swollen but better today) Neck: Other (Breakout of neck) Respiratory: Lungs Clear, No Accessory Muscle Use Cardiovascular: Regular Rate, Rhythm, No Murmur Gastrointestinal: Non Tender, Soft Assessment/Plan Assessment and Plan Physical disability. Pneumothorax. Facial swelling. Hives. MR. Schizophrenic. Bipolar. Admission Diagnosis Admission Status: Observation Clinical Quality Measures DVT/VTE Risk/Contraindication: Risk Factor Score Per Nursin RFS Level Per Nursing on Admit: 4+=Very High ROBBIE JACKSON DO October 17, 2018 08:26
[2018-10-17] MEDS ORDERED: ENOXAPARIN 40 MG/0.4 ML (LOVENOX) SYR SC SCH (08:30)
[2018-10-17] MEDS ORDERED: POLY238P10 PO ×2 (08:35)
--- NOTE | 2018-10-17 08:36 | NUR ---
SPOKE WITH [facility] [place], THEY VERIFIED THE PATIENT HAS STARTED THE NEW MEDICATIONS ORDERED ON HIS RECENT DISCHARGE AND NO OTHER CHANGES HAVE BEEN MADE TO HIS MED LIST. I REVIEWED THE MED REC IT WAS ORDERED UPON HIS LAST DISCHARGE. I ALSO ADDED THE GAVILAX POWDER PRN THAT WAS FILLED RECENTLY ACCORDING TO THE EXT MED HX.
[2018-10-17] MEDS: LEVETIRACETAM 500 MG (KEPPRA) TAB PO SCH (08:48)
[2018-10-17] MEDS: DIVALPROEX 250 MG DELAYED RELEASE (DEPAKOTE) TAB PO SCH (08:48)
[2018-10-17] MEDS: TRIAMCINOLONE 0.1% CR (KENALOG) 15 GM TUBE TOP SCH ×2 (08:49→14:40)
[2018-10-17] MEDS ORDERED: PARoxetine 20 MG (PAXIL) TAB PO SCH (09:00)
[2018-10-17] MEDS ORDERED: PARoxetine 10 MG (PAXIL) TAB PO SCH (09:00)
--- NOTE | 2018-10-17 09:08 | NUR ---
CM/SS spoke with Chel at [facility] ([phone]), she states that he was up walking, talking and fine before last surgery. She shocked with his recent decline. [facility] can apparently provide higher levels of care, he is currently not funded for that at this time though. Chel was going to staff it and then see if with his insurance they would be able to provide appropriate level of care for him. Message left with call back information for Malachi Dalton ([facility], ).
--- NOTE | 2018-10-17 10:34 | Physical Therapy Evaluation ---
PT Evaluation-General Medical Diagnosis Admission Date October 16, 2018 at 17:00 Medical Diagnosis: debility Onset Date: October 16, 2018 Therapy Diagnosis Therapy Diagnosis: impaired mobility, strength Height/Weight Height (Feet): 6 Height (Inches): 1.00 Weight (Pounds): 178 Weight (Ounces): 0.0 Precautions Precautions/Isolations: Fall Prevention, Standard Precautions Referral Physician: Robbie Sneed DO Reason for Referral: Evaluation/Treatment Medical History Additional Medical History bipolar, schizophrenic Reviewed History: Yes Social History Home: Patient lives in a half-way Prior/Core FIM Prior Level of Function Therapy Code Descriptions/Definitions Functional [place] Measure: 0=Not Assessed/NA 4=Minimal Assistance 1=Total Assistance 5=Supervision or Setup 2=Maximal Assistance 6=Modified [place] 3=Moderate Assistance 7=Complete [place] Therapy Quality Codes: 6 Independent with activity with or without an assistive device 5 Patient requires set up or clean up by helper. Patient completes activity by themselves 4 Supervision or touching assist (CGA). [place] provide cues , steadying assist 3 The helper provides less than half the effort to complete the activity 2 The helper provides more than half the effort to complete the activity 1 Dependent. The helper does all the effort to complete an activity 7 Patient refused to complete or attempt activity 9 The patient did not perform the activity before the current illness or injury 88 Not attempted due to Medical conditions or safety concerns Functional Abilities and Goals: Independent: Patient completed the activities by him/herself, with or without an assistive device, with no assistance from a helper. Needed Some Help: Patient needed partial assistance from another person to complete activities. Dependent: A helper completed the activities for the patient. Unknown: Not Applicable: unknown PT Evaluation-Current Subjective Patient in bed pre tx, he has mittens on to keep him from scratching himself. Patient states he has no pain. Pt/Family Goals none stated Objective Patient Orientation: Person, Confused ROM/Strength ROM Lower Extremities WNL Strength Lower Extremities NT, patient will not follow directions for testing Neuromuscular (Tone, Coordination, Reflexes) NT Sensory Hearing: Functional Transfers Therapy Code Descriptions/Definitions Functional [place] Measure: 0=Not Assessed/NA 4=Minimal Assistance 1=Total Assistance 5=Supervision or Setup 2=Maximal Assistance 6=Modified [place] 3=Moderate Assistance 7=Complete [place] Transfers (B, C, W/C) (FIM): 5 Scootin Rollin Supine to/from Sit: 5 Patient agrees to get out of the bed and ambulate. He sits at the edge of the bed by himself with SBA and as soon as he gets to the edge of the bed he says "I 'm not walking now" and lays back down. Patient will not get back to sitting on the edge of the bed. Patient states he is willing to perform some exercises in bed but will not do them. Assessment/Needs Patient has impaired mobility, strength, endurance. Patient BTB post tx with nurse call, phone, tray, mittens on, bed alarm on. Patient is resistant to participating with PT. Rehab Potential: Poor PT Short Term Goals Short Term Goals Time Frame: October 24, 2018 Transfers (B,C,W/C) (FIM): 4 Gait (FIM): 1 Gait Distance Comment: 20' Gait Level of Assist: 4 Gait Assistive Device: FWW PT Plan Problem List Problem List: Activity Tolerance, Functional Strength, Safety, Balance, Gait, Transfer, Bed Mobility, ROM Treatment/Plan Treatment Plan: Continue Plan of Care Treatment Plan: Bed Mobility, Concurrent Therapy, Education, Functional Activity Loi, Functional Strength, Gait, Safety, Therapeutic Exercise, Transfers Treatment Duration: October 24, 2018 Frequency: 6 times per week Estimated Hrs Per Day: .25 hour per day (15-30') Patient and/or Family Agrees t: Yes Safety Risks/Education Patient Education: Transfer Techniques, Correct Positioning, Safety Issues Teaching Recipient: Patient Teaching Methods: Demonstration, Discussion Response to Teaching: Reinforcement Needed Discharge Recommendations Plan Patient will perform bed mobility and transfer training, balance and endurance training, functional strengthening, gait training, and education, to improve functional mobility and independence at home. Therapy D/C Recommendations: Residential (TCU/NH) Time/GCodes Time In: 1020 Time Out: 1030 Total Billed Treatment Time: 10 Total Billed Treatment 1 visit KHALIF 10' RADHA PEREZ PT October 17, 2018 10:34
[2018-10-17 12:00] VITALS: BP 120/81
--- NOTE | 2018-10-17 12:54 | Occupational Therapy Eval ---
OT Evaluation-General/PLF Medical Diagnosis Admission Date October 16, 2018 at 17:00 Medical Diagnosis: debility Onset Date: October 16, 2018 Therapy Diagnosis Therapy Diagnosis: impaired ADLs and mobility Height/Weight Height (Feet): 6 Height (Inches): 1.00 Weight (Pounds): 189 Weight (Ounces): 2.0 Precautions Precautions/Isolations: Fall Prevention, Standard Precautions Safety Interventions: Bed Exit Alarm, Reorient-Attempt, Reorient-PRN Referral Physician: Robbie Sneed DO Referral Reason: Activity Tolerance, Self Care, Evaluation/Treatment, Strengthening/ROM Medical History Current History Recent recently discharged from hospital with hydropneumothorax. Patient is mentally challenged. Patient bipolar and schizophrenic. I found out patient lives alone and has to take care of himself. Commercial Real Estate Attorney visits for short period of time. Patient not able to walk. Patient has physical disability. Patient's right side of face has swelling. 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 unsure of how many houes. ADL-Prior Level of Function Therapy Code Descriptions/Definitions Functional Hamilton Measure: 0=Not Assessed/NA 4=Minimal Assistance 1=Total Assistance 5=Supervision or Setup 2=Maximal Assistance 6=Modified Hamilton 3=Moderate Assistance 7=Complete Hamilton Therapy Quality Codes: 6 Independent with activity with or without an assistive device 5 Patient requires set up or clean up by helper. Patient completes activity by themselves 4 Supervision or touching assist (CGA). Hepzibah provide cues , steadying assist 3 The helper provides less than half the effort to complete the activity 2 The helper provides more than half the effort to complete the activity 1 Dependent. The helper does all the effort to complete an activity 7 Patient refused to complete or attempt activity 9 The patient did not perform the activity before the current illness or injury 88 Not attempted due to Medical conditions or safety concerns Functional Abilities and Goals: Independent: Patient completed the activities by him/herself, with or without an assistive device, with no assistance from a helper. Needed Some Help: Patient needed partial assistance from another person to complete activities. Dependent: A helper completed the activities for the patient. Unknown: Not Applicable: pt unable to provide information secondary to cognition. OT Current Status Subjective pt laying in bed upon OT arrival. pt agreed to OT evaluation session. pt stated "your fired" when asked to do something. Mental Status/Objective Patient Orientation: Person (only oriented to name) Current Upper Extremity ROM WFL --pt required demonstration Upper Extremity Coordination decreased finger to nose Dipak hand Upper Extremity Sensation NT secondary to cognition Upper Extremity Strength NT secondary to cognition ADL-Treatment Therapy Code Descriptions/Definitions Functional Hamilton Measure: 0=Not Assessed/NA 4=Minimal Assistance 1=Total Assistance 5=Supervision or Setup 2=Maximal Assistance 6=Modified Hamilton 3=Moderate Assistance 7=Complete Hamilton Therapy Quality Codes: 6 Independent with activity with or without an assistive device 5 Patient requires set up or clean up by helper. Patient completes activity by themselves 4 Supervision or touching assist (CGA). Hepzibah provide cues , steadying assist 3 The helper provides less than half the effort to complete the activity 2 The helper provides more than half the effort to complete the activity 1 Dependent. The helper does all the effort to complete an activity 7 Patient refused to complete or attempt activity 9 The patient did not perform the activity before the current illness or injury 88 Not attempted due to Medical conditions or safety concerns Eating (FIM): 5 (required items to be open) Education Teaching Recipient: Patient Teaching Methods: Discussion Response to Teaching: Reinforcement Needed OT Short Term Goals Short Term Goals Eating(FIM): 6 Grooming(FIM): 5 Toileting(FIM): 4 Transfers (B,C,W/C) (FIM): 4 Toilet/Commode Transfer(FIM): 4 1=Demonstrate adherence to instructed precautions during ADL tasks. 2=Patient will verbalize/demonstrate understanding of assistive devices/ modifications for ADL. 3=Patient will improve strength/tolerance for activity to enable patient to perform ADL's. OT Unisaw Operator Goals Unisaw Operator Goals Grooming(FIM): 6 Lower Body Dressing(FIM): 5 (5) Transfers (B,C,W/C) (FIM): 5 (5) Toilet/Commode Transfer(FIM): 5 Additional Goals: 1-Demonstrate ADL Tasks, 2-Verbalize Understanding, 3- ImproveStrength/Loi 1=Demonstrate adherence to instructed precautions during ADL tasks. 2=Patient will verbalize/demonstrate understanding of assistive devices/ modifications for ADL. 3=Patient will improve strength/tolerance for activity to enable patient to perform ADL's. OT Education/Plan Problem List/Assessment Assessment: Decreased Activ Tolerance, Decreased Safety Aware, Decreased UE Strength, Impaired Cognition, Impaired Coordination, Impaired Funct Balance, Impaired Self-Care Skills pt presents with functional limitations affecting area of self care/ ADLS. during evaluation session pt required MAX cuing for attention to task. pt required total assist for LE dressing, MIN A for eating, and SBA for supine to sit. upon performing supine to sit pt sat pt stated "I done" and laid back down and refused to complete anymore tasks. pt would benefit from OT services to increase independence with ADLS and functional transfers. Discharge Recommendations Plan/Recommendations: Continue POC Therapy D/C Recommendations: 24 hr Supervision Treatment Plan/Plan of Care Treatment,Training & Education: Yes Patient would benefit from OT for education, treatment and training to promote independence in ADL's, mobility, safety and/or upper extremity function for ADL' s. Plan of Care: ADL Retraining, Caregiver Training, Functional Mobility, Group Exercise/Act as Ind, UE Funct Exercise/Act Treatment Duration: October 31, 2018 Frequency: 3 times per week Estimated Hrs Per Day: .25 hour per day Agreement: Yes Rehab Potential: Poor Time/GCodes Start Time: 11:15 Stop Time: 11:30 Billed Treatment Time EVM 15 minutes JAISON ABUM OT October 17, 2018 12:54
[2018-10-17 15:28] VITALS: BP 95/65
--- NOTE | 2018-10-17 15:39 | NUR ---
patient malou hudson with no breakdown noted by this RN. Antonina Addendum: 10/17/18 at 1541 by KENNETH LAWS RN spelling error: shahana
--- NOTE | 2018-10-17 16:06 | NUR ---
CM/SS spoke with Chel at [facility], she had not heard back from Kade on getting patient hours increased. So, she was unable to let this lyric writer know if they were going to be able to resume care of the patient. Message with call back information was left on voicemail of Concepcion Barber. Referral packet was sent to [facility]. [facility] accepted patient for transfer. Will pickler helper patient this day at [phone]. CARE assessment will be completed and included in discharge packet for them and faxed to [facility]. Facility will get verbal Skilled orders from Dr. Sneed. They will work to complete the paperwork with his mother by mail or however works best for her.
--- NOTE | 2018-10-17 16:49 | NUR ---
CM/SS CARE Assessment not completed with the patient as he is unable to sign for himself and is not expected to be at the SNF for greater than 30days. Mcmullen updated. Attempted to call Chel at [facility] back to give update and she is not available after 1529.
[2018-10-17 18:00] VITALS: BP 95/65
--- NOTE | 2018-10-17 18:02 | Discharge Inst-Skilled Nursing ---
Discharge Inst-Skilled NF Patient Instructions Patient Problems: chronic trapped lung mentally challenged Goal: resume independent adls Consult/Follow Up/Orders Follow Up Appt.: Dr Sneed 1 week Skilled NF Admit to: Certification (SNF) I certify that SNF services are required to be given on an inpatient basis because of the above named patient's need for custodial care on a continuing basis for the conditions(s) for which he/she was receiving inpatient hospital services prior to his/her transfer to the SNF. Prison Facility Order: Nursing Services, Clinical Data Abstractor-Evaluate & Treat, Physical Therapy-Evaluate & Treat, Speech Language-Evaluate & Treat Oxygen Delivery Method: Room Air Discharge Diet: No Restrictions Daily Activity as Tolerated: Yes New & Resume Previous Orders Emilee Hylton October 17, 2018 18:01 EMILEE HYLTON DO October 17, 2018 18:02
--- NOTE | 2018-10-17 18:42 | NUR ---
ASSISTED ORDERS FAXED OVER TO [facility] BY THIS RN.
--- NOTE | 2018-10-20 07:37 | Clinic Account Progress/Dx ---
Clinic Account Progress/Dx DIAGNOSIS: Time Seen by Provider: 07:36 Physical disability. Facial swelling. Dermatitis of neck. Anemia. Hyponatremia. Schizoaffective. Bipolar. Hydropneumothorax. Mentally challenged. JAVID JACKSON DO October 20, 2018 07:37
== END 2018-10-17 18:00 ==
LOC: EDUNIT# 13:28 → ER 13:29 → 4TH 17:00 → UNDOADMOB 17:00
PROVIDERS: ADMIT Family Medicine; ATTEND Family Medicine
DX: E87.1 Hypo-osmolality and hyponatremia (principal); R22.0 Localized swelling, mass and lump, head; L30.9 Dermatitis, unspecified; D64.9 Anemia, unspecified; F25.9 Schizoaffective disorder, unspecified; F31.9 Bipolar disorder, unspecified; J94.8 Other specified pleural conditions; J86.9 Pyothorax without fistula; F79 Unspecified intellectual disabilities; L50.9 Urticaria, unspecified; I34.1 Nonrheumatic mitral (valve) prolapse; Z91.041 Radiographic dye allergy status; Z88.8 Allergy status to other drugs, medicaments and biological substances; Z79.899 Other long term (current) drug therapy
CPT/HCPCS: 36415; 70450; 70486; 71045; 72125; 80048; 80053; 80164; 81000; 83735; 85025; 86141; 90471; G0378

== ENCOUNTER → 2019-01-13 | Outpatient (CLI) | payer MEDICARE, MEDICAID ==
[~2019-01-13] MED LIST changes: +POLY238P10 PO
--- NOTE | 2019-01-13 15:27 | Diagnostic Imaging Report ---
INDICATION: Right lung collapse. TIME OF EXAM: 12:36 p.m. COMPARISON: Correlation is made with prior study from 10/16/2018. FINDINGS: Heart size is stable. Right-sided effusion has significantly decreased since prior study. This appears to be small. Parenchymal opacities in the right mid and lower lung duarte have also significantly improved with overall improved aeration. There is no pneumothorax. Left lung is clear. IMPRESSION: Decrease in right pleural effusion and overall improved aeration in the right base when compared with examination from 10/16/2018. Dictated by: Dictated on workstation # [id number]
== END ==
LOC: RAD 12:22
PROVIDERS: ATTEND Family Medicine
DX: J90 Pleural effusion, not elsewhere classified (principal); Z87.09 Personal history of other diseases of the respiratory system
CPT/HCPCS: 71046

== ENCOUNTER 2019-12-10 05:41 | Outpatient (CLI) | payer MEDICARE, MEDICAID ==
[~2019-12-10] VITALS: Ht 185 cm; Wt 78.1 kg
[~2019-12-10 05:41] MED LIST changes: -TRAZ-190 PO; +TRAZ-227 PO
[2019-12-10] MEDS ORDERED: DIPH25CA45 PO (09:49)
[2019-12-10] MEDS ORDERED: LACT1CAP8 PO (09:49)
[2019-12-10] MEDS ORDERED: ACET-93 PO (09:49)
[2019-12-10] MEDS ORDERED: LEVE500T6 PO (09:49)
[2019-12-10] MEDS ORDERED: LOPE2CAP14 PO (09:49)
[2019-12-10] MEDS ORDERED: BETA15CR14 TP (09:49)
[2019-12-10] MEDS ORDERED: BISM262O24 PO (09:49)
[2019-12-10] MEDS ORDERED: MAGN400O7 PO (09:49)
[2019-12-10] MEDS ORDERED: GENT15CR6 TP (09:49)
== END 2019-12-10 11:38 | disposition home or self-care (01) ==
LOC: PREOP 05:41
PROVIDERS: ATTEND Dentist General Practice
DX: Z01.812 Encounter for preprocedural laboratory examination (principal); K02.9 Dental caries, unspecified; Z20.828 Contact with and (suspected) exposure to other viral communicable diseases
CPT/HCPCS: 87635

== ENCOUNTER 2019-12-15 10:48 | Day surgery (SDC) | payer MEDICARE, MEDICAID ==
[~2019-12-15 10:48] MED LIST changes: +ACET-93 PO; +BETA15CR14 TP; +BISM262O24 PO; +DIPH25CA45 PO; +GENT15CR6 TP; +LACT1CAP8 PO; +LOPE2CAP14 PO; +MAGN400O7 PO
[2019-12-15] MEDS ORDERED: LACTATED RINGERS 1,000 ML IV PRN (11:02)
--- OUTSIDE RECORDS SUMMARY | 2019-12-15 12:09 | XMS REPORT ---
Author Author Juan Carlos Mayo Organization [facility] Address [address] [place], [place] [id number] Care Team Providers Care Skin Specialist Name Role Phone Mikey Mayo V PCP Unavailable Allergies and Adverse Reactions Name Reaction Notes IODINATED CONTRAST MEDIA - ORAL AND IV DYE Allergy to IVP dye Plan of Treatment Not available. Medications Active Name Start Date Estimated Completion Date SIG Co mments divalproex 250 mg oral tablet extended release 24 hr 3 tabs po bid senna 8.6 mg oral tablet 1 tab po at HS paroxetine HCl 30 mg oral tablet take 1 tablet (30 mg) by oral route once daily risperidone 2 mg oral tablet take 1 table t (2 mg) by oral route once daily trazodone 100 mg oral tablet jonathan e 1 tablet (100 mg) by oral route [...] Name Plan Name Plan Number Policy Number Riley cy Group Number Start Date Medicare Part B Medicare Of [place] [id number] N/A Aetna Better Health Aetna Better Health [id number] N/A Medicare RHC Medicare RHC [id number] N/ A Aetna Better Health - RHC Aetna Better Health - RHC [id number] N/A Railroad Medicare Railroad Medicare [id number] N/A Amer[place] Amer[place] [id number] N/A Medicare RHC Medicare RHC [id number] N /A Amer[employer] - [place] State Plan Amerigroup - [place] State [place] [id number] N/A Medicare Part A Medicare - Lab/Xray [id number] N/A History of Encounters Visit Date Visit Type Provider 11/07/2018 Office visit Mikey Mayo DO 09/16/2018 Hospital Geraldine Lofton MD 09/08/2018 [facility] Geraldine Lofton MD 08/25/2018 Office visit Melody SERRATO RN 08/22/2018 [facility] Geraldine Lofton MD 07/23/2018 [facility] Geraldine Lofton MD 06/02/2018 [facility] Kendall Salazar MD 06/01/2018 [facility] Geraldine Lofton MD 02/28/2018 [facility] Geraldine Lofton MD 05/23/2017 [facility] Geraldine Lofton MD 03/26/2017 [facility] Geraldine Lofton MD 03/24/2017 Office visit Desiree SERRATO RN 01/17/2017 [facility] PAYAM CAIL MD 01/17/2017 [facility] Geraldine Lofton MD 04/27/2015 [facility] Billie Shetty MD
--- OUTSIDE RECORDS SUMMARY | 2019-12-15 12:09 | XMS REPORT ---
Author Author Juan Carlos Ashby Organization [facility] Address [address] [place], [place] [id number] Care Team Providers Care Vineyard Supervisor Name Role Phone Dexter Ashby PCP Dexter Ashby PreferredProvider Allergies and Adverse Reactions Name Reaction Notes IODINATED CONTRAST MEDIA - ORAL AND IV DYE Allergy to IVP dye Plan of Treatment Planned Activity Comments Planned Date Planned Time Plan/Goal Dilantin 01/27/2019 12:[address] Guidance for Needle Placement for Biopsy, Aspiration or I njection 02/03/2019 12:[address] CHEST W/CONTRAST 02/03/2019 12:00 AM Medications Active Name Start Date Estimated Completion Date SIG Co mments Gavilax 17 gram/dose oral powder 12/17/2018 diphenhydramine HCl 25 mg oral capsule 12/15/2018 Milk of Magnesia 400 mg/5 mL oral suspension 12/12/2018 Senexon-S 8.6-50 mg oral tablet 12/01/2018 clotrimazole 1 % topical cream 06/12/2018 Ear Drops (carbamide peroxide) 6.5 % otic (ear) drops 01/07/2018 sodium chloride 1 gram oral tablet take 1 tablet by oral route daily Acidophilus oral capsule 01/27/2019 02/26/2019 take 1 capsule by oral route 2 times a day for 30 days divalproex 250 mg oral tablet,delayed release (DR/EC) 01/27/2019 02/26/2019 take 1 tablet (250 mg) by oral route 2 times per day for 30 days DOK Plus 8.6-50 mg oral tablet 01/27/2019 02/26/2019 t kiera 1 tablet by oral route once a day (at bedtime) for 30 days levetiracetam 500 mg oral tablet 01/27/2019 02/26/2019 take 1 tablet (500 mg) by oral route 2 times per day for 30 days paroxetine HCl 30 mg oral tablet 01/27/2019 02/26/2019 take 1 tablet (30 mg) by oral route once daily for 30 days risperidone 2 mg oral tablet 01/27/2019 02/26/2019 jonathan e 1 tablet by oral route once a day (at bedtime) for 30 days trazodone 150 mg oral tablet 01/27/2019 02/26/2019 jonathan e 1 tablet by oral route daily for 30 days Name Start Date Expiration Date SIG Comments divalproex 250 mg oral [...] HC BMI BSA BMI Percentile O2 Sat(%) 01/27/2019 1:33:00 PM 120 mmHg 70 mmHg 82 bpm 16 rpm 98.1 F 191 lbs 72 in 25.904 kg/m 2.0979 m 100 % 08/25/2018 11:04:00 AM 119 mmHg 63 mmHg 75 bpm 18 rpm 98.4 F 206 lbs 72 in 27.94 kg/m2 2.18 m2 98 % 03/24/2017 3:18:00 PM 118 mmHg 80 mmHg 74 bpm 18 rpm 98 F 206 lbs 73 in 27.1781 kg/m 2.1938 m 99 % Social History Name Description Comments Tobacco Former smoker History of Procedures Date Ordered Description Order Status 03/24/2017 12:00 AM X-RAY EXAM OF ANKLE Reviewed 01/27/2019 12:00 AM QUANTITATIVE ASSAY DRUG Returned 01/27/2019 12:00 AM COMPLETE CBC W/AUTO DIFF WBC Returned 01/27/2019 12:00 AM COMPREHEN METABOLIC PANEL Returned 01/27/2019 12:00 AM LIPID PANEL Returned Results Summary Not available. History Of Immunizations Not available. 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 Jan 27 201 9 1:35PM Lung mass Jan 27 2019 1:35PM Screening for prostate cancer Jan 27 2019 1:35PM Lung mass Feb 03 2019 8:45AM Lung mass Feb 03 2019 1:21PM Payers Insurance Name Company Name Plan Name Plan Number Policy Number Riley cy Group Number Start Date Railroad Medicare Railroad Medicare [id number] N/A Aetna Better Health Aetna Better Health [id number] 3 N/A [employer] [employer] [id number] N/A Medicare RHC Medicare RHC [id number] N /A [employer] - [place] State [place] Amer[employer] [place] State [place] [id number] N/A Medicare Part A Medicare - Lab/Xray [id number] N/A Medicare Part B Medicare Of [place] [id number] N/A Medicare RHC Medicare RHC [id number] N/ A Aetna Better Health - RHC Aetna Better Health - RHC [id number] N/A History of Encounters Visit Date Visit Type Provider 01/27/2019 Office visit Dexter Ashby APR N 11/07/2018 Office visit Mikey Mayo DO 09/16/2018 [facility] Geraldine Lofton MD 09/08/2018 [facility] Geraldine Lofton MD 08/25/2018 Office visit Melody SERRATO RN 08/22/2018 [facility] Geraldine Lofton MD 07/23/2018 [facility] Geraldine Lofton MD 06/02/2018 [facility] Kendall Salazar MD 06/01/2018 Hospital Geraldine Lofton MD 02/28/2018 Hospital Geraldine Lofton MD 05/23/2017 [facility] Geraldine Lofton MD 03/26/2017 [facility] Geraldine Lofton MD 03/24/2017 Office visit Desiree SERRATO RN 01/17/2017 [facility] PAYAM CALI MD 01/17/2017 [facility] Geraldine Lofton MD 04/27/2015 [facility] Billie Shetty MD
--- OUTSIDE RECORDS SUMMARY | 2019-12-15 12:09 | XMS REPORT ---
Author Author Juan Carlos Mayo Organization [facility] Address [address] [place], [place] [id number] Care Team Providers Care Sifter Operator Name Role Phone Mikey Mayo V PCP [...] Date Medicare Part B Medicare Of [place] [id number] N/A Aetna Better Health Aetna Better Health [id number] 3 N/A Medicare RHC Medicare RHC [id number] N/ A Aetna Better Health - RHC Aetna Better Health - RHC [id number] N/A Railroad Medicare Railroad Medicare [id number] N/A [employer] [id number] N/A Medicare RHC Medicare RHC [id number] N /A [employer] [place] [employer] [place] [id number] N/A Medicare Part A Medicare - Lab/Xray [id number] N/A History of Encounters Visit Date Visit Type Provider 11/07/2018 Office visit Mikey Mayo DO 09/16/2018 Hospital Geraldine Lofton MD 09/08/2018 [facility] Geraldine Lofton MD 08/25/2018 Office visit Melody SERRATO RN 08/22/2018 [facility] Geraldine Lofton MD 07/23/2018 [facility] Geraldine Lofton MD 06/02/2018 [facility] Kendall Salazar MD 06/01/2018 [facility] Geraldine Lofton MD 02/28/2018 [facility] Geraldine Lofton MD 05/23/2017 [facility] Geraldine Lofton MD 03/26/2017 [facility] Geraldine Lofton MD 03/24/2017 Office visit Desiree SERRATO RN 01/17/2017 [facility] PAYAM CALI MD 01/17/2017 [facility] Geraldine Lofton MD 04/27/2015 [facility] Billie Shetty MD
--- OUTSIDE RECORDS SUMMARY | 2019-12-15 12:09 | XMS REPORT ---
Author Author Juan Carlos Ashby Organization [facility] Address [address] [place], [place] [address] Care Team Providers Care Small Piece Cutter Name Role Phone Dexter Ashby PCP Dexter Ashby PreferredProvider Allergies and Adverse Reactions Name Reaction Notes IODINATED CONTRAST MEDIA - ORAL AND IV DYE Allergy to IVP dye Plan of Treatment Planned Activity Comments Planned Date Planned Time Plan/Goal CT Guidance for Needle Placement for Biopsy, Aspiration or I njection 02/03/2019 12:[address] CHEST W/CONTRAST 02/03/2019 12:00 AM Dilantin 01/27/2019 12:00 AM Medications Active Name Start Date [...] route once daily at bedtime Problem List Description Status Onset Seizure disorder Active Bipolar Schizoeffective Disorder Active Mental Retardation Active Anxiety Disorder, Generalized Active Vital Signs Date Time BP-Sys(mm[Hg] BP-Vidya(mm[Hg]) HR(bpm) [...] Returned 01/27/2019 12:00 AM LIPID PANEL Returned 02/09/2019 12:00 AM Consult/Referral Reviewed Results Summary Not available. History Of [...] 11:08AM Seizure disorder Jan 27 2019 1:35PM FPC current use of antipsychotic medication Jan 27 9 1:35PM Lung mass Jan 27 2019 1:35PM Screening for prostate cancer Jan 27 2019 1:35PM Lung mass Feb 03 2019 8:45AM Lung mass Feb 03 2019 1:21PM Establishing care with new doctor, encounter for Jan 27 2019 1:35PM Payers Insurance Name Company Name Plan Name Plan Number Policy Number Riley cy Group Number Start Date Railroad Medicare Railroad Medicare [id number] N/A Aetna Better Health Aetna Better Health [id number] 3 N/A Amer[employer] [place] State Plan [facility] [id number] N/A Medicare RHC Medicare RHC [id number] N /A Amerigroup - [place] - [place] State Plan Amerigroup - [facility] State Plan [id number] N/A Medicare Part A Medicare - Lab/Xray [id number] N/A Medicare Part B Medicare Of [place] [id number] N/A Medicare RHC Medicare RHC [id number] N/ A Aetna Better Health - [facility] [address] Aetna Better Health - C [id number] N/A History of Encounters Visit Date Visit Type Provider 01/27/2019 Office visit Dexter Ashby APR N 11/07/2018 Office visit Mikey Mayo DO 09/16/2018 [facility] Geraldine Lofton MD 09/08/2018 [facility] Geraldine Lofton MD 08/25/2018 Office visit Melody SERRATO RN 08/22/2018 [facility] Geraldine Lofton MD 07/23/2018 [facility] Geraldine Lofton MD 06/02/2018 [facility] Kendall Salazar MD 06/01/2018 [facility] Geraldine Lofton MD 02/28/2018 [facility] Geraldine Lofton MD 05/23/2017 [facility] Geraldine Lofton MD 03/26/2017 [facility] Geraldine Lofton MD 03/24/2017 [facility] Geraldine Lofton MD 04/27/2015 [facility] Billie Shetty MD
--- OUTSIDE RECORDS SUMMARY | 2019-12-15 12:09 | XMS REPORT ---
Author Author Juan Carlos Ashby Organization [facility] Address [address] [place], [place] [id number] Care Team Providers Care Teacher Music Name Role Phone Dexter Ashby PCP Dexter [...] Number Riley cy Group Number Start Date [facility] Medicare [facility] Medicare [id number] N/A Aetna Better Health Aetna Better Health [id number] 3 N/A [employer] [place] State Plan [facility] [id number] N/A Medicare RHC Medicare RHC [id number] N /A [employer] [place] [employer] [place] [id number] N/A Medicare Part A Medicare - Lab/Xray [id number] N/A Medicare Part B Medicare Of [place] [id number] N/A Medicare RHC Medicare RHC [id number] N/ A Aetna Better Health - RHC Aetna Better Health - RHC [id number] N/A History of Encounters Visit Date Visit Type Provider 01/27/2019 Office visit Dexter Ashby APR N 11/07/2018 Office visit Mikey Mayo DO 09/16/2018 [facility] Geraldine Lofton MD 09/08/2018 [facility] Geraldine Lofton MD 08/25/2018 Office visit Melody SERRATO RN 08/22/2018 [facility] Geraldine Loftno MD 07/23/2018 [facility] Geraldine Lofton MD 06/02/2018 [facility] Kendall Salazar MD 06/01/2018 [facility] Geraldine Lofton MD 02/28/2018 [facility] Geraldine Lofton MD 05/23/2017 [facility] Geraldine Lofton MD 03/26/2017 [facility] Geraldine Lofton MD 03/24/2017 Office visit Desiree SERRATO RN 01/17/2017 [facility] PAYAM CALI MD 01/17/2017 [facility] Geraldine Lofton MD 04/27/2015 [facility] Billie Shetty MD
--- OUTSIDE RECORDS SUMMARY | 2019-12-15 12:09 | XMS REPORT ---
Author Author Juan Carlos Ashby Organization [facility] Address [address] [place], [place] [id number] Care Team Providers Care Equipment Worker Name Role Phone Dexter Ashby PCP Dexter Ashby PreferredProvider Allergies and Adverse Reactions Name Reaction Notes IODINATED CONTRAST MEDIA - ORAL AND IV DYE Allergy to IVP dye Plan of Treatment Planned Activity Comments Planned Date Planned Time Plan/Goal Dilantin 01/27/2019 12:[address] Guidance for Needle Placement for Biopsy, Aspiration or I njection 02/03/2019 12:00 AM Medications Active Name Start [...] 11:08AM Seizure disorder Jan 27 2019 1:35PM 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 Jan 27 201 9 1:35PM Lung mass Jan 27 2019 1:35PM Screening for prostate cancer Jan 27 2019 1:35PM Lung mass Feb 03 2019 8:45AM Payers Insurance Name Company Name Plan Name Plan Number Policy Number [place] Group Number Start Date Railroad Medicare Railroad Medicare [id number] N/A [employer] Better [employer] A[employer] Better Health [id number] N/A [employer] [place] [employer] [place] [id number] N/A Medicare RHC Medicare RHC [id number] N /A [employer] [place] [employer] [place] [id number] N/A Medicare Part A Medicare - Lab/Xray [id number] N/A Medicare Part B Medicare Of [place] [id number] N/A Medicare RHC Medicare RHC [id number] N/ A [employer] Better [employer] - RHC [employer] Better [employer] - RHC [id number] N/A History of Encounters Visit Date Visit Type Provider 01/27/2019 Office visit Dexter Ashby APR N 11/07/2018 Office visit Mikey Mayo DO 09/16/2018 [facility] Geraldine Lofton MD 09/08/2018 [facility] Geraldine Lofton MD 08/25/2018 Office visit Melody SERRATO RN 08/22/2018 [facility] Geraldine Lofton MD 07/23/2018 [facility] Geraldine Lofton MD 06/02/2018 [facility] KendallSamson Salazar MD 06/01/2018 [facility] Geraldine Lofton MD 02/28/2018 [facility] Geraldine Lofton MD 05/23/2017 [facility] Geraldine Lofton MD 03/26/2017 [facility] Geraldine Lofton MD 03/24/2017 Office visit Desiree SERRATO RN 01/17/2017 [facility] PAYAM CALI MD 01/17/2017 [facility] Geraldine Lofton MD 04/27/2015 [facility] Billie Shetty MD
--- NOTE | 2019-12-15 12:10 | NUR ---
PATIENT ARRIVED AT 1055 WITH DRUG WORKER AND ONLY A FACESHEET AND NO LEGAL GUARDIAN/DPOA PAPERWORK, MOISÉS FROM [facility]. UPON VIEWING CHART THERE WAS NOTE FROM CONSTANCE LEON IN PREOP TO PHONE HER ABOUT CONSENT. THIS RN PHONED CONSTANCE LEON AND SHE INFORMED THAT RUPA THAT TELEPHONE PREOPED HAD INFORMED HER THAT THERE IS NO LEGAL PAPERWORK FOR DPOA/GUARDIAN AND THAT IT IS IN THE WORKS. PATIENTS MOTHER HAD A FEW YEARS AGO TO MY UNDERSTANDING. UPON LOOKING AT OUR RECORDS I FOUND THAT [employer] HIS MOTHER WAS DPOA WE HAVE ON FILE. THIS RN INFORMED CONSTANCE TRAORE MANAGER AT 1120 OF THE ABOVE SITUATION. CONSTANCE TRAORE PHONED THE [facility] AND SPOKE WITH [facility] WHO STATED THEY WOULD FIND PAPERS AND FAX OR CALL THIS RN BACK [facility] PHONED THIS RN BACK AND INFORMED THAT THEY HAD NO PAPERWORK AND HE IS HIS OWN GUARDIAN. UPON MY INITIAL ASSESSMENT PATIENT COULD NOT TELL ME WHAT HE WAS HERE FOR OR WHO THE PHYSICIAN WAS WHEN HE LAST ATE OR DRANK OR WHEN HE LAST TOOK ANY MEDICATIONS FROM THE PREOP LIST. THE DRUG WORKER INFORMED THAT [facility] HAD TOLD HIM BEFORE HE LEFT THERE WHY HE WAS COMING. LEÓN PHONED OUR RISK MANAGEMENT AND THEY SAID WE COULDN'T PROCEED WITHOUT LEGAL CONSENT. CONSTANCE TRAORE PHONED DR. CRANDALL TO TELL THEM ABOUT HAVING NO LEGAL PAPERWORK, THEY SAID THEY WOULD CALL BACK WITHIN 5-10 MINUTES DUE TO THE FACT THEY WOULDN'T HAVE SCHEDULED WITHOUT LEGAL CONSENT. TRESSA PHONED BACK AND THIS RN INFORMED THAT EVEN THOUGH HE MAY BE HIS OWN GUARDIAN TO [facility] HE DOESN'T FALL UNDER OUR REQUIREMENTS OF ORIENTATION OR ANY KNOWLEDGE OF WHY AND WHAT HE WAS HERE, TIME HE LAST ATE OR DRANK OR WHAT HIS MEDICATION ARE OR WHEN HE TOOK HIS MEDICATIONS LAST. INFORMED THAT WE HAD CONTACTED OUR RISK MANAGEMENT FOR GUIDANCE ON HOW TO PROCEED. I FOLLOWED UP WITH CONSTANCE TRAORE ONCE MORE FOR TRESSA AND SHE STATED THAT WE NEED LEGAL PAPERWORK BEFORE WE CAN PROCEED WITH DENTAL SURGERY. THIS RN AND CONSTANCE TRAORE INFORMED PATIENT IS NOT ABLE TO HAVE PROCEDURE AT THIS TIME UNTIL LEGAL GUARDIAN/DPOA IS ESTABLISHED. PATIENT AND DRUG WORKER LEFT HERE AT 1200.
--- OUTSIDE RECORDS SUMMARY | 2019-12-15 12:10 | XMS REPORT | Continuity of Care Document ---
Demographics Preferred Language Unknown Marital Status Unknown Druze Affiliation Unknown Race Unknown Ethnic Group Unknown Author Organization Unknown Address Unknown Phone Unavailable Allergies Active Description Code Type Severity Reaction Onset Reported/Identified Relationship to Patient Clinical Status Yes CONTRAST MEDIA, IODINE RELATED [id number] CLASS N/A N/A Yes [id number] BRANDNAME N/A N/A Yes [id number] BRANDNAME N/A OTHER Yes No Known Environmental Allergies [id number] N/A N/A Yes No Known Food Allergies [id number] N/A N/A Yes IVP CONTRAST IVP CONTRAST Unknown N/A 09/25/2007 Yes lorazepam [id number] Drug Allergy Moderate Hives 10/14/2018 Medications There is no data. Problems Date Dx Coded Attending Type Code Diagnosis Diagnosed By 03/26/2017 P [id number] Enc ounter for preprocedural cardiovascular examination 03/26/2017 S [id number] Enc ounter for preprocedural laboratory examination 10/16/2017 P [id number] Ab rasion of nose, initial encounter 10/16/2017 S [id number] Ab rasion of unspecified part of head, initial encounter 10/16/[id number] rain of muscle, fascia and tendon at neck level, initial encounter 10/16/[id number] rain of muscle, fascia and tendon of lower back, initial encounter 10/16/2017 S [id number] Fa ll on same level from slipping, tripping and stumbling without subsequent striking against object, initial encounter 10/16/2017 S [id number] [facility] athletic field as the place of occurrence of the external cause 10/16/2017 S [id number] Acti vity, running 05/22/2018 JAVID JACKSON DO Ot G31.89 OTHER SPECIFIED DEGENERATIVE DISEASES OF 05/22/2018 JAVID JACKSON DO Ot R26.81 UNSTEADINESS ON FEET 05/22/2018 JAVID JACKSON DO Ot W19.XXXA UNSPECIFIED FALL, INITIAL ENCOUNTER 06/14/2018 JAVID JACKSON DO Ot G31.89 OTHER SPECIFIED DEGENERATIVE DISEASES OF 06/14/2018 JAVID JACKSON DO Ot R26.81 UNSTEADINESS ON FEET 06/14/2018 JAVID JACKSON DO Ot W19.XXXA UNSPECIFIED FALL, INITIAL ENCOUNTER 07/23/2018 S [id number] Fa ll on same level from slipping, tripping and stumbling without subsequent striking against object, initial encounter 07/23/2018 S [id number] Uns pecified [address] in shelter as the place of occurrence of the external cause 07/23/2018 P [id number] Enc nter for examination and observation following other accident 09/10/2018 MANDY COLLINS DO Ot E66. 9 OBESITY, UNSPECIFIED 09/10/2018 MANDY COLLINS DO Ot G40.909 EPILEPSY, UNSP, NOT INTRACTABLE, WITHOUT 09/10/2018 MANDY COLLINS DO Ot J90 PLEURAL EFFUSION, NOT ELSEWHERE CLASSIFI 09/10/2018 MANDY COLLINS DO Ot J98. 4 OTHER DISORDERS OF LUNG 09/24/2018 MARKUS PIPER APRN Ot E66.9 OBESITY, UNSPECIFIED 09/24/2018 MARKUS PIPER APRN Ot G40.909 EPILEPSY, UNSP, NOT INTRACTABLE, WITHOUT 09/24/2018 MARKUS PIPER APRN Ot I25.10 ATHSCL HEART DISEASE OF [place] CORONARY 09/24/2018 MARKUS PIPER APRN Ot I51.7 CARDIOMEGALY 09/24/2018 MARKUS PIPER APRN Ot J90 PLEURAL EFFUSION, NOT ELSEWHERE CLASSIFI 09/24/2018 MARKUS PIPER APRN Ot 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, 09/24/2018 MARKUS PIPER APRN Ot R91.8 OTHER NONSPECIFIC ABNORMAL FINDING OF [place] 09/29/2018 Ot J90 PLEURA L EFFUSION, NOT ELSEWHERE CLASSIFI 09/29/2018 Ot J94.8 OTHE R SPECIFIED PLEURAL CONDITIONS 09/29/2018 Ot R91.8 OTHE R NONSPECIFIC ABNORMAL FINDING OF [place] 09/30/2018 LUISANA ORTIZ MD Ot R06.02 SHORTNESS OF BREATH 09/30/2018 LUISANA ORTIZ MD Ot R63.0 ANOREXIA 10/02/2018 LUISANA ORTIZ MD Ot R06.02 SHORTNESS OF BREATH 10/02/2018 DIANA SANCHEZ, LUISANA [place] Ot R63.0 ANOREXIA 10/03/2018 MANDY COLLINS DO Ot E66. 9 OBESITY, UNSPECIFIED 10/03/2018 MANDY COLLINS DO Ot G40.909 EPILEPSY, UNSP, NOT INTRACTABLE, WITHOUT 10/03/2018 MANDY COLLINS DO Ot J90 PLEURAL EFFUSION, NOT ELSEWHERE CLASSIFI 10/03/2018 MANDY COLLINS DO Ot J98. 4 OTHER DISORDERS OF LUNG 10/06/2018 MANDY COLLINS DO Ot D64. 9 ANEMIA, UNSPECIFIED 10/06/2018 MANDY COLLINS DO Ot F25. 9 SCHIZOAFFECTIVE DISORDER, UNSPECIFIED 10/06/2018 MANDY COLLINS DO Ot F31. 9 BIPOLAR DISORDER, UNSPECIFIED 10/06/2018 MANDY COLLINS DO Ot F79 UNSPECIFIED INTELLECTUAL DISABILITIES 10/06/2018 MANDY COLLINS DO Ot I34. 1 NONRHEUMATIC MITRAL (VALVE) PROLAPSE 10/06/2018 MANDY COLLINS DO Ot J30. 2 OTHER SEASONAL ALLERGIC RHINITIS 10/06/2018 MANDY COLLINS DO Ot J90 PLEURAL EFFUSION, NOT ELSEWHERE CLASSIFI 10/06/2018 MANDY COLLINS DO Ot J94. 8 OTHER SPECIFIED PLEURAL CONDITIONS 10/06/2018 MANDY COLLINS DO Ot R53. 1 WEAKNESS 10/06/2018 MANDY COLLINS DO Ot R91. 8 OTHER NONSPECIFIC ABNORMAL FINDING OF [place] 10/06/2018 MANDY COLLINS DO Ot D64. 9 ANEMIA, UNSPECIFIED 10/06/2018 MANDY COLLINS DO Ot F25. 9 SCHIZOAFFECTIVE DISORDER, UNSPECIFIED 10/06/2018 MANDY COLLINS DO Ot F31. 9 BIPOLAR DISORDER, UNSPECIFIED 10/06/2018 MANDY COLLINS DO Ot F79 UNSPECIFIED INTELLECTUAL DISABILITIES 10/06/2018 MANDY COLLINS DO Ot I34. 1 NONRHEUMATIC MITRAL (VALVE) PROLAPSE 10/06/2018 MANDY COLLINS DO Ot J30. 2 OTHER SEASONAL ALLERGIC RHINITIS 10/06/2018 MANDY COLLINS DO Ot J90 PLEURAL EFFUSION, NOT ELSEWHERE CLASSIFI 10/06/2018 MANDY COLLINS DO Ot J94. 8 OTHER SPECIFIED PLEURAL CONDITIONS 10/06/2018 MANDY COLLINS DO Ot R53. 1 WEAKNESS 10/06/2018 MANDY COLLINS DO Ot R91. 8 OTHER NONSPECIFIC ABNORMAL FINDING OF [place] 10/06/2018 MANDY COLLINS DO Ot D64. 9 ANEMIA, UNSPECIFIED 10/06/2018 MANDY COLLINS DO Ot F25. 9 SCHIZOAFFECTIVE DISORDER, UNSPECIFIED 10/06/2018 MANDY COLLINS DO Ot F31. 9 BIPOLAR DISORDER, UNSPECIFIED 10/06/2018 MANDY COLLINS DO Ot F79 UNSPECIFIED INTELLECTUAL DISABILITIES 10/06/2018 MANDY COLLINS DO M Ot I34. 1 NONRHEUMATIC MITRAL (VALVE) PROLAPSE 10/06/2018 MANDY COLLINS DO Ot J30. 2 OTHER SEASONAL ALLERGIC RHINITIS 10/06/2018 MANDY COLLINS DO Ot J90 PLEURAL EFFUSION, NOT ELSEWHERE CLASSIFI 10/06/2018 MANDY COLLINS DO Ot J94. 8 OTHER SPECIFIED PLEURAL CONDITIONS 10/06/2018 MANDY COLLINS DO Ot R53. 1 WEAKNESS 10/06/2018 MANDY COLLINS DO Ot R91. 8 OTHER NONSPECIFIC ABNORMAL FINDING OF [place] 10/07/2018 MANDY COLLINS DO Ot D64. 9 ANEMIA, UNSPECIFIED 10/07/2018 MANDY COLLINS DO Ot F25. 9 SCHIZOAFFECTIVE DISORDER, UNSPECIFIED 10/07/2018 MANDY COLLINS DO Ot F31. 9 BIPOLAR DISORDER, UNSPECIFIED 10/07/2018 MANDY COLLINS DO Ot F79 UNSPECIFIED INTELLECTUAL DISABILITIES 10/07/2018 MANDY COLLINS DO Ot I34. 1 NONRHEUMATIC MITRAL (VALVE) PROLAPSE 10/07/2018 MANDY COLLINS DO M Ot J30. 2 OTHER SEASONAL ALLERGIC RHINITIS 10/07/2018 MANDY COLLINS DO M Ot J90 PLEURAL EFFUSION, NOT ELSEWHERE CLASSIFI 10/07/2018 MANDY COLLINS DO M Ot J94. 8 OTHER SPECIFIED PLEURAL CONDITIONS 10/07/2018 MANDY COLLINS DO M Ot R53. 1 WEAKNESS 10/07/2018 MANDY COLLINS DO M Ot R91. 8 OTHER NONSPECIFIC ABNORMAL FINDING OF [place] 10/07/2018 MANDY COLLINS DO Ot D64. 9 ANEMIA, UNSPECIFIED 10/07/2018 MANDY COLLINS DO Ot F25. 9 SCHIZOAFFECTIVE DISORDER, UNSPECIFIED 10/07/2018 MANDY COLLINS DO Ot F31. 9 BIPOLAR DISORDER, UNSPECIFIED 10/07/2018 MANDY COLLINS DO Ot F79 UNSPECIFIED INTELLECTUAL DISABILITIES 10/07/2018 MANDY COLLINS DO Ot I34. 1 NONRHEUMATIC MITRAL (VALVE) PROLAPSE 10/07/2018 MANDY COLLINS DO Ot J30. 2 OTHER SEASONAL ALLERGIC RHINITIS 10/07/2018 MANDY COLLINS DO Ot J90 PLEURAL EFFUSION, NOT ELSEWHERE CLASSIFI 10/07/2018 MANDY COLLINS DO Ot J94. 8 OTHER SPECIFIED PLEURAL CONDITIONS 10/07/2018 MANDY COLLINS DO Ot R53. 1 WEAKNESS 10/07/2018 MANDY COLLINS DO Ot R91. 8 OTHER NONSPECIFIC ABNORMAL FINDING OF [place] 10/07/2018 MANDY COLLINS DO Ot D64. 9 ANEMIA, UNSPECIFIED 10/07/2018 MANDY COLLINS DO Ot F25. 9 SCHIZOAFFECTIVE DISORDER, UNSPECIFIED 10/07/2018 MANDY COLLINS DO Ot F31. 9 BIPOLAR DISORDER, UNSPECIFIED 10/07/2018 MANDY COLLINS DO Ot F79 UNSPECIFIED INTELLECTUAL DISABILITIES 10/07/2018 MANDY COLLINS DO Ot I34. 1 NONRHEUMATIC MITRAL (VALVE) PROLAPSE 10/07/2018 MANDY COLLINS DO Ot J30. 2 OTHER SEASONAL ALLERGIC RHINITIS 10/07/2018 MANDY COLLINS DO Ot J90 PLEURAL EFFUSION, NOT ELSEWHERE CLASSIFI 10/07/2018 MANDY COLLINS DO Ot J94. 8 OTHER SPECIFIED PLEURAL CONDITIONS 10/07/2018 MANDY COLLINS DO M Ot R53. 1 WEAKNESS 10/07/2018 MANDY COLLINS DO M Ot R91. 8 OTHER NONSPECIFIC ABNORMAL FINDING OF [place] 10/08/2018 MANDY COLLINS DO Ot D64. 9 ANEMIA, UNSPECIFIED 10/08/2018 MANDY COLLINS DO Ot F25. 9 SCHIZOAFFECTIVE DISORDER, UNSPECIFIED 10/08/2018 MANDY COLLINS DO Ot F31. 9 BIPOLAR DISORDER, UNSPECIFIED 10/08/2018 MANDY COLLINS DO Ot F79 UNSPECIFIED INTELLECTUAL DISABILITIES 10/08/2018 MANDY COLLINS DO Ot I34. 1 NONRHEUMATIC MITRAL (VALVE) PROLAPSE 10/08/2018 MANDY COLLINS DO Ot J30. 2 OTHER SEASONAL ALLERGIC RHINITIS 10/08/2018 MANDY COLLINS DO Ot J90 PLEURAL EFFUSION, NOT ELSEWHERE CLASSIFI 10/08/2018 MANDY COLLINS DO Ot J94. 8 OTHER SPECIFIED PLEURAL CONDITIONS 10/08/2018 MANDY COLLINS DO M Ot R53. 1 WEAKNESS 10/08/2018 MANDY COLLINS DO M Ot R91. 8 OTHER NONSPECIFIC ABNORMAL FINDING OF [place] 10/08/2018 MANDY COLLINS DO Ot D64. 9 ANEMIA, UNSPECIFIED 10/08/2018 MANDY COLLINS DO Ot F25. 9 SCHIZOAFFECTIVE DISORDER, UNSPECIFIED 10/08/2018 MANDY COLLINS DO M Ot F31. 9 BIPOLAR DISORDER, UNSPECIFIED 10/08/2018 MANDY COLLINS DO M Ot F79 UNSPECIFIED INTELLECTUAL DISABILITIES 10/08/2018 MANDY COLLINS DO M Ot I34. 1 NONRHEUMATIC MITRAL (VALVE) PROLAPSE 10/08/2018 MANDY COLLINS DO M Ot J30. 2 OTHER SEASONAL ALLERGIC RHINITIS 10/08/2018 MANDY COLLINS DO Ot J90 PLEURAL EFFUSION, NOT ELSEWHERE CLASSIFI 10/08/2018 MANDY COLLINS DO Ot J94. 8 OTHER SPECIFIED PLEURAL CONDITIONS 10/08/2018 MANDY COLLINS DO M Ot R53. 1 WEAKNESS 10/08/2018 MANDY COLLINS DO M Ot R91. 8 OTHER NONSPECIFIC ABNORMAL FINDING OF [place] 10/08/2018 MANDY COLLINS DO M Ot D64. 9 ANEMIA, UNSPECIFIED 10/08/2018 JOSE COLLINS DOSON M Ot F25. 9 SCHIZOAFFECTIVE DISORDER, UNSPECIFIED 10/08/2018 MANDY COLLINS DO M Ot F31. 9 BIPOLAR DISORDER, UNSPECIFIED 10/08/2018 MANDY COLLINS DO M Ot F79 UNSPECIFIED INTELLECTUAL DISABILITIES 10/08/2018 MANDY COLLINS DO M Ot I34. 1 NONRHEUMATIC MITRAL (VALVE) PROLAPSE 10/08/2018 MANDY COLLINS DO M Ot J30. 2 OTHER SEASONAL ALLERGIC RHINITIS 10/08/2018 MANDY COLLINS DO Ot J90 PLEURAL EFFUSION, NOT ELSEWHERE CLASSIFI 10/08/2018 MANDY COLLINS DO Ot J94. 8 OTHER SPECIFIED PLEURAL CONDITIONS 10/08/2018 MANDY COLLINS DO Ot R53. 1 WEAKNESS 10/08/2018 MANDY COLLINS DO M Ot R91. 8 OTHER NONSPECIFIC ABNORMAL FINDING OF [place] 10/08/2018 MANDY COLLINS DO Ot D64. 9 ANEMIA, UNSPECIFIED 10/08/2018 MANDY COLLINS DO Ot F25. 9 SCHIZOAFFECTIVE DISORDER, UNSPECIFIED 10/08/2018 MANDY COLLINS DO M Ot F31. 9 BIPOLAR DISORDER, UNSPECIFIED 10/08/2018 MANDY COLLINS DO M Ot F79 UNSPECIFIED INTELLECTUAL DISABILITIES 10/08/2018 MANDY COLLINS DO M Ot I34. 1 NONRHEUMATIC MITRAL (VALVE) PROLAPSE 10/08/2018 MANDY COLLINS DO M Ot J30. 2 OTHER SEASONAL ALLERGIC RHINITIS 10/08/2018 MANDY COLLINS DO M Ot J90 PLEURAL EFFUSION, NOT ELSEWHERE CLASSIFI 10/08/2018 MANDY COLLINS DO M Ot J94. 8 OTHER SPECIFIED PLEURAL CONDITIONS 10/08/2018 MANDY COLLINS DO Ot R53. 1 WEAKNESS 10/08/2018 MANDY COLLINS DO Ot R91. 8 OTHER NONSPECIFIC ABNORMAL FINDING OF [place] 10/13/2018 MANDY COLLINS DO Ot D64. 9 ANEMIA, UNSPECIFIED 10/13/2018 MANDY COLLINS DO Ot F25. 9 SCHIZOAFFECTIVE DISORDER, UNSPECIFIED 10/13/2018 MANDY COLLINS DO Ot F31. 9 BIPOLAR DISORDER, UNSPECIFIED 10/13/2018 MANDY COLLINS DO M Ot F79 UNSPECIFIED INTELLECTUAL DISABILITIES 10/13/2018 MANDY COLLINS DO M Ot I34. 1 NONRHEUMATIC MITRAL (VALVE) PROLAPSE 10/13/2018 MANDY COLLINS DO M Ot J30. 2 OTHER SEASONAL ALLERGIC RHINITIS 10/13/2018 MANDY COLLINS DO M Ot J90 PLEURAL EFFUSION, NOT ELSEWHERE CLASSIFI 10/13/2018 MANDY COLLINS DO M Ot J94. 8 OTHER SPECIFIED PLEURAL CONDITIONS 10/13/2018 MANDY COLLINS DO M Ot R53. 1 WEAKNESS 10/13/2018 MANDY COLLINS DO Ot R91. 8 OTHER NONSPECIFIC ABNORMAL FINDING OF [place] 10/14/2018 JAVID JACKSON DO Ot G31.89 OTHER SPECIFIED DEGENERATIVE DISEASES OF 10/14/2018 JAVID JACKSON DO Ot R26.81 UNSTEADINESS ON FEET 10/14/2018 JAVID JACKSON DO Ot W19.XXXA UNSPECIFIED FALL, INITIAL ENCOUNTER 10/14/2018 MANDY COLLINS DO Ot E66. 9 OBESITY, UNSPECIFIED 10/14/2018 MANDY COLLINS DO Ot G40.909 EPILEPSY, UNSP, NOT INTRACTABLE, WITHOUT 10/14/2018 MANDY COLLINS DO Ot J90 PLEURAL EFFUSION, NOT ELSEWHERE CLASSIFI 10/14/2018 MANDY COLLINS DO Ot J98. 4 OTHER DISORDERS OF LUNG 10/14/2018 MARKUS PIPER APRN Ot E66.9 OBESITY, UNSPECIFIED 10/14/2018 MARKUS PIPER APRN Ot G40.909 EPILEPSY, UNSP, NOT INTRACTABLE, WITHOUT 10/14/2018 MARKUS PIPER APRN Ot I25.10 ATHSCL HEART DISEASE OF [place] CORONARY 10/14/2018 MARKUS PIPER APRN Ot I51.7 CARDIOMEGALY 10/14/2018 MARKUS PIPER APRN Ot J90 PLEURAL EFFUSION, NOT ELSEWHERE CLASSIFI 10/14/2018 MARKUS PIPER APRN Ot 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, 10/14/2018 MARKUS PIPER APRN Ot R91.8 OTHER NONSPECIFIC ABNORMAL FINDING OF [place] 10/14/2018 Ot J90 PLEURA L EFFUSION, NOT ELSEWHERE CLASSIFI 10/14/2018 Ot J94.8 OTHE R SPECIFIED PLEURAL CONDITIONS 10/14/2018 Ot R91.8 OTHE R NONSPECIFIC ABNORMAL FINDING OF [place] 10/14/2018 MANDY COLLINS DO Ot D64. 9 ANEMIA, UNSPECIFIED 10/14/2018 MANDY COLLINS DO Ot F25. 9 SCHIZOAFFECTIVE DISORDER, UNSPECIFIED 10/14/2018 MANDY COLLINS DO Ot F31. 9 BIPOLAR DISORDER, UNSPECIFIED 10/14/2018 MANDY COLLINS DO Ot F79 UNSPECIFIED INTELLECTUAL DISABILITIES 10/14/2018 MANDY COLLINS DO Ot I34. 1 NONRHEUMATIC MITRAL (VALVE) PROLAPSE 10/14/2018 MANDY COLLINS DO Ot J30. 2 OTHER SEASONAL ALLERGIC RHINITIS 10/14/2018 MANDY COLLINS DO Ot J90 PLEURAL EFFUSION, NOT ELSEWHERE CLASSIFI 10/14/2018 MANDY COLLINS DO Ot J94. 8 OTHER SPECIFIED PLEURAL CONDITIONS 10/14/2018 MANDY COLLINS DO Ot R53. 1 WEAKNESS 10/14/2018 MANDY COLLINS DO Ot R91. 8 OTHER NONSPECIFIC ABNORMAL FINDING OF [place] 10/14/2018 MARKUS PIPER APRN Ot E66.9 OBESITY, UNSPECIFIED 10/14/2018 MARKUS PIPER APRN Ot G40.909 EPILEPSY, UNSP, NOT INTRACTABLE, WITHOUT 10/14/2018 MARKUS PIPER APRN Ot I25.10 ATHSCL HEART DISEASE OF [place] CORONARY 10/14/2018 MARKUS PIPER APRN Ot I51.7 CARDIOMEGALY 10/14/2018 MARKUS PIPER APRN Ot J90 PLEURAL EFFUSION, NOT ELSEWHERE CLASSIFI 10/14/2018 MARKUS PIPER APRN Ot 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, 10/14/2018 MARKUS PIPER APRN Ot R91.8 OTHER NONSPECIFIC ABNORMAL FINDING OF [place] 10/14/2018 MANDY COLLINS DO Ot D64. 9 ANEMIA, UNSPECIFIED 10/14/2018 MANDY COLLINS DO Ot F25. 9 SCHIZOAFFECTIVE DISORDER, UNSPECIFIED 10/14/2018 MANDY COLLINS DO Ot F31. 9 BIPOLAR DISORDER, UNSPECIFIED 10/14/2018 MANDY COLLINS DO Ot F79 UNSPECIFIED INTELLECTUAL DISABILITIES 10/14/2018 MANDY COLLINS DO Ot I34. 1 NONRHEUMATIC MITRAL (VALVE) PROLAPSE 10/14/2018 MANDY COLLINS DO Ot J30. 2 OTHER SEASONAL ALLERGIC RHINITIS 10/14/2018 MANDY COLLINS DO Ot J90 PLEURAL EFFUSION, NOT ELSEWHERE CLASSIFI 10/14/2018 MANDY COLLINS DO Ot J94. 8 OTHER SPECIFIED PLEURAL CONDITIONS 10/14/2018 MANDY COLLINS DO Ot R53. 1 WEAKNESS 10/14/2018 MANDY COLLINS DO Ot R91. 8 OTHER NONSPECIFIC ABNORMAL FINDING OF [place] 10/15/2018 MANDY COLLINS DO Ot E66. 9 OBESITY, UNSPECIFIED 10/15/2018 MANDY COLLINS DO, Ot G40.909 EPILEPSY, UNSP, NOT INTRACTABLE, WITHOUT 10/15/2018 MANDY COLLINS DO Ot R06. 00 DYSPNEA, UNSPECIFIED 10/15/2018 MANDY COLLINS DO Ot Z53. 8 PROCEDURE AND TREATMENT NOT CARRIED OUT 10/15/2018 MANDY COLLINS DO Ot D64. 9 ANEMIA, UNSPECIFIED 10/15/2018 MANDY COLLINS DO Ot E83. 42 HYPOMAGNESEMIA 10/15/2018 MANDY COLLINS DO Ot E87. 1 HYPO-OSMOLALITY AND HYPONATREMIA 10/15/2018 MANDY COLLINS DO Ot F25. 9 SCHIZOAFFECTIVE DISORDER, UNSPECIFIED 10/15/2018 MANDY COLLINS DO Ot F31. 9 BIPOLAR DISORDER, UNSPECIFIED 10/15/2018 MANDY COLLINS DO Ot F79 UNSPECIFIED INTELLECTUAL DISABILITIES 10/15/2018 MANDY COLLINS DO, Ot G40.909 EPILEPSY, UNSP, NOT INTRACTABLE, WITHOUT 10/15/2018 MANDY COLLINS DO Ot I34. 1 NONRHEUMATIC MITRAL (VALVE) PROLAPSE 10/15/2018 MANDY COLLINS DO Ot J30. 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 8 OTHER SPECIFIED PLEURAL CONDITIONS 10/15/2018 MANDY COLLINS DO Ot L25. 9 UNSPECIFIED CONTACT DERMATITIS, UNSPECIF 10/15/2018 MANDY COLLINS DO Ot R53. 1 WEAKNESS 10/15/2018 MANDY COLLINS DO Ot R91. 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 10/17/2018 GELLENDER DO, JAVID Tejeda Ot J94.8 OTHER SPECIFIED PLEURAL CONDITIONS 10/17/2018 GELLENDER DO, JAVID Tejeda Ot L30.9 DERMATITIS, UNSPECIFIED 10/17/2018 GELLENDER DO, JAVID Tejeda Ot L50.9 URTICARIA, UNSPECIFIED 10/17/2018 GELLENDER DO, JAVID Tejeda Ot R22.0 LOCALIZED SWELLING, MASS AND LUMP, HEAD 10/17/2018 GELLENDER DO, JAVID Tejeda Ot Z79.899 OTHER [facility] (CURRENT) DRUG THERAPY 10/17/2018 GELLENDER DO, JAVID Tejeda Ot Z88.8 ALLERGY STATUS TO [facility] DRUG/MEDS/BIOL SUB 10/17/2018 GELLENDER DO, JAVID Tejeda Ot Z91.041 RADIOGRAPHIC DYE ALLERGY STATUS 10/17/2018 GELLENDER DO, JAVID Tejeda Ot D64.9 ANEMIA, UNSPECIFIED 10/17/2018 GELLENDER DO, JAVID Tejeda Ot E87.1 HYPO-OSMOLALITY AND HYPONATREMIA 10/17/2018 GELLENDER DO, JAVID Tejeda Ot F25.9 SCHIZOAFFECTIVE DISORDER, UNSPECIFIED 10/17/2018 GELLENDER DO, JAVID Tejeda Ot F31.9 BIPOLAR DISORDER, UNSPECIFIED 10/17/2018 GELLENDER DO, JAVID Tejeda Ot F79 UNSPECIFIED INTELLECTUAL DISABILITIES 10/17/2018 GELLENDER DO, JAVID Tejeda Ot I34.1 NONRHEUMATIC MITRAL (VALVE) PROLAPSE 10/17/2018 GELLENDER DO, JAVID Tejeda Ot 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 10/17/2018 GELLENDER DO, JAVID Tejeda Ot J94.8 OTHER SPECIFIED PLEURAL CONDITIONS 10/17/2018 GELLENDER DO, JAVID Tejeda Ot L30.9 DERMATITIS, UNSPECIFIED 10/17/2018 GELLENDER DO, JAVID Tejeda Ot L50.9 URTICARIA, UNSPECIFIED 10/17/2018 JAVID JACKSON DO Ot R22.0 LOCALIZED SWELLING, MASS AND LUMP, HEAD 10/17/2018 JAVID JACKSON DO Ot Z79.899 OTHER [facility] (CURRENT) DRUG THERAPY 10/17/2018 JAVID JACKSON DO Ot Z88.8 ALLERGY STATUS TO [facility] DRUG/MEDS/BIOL SUB 10/17/2018 JAVID JACKSON DO Ot Z91.041 RADIOGRAPHIC DYE ALLERGY STATUS 10/21/2018 JAVID JACKSON DO Ot G31.89 OTHER SPECIFIED DEGENERATIVE DISEASES OF 10/21/2018 JAVID JACKSON DO Ot R26.81 UNSTEADINESS ON FEET 10/21/2018 JAVID JACKSON DO Ot W19.XXXA UNSPECIFIED FALL, INITIAL ENCOUNTER 10/21/2018 MANDY COLLINS DO Ot E66. 9 OBESITY, UNSPECIFIED 10/21/2018 MANDY COLLINS DO Ot G40.909 EPILEPSY, UNSP, NOT INTRACTABLE, WITHOUT 10/21/2018 MANDY COLLINS DO, Ot J90 PLEURAL EFFUSION, NOT ELSEWHERE CLASSIFI 10/21/2018 MANDY COLLINS DO Ot J98. 4 OTHER DISORDERS OF LUNG 10/21/2018 MANDY COLLINS DO, Ot E66. 9 OBESITY, UNSPECIFIED 10/21/2018 MANDY COLLINS DO, Ot G40.909 EPILEPSY, UNSP, NOT INTRACTABLE, WITHOUT 10/21/2018 MANDY COLLINS DO Ot R06. 00 DYSPNEA, UNSPECIFIED 10/21/2018 MANDY COLLINS DO Ot Z53. 8 PROCEDURE AND TREATMENT NOT CARRIED OUT 10/21/2018 MARKUS PIPER APRN Ot E66.9 OBESITY, UNSPECIFIED 10/21/2018 MARKUS PIPER APRN Ot G40.909 EPILEPSY, UNSP, NOT INTRACTABLE, WITHOUT 10/21/2018 MARKUS PIPER APRN Ot I25.10 ATHSCL HEART DISEASE OF [place] CORONARY 10/21/2018 MARKUS PIPER APRN Ot I51.7 CARDIOMEGALY 10/21/2018 MARKUS PIPER APRN Ot J90 PLEURAL EFFUSION, NOT ELSEWHERE CLASSIFI 10/21/2018 MARKUS PIPER APRN Ot 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, 10/21/2018 MARKUS PIPER APRN Ot R91.8 OTHER NONSPECIFIC ABNORMAL FINDING OF [place] 10/21/2018 Ot J90 PLEURA L EFFUSION, NOT ELSEWHERE CLASSIFI 10/21/2018 Ot J94.8 OTHE R SPECIFIED PLEURAL CONDITIONS 10/21/2018 Ot R91.8 OTHE R NONSPECIFIC ABNORMAL FINDING OF [place] 01/15/2019 RENETTA DO, JAVID Tejeda Ot J90 PLEURAL EFFUSION, NOT ELSEWHERE CLASSIFI 01/15/2019 RENETTA DO, JAVID Tejeda Ot Z87.09 PERSONAL HISTORY OF OTHER DISEASES OF 02/03/2019 NORMALENANT DO, JAVID Tejeda Ot J90 PLEURAL EFFUSION, NOT ELSEWHERE CLASSIFI 02/03/2019 NORMALENDER DO, JAVID Tejeda Ot Z87.09 PERSONAL HISTORY OF OTHER DISEASES OF 12/02/2019 RENETTA TAY, JAVID Tejeda Ot G31.89 OTHER SPECIFIED DEGENERATIVE DISEASES OF 12/02/2019 RENETTA TAY, JAVID Tejeda Ot R26.81 UNSTEADINESS ON FEET 12/02/2019 [facility] Ot W19.XXXA UNSPECIFIED FALL, INITIAL ENCOUNTER 12/02/2019 MANDY COLLINS DO Ot E66. 9 OBESITY, UNSPECIFIED 12/02/2019 DENNIS DO, MANDY Silveira Ot G40.909 EPILEPSY, UNSP, NOT INTRACTABLE, WITHOUT 12/02/2019 DENNIS DOMANDY Ot J90 PLEURAL EFFUSION, NOT ELSEWHERE CLASSIFI 12/02/2019 MANDY COLLINS DO Ot J98. 4 OTHER DISORDERS OF LUNG 12/02/2019 MANDY COLLINS DO Ot E66. 9 OBESITY, UNSPECIFIED 12/02/2019 DENNIS DOMANDY Ot G40.909 EPILEPSY, UNSP, NOT INTRACTABLE, WITHOUT 12/02/2019 DENNIS DOMANDY Ot R06. 00 DYSPNEA, UNSPECIFIED 12/02/2019 DENNIS DOMANDY Ot Z53. 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, 12/02/2019 MARKUS PIPER VACCINE MANAGER Ot R91.8 OTHER NONSPECIFIC ABNORMAL FINDING OF VICK[place] 12/02/2019 Ot J90 PLEURA L EFFUSION, NOT ELSEWHERE CLASSIFI 12/02/2019 Ot J94.8 OTHE R SPECIFIED PLEURAL CONDITIONS 12/02/2019 Ot R91.8 OTHE R NONSPECIFIC ABNORMAL FINDING OF [place] 12/02/2019 GELDANIEL DO, JAVID A Ot J90 PLEURAL EFFUSION, NOT ELSEWHERE CLASSIFI 12/02/2019 NORMADANIEL JAVID Tejeda Ot Z87.09 PERSONAL HISTORY OF OTHER DISEASES OF TH 12/11/2019 CLOTHIER DDS, DRAKE Lyles Ot K02.9 DENTAL CARIES, UNSPECIFIED 12/11/2019 CLOTHIER DDS, DRAKE Lyles Ot Z01.812 ENCOUNTER FOR PREPROCEDURAL LABORATORY E 12/11/2019 CLOTHIER DDS, DRAKE Lyles Ot Z20.828 CONTACT W AND EXPOSURE TO OTH VIRAL COMM Procedures Code Description Performed By Per formed On [id number] DR QUIROZ OF R PLEURAL CAV WITH DRAIN DEV 09/30/[id number] QUIROZ OF RIGHT LOWER LUNG LOBE, ENDO, 10/03/2018 [id number] EX TIRPATE OF MATTER FROM R UP LOBE [facility] 10/08/2018 [id number] EX TIRPATE MATTER FROM R MID LOBE [facility], 10/08/2018 [id number] EX TIRPATE MATTER FROM R LOW LOBE [facility], 10/08/2018 [id number] IN SPECTION OF PLEURA, PERCUTANEOUS ENDOS 10/08/2018 [id number] IN TRODUCE OF OTH ANTI-INFECT INTO PLEURA 10/08/2018 Results Test Result Range Osmolality - 01/17/17 14:50 Osmolality 245 mOsmol/kg 275-295 Osmolality, Urine - 01/18/17 00:20 Osmolality, Urine 105 mOsmol/kg Cortisol - AM - 01/18/17 06:28 Cortisol - AM 15.2 ug/dL 6.2-19.4 Methicillin resistant Staphylococcus aur eus (MRSA) screening culture - 09/30/18 16:22 Methicillin resistant Staphylococcus aureus (MRSA) scr eening culture NEG NRG Body fluid cell count - 09/30/18 21:00 Specimen source identification of body fluid PLEUR AL NRG Evaluation of color of body fluid RED NRG Determination of appearance of body fluid MOD CLDY NRG Body fluid leukocytes count (number/volume) 250 /u L NRG Body fluid erythrocytes count (number/volume) 1735 0 /uL NRG Manual body fluid polymorphonuclear cells/100 leukocyt es 47 % NRG Manual body fluid mononuclear cells/100 leukocytes 7 % NRG Manual body fluid lymphocytes/100 leukocytes 38 % NRG Other cells/100 leukocytes in body fluid by manual cou nt 8 % NRG * PH of body fluid - 09/30/18 21:00 * PH of body fluid 8 NRG Glucose body fluid - 09/30/18 21:00 Glucose body fluid 71 mg/dL NRG Body fluid total protein measurement - 0 09/30/18 21:00 Body fluid total protein measurement 3.7 g/dL NRG Body fluid/serum or plasma lactate dehyd rogenase (LDH) ratio - 09/30/18 21:00 Body fluid/serum or plasma lactate dehydrogenase (LDH) ratio 483 U/L NRG Gram stain microscopy - 09/30/18 21:00 Gram stain microscopy No bacteria seen NRG Bacterial body fluid culture - 09/30/18 21:00 Bacterial body fluid culture NG N RG Complete blood count (CBC) with automate d white blood cell (WBC) differential - 10/01/18 03:20 Blood leukocytes automated count (number/volume) 7.3 10*3/uL 4.3-11.0 Blood erythrocytes automated count (number/volume) 4.11 10*6/uL 4.35-5.85 Venous blood hemoglobin measurement (mass/volume) 10.9 g/dL 13.3-17.7 Blood hematocrit (volume fraction) 34 % 40-54 Automated erythrocyte mean corpuscular volume 82 [ foz_us] 80-99 Automated erythrocyte mean corpuscular h emoglobin (mass per erythrocyte) 27 pg 25-34 Automated erythrocyte mean corpuscular h emoglobin concentration measurement (mass/volume) 32 g/dL 32-36 Automated erythrocyte distribution width ratio 14. 9 % 10.0- 14.5 Automated blood platelet count (count/volume) 591 10*3/uL [...] 10*3 1.0-4.0 Blood monocytes automated count (number/volume) 1. 1 10*3 0.0-1.0 Automated eosinophil count 0.0 10*3/uL 0 .0-0.3 Automated blood basophil count (count/volume) 0.0 10*3/uL 0.0-0.1 Comprehensive metabolic panel - 10/01/18 03:20 Serum or plasma sodium measurement (moles/volume) 135 mmol/L 135-145 Serum or plasma potassium measurement (moles/volume) 3.9 mmol/L 3.6-5.0 Serum or plasma chloride measurement (moles/volume) 100 mmol/L 98-107 Carbon dioxide 24 mmol/L 21-32 Serum or plasma anion gap determination (moles/volume) 11 mmol/L 5-14 Serum or plasma urea nitrogen measurement (mass/volume ) 12 mg/dL 7-18 Serum or plasma creatinine measurement (mass/volume) 0.74 mg/dL 0.60-1.30 Serum or plasma urea nitrogen/creatinine mass ratio 16 NRG Serum or plasma creatinine measurement w ith calculation of estimated glomerular filtration rate > NRG Serum or plasma glucose measurement (mass/volume) 85 mg/dL 70-105 Serum or plasma calcium measurement (mass/volume) 9.1 mg/dL 8.5-10.1 Serum or plasma total bilirubin measurement (mass/volu me) 0.4 mg/dL 0.1-1.0 Serum or plasma alkaline phosphatase baljit surement (enzymatic activity/volume) 167 U/L 40-136 Serum or plasma aspartate aminotransfera se measurement (enzymatic activity/volume) 17 U/L 5-34 Serum or plasma alanine aminotransferase measurement (enzymatic activity/volume) 20 U/L 0-55 Serum or plasma protein measurement (mass/volume) 6.0 g/dL 6.4-8.2 Serum or plasma albumin measurement (mass/volume) 3.0 g/dL 3.2-4.5 CALCIUM CORRECTED 9.9 mg/dL 8.5-10.1 Serum or plasma phosphate measurement (m ass/volume) - 10/01/18 03:20 Serum or plasma phosphate measurement (mass/volume) 3.4 mg/dL 2.3-4.7 Magnesium - 10/01/18 03:20 Magnesium 1.9 mg/dL 1.8-2.4 Complete blood count (CBC) with automate d white blood cell (WBC) differential - 10/02/18 03:30 Blood leukocytes automated count (number/volume) 7.9 10*3/uL 4.3-11.0 Blood erythrocytes automated count (number/volume) 4.26 10*6/uL 4.35-5.85 Venous blood hemoglobin measurement (mass/volume) 11.2 g/dL 13.3-17.7 Blood hematocrit (volume fraction) 34 % 40-54 Automated erythrocyte mean corpuscular volume 81 [ foz_us] 80-99 Automated erythrocyte mean corpuscular h emoglobin (mass per erythrocyte) 26 pg 25-34 Automated erythrocyte mean corpuscular h emoglobin concentration measurement (mass/volume) 33 g/dL 32-36 Automated erythrocyte distribution width ratio 14. 5 % 10.0- 14.5 Automated blood platelet count (count/volume) 555 10*3/uL [...] 10*3 1.0-4.0 Blood monocytes automated count (number/volume) 1. 3 10*3 0.0-1.0 Automated eosinophil count 0.1 10*3/uL 0 .0-0.3 Automated blood basophil count (count/volume) 0.0 10*3/uL 0.0-0.1 Comprehensive metabolic panel - 10/02/18 03:30 Serum or plasma sodium measurement (moles/volume) 132 mmol/L 135-145 Serum or plasma potassium measurement (moles/volume) 4.1 mmol/L 3.6-5.0 Serum or plasma chloride measurement (moles/volume) 96 mmol/L 98-107 Carbon dioxide 24 mmol/L 21-32 Serum or plasma anion gap determination (moles/volume) 12 mmol/L 5-14 Serum or plasma urea nitrogen measurement (mass/volume ) 7 mg/dL 7-18 Serum or plasma creatinine measurement (mass/volume) 0.68 mg/dL 0.60-1.30 Serum or plasma urea nitrogen/creatinine mass ratio 10 NRG Serum or plasma creatinine measurement w ith calculation of estimated glomerular filtration rate > NRG Serum or plasma glucose measurement (mass/volume) 88 mg/dL 70-105 Serum or plasma calcium measurement (mass/volume) 9.4 mg/dL 8.5-10.1 Serum or plasma total bilirubin measurement (mass/volu me) 0.6 mg/dL 0.1-1.0 Serum or plasma alkaline phosphatase baljit surement (enzymatic activity/volume) 179 U/L 40-136 Serum or plasma aspartate aminotransfera se measurement (enzymatic activity/volume) 13 U/L 5-34 Serum or plasma alanine aminotransferase measurement (enzymatic activity/volume) 15 U/L 0-55 Serum or plasma protein measurement (mass/volume) 6.8 g/dL 6.4-8.2 Serum or plasma albumin measurement (mass/volume) 3.2 g/dL 3.2-4.5 CALCIUM CORRECTED 10.0 mg/dL 8.5-10.1 Serum or plasma phosphate measurement (m ass/volume) - 10/02/18 03:30 Serum or plasma phosphate measurement (mass/volume) 3.0 mg/dL 2.3-4.7 Magnesium - 10/02/18 03:30 Magnesium 1.7 mg/dL 1.8-2.4 Serum or plasma lithium measurement (mol es/volume) - 10/02/18 03:30 BNP level 79.8 pg/mL <100.0 Vancomycin trough - 10/02/18 18:10 Vancomycin trough 5.5 ug/mL 10.0-20.0 Complete blood count (CBC) with automate d white blood cell (WBC) differential - 10/03/18 03:35 Blood leukocytes automated count (number/volume) 8.9 10*3/uL 4.3-11.0 Blood erythrocytes automated count (number/volume) 4.97 10*6/uL 4.35-5.85 Venous blood hemoglobin measurement (mass/volume) 13.0 g/dL 13.3-17.7 Blood hematocrit (volume fraction) 40 % 40-54 Automated erythrocyte mean corpuscular volume 80 [ foz_us] 80-99 Automated erythrocyte mean corpuscular h emoglobin (mass per erythrocyte) 26 pg 25-34 Automated erythrocyte mean corpuscular h emoglobin concentration measurement (mass/volume) 33 g/dL 32-36 Automated erythrocyte distribution width ratio 14. 6 % 10.0- 14.5 Automated blood platelet count (count/volume) 587 10*3/uL [...] 10*3 1.0-4.0 Blood monocytes automated count (number/volume) 0. 4 10*3 0.0-1.0 Automated eosinophil count 0.0 10*3/uL 0 .0-0.3 Automated blood basophil count (count/volume) 0.0 10*3/uL 0.0-0.1 Comprehensive metabolic panel - 10/03/18 03:35 Serum or plasma sodium measurement (moles/volume) 134 mmol/L 135-145 Serum or plasma potassium measurement (moles/volume) 4.5 mmol/L 3.6-5.0 Serum or plasma chloride measurement (moles/volume) 98 mmol/L 98-107 Carbon dioxide 23 mmol/L 21-32 Serum or plasma anion gap determination (moles/volume) 13 mmol/L 5-14 Serum or plasma urea nitrogen measurement (mass/volume ) 10 mg/dL 7-18 Serum or plasma creatinine measurement (mass/volume) 0.73 mg/dL 0.60-1.30 Serum or plasma urea nitrogen/creatinine mass ratio 14 NRG Serum or plasma creatinine measurement w ith calculation of estimated glomerular filtration rate > NRG Serum or plasma glucose measurement (mass/volume) 127 mg/dL 70-105 Serum or plasma calcium measurement (mass/volume) 9.8 mg/dL 8.5-10.1 Serum or plasma total bilirubin measurement (mass/volu me) 0.4 mg/dL 0.1-1.0 Serum or plasma alkaline phosphatase baljit surement (enzymatic activity/volume) 181 U/L 40-136 Serum or plasma aspartate aminotransfera se measurement (enzymatic activity/volume) 15 U/L 5-34 Serum or plasma alanine aminotransferase measurement (enzymatic activity/volume) 18 U/L 0-55 Serum or plasma protein measurement (mass/volume) 7.6 g/dL 6.4-8.2 Serum or plasma albumin measurement (mass/volume) 3.4 g/dL 3.2-4.5 CALCIUM CORRECTED 10.3 mg/dL 8.5-10.1 Serum or plasma phosphate measurement (m ass/volume) - 10/03/18 03:35 Serum or plasma phosphate measurement (mass/volume) 3.8 mg/dL 2.3-4.7 Magnesium - 10/03/18 03:35 Magnesium 1.9 mg/dL 1.8-2.4 Sputum Gram stain - 10/03/18 06:35 Sputum Gram stain Small amount of Mixed Bacterial Vannessa NRG Bacteria identification in bronchial spe cimen by aerobe culture - 10/03/18 06:35 QUANTITY OF GROWTH . NRG Bacteria identification in bronchial specimen by aerob e culture USUAL RESP NRG FTX;REPORTABLE 5,000 CFU/ML NRG C FUNGUS SPUTUM FLUID TISSUE - 10/03/18 06:35 FUNGUS REPORT NO FUNGUS GROWTH OBSERVED NRG Mycobacterium species detection by organ ism specific culture - 10/03/18 06:36 Complete blood count (CBC) with automate d white blood cell (WBC) differential - 10/04/18 03:05 Blood leukocytes automated count (number/volume) 15.8 10*3/uL 4.3-11.0 Blood erythrocytes automated count (number/volume) 4.20 10*6/uL 4.35-5.85 Venous blood hemoglobin measurement (mass/volume) 11.1 g/dL 13.3-17.7 Blood hematocrit (volume fraction) 34 % 40-54 Automated erythrocyte mean corpuscular volume 81 [ foz_us] 80-99 Automated erythrocyte mean corpuscular h emoglobin (mass per erythrocyte) 26 pg 25-34 Automated erythrocyte mean corpuscular h emoglobin concentration measurement (mass/volume) 33 g/dL 32-36 Automated erythrocyte distribution width ratio 14. 7 % 10.0- 14.5 Automated blood platelet count (count/volume) 636 10*3/uL [...] 10*3 1.0-4.0 Blood monocytes automated count (number/volume) 0. 7 10*3 0.0-1.0 Automated eosinophil count 0.0 10*3/uL 0 .0-0.3 Automated blood basophil count (count/volume) 0.0 10*3/uL 0.0-0.1 Blood manual differential performed dete ction - 10/04/18 03:05 Blood monocytes/100 leukocytes 3 % NRG Manual blood segmented neutrophils/100 leukocytes 91 % NRG Blood band neutrophils/100 leukocytes 1 % NRG Manual blood lymphocytes/100 leukocytes 5 % NRG Blood erythrocyte morphology finding identification [facility] Comprehensive metabolic panel - 10/04/18 03:05 Serum or plasma sodium measurement (moles/volume) 139 mmol/L 135-145 Serum or plasma potassium measurement (moles/volume) 4.2 mmol/L 3.6-5.0 Serum or plasma chloride measurement (moles/volume) 106 mmol/L 98-107 Carbon dioxide 24 mmol/L 21-32 Serum or plasma anion gap determination (moles/volume) 9 mmol/L 5-14 Serum or plasma urea nitrogen measurement (mass/volume ) 20 mg/dL 7-18 Serum or plasma creatinine measurement (mass/volume) 0.67 mg/dL 0.60-1.30 Serum or plasma urea nitrogen/creatinine mass ratio 30 NRG Serum or plasma creatinine measurement w ith calculation of estimated glomerular filtration rate > NRG Serum or plasma glucose measurement (mass/volume) 154 mg/dL 70-105 Serum or plasma calcium measurement (mass/volume) 8.7 mg/dL 8.5-10.1 Serum or plasma total bilirubin measurement (mass/volu me) 0.3 mg/dL 0.1-1.0 Serum or plasma alkaline phosphatase baljit surement (enzymatic activity/volume) 155 U/L 40-136 Serum or plasma aspartate aminotransfera se measurement (enzymatic activity/volume) 12 U/L 5-34 Serum or plasma alanine aminotransferase measurement (enzymatic activity/volume) 14 U/L 0-55 Serum or plasma protein measurement (mass/volume) 5.9 g/dL 6.4-8.2 Serum or plasma albumin measurement (mass/volume) 2.8 g/dL 3.2-4.5 CALCIUM CORRECTED 9.7 mg/dL 8.5-10.1 Serum or plasma phosphate measurement (m ass/volume) - 10/04/18 03:05 Serum or plasma phosphate measurement (mass/volume) 1.8 mg/dL 2.3-4.7 Magnesium - 10/04/18 03:05 Magnesium 1.9 mg/dL 1.8-2.4 Complete blood count (CBC) with automate d white blood cell (WBC) differential - 10/05/18 03:10 Blood leukocytes automated count (number/volume) 12.5 10*3/uL 4.3-11.0 Blood erythrocytes automated count (number/volume) 4.57 10*6/uL 4.35-5.85 Venous blood hemoglobin measurement (mass/volume) 12.0 g/dL 13.3-17.7 Blood hematocrit (volume fraction) 37 % 40-54 Automated erythrocyte mean corpuscular volume 81 [ foz_us] 80-99 Automated erythrocyte mean corpuscular h emoglobin (mass per erythrocyte) 26 pg 25-34 Automated erythrocyte mean corpuscular h emoglobin concentration measurement (mass/volume) 32 g/dL 32-36 Automated erythrocyte distribution width ratio 14. 9 % 10.0- 14.5 Automated blood platelet count (count/volume) 631 10*3/uL [...] 10*3 1.0-4.0 Blood monocytes automated count (number/volume) 0. 6 10*3 0.0-1.0 Automated eosinophil count 0.0 10*3/uL 0 .0-0.3 Automated blood basophil count (count/volume) 0.0 10*3/uL 0.0-0.1 Comprehensive metabolic panel - 10/05/18 03:10 Serum or plasma sodium measurement (moles/volume) 137 mmol/L 135-145 Serum or plasma potassium measurement (moles/volume) 4.0 mmol/L 3.6-5.0 Serum or plasma chloride measurement (moles/volume) 105 mmol/L 98-107 Carbon dioxide 21 mmol/L 21-32 Serum or plasma anion gap determination (moles/volume) 11 mmol/L 5-14 Serum or plasma urea nitrogen measurement (mass/volume ) 12 mg/dL 7-18 Serum or plasma creatinine measurement (mass/volume) 0.71 mg/dL 0.60-1.30 Serum or plasma urea nitrogen/creatinine mass ratio 17 NRG Serum or plasma creatinine measurement w ith calculation of estimated glomerular filtration rate > NRG Serum or plasma glucose measurement (mass/volume) 111 mg/dL 70-105 Serum or plasma calcium measurement (mass/volume) 9.2 mg/dL 8.5-10.1 Serum or plasma total bilirubin measurement (mass/volu me) 0.3 mg/dL 0.1-1.0 Serum or plasma alkaline phosphatase baljit surement (enzymatic activity/volume) 194 U/L 40-136 Serum or plasma aspartate aminotransfera se measurement (enzymatic activity/volume) 16 U/L 5-34 Serum or plasma alanine aminotransferase measurement (enzymatic activity/volume) 19 U/L 0-55 Serum or plasma protein measurement (mass/volume) 6.7 g/dL 6.4-8.2 Serum or plasma albumin measurement (mass/volume) 3.2 g/dL 3.2-4.5 CALCIUM CORRECTED 9.8 mg/dL 8.5-10.1 Serum or plasma phosphate measurement (m ass/volume) - 10/05/18 03:10 Serum or plasma phosphate measurement (mass/volume) 2.3 mg/dL 2.3-4.7 Magnesium - 10/05/18 03:10 Magnesium 1.9 mg/dL 1.8-2.4 Complete blood count (CBC) with automate d white blood cell (WBC) differential - 10/06/18 03:30 Blood leukocytes automated count (number/volume) 10.3 10*3/uL 4.3-11.0 Blood erythrocytes automated count (number/volume) 4.26 10*6/uL 4.35-5.85 Venous blood hemoglobin measurement (mass/volume) 11.1 g/dL 13.3-17.7 Blood hematocrit (volume fraction) 35 % 40-54 Automated erythrocyte mean corpuscular volume 81 [ foz_us] 80-99 Automated erythrocyte mean corpuscular h emoglobin (mass per erythrocyte) 26 pg 25-34 Automated erythrocyte mean corpuscular h emoglobin concentration measurement (mass/volume) 32 g/dL 32-36 Automated erythrocyte distribution width ratio 15. 2 % 10.0- 14.5 Automated blood platelet count (count/volume) 615 10*3/uL [...] 10*3 1.0-4.0 Blood monocytes automated count (number/volume) 0. 7 10*3 0.0-1.0 Automated eosinophil count 0.0 10*3/uL 0 .0-0.3 Automated blood basophil count (count/volume) 0.0 10*3/uL 0.0-0.1 Comprehensive metabolic panel - 10/06/18 03:30 Serum or plasma sodium measurement (moles/volume) 137 mmol/L 135-145 Serum or plasma potassium measurement (moles/volume) 4.0 mmol/L 3.6-5.0 Serum or plasma chloride measurement (moles/volume) 106 mmol/L 98-107 Carbon dioxide 22 mmol/L 21-32 Serum or plasma anion gap determination (moles/volume) 9 mmol/L 5-14 Serum or plasma urea nitrogen measurement (mass/volume ) 14 mg/dL 7-18 Serum or plasma creatinine measurement (mass/volume) 0.67 mg/dL 0.60-1.30 Serum or plasma urea nitrogen/creatinine mass ratio 21 NRG Serum or plasma creatinine measurement w ith calculation of estimated glomerular filtration rate > NRG Serum or plasma glucose measurement (mass/volume) 124 mg/dL 70-105 Serum or plasma calcium measurement (mass/volume) 8.9 mg/dL 8.5-10.1 Serum or plasma total bilirubin measurement (mass/volu me) 0.3 mg/dL 0.1-1.0 Serum or plasma alkaline phosphatase baljit surement (enzymatic activity/volume) 164 U/L 40-136 Serum or plasma aspartate aminotransfera se measurement (enzymatic activity/volume) 12 U/L 5-34 Serum or plasma alanine aminotransferase measurement (enzymatic activity/volume) 16 U/L 0-55 Serum or plasma protein measurement (mass/volume) 5.8 g/dL 6.4-8.2 Serum or plasma albumin measurement (mass/volume) 2.9 g/dL 3.2-4.5 CALCIUM CORRECTED 9.8 mg/dL 8.5-10.1 Serum or plasma phosphate measurement (m ass/volume) - 10/06/18 03:30 Serum or plasma phosphate measurement (mass/volume) 2.7 mg/dL 2.3-4.7 Magnesium - 10/06/18 03:30 Magnesium 1.8 mg/dL 1.8-2.4 Complete blood count (CBC) with automate d white blood cell (WBC) differential - 10/07/18 04:25 Blood leukocytes automated count (number/volume) 7.7 10*3/uL 4.3-11.0 Blood erythrocytes automated count (number/volume) 5.02 10*6/uL 4.35-5.85 Venous blood hemoglobin measurement (mass/volume) 13.2 g/dL 13.3-17.7 Blood hematocrit (volume fraction) 40 % 40-54 Automated erythrocyte mean corpuscular volume 80 [ foz_us] 80-99 Automated erythrocyte mean corpuscular h emoglobin (mass per erythrocyte) 26 pg 25-34 Automated erythrocyte mean corpuscular h emoglobin concentration measurement (mass/volume) 33 g/dL 32-36 Automated erythrocyte distribution width ratio 15. 4 % 10.0- 14.5 Automated blood platelet count (count/volume) 617 10*3/uL [...] 10*3 1.0-4.0 Blood monocytes automated count (number/volume) 0. 3 10*3 0.0-1.0 Automated eosinophil count 0.0 10*3/uL 0 .0-0.3 Automated blood basophil count (count/volume) 0.0 10*3/uL 0.0-0.1 Comprehensive metabolic panel - 10/07/18 04:25 Serum or plasma sodium measurement (moles/volume) 137 mmol/L 135-145 Serum or plasma potassium measurement (moles/volume) 3.8 mmol/L 3.6-5.0 Serum or plasma chloride measurement (moles/volume) 102 mmol/L 98-107 Carbon dioxide 25 mmol/L 21-32 Serum or plasma anion gap determination (moles/volume) 10 mmol/L 5-14 Serum or plasma urea nitrogen measurement (mass/volume ) 10 mg/dL 7-18 Serum or plasma creatinine measurement (mass/volume) 0.72 mg/dL 0.60-1.30 Serum or plasma urea nitrogen/creatinine mass ratio 14 NRG Serum or plasma creatinine measurement w ith calculation of estimated glomerular filtration rate > NRG Serum or plasma glucose measurement (mass/volume) 130 mg/dL 70-105 Serum or plasma calcium measurement (mass/volume) 9.4 mg/dL 8.5-10.1 Serum or plasma total bilirubin measurement (mass/volu me) 0.4 mg/dL 0.1-1.0 Serum or plasma alkaline phosphatase baljit surement (enzymatic activity/volume) 184 U/L 40-136 Serum or plasma aspartate aminotransfera se measurement (enzymatic activity/volume) 16 U/L 5-34 Serum or plasma alanine aminotransferase measurement (enzymatic activity/volume) 25 U/L 0-55 Serum or plasma protein measurement (mass/volume) 7.0 g/dL 6.4-8.2 Serum or plasma albumin measurement (mass/volume) 3.4 g/dL 3.2-4.5 CALCIUM CORRECTED 9.9 mg/dL 8.5-10.1 Serum or plasma phosphate measurement (m ass/volume) - 10/07/18 04:25 Serum or plasma phosphate measurement (mass/volume) 3.2 mg/dL 2.3-4.7 Magnesium - 10/07/18 04:25 Magnesium 2.0 mg/dL 1.8-2.4 Complete blood count (CBC) with automate d white blood cell (WBC) differential - 10/08/18 04:35 Blood leukocytes automated count (number/volume) 12.0 10*3/uL 4.3-11.0 Blood erythrocytes automated count (number/volume) 4.91 10*6/uL 4.35-5.85 Venous blood hemoglobin measurement (mass/volume) 12.7 g/dL 13.3-17.7 Blood hematocrit (volume fraction) 40 % 40-54 Automated erythrocyte mean corpuscular volume 81 [ foz_us] 80-99 Automated erythrocyte mean corpuscular h emoglobin (mass per erythrocyte) 26 pg 25-34 Automated erythrocyte mean corpuscular h emoglobin concentration measurement (mass/volume) 32 g/dL 32-36 Automated erythrocyte distribution width ratio 16. 4 % 10.0- 14.5 Automated blood platelet count (count/volume) 660 10*3/uL [...] 10*3 1.0-4.0 Blood monocytes automated count (number/volume) 1. 5 10*3 0.0-1.0 Automated eosinophil count 0.0 10*3/uL 0 .0-0.3 Automated blood basophil count (count/volume) 0.0 10*3/uL 0.0-0.1 Comprehensive metabolic panel - 10/08/18 04:35 Serum or plasma sodium measurement (moles/volume) 137 mmol/L 135-145 Serum or plasma potassium measurement (moles/volume) 3.6 mmol/L 3.6-5.0 Serum or plasma chloride measurement (moles/volume) 103 mmol/L 98-107 Carbon dioxide 25 mmol/L 21-32 Serum or plasma anion gap determination (moles/volume) 9 mmol/L 5-14 Serum or plasma urea nitrogen measurement (mass/volume ) 20 mg/dL 7-18 Serum or plasma creatinine measurement (mass/volume) 0.75 mg/dL 0.60-1.30 Serum or plasma urea nitrogen/creatinine mass ratio 27 NRG Serum or plasma creatinine measurement w ith calculation of estimated glomerular filtration rate > NRG Serum or plasma glucose measurement (mass/volume) 81 mg/dL 70-105 Serum or plasma calcium measurement (mass/volume) 8.7 mg/dL 8.5-10.1 Serum or plasma total bilirubin measurement (mass/volu me) 0.3 mg/dL 0.1-1.0 Serum or plasma alkaline phosphatase baljit surement (enzymatic activity/volume) 158 U/L 40-136 Serum or plasma aspartate aminotransfera se measurement (enzymatic activity/volume) 15 U/L 5-34 Serum or plasma alanine aminotransferase measurement (enzymatic activity/volume) 27 U/L 0-55 Serum or plasma protein measurement (mass/volume) 6.2 g/dL 6.4-8.2 Serum or plasma albumin measurement (mass/volume) 3.1 g/dL 3.2-4.5 CALCIUM CORRECTED 9.4 mg/dL 8.5-10.1 Serum or plasma phosphate measurement (m ass/volume) - 10/08/18 04:35 Serum or plasma phosphate measurement (mass/volume) 2.9 mg/dL 2.3-4.7 Magnesium - 10/08/18 04:35 Magnesium 2.0 mg/dL 1.8-2.4 Complete blood count (CBC) with automate d white blood cell (WBC) differential - 10/09/18 04:20 Blood leukocytes automated count (number/volume) 14.4 10*3/uL 4.3-11.0 Blood erythrocytes automated count (number/volume) 4.55 10*6/uL 4.35-5.85 Venous blood hemoglobin measurement (mass/volume) 12.0 g/dL 13.3-17.7 Blood hematocrit (volume fraction) 37 % 40-54 Automated erythrocyte mean corpuscular volume 82 [ foz_us] 80-99 Automated erythrocyte mean corpuscular h emoglobin (mass per erythrocyte) 26 pg 25-34 Automated erythrocyte mean corpuscular h emoglobin concentration measurement (mass/volume) 32 g/dL 32-36 Automated erythrocyte distribution width ratio 16. 8 % 10.0- 14.5 Automated blood platelet count (count/volume) 558 10*3/uL [...] 10*3 1.0-4.0 Blood monocytes automated count (number/volume) 1. 5 10*3 0.0-1.0 Automated eosinophil count 0.0 10*3/uL 0 .0-0.3 Automated blood basophil count (count/volume) 0.0 10*3/uL 0.0-0.1 Comprehensive metabolic panel - 10/09/18 04:20 Serum or plasma sodium measurement (moles/volume) 133 mmol/L 135-145 Serum or plasma potassium measurement (moles/volume) 3.8 mmol/L 3.6-5.0 Serum or plasma chloride measurement (moles/volume) 100 mmol/L 98-107 Carbon dioxide 23 mmol/L 21-32 Serum or plasma anion gap determination (moles/volume) 10 mmol/L 5-14 Serum or plasma urea nitrogen measurement (mass/volume ) 13 mg/dL 7-18 Serum or plasma creatinine measurement (mass/volume) 0.63 mg/dL 0.60-1.30 Serum or plasma urea nitrogen/creatinine mass ratio 21 NRG Serum or plasma creatinine measurement w ith calculation of estimated glomerular filtration rate > NRG Serum or plasma glucose measurement (mass/volume) 88 mg/dL 70-105 Serum or plasma calcium measurement (mass/volume) 8.6 mg/dL 8.5-10.1 Serum or plasma total bilirubin measurement (mass/volu me) 0.3 mg/dL 0.1-1.0 Serum or plasma alkaline phosphatase baljit surement (enzymatic activity/volume) 154 U/L 40-136 Serum or plasma aspartate aminotransfera se measurement (enzymatic activity/volume) 20 U/L 5-34 Serum or plasma alanine aminotransferase measurement (enzymatic activity/volume) 28 U/L 0-55 Serum or plasma protein measurement (mass/volume) 5.9 g/dL 6.4-8.2 Serum or plasma albumin measurement (mass/volume) 3.1 g/dL 3.2-4.5 CALCIUM CORRECTED 9.3 mg/dL 8.5-10.1 Serum or plasma phosphate measurement (m ass/volume) - 10/09/18 04:20 Serum or plasma phosphate measurement (mass/volume) 2.9 mg/dL 2.3-4.7 Magnesium - 10/09/18 04:20 Magnesium 1.9 mg/dL 1.8-2.4 Comprehensive metabolic panel - 10/09/18 05:50 Serum or plasma sodium measurement (moles/volume) 132 mmol/L 135-145 Serum or plasma potassium measurement (moles/volume) 3.6 mmol/L 3.6-5.0 Serum or plasma chloride measurement (moles/volume) 98 mmol/L 98-107 Carbon dioxide 26 mmol/L -32 Serum or plasma anion gap determination (moles/volume) 8 mmol/L 5-14 Serum or plasma urea nitrogen measurement (mass/volume ) 11 mg/dL 7-18 Serum or plasma creatinine measurement (mass/volume) 0.67 mg/dL 0.60-1.30 Serum or plasma urea nitrogen/creatinine mass ratio 16 NRG Serum or plasma creatinine measurement w ith calculation of estimated glomerular filtration rate > NRG Serum or plasma glucose measurement (mass/volume) 82 mg/dL 70-105 Serum or plasma calcium measurement (mass/volume) 8.7 mg/dL 8.5-10.1 Serum or plasma total bilirubin measurement (mass/volu me) 0.4 mg/dL 0.1-1.0 Serum or plasma alkaline phosphatase baljit surement (enzymatic activity/volume) 161 U/L 40-136 Serum or plasma aspartate aminotransfera se measurement (enzymatic activity/volume) 18 U/L 5-34 Serum or plasma alanine aminotransferase measurement (enzymatic activity/volume) 28 U/L 0-55 Serum or plasma protein measurement (mass/volume) 6.1 g/dL 6.4-8.2 Serum or plasma albumin measurement (mass/volume) 3.2 g/dL 3.2-4.5 CALCIUM CORRECTED 9.3 mg/dL 8.5-10.1 Complete blood count (CBC) with automate d white blood cell (WBC) differential - 10/10/18 04:00 Blood leukocytes automated count (number/volume) 10.7 10*3/uL 4.3-11.0 Blood erythrocytes automated count (number/volume) 4.33 10*6/uL 4.35-5.85 Venous blood hemoglobin measurement (mass/volume) 11.6 g/dL 13.3-17.7 Blood hematocrit (volume fraction) 35 % 40-54 Automated erythrocyte mean corpuscular volume 81 [ foz_us] 80-99 Automated erythrocyte mean corpuscular h emoglobin (mass per erythrocyte) 27 pg 25-34 Automated erythrocyte mean corpuscular h emoglobin concentration measurement (mass/volume) 33 g/dL 32-36 Automated erythrocyte distribution width ratio 16. 6 % 10.0- 14.5 Automated blood platelet count (count/volume) 439 10*3/uL [...] 10*3 1.0-4.0 Blood monocytes automated count (number/volume) 1. 5 10*3 0.0-1.0 Automated eosinophil count 0.2 10*3/uL 0 .0-0.3 Automated blood basophil count (count/volume) 0.0 10*3/uL 0.0-0.1 Comprehensive metabolic panel - 10/10/18 04:00 Serum or plasma sodium measurement (moles/volume) 134 mmol/L 135-145 Serum or plasma potassium measurement (moles/volume) 3.9 mmol/L 3.6-5.0 Serum or plasma chloride measurement (moles/volume) 102 mmol/L 98-107 Carbon dioxide 24 mmol/L 21-32 Serum or plasma anion gap determination (moles/volume) 8 mmol/L 5-14 Serum or plasma urea nitrogen measurement (mass/volume ) 10 mg/dL 7-18 Serum or plasma creatinine measurement (mass/volume) 0.58 mg/dL 0.60-1.30 Serum or plasma urea nitrogen/creatinine mass ratio 17 NRG Serum or plasma creatinine measurement w ith calculation of estimated glomerular filtration rate > NRG Serum or plasma glucose measurement (mass/volume) 116 mg/dL 70-105 Serum or plasma calcium measurement (mass/volume) 8.2 mg/dL 8.5-10.1 Serum or plasma total bilirubin measurement (mass/volu me) 0.2 mg/dL 0.1-1.0 Serum or plasma alkaline phosphatase baljit surement (enzymatic activity/volume) 145 U/L 40-136 Serum or plasma aspartate aminotransfera se measurement (enzymatic activity/volume) 14 U/L 5-34 Serum or plasma alanine aminotransferase measurement (enzymatic activity/volume) 24 U/L 0-55 Serum or plasma protein measurement (mass/volume) 5.3 g/dL 6.4-8.2 Serum or plasma albumin measurement (mass/volume) 2.8 g/dL 3.2-4.5 CALCIUM CORRECTED 9.2 mg/dL 8.5-10.1 Serum or plasma phosphate measurement (m ass/volume) - 10/10/18 04:00 Serum or plasma phosphate measurement (mass/volume) 2.0 mg/dL 2.3-4.7 Magnesium - 10/10/18 04:00 Magnesium 1.7 mg/dL 1.8-2.4 Complete blood count (CBC) with automate d white blood cell (WBC) differential - 10/11/18 04:20 Blood leukocytes automated count (number/volume) 9.9 10*3/uL 4.3-11.0 Blood erythrocytes automated count (number/volume) 4.08 10*6/uL 4.35-5.85 Venous blood hemoglobin measurement (mass/volume) 10.9 g/dL 13.3-17.7 Blood hematocrit (volume fraction) 34 % 40-54 Automated erythrocyte mean corpuscular volume 82 [ foz_us] 80-99 Automated erythrocyte mean corpuscular h emoglobin (mass per erythrocyte) 27 pg 25-34 Automated erythrocyte mean corpuscular h emoglobin concentration measurement (mass/volume) 32 g/dL 32-36 Automated erythrocyte distribution width ratio 17. 1 % 10.0- 14.5 Automated blood platelet count (count/volume) 428 10*3/uL [...] 10*3 1.0-4.0 Blood monocytes automated count (number/volume) 1. 4 10*3 0.0-1.0 Automated eosinophil count 0.3 10*3/uL 0 .0-0.3 Automated blood basophil count (count/volume) 0.0 10*3/uL 0.0-0.1 Comprehensive metabolic panel - 10/11/18 04:20 Serum or plasma sodium measurement (moles/volume) 134 mmol/L 135-145 Serum or plasma potassium measurement (moles/volume) 3.8 mmol/L 3.6-5.0 Serum or plasma chloride measurement (moles/volume) 102 mmol/L 98-107 Carbon dioxide 23 mmol/L 21-32 Serum or plasma anion gap determination (moles/volume) 9 mmol/L 5-14 Serum or plasma urea nitrogen measurement (mass/volume ) 10 mg/dL 7-18 Serum or plasma creatinine measurement (mass/volume) 0.60 mg/dL 0.60-1.30 Serum or plasma urea nitrogen/creatinine mass ratio 17 NRG Serum or plasma creatinine measurement w ith calculation of estimated glomerular filtration rate > NRG Serum or plasma glucose measurement (mass/volume) 99 mg/dL 70-105 Serum or plasma calcium measurement (mass/volume) 8.4 mg/dL 8.5-10.1 Serum or plasma total bilirubin measurement (mass/volu me) 0.3 mg/dL 0.1-1.0 Serum or plasma alkaline phosphatase baljit surement (enzymatic activity/volume) 150 U/L 40-136 Serum or plasma aspartate aminotransfera se measurement (enzymatic activity/volume) 13 U/L 5-34 Serum or plasma alanine aminotransferase measurement (enzymatic activity/volume) 17 U/L 0-55 Serum or plasma protein measurement (mass/volume) 5.4 g/dL 6.4-8.2 Serum or plasma albumin measurement (mass/volume) 2.8 g/dL 3.2-4.5 CALCIUM CORRECTED 9.4 mg/dL 8.5-10.1 Serum or plasma phosphate measurement (m ass/volume) - 10/11/18 04:20 Serum or plasma phosphate measurement (mass/volume) 2.4 mg/dL 2.3-4.7 Magnesium - 10/11/18 04:20 Magnesium 1.7 mg/dL 1.8-2.4 Automated blood complete blood count (he mogram) panel - 10/13/18 08:55 Blood leukocytes automated count (number/volume) 8.8 10*3/uL 4.3-11.0 Blood erythrocytes automated count (number/volume) 4.57 10*6/uL 4.35-5.85 Venous blood hemoglobin measurement (mass/volume) 12.1 g/dL 13.3-17.7 Blood hematocrit (volume fraction) 37 % 40-54 Automated erythrocyte mean corpuscular volume 81 [ foz_us] 80-99 Automated erythrocyte mean corpuscular h emoglobin (mass per erythrocyte) 27 pg 25-34 Automated erythrocyte mean corpuscular h emoglobin concentration measurement (mass/volume) 33 g/dL 32-36 Automated erythrocyte distribution width ratio 17. 3 % 10.0- 14.5 Automated blood platelet count (count/volume) 373 10*3/uL 130-400 Automated blood platelet mean volume measurement 9.5 [foz_us] 7.4-10.4 Whole blood basic metabolic panel - 09/16 03/05 08:55 Serum or plasma sodium measurement (moles/volume) 129 mmol/L 135-145 Serum or plasma potassium measurement (moles/volume) 4.1 mmol/L 3.6-5.0 Serum or plasma chloride measurement (moles/volume) 95 mmol/L 98-107 Carbon dioxide 26 mmol/L 21-32 Serum or plasma anion gap determination (moles/volume) 8 mmol/L 5-14 Serum or plasma urea nitrogen measurement (mass/volume ) 10 mg/dL 7-18 Serum or plasma creatinine measurement (mass/volume) 0.65 mg/dL 0.60-1.30 Serum or plasma urea nitrogen/creatinine mass ratio 15 NRG Serum or plasma creatinine measurement w ith calculation of estimated glomerular filtration rate > NRG Serum or plasma glucose measurement (mass/volume) 93 mg/dL 70-105 Serum or plasma calcium measurement (mass/volume) 9.2 mg/dL 8.5-10.1 Complete blood count (CBC) with automate d white blood cell (WBC) differential - 10/14/18 07:48 Blood leukocytes automated count (number/volume) 9.6 10*3/uL 4.3-11.0 Blood erythrocytes automated count (number/volume) 4.55 10*6/uL 4.35-5.85 Venous blood hemoglobin measurement (mass/volume) 12.2 g/dL 13.3-17.7 Blood hematocrit (volume fraction) 36 % 40-54 Automated erythrocyte mean corpuscular volume 80 [ foz_us] 80-99 Automated erythrocyte mean corpuscular h emoglobin (mass per erythrocyte) 27 pg 25-34 Automated erythrocyte mean corpuscular h emoglobin concentration measurement (mass/volume) 34 g/dL 32-36 Automated erythrocyte distribution width ratio 17. 7 % 10.0- 14.5 Automated blood platelet count (count/volume) 378 10*3/uL 130-400 Automated blood platelet mean volume measurement 9.4 [foz_us] 7.4-10.4 Automated blood neutrophils/100 leukocytes 71 % 42-75 Automated blood lymphocytes/100 leukocytes 14 % 12-44 Blood monocytes/100 leukocytes 15 % 0-12 Automated blood eosinophils/100 leukocytes 1 % 0-10 Automated blood basophils/100 leukocytes 0 % 0-10 Blood neutrophils automated count (number/volume) 6.8 10*3 1.8-7.8 Blood lymphocytes automated count (number/volume) 1.4 10*3 1.0-4.0 Blood monocytes automated count (number/volume) 1. 4 10*3 0.0-1.0 Automated eosinophil count 0.1 10*3/uL 0 .0-0.3 Automated blood basophil count (count/volume) 0.0 10*3/uL 0.0-0.1 Serum or plasma sodium measurement (mole s/volume) - 10/14/18 07:48 Serum or plasma sodium measurement (moles/volume) 131 mmol/L 135-145 Automated blood complete blood count (he mogram) panel - 10/15/18 08:05 Blood leukocytes automated count (number/volume) 9.2 10*3/uL 4.3-11.0 Blood erythrocytes automated count (number/volume) 4.51 10*6/uL 4.35-5.85 Venous blood hemoglobin measurement (mass/volume) 12.2 g/dL 13.3-17.7 Blood hematocrit (volume fraction) 36 % 40-54 Automated erythrocyte mean corpuscular volume 81 [ foz_us] 80-99 Automated erythrocyte mean corpuscular h emoglobin (mass per erythrocyte) 27 pg 25-34 Automated erythrocyte mean corpuscular h emoglobin concentration measurement (mass/volume) 34 g/dL 32-36 Automated erythrocyte distribution width ratio 17. 3 % 10.0- 14.5 Automated blood platelet count (count/volume) 334 10*3/uL 130-400 Automated blood platelet mean volume measurement 9.1 [foz_us] 7.4-10.4 Whole blood basic metabolic panel - 07/05 08:05 Serum or plasma sodium measurement (moles/volume) 130 mmol/L 135-145 Serum or plasma potassium measurement (moles/volume) 3.8 mmol/L 3.6-5.0 Serum or plasma chloride measurement (moles/volume) 94 mmol/L 98-107 Carbon dioxide 25 mmol/L 21-32 Serum or plasma anion gap determination (moles/volume) 11 mmol/L 5-14 Serum or plasma urea nitrogen measurement (mass/volume ) 17 mg/dL 7-18 Serum or plasma creatinine measurement (mass/volume) 0.67 mg/dL 0.60-1.30 Serum or plasma urea nitrogen/creatinine mass ratio 25 NRG Serum or plasma creatinine measurement w ith calculation of estimated glomerular filtration rate > NRG Serum or plasma glucose measurement (mass/volume) 97 mg/dL 70-105 Serum or plasma calcium measurement (mass/volume) 9.3 mg/dL 8.5-10.1 Complete blood count (CBC) with automate d white blood cell (WBC) differential - 10/16/18 14:34 Blood leukocytes automated count (number/volume) 12.3 10*3/uL 4.3-11.0 Blood erythrocytes automated count (number/volume) 4.15 10*6/uL 4.35-5.85 Venous blood hemoglobin measurement (mass/volume) 11.1 g/dL 13.3-17.7 Blood hematocrit (volume fraction) 34 % 40-54 Automated erythrocyte mean corpuscular volume 81 [ foz_us] 80-99 Automated erythrocyte mean corpuscular h emoglobin (mass per erythrocyte) 27 pg 25-34 Automated erythrocyte mean corpuscular h emoglobin concentration measurement (mass/volume) 33 g/dL 32-36 Automated erythrocyte distribution width ratio 17. 9 % 10.0- 14.5 Automated blood platelet count (count/volume) 334 10*3/uL 130-400 Automated blood platelet mean volume measurement 9.3 [foz_us] 7.4-10.4 Automated blood neutrophils/100 leukocytes 80 % 42-75 Automated blood lymphocytes/100 leukocytes 9 % 12-44 Blood monocytes/100 leukocytes 11 % 0-12 Automated blood eosinophils/100 leukocytes 0 % 0-10 Automated blood basophils/100 leukocytes 0 % 0-10 Blood neutrophils automated count (number/volume) 9.8 10*3 1.8-7.8 Blood lymphocytes automated count (number/volume) 1.1 10*3 1.0-4.0 Blood monocytes automated count (number/volume) 1. 4 10*3 0.0-1.0 Automated eosinophil count 0.0 10*3/uL 0 .0-0.3 Automated blood basophil count (count/volume) 0.0 10*3/uL 0.0-0.1 Comprehensive metabolic panel - 10/16/18 14:34 Serum or plasma sodium measurement (moles/volume) 133 mmol/L 135-145 Serum or plasma potassium measurement (moles/volume) 4.8 mmol/L 3.6-5.0 Serum or plasma chloride measurement (moles/volume) 97 mmol/L 98-107 Carbon dioxide 23 mmol/L 21-32 Serum or plasma anion gap determination (moles/volume) 13 mmol/L 5-14 Serum or plasma urea nitrogen measurement (mass/volume ) 21 mg/dL 7-18 Serum or plasma creatinine measurement (mass/volume) 0.77 mg/dL 0.60-1.30 Serum or plasma urea nitrogen/creatinine mass ratio 27 NRG Serum or plasma creatinine measurement w ith calculation of estimated glomerular filtration rate > NRG Serum or plasma glucose measurement (mass/volume) 92 mg/dL 70-105 Serum or plasma calcium measurement (mass/volume) 9.3 mg/dL 8.5-10.1 Serum or plasma total bilirubin measurement (mass/volu me) 0.3 mg/dL 0.1-1.0 Serum or plasma alkaline phosphatase baljit surement (enzymatic activity/volume) 187 U/L 40-136 Serum or plasma aspartate aminotransfera se measurement (enzymatic activity/volume) 21 U/L 5-34 Serum or plasma alanine aminotransferase measurement (enzymatic activity/volume) 26 U/L 0-55 Serum or plasma protein measurement (mass/volume) 6.7 g/dL 6.4-8.2 Serum or plasma albumin measurement (mass/volume) 3.4 g/dL 3.2-4.5 CALCIUM CORRECTED 9.8 mg/dL 8.5-10.1 Magnesium - 10/16/18 14:34 Magnesium 1.9 mg/dL 1.8-2.4 Serum or plasma C reactive protein measu rement (mass/volume) - 10/16/18 14:34 Serum or plasma C reactive protein measurement (mass/v olume) 3.89 mg/dL 0.00-0.50 [id number] - 10/16/18 14:34 [id number] 29.2 ug/mL 50.0-100.0 Complete urinalysis with reflex to cultu re - 10/16/18 16:49 Urine color determination YELLOW NRG Urine clarity determination CLEAR NR G Urine pH measurement by test strip 7 5-9 Specific gravity of urine by test strip 1.015 1.016-1.022 Urine protein assay by test strip, semi-quantitative 1+ NEGATIVE Urine glucose detection by automated test strip NE GATIVE NEGATIVE Erythrocytes detection in urine sediment by light micr oscopy NEGATIVE NEGATIVE Urine ketones detection by automated test strip NE GATIVE NEGATIVE Urine nitrite detection by test strip NEGATIVE NEGATIVE Urine total bilirubin detection by test strip NEGA TIVE NEGATIVE Urine urobilinogen measurement by automated test strip (mass/volume) NORMAL NORMAL Urine leukocyte esterase detection by dipstick NEG ATIVE NEGATIVE Automated urine sediment erythrocyte cou nt by microscopy (number/high power field) NONE NRG Automated urine sediment leukocyte count by microscopy (number/high power field) NONE NRG Bacteria detection in urine sediment by light microsco py NONE NRG Squamous epithelial cells detection in u rine sediment by light microscopy RARE NRG Crystals detection in urine sediment by light microsco py NONE NRG Casts detection in urine sediment by light microscopy NONE NRG Mucus detection in urine sediment by light microscopy NEGATIVE NRG Complete urinalysis with reflex to culture NO NRG Complete blood count (CBC) with automate d white blood cell (WBC) differential - 10/17/18 04:30 Blood leukocytes automated count (number/volume) 9.7 10*3/uL 4.3-11.0 Blood erythrocytes automated count (number/volume) 3.88 10*6/uL 4.35-5.85 Venous blood hemoglobin measurement (mass/volume) 10.4 g/dL 13.3-17.7 Blood hematocrit (volume fraction) 32 % 40-54 Automated erythrocyte mean corpuscular volume 82 [ foz_us] 80-99 Automated erythrocyte mean corpuscular h emoglobin (mass per erythrocyte) 27 pg 25-34 Automated erythrocyte mean corpuscular h emoglobin concentration measurement (mass/volume) 33 g/dL 32-36 Automated erythrocyte distribution width ratio 17. 5 % 10.0- 14.5 Automated blood platelet count (count/volume) 320 10*3/uL 130-400 Automated blood platelet mean volume measurement 9.5 [foz_us] 7.4-10.4 Automated blood neutrophils/100 leukocytes 66 % 42-75 Automated blood lymphocytes/100 leukocytes 20 % 12-44 Blood monocytes/100 leukocytes 13 % 0-12 Automated blood eosinophils/100 leukocytes 0 % 0-10 Automated blood basophils/100 leukocytes 1 % 0-10 Blood neutrophils automated count (number/volume) 6.4 10*3 1.8-7.8 Blood lymphocytes automated count (number/volume) 1.9 10*3 1.0-4.0 Blood monocytes automated count (number/volume) 1. 3 10*3 0.0-1.0 Automated eosinophil count 0.0 10*3/uL 0 .0-0.3 Automated blood basophil count (count/volume) 0.1 10*3/uL 0.0-0.1 Whole blood basic metabolic panel - 09/02 04:30 Serum or plasma sodium measurement (moles/volume) 130 mmol/L 135-145 Serum or plasma potassium measurement (moles/volume) 4.0 mmol/L 3.6-5.0 Serum or plasma chloride measurement (moles/volume) 97 mmol/L 98-107 Carbon dioxide 22 mmol/L 21-32 Serum or plasma anion gap determination (moles/volume) 11 mmol/L 5-14 Serum or plasma urea nitrogen measurement (mass/volume ) 17 mg/dL 7-18 Serum or plasma creatinine measurement (mass/volume) 0.69 mg/dL 0.60-1.30 Serum or plasma urea nitrogen/creatinine mass ratio 25 NRG Serum or plasma creatinine measurement w ith calculation of estimated glomerular filtration rate > NRG Serum or plasma glucose measurement (mass/volume) 92 mg/dL 70-105 Serum or plasma calcium measurement (mass/volume) 8.5 mg/dL 8.5-10.1 Levetiracetam (Keppra), S - 01/27/19 14: 16 Levetiracetam, S 10.9 ug/mL 10.0-40.0 Coronavirus SARS-CoV-2 SO 2018 - 0 08:05 Coronavirus Ab [Units/volume] in Serum Negative Negative Encounters ACCT No. Visit Date/Time Discharge Status Pt. Type Provider Facility Loc./Unit Complaint [id number] 08/03/2019 22:18:06 Document Registration [id number] 08/03/2019 17:12:12 Document Registration [id number] 06/28/2019 13:10:56 Document Registration [id number] 06/28/2019 13:01:24 Document Registration [id number] 04/22/2019 10:59:17 Document Registration [id number] 04/07/2019 09:01:19 Document Registration [id number] 02/23/2019 12:14:05 Document Registration [id number] 02/06/2019 10:55:49 Document Registration [id number] 02/03/2019 08:41:11 Document Registration [id number] 01/27/2019 14:06:16 Document Registration [id number] 12/23/2018 13:06:10 Document Registration [id number] 12/23/2018 09:37:33 Document Registration [id number] 12/04/2018 07:56:22 Document Registration [id number] 09/22/2018 08:28:14 Document Registration [id number] 09/16/2018 18:36:41 Document Registration [id number] 09/16/2018 18:00:43 Document Registration [id number] 09/11/2018 11:20:09 Document Registration [id number] 09/08/2018 21:45:30 Document Registration [id number] 09/08/2018 21:38:22 Document Registration [id number] 08/29/2018 14:10:34 Document Registration [id number] 08/28/2018 08:42:48 Document Registration [id number] 08/27/2018 10:36:44 Document Registration [id number] 08/26/2018 08:12:40 Document Registration [id number] 08/26/2018 08:02:53 Document Registration [id number] 08/22/2018 07:11:34 Document Registration [id number] 08/22/2018 06:56:12 Document Registration [id number] 07/29/2018 08:49:29 Document Registration [id number] 07/23/2018 23:56:48 Document Registration [id number] 07/23/2018 13:21:05 Document Registration [id number] 07/09/2018 10:33:22 Document Registration [id number] 06/13/2018 14:58:37 Document Registration [id number] 06/04/2018 21:34:12 Document Registration [id number] 06/01/2018 14:41:34 Document Registration [id number] 06/01/2018 14:12:42 Document Registration [id number] 05/30/2018 15:01:34 Document Registration [id number] 05/01/2018 11:55:44 Document Registration [id number] 05/01/2018 11:49:32 Document Registration [id number] 02/28/2018 12:08:48 Document Registration [id number] 02/28/2018 12:01:15 Document Registration [id number] 10/16/2017 13:49:34 Document Registration [id number] 10/16/2017 13:47:00 Document Registration [id number] 06/20/2017 10:00:07 Document Registration [id number] 05/24/2017 21:24:25 Document Registration [id number] 05/23/2017 06:29:22 Document Registration [id number] 05/23/2017 06:24:36 Document Registration [id number] 04/18/2017 09:40:58 Document Registration [id number] 03/26/2017 15:20:14 Document Registration [id number] 03/26/2017 10:29:00 Document Registration [id number] 03/24/2017 16:15:02 Document Registration [id number] 12/08/2019 16:23:06 12/08/2019 23:59: 59 CLS Outpatient Dexter Ashby [id number] 08/05/2019 13:01:10 08/05/2019 23:59: 59 CLS Outpatient Leonor Belen Reginald [id number] 07/20/2019 10:34:41 07/20/2019 23:59: 59 CLS Outpatient Dexter Ashby [id number] 03/16/2019 12:47:28 03/16/2019 23:59: 59 CLS Outpatient Vicki Herrera [id number] 01/27/2019 14:15:18 01/27/2019 23:59: 59 CLS Outpatient Dexter Ashby [id number] 12/15/2018 11:22:17 12/15/2018 23:59: 59 CLS Outpatient Geraldine Lofton [id number] 11/21/2018 16:56:45 11/21/2018 23:59: 59 CLS Outpatient Geraldine Lofton [id number] 11/21/2018 11:26:46 11/21/2018 23:59: 59 CLS Outpatient Geraldine Lofton [id number] 11/12/2018 13:30:40 11/12/2018 23:59: 59 CLS Outpatient Mikey Mayo V [id number] 08/26/2018 17:29:11 08/26/2018 23:59: 59 CLS Outpatient Rolly Geraldine Palacios [id number] 08/25/2018 11:54:36 08/25/2018 23:59: 59 CLS Outpatient Vicki Herrera [id number] 08/11/2018 16:55:48 08/11/2018 23:59: 59 CLS Outpatient RollyGeraldine [id number] 06/05/2018 14:13:15 06/05/2018 23:59: 59 CLS Outpatient Kendall Salazar [id number] 05/01/2018 17:18:54 05/01/2018 23:59: 59 CLS Outpatient RollyGeraldine [id number] 06/14/2017 15:26:28 06/14/2017 23:59: 59 CLS Outpatient RollyGeraldine [id number] 05/15/2017 17:21:05 05/15/2017 23:59: 59 CLS Outpatient RollyGeraldine [id number] 04/12/2017 14:06:44 04/12/2017 23:59: 59 CLS Outpatient Rolly Geraldine Palacios [id number] 03/25/2017 12:39:30 03/25/2017 23:59: 59 CLS Outpatient Melody Desiree A [id number] 01/29/2017 16:13:19 01/29/2017 23:59: 59 CLS Outpatient Kendall Salazar [id number] 05/10/2015 13:35:09 05/10/2015 23:59: 59 CLS Outpatient Billie Shetty [id number] 10/16/2017 13:10:00 8 23:59:59 DIS Outpatient KLARISSA YUSUF N [facility] [id number] 12/10/2019 05:41:00 020 11:38:00 DIS Outpatient CLOTHIER DRAKE OSORIO [facility] PREOP MASSIVE CARRIES [id number] 01/13/2019 12:22:00 019 23:59:59 CLS Outpatient JAVID JACKSON DO [facility] RAD HX OF RIGHT HENRIQUE G COLLAPSE [id number] 10/16/2018 17:00:00 18:00:00 DIS Inpatient JAVID JACKSON DO [facility] 4TH DEBILITATION,EM PYEMA [id number] 09/30/2018 15:57:00 15:30:00 DIS Inpatient MANDY COLLINS DO [facility] 4TH PNEUMOTHORAX [id number] 09/30/2018 15:27:00 15:57:00 DIS Emergency DIANA SANCHEZ, LUISANA [place] [facility] ER SOB, LOSS OF AP PETITE [id number] 09/23/2018 10:45:00 23:59:59 CLS Outpatient MARKUS PIPER APRN [facility] RAD DYSPNEA,COUGH,OBESITY,EPILEPSY [id number] 09/23/2018 08:56:00 23:59:59 CLS Outpatient MANDY COLLINS DO [facility] RAD ABN LUNG FIELD,EPILEPSY,COUGH,DYSPNEA [id number] 09/09/2018 09:05:00 23:59:59 CLS Outpatient MANDY COLLINS DO [facility] RAD DYSPNEA,COUGH, EPILEPSY [id number] 05/21/2018 11:30:00 23:59:59 CLS Outpatient JAVID JACKSON DO [facility] RAD FALLING, NONSTE EDISON GAIT [id number] 12/15/2019 12:30:00 P EN Preadmit CLOTHIER DDS, DRAKE G [facility] SDC MASSIVE CARRIES [id number] 09/29/2018 11:28:00 Document Registration [id number] 01/29/2019 21:05:00 Document Registration [id number] 01/21/2017 12:06:00 Document Registration [id number] 01/21/2017 14:06:00 Document Registration [id number] 01/21/2017 14:06:00 Document Registration
== END 2019-12-15 12:00 | disposition home or self-care (01) ==
LOC: SDC 10:48
PROVIDERS: ATTEND Dentist General Practice
DX: K02.9 Dental caries, unspecified (principal)

== ENCOUNTER 2023-01-29 05:38 | Outpatient (CLI) | payer MEDICARE, MEDICAID ==
[~2023-01-29] VITALS: Ht 185.4 cm; Wt 97.5 kg
[~2023-01-29 05:38] MED LIST changes: +DIPH-958 PO; -DIPH25CA45 PO; -RISP2TAB3 PO; +RISP2TAB84 PO
[2023-01-31] MEDS ORDERED: RISP3TAB62 PO (10:32)
[2023-01-31] MEDS ORDERED: TMSL.4C PO (10:32)
[2023-01-31] MEDS ORDERED: TRAZ150T72 PO (10:32)
[2023-01-31] MEDS ORDERED: FINA5TAB6 PO (10:32)
== END 2023-01-31 10:33 | disposition home or self-care (01) ==
LOC: PREOP 05:38
PROVIDERS: ATTEND Dentist General Practice
DX: Z01.818 Encounter for other preprocedural examination (principal)

== ENCOUNTER 2023-02-05 09:38 | Day surgery (SDC) | payer MEDICARE, MEDICAID ==
[~2023-02-05] VITALS: Ht 185.4 cm; Wt 97.5 kg
[2023-02-05] VITALS (9 sets, daily range): BP systolic 122–136; BP diastolic 79–94
[~2023-02-05 09:38] MED LIST changes: +FINA5TAB6 PO; +RISP3TAB62 PO; +TMSL.4C PO; +TRAZ150T72 PO
[2023-02-05] MEDS: LACTATED RINGERS 1,000 ML 1,000 ML IV PRN ×2 (10:17→12:21)
[2023-02-05] MEDS ORDERED: fentaNYL INJECTION 100 MCG/2 ML VIAL ONE (11:11)
[2023-02-05] MEDS ORDERED: LIDOCAINE PF 2% 5 ML VIAL ONE (11:13)
[2023-02-05] MEDS ORDERED: proPOfol INJECTION 200 MG/20 ML VIAL IV ONE ×2 (11:13→14:07)
[2023-02-05] MEDS ORDERED: LIDOCAINE JELLY 2% 6 ML SYRINGE ONE (11:14)
[2023-02-05] MEDS ORDERED: PHENYLEPHRINE 0.25% (MILD) NASAL SPRAY 15 ML NS ONE (11:39)
[2023-02-05] MEDS ORDERED: ROCURONIUM 50 MG/5 ML VIAL IV ONE (14:13)
[2023-02-05] MEDS ORDERED: ONDANSETRON INJECTION 4 MG/2 ML (SDV) ONE (14:15)
[2023-02-05] MEDS ORDERED: SEVOFLURANE (ULTANE) 15 ML INHAL SOLN ONE (14:15)
[2023-02-05] MEDS ORDERED: dexAMETHasone INJ 10 MG/ML 1 ML VIAL ONE (14:15)
--- NOTE | 2023-02-05 14:29 | Anesthesia-General Post-Op ---
General Patient Condition Mental Status/LOC: Same as Preop Cardiovascular: Satisfactory Nausea/Vomiting: Absent Respiratory: Satisfactory Pain: Controlled Complications: Absent Post Op Complications Complications None Follow Up Care/Instructions Patient Instructions None needed. Anesthesia/Patient Condition Patient Condition Patient is doing well, no complaints, stable vital signs, no apparent adverse anesthesia problems. No complications reported per nursing. AKI DRAPER CRNA Feb 05, 2023 14:29
[2023-02-05] MEDS ORDERED: MEPERIDINE INJ 50 MG/ML VIAL IVP ONE (14:30)
[2023-02-05] MEDS ORDERED: HYDROmorphone INJECTION 2 MG/ML VIAL IV ONE (14:30)
[2023-02-05] MEDS ORDERED: fentaNYL INJECTION 100 MCG/2 ML VIAL IVP ONE (14:30)
[2023-02-05] MEDS ORDERED: morphine INJ 10 MG/ML 1ML (SYR OR VIAL) IVP ONE (14:30)
[2023-02-05] MEDS ORDERED: ONDANSETRON INJECTION 4 MG/2 ML (SDV) IVP PRN (14:30)
--- NOTE | 2023-02-07 16:26 | OPERATIVE REPORT ---
DATE OF SERVICE: 02/05/2023 PREOPERATIVE DIAGNOSIS: Dental caries and periodontal disease as well as irreversible pulpitis. OPERATION PERFORMED: Repair of numerous carious teeth utilizing subgingival scaling and irrigation, root canal therapy and composite restorations. The patient was treated on an outpatient basis. DESCRIPTION OF PROCEDURE: Following suitable premedication, he was taken to the OR and placed in the supine position upon the table. Anesthesia was induced. A nasotracheal intubation was accomplished and general anesthesia was administered. A throat pack consisting of one 4 x 4 gauze sponge was placed in the oropharynx and maintained in place throughout the procedure [ ] mechanical retractors were utilized at any point. Mouth opening was maintained at all times with simple digital pressure. Complete mouth subgingival irrigation and scaling was accomplished, followed by root canal therapy on tooth #11. Teeth 6, 9, 11, 20, 21 and 30 then were repaired with composite resins. The patient tolerated this procedure quite nicely and following a thorough debridement of the oral cavity with a copious sterile water, adequate suction and compressed air, the throat pack was removed. The patient was extubated and taken to recovery room in quite satisfactory condition. Job ID: [id number] DocumentID: [id number] Dictated Date: 02/07/2023 12:40:42 Geneticist Date: 02/07/2023 16:04:00 Dictated By: DRAKE CRANDALL DDS
== END 2023-02-05 16:00 | disposition home or self-care (01) ==
LOC: SDC 09:38
PROVIDERS: ATTEND Dentist General Practice
DX: K02.9 Dental caries, unspecified (principal); K04.02 Irreversible pulpitis; Z87.891 Personal history of nicotine dependence
CPT/HCPCS: 87081